=== PATIENT | female | born 2005 | race Caucasian/White ===

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

== ENCOUNTER 2023-01-12 15:08 | Emergency (ER) | payer OTHER, SELFPAY ==
[2023-01-12 15:16] VITALS: BP 115/80; PULSE 63; RESP 18; TEMP 36.8; O2SAT 98
--- NOTE | 2023-01-12 15:24 | ED.DIZZY ---
HPI - Dizziness General Chief Complaint: Syncope Stated Complaint: Syncope Time Seen by Provider: 01/12/23 15:09 Source: patient Mode of arrival: ambulatory Limitations: no limitations History of Present Illness HPI Narrative: 17-year-old female with a history of asthma, IgA deficiency, Ehler Danlos, mitral valve prolapse, POTS, migraine presents to the ER with acute onset -- lightheadedness and dizziness while she was taking her groceries from the car. The patient felt everything in front of her go dark. No chest pain or shortness of breath. The patient had an episode of migraine yesterday for which she took a cocktail containing Zofran, Benadryl and ketorolac. Her symptoms to have come on after she took this cocktail last night. She had a previous episode of migraine following which she took this cocktail which caused her to have similar symptoms. MD elicited complaint: dizziness and lightheadedness Pertinent past history: other ( pots) Onset (ago): hour(s) ( 1 hour ago) Timing: sudden onset Severity: moderate Description: lightheadedness Context: change in body position History of similar symptoms: Yes Exacerbating factors: nothing Relieving factors: nothing Associated symptoms: denies other symptoms Related Data Home Medications Medication Instructions Recorded Confirmed cefdinir 300 mg capsule 300 mg PO DAILY 05/15/19 08/06/21 gabapentin 300 mg capsule 300 mg PO TID PRN Pain 05/15/19 08/06/21 methocarbamol 500 mg tablet 500 mg PO DAILY 05/15/19 08/06/21 montelukast 10 mg tablet 5 mg PO DAILY 05/15/19 08/06/21 pantoprazole 20 mg tablet,delayed 20 mg PO DAILY 05/15/19 08/06/21 release rizatriptan 10 mg tablet 10 mg PO DIRECTED PRN Migraine 05/15/19 08/06/21 Headache topiramate 25 mg tablet 50 mg PO BID 05/15/19 08/06/21 acetaminophen 500 mg tablet 1,000 mg PO TID PRN Pain 12/12/19 08/06/21 (Tylenol Extra Strength) albuterol sulfate 90 mcg/actuation 1 - 2 puff inhalation Q4-5H PRN 12/12/19 08/06/21 aerosol inhaler (ProAir HFA) Wheezing cholecalciferol (vitamin D3) 25 25 mcg PO DAILY 12/12/19 08/06/21 mcg (1,000 unit) capsule (Vitamin D3) doxycycline hyclate 100 mg capsule 100 mg PO BID 04/21/21 08/06/21 hydrocodone 5 mg-acetaminophen 325 1 tablet PO Q4H PRN Pain 04/21/21 08/06/21 mg tablet Allergies Allergy/AdvReac Type Severity Reaction Status Date / Time codeine AdvReac Mild Insomnia Verified 04/17/22 15:18 prochlorperazine AdvReac Mild dystonic Verified 04/17/22 15:18 reaction Review of Systems Review of Systems: All systems reviewed & are unremarkable except as noted in HPI and below Constitutional: Constitutional: Reports as per HPI and Reports no additional constitutional complaints Eyes: Eyes: Reports as per HPI and Reports no additional eye complaints ENT: Reports system reviewed and no additional complaints, except as documented and Reports as per HPI Cardiovascular: Cardiovascular: Reports as per HPI and Reports no additional cardiovascular complaints Respiratory: Respiratory: Reports as per HPI and Reports no additional respiratory complaints Gastrointestinal: Gastrointestinal: Reports as per HPI and Reports no additional gastrointestinal complaints Genitourinary: Genitourinary: Reports no additional female genitourinary complaints and Reports as per HPI Musculoskeletal: Musculoskeletal: Reports no additional musculoskeletal complaints and Reports as per HPI Integumentary/Breasts: Skin/Breast: Reports system reviewed and no additional complaints, except as docu and Reports as per HPI Neurologic: Reports system reviewed and no additional complaints, except as documented, Reports as per HPI and Reports dizziness Psychiatric: Psychiatric: Reports no additional psychiatric complaints and Reports as per HPI Endocrine: Endocrine: Reports no additional endocrine complaints and Reports as per HPI Hematologic/Lymphatic: Hematologic/Lymphatic: Reports no additional hemato
--- NOTE | 2023-01-12 15:40 | ECG_ITS ---
Measurements Intervals [place] Rate: 59 P: 11 NC: 135 QRS: 63 QRSD: 86 T: 11 QT: 400 QTc: 398 Interpretive Statements SINUS BRADYCARDIA COMPARED TO ECG 10/31/2019 11:45:09 SINUS BRADYCARDIA NOW PRESENT Electronically Signed On 01-12-2023 19:31:35 CDT by Tracy Wright M.D.
[2023-01-12 15:46] VITALS: PULSE 63
[2023-01-12 15:57] LABS: Basophils Absolute Auto 0.09 K/mm3 (0.00-0.10); Basophils Percent Auto 1.3 % (0.0-1.0); Eosinophils Percent Auto 4.2 % (1.0-6.0); Hematocrit 40.2 % (35.0-49.0); Hemoglobin 13.6 g/dL (12.0-15.0); Immature Granulocyte Absolute 0.02 K/mm3 (0.00-0.00); Immature Granulocyte Percent A 0.3 % (0.0-0.0); Lymphocytes Absolute Auto 1.65 K/mm3 (1.10-4.50); Lymphocytes Percent Auto 23.3 % (18.0-42.0); Mean Corpuscular HGB Conc 33.8 g/dL (32.0-36.0); Mean Corpuscular Hemoglobin 29.4 pg (27.0-31.0); Mean Corpuscular Volume 86.8 fL (78.0-102.0); Mean Platelet Volume 9.1 fl (9.2-11.8); Monocytes Absolute Auto 0.64 K/mm3 (0.10-0.90); Neutrophils Absolute Auto 4.4 K/mm3 (1.7-7.2); Neutrophils Percent Auto 61.9 % (50.0-70.0); Platelet Count Result 366 K/mm3 (150-420); Red Blood Count 4.63 M/mm3 (4.20-5.40); Red Cell Distribution Width 11.9 % (11.6-14.4); White Blood Count 7.1 K/mm3 (4.8-10.8)
[2023-01-12 16:00] LABS: Appearance Urine Clear (Clear); Bilirubin Urine Negative (Negative); Blood Urine Negative (Negative); Color Urine Light Yellow (Yellow); Glucose Urine UA Negative (Negative); Ketones Urine Negative (Negative); Leukocyte Esterase Ur Negative LEU/UL (Negative); Nitrate Urine Negative (Negative); Protein Urine Negative (Negative); Specific Grav Ur <= 1.005 (1.010-1.020); Urobilinogen Urine 0.2 mg/dL (0.2-1.0); pH Urine 7.5 (5.0-8.0)
[2023-01-12 16:01] VITALS: BP 116/71
[2023-01-12 16:02] VITALS: BP 106/78; BP 114/74; PULSE 71; PULSE 73
[2023-01-12 16:03] LABS: Add Urine Microscopic? NO
[2023-01-12 16:04] LABS: Pregnancy On Board Control Positive; Urine Pregnancy Test Negative
[2023-01-12 16:19] LABS: Lactic Acid Reflex 0.9 mmol/L (0.4-2.0)
[2023-01-12 16:22] LABS: Alanine Aminotransferase 17 U/L (14-59); Albumin Level 4.4 g/dL (3.4-5.0); Alkaline Phosphatase 102 U/L (50-130); Anion Gap 12 mmol/L (8-16); Aspartate Amino Transferase 12 U/L (15-37); Bilirubin,Total 0.6 mg/dL (0.00-1.00); Blood Urea Nitrogen 13 mg/dL (7-18); Calcium 9.9 mg/dL (8.5-10.1); Carbon Dioxide 25 mmol/L (21-32); Chloride 104 mmol/L (98-108); Estimated CRCL calculation 80 ml/min; Estimated Glomerular Filt Rate > 60; Glucose 87 mg/dL (70-99); Osmolality Calculated 291 mOsm/kg (285-295); Potassium 3.7 mmol/L (3.5-5.1); Sodium 141 mmol/L (136-145); Total Protein 8.4 g/dL (6.4-8.2)
[2023-01-12 16:23] LABS: Troponin I < 4.0 ng/L (0.00-60.4)
--- NOTE | 2023-01-12 16:59 | PC.NURSE ---
pt resting per cot. noted arms /fingers spasming. head twitching slightly. dr craft in room with pt.
[2023-01-12 17:00] VITALS: BP 117/81; PULSE 61; RESP 20; O2SAT 99
[2023-01-12 17:26] VITALS: BP 102/72; PULSE 99; RESP 20; TEMP 37.2; O2SAT 98
== END 2023-01-12 17:30 | disposition home or self-care (01) ==
PROVIDERS: Emergency Provider Internal Medicine Critical Care Medicine; PCP Pediatrics
DX: R42 Dizziness and giddiness (principal); F41.9 Anxiety disorder, unspecified; G90.A Postural orthostatic tachycardia syndrome [POTS]; J45.909 Unspecified asthma, uncomplicated; Q79.60 Ehlers-Danlos syndrome, unspecified; D80.2 Selective deficiency of immunoglobulin A [IgA]; I34.1 Nonrheumatic mitral (valve) prolapse; K21.9 Gastro-esophageal reflux disease without esophagitis; Z79.51 Long term (current) use of inhaled steroids; Z79.891 Long term (current) use of opiate analgesic
CPT/HCPCS: 36415; 80053; 81003; 81025; 83605; 84484; 85025; 93005; 99284

== ENCOUNTER 2023-07-26 16:22 | Outpatient (CLI) | payer OTHER, SELFPAY ==
--- NOTE | ~2023-07-26 | XR_ITS ---
XR abdomen/kub 1V 07/26/2023 16:52 INDICATION: Constipation TECHNIQUE: KUB COMPARISON: None FINDINGS: Bowel gas pattern is normal. There is no evidence of free air, mass, organomegaly, ascites or obstruction. No abnormal calculi are seen. The bones appear intact. IMPRESSION: 1: No acute abdominal abnormality identified. Reviewed, dictated and finalized at location B.
== END 2023-07-26 16:23 | disposition home or self-care (01) ==
PROVIDERS: PCP Pediatrics; Visit Provider Nurse Practitioner Family
DX: K58.2 Mixed irritable bowel syndrome (principal)
CPT/HCPCS: 74018

== ENCOUNTER 2023-11-09 05:32 | Emergency (ER) | payer OTHER, SELFPAY ==
--- NOTE | ~2023-11-09 | CT_ITS ---
Noncontrast CT scan of the cervical spine Technique: Multiple contiguous axial [address] images of the cervical spine were obtained and rec onstructed in 2D sagittal and coronal planes on the acquisition scanner. Dose reduction technique was used on this scan by utilizing automated exposure control, adjustment of the mA and/or kV according to patient size. The dose-length product (DLP) was 312.50 mGy-cm. Clinical History: Pain Findings: No fractures or dislocations. There is reversal of the normal cervical lordosis. Otherwise unremarkable visualized bony structures. The intervertebral disc spaces are preserved. No preverteb ral soft tissue swelling. Impression: Reversal normal cervical lordosis, otherwise unremarkable exam. Reviewed, dictated and finalized at location M. Impression: Reversal normal cervical lordosis, otherwise unremarkable exam.
--- NOTE | 2023-11-09 05:38 | PC.NURSE ---
ER provider notified that patient is in room 1
[2023-11-09 05:45] VITALS: BP 137/104; PULSE 97; RESP 18; TEMP 36; O2SAT 98
--- NOTE | 2023-11-09 05:45 | ED.NECK ---
HPI - Neck Pain/Injury General Chief Complaint: Neck Pain/Injury Stated Complaint: neck discomfort Source: patient Mode of arrival: ambulatory Limitations: no limitations History of Present Illness HPI Narrative: Patient is a 18-year-old female with the cervical neck pain this morning. Patient was moving in the bed and heard 3 loud pop sounds while she was moving and sustained some residual pain in her cervical spine. No head injury. No forceful cervical neck injury. No other injuries. She is also having some other anxiety related symptoms after concerns for her cervical spine. MD complaint: neck pain Onset (ago): hour(s) (1) Place: home Radiation: occiput Severity: moderate Severity scale (1-10): 4 Quality: sharp Duration: constant Relieving factors: none Exacerbating factors: none Context: turning/bending Associated symptoms: none Treatments prior to arrival: none Related Data Home Medications Medication Instructions Recorded Confirmed cefdinir 300 mg capsule 300 mg PO DAILY 05/15/19 08/06/21 gabapentin 300 mg capsule 300 mg PO TID PRN Pain 05/15/19 08/06/21 methocarbamol 500 mg tablet 500 mg PO DAILY 05/15/19 08/06/21 montelukast 10 mg tablet 5 mg PO DAILY 05/15/19 08/06/21 pantoprazole 20 mg tablet,delayed 20 mg PO DAILY 05/15/19 08/06/21 release rizatriptan 10 mg tablet 10 mg PO DIRECTED PRN Migraine 05/15/19 08/06/21 Headache topiramate 25 mg tablet 50 mg PO BID 05/15/19 08/06/21 acetaminophen 500 mg tablet 1,000 mg PO TID PRN Pain 12/12/19 08/06/21 (Tylenol Extra Strength) albuterol sulfate 90 mcg/actuation 1 - 2 puff inhalation Q4-5H PRN 12/12/19 08/06/21 aerosol inhaler (ProAir HFA) Wheezing cholecalciferol (vitamin D3) 25 25 mcg PO DAILY 12/12/19 08/06/21 mcg (1,000 unit) capsule (Vitamin D3) doxycycline hyclate 100 mg capsule 100 mg PO BID 04/21/21 08/06/21 hydrocodone 5 mg-acetaminophen 325 1 tablet PO Q4H PRN Pain 04/21/21 08/06/21 mg tablet Allergies Allergy/AdvReac Type Severity Reaction Status Date / Time codeine AdvReac Mild Insomnia Verified 04/17/22 15:18 prochlorperazine AdvReac Mild dystonic Verified 04/17/22 15:18 reaction Review of Systems Review of Systems: All systems reviewed & are unremarkable except as noted in HPI and below Constitutional: Constitutional: Reports no additional constitutional complaints Eyes: Eyes: Reports no additional eye complaints ENT: Reports system reviewed and no additional complaints, except as documented Cardiovascular: Cardiovascular: Reports no additional cardiovascular complaints Respiratory: Respiratory: Reports no additional respiratory complaints Gastrointestinal: Gastrointestinal: Reports no additional gastrointestinal complaints Genitourinary: Genitourinary: Reports no additional female genitourinary complaints Musculoskeletal: Musculoskeletal: Reports no additional musculoskeletal complaints Integumentary/Breasts: Skin/Breast: Reports system reviewed and no additional complaints, except as docu Neurologic: Reports system reviewed and no additional complaints, except as documented Psychiatric: Psychiatric: Reports no additional psychiatric complaints Endocrine: Endocrine: Reports no additional endocrine complaints Hematologic/Lymphatic: Hematologic/Lymphatic: Reports no additional hematologic/lymphatic complaints Allergic/Immunologic: Allergic/Immunologic: Reports no additional allergic/immunologic complaints PMFSH Past Medical History Medical History Asthma Connective 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 GERD (gastroesophageal reflux disease) Ovarian cyst PONV (postoperative nausea and vomiting) POTS (postural orthostatic tachycardia syndrome) Surgical History Surgical History No pertinent past surgical history Social History Social History Smoking status:
--- NOTE | 2023-11-09 05:53 | PC.NURSE ---
patient ambulated to the bathroom without difficulty to give urine sample. patient was moving head and neck without difficulty while ambulating
--- NOTE | 2023-11-09 05:58 | PC.NURSE ---
urine sample was walked down to the lab
[2023-11-09 06:03] LABS: Pregnancy On Board Control Positive; Urine Pregnancy Test Negative
--- NOTE | 2023-11-09 06:15 | PC.NURSE ---
patient was transported to ct via wheel chair. moved without difficulty
--- NOTE | 2023-11-09 06:21 | PC.NURSE ---
patient has returned from ct. patient moved self without difficulty.
[2023-11-09 06:58] VITALS: BP 119/77; PULSE 85; RESP 18; O2SAT 96
== END 2023-11-09 06:58 | disposition home or self-care (01) ==
PROVIDERS: Emergency Provider Emergency Medicine; PCP Pediatrics
DX: S16.1XXA Strain of muscle, fascia and tendon at neck level, initial encounter (principal); X58.XXXA Exposure to other specified factors, initial encounter
CPT/HCPCS: 72125; 81025; 99284

== ENCOUNTER 2024-01-18 16:19 | Emergency (ER) | payer OTHER, SELFPAY ==
[2024-01-18 16:20] VITALS: BP 117/74; PULSE 80; RESP 18; TEMP 36.2; O2SAT 98
--- NOTE | 2024-01-18 16:28 | ED.GENADULT ---
HPI - General Adult General Chief complaint: Unspecified Stated complaint: DIZZINESS Time Seen by Provider: 01/18/24 16:27 Source: patient Mode of arrival: ambulatory Limitations: no limitations History of Present Illness HPI narrative: 18-year-old female with history of anxiety, pots, MVP, migraine, ovarian cyst, endometriosis with pelvic pain status post hysteroscopy /D&C/ destruction of endometriosis, , asthma, G deficiency [place] loss presents to the ED presents to the ED with a 3 day history of -- nausea/vomiting/ diarrhea. She has had 1-2 episodes of vomiting in 1-2 episodes of diarrhea. Blood and mucus noted. No abdominal pain noted. -- Patient has a brain fog feels drowsy lethargic. She has dizziness when she stands up. She has had the symptoms in the past. -- Cough productive of mucoid sputum. No chest pain. No shortness of breath. -- Frontal headache. The patient has a history of migraine. The current headache is noted on both sides. No photophobia. -- Bilateral leg pains. Onset (ago): day(s) ( Three days) Radiation: non-radiation Severity: moderate Pain Consistency: constant Relieving factors: none Exacerbating factors: none Associated symptoms: cough, headaches, loss of appetite, nausea/vomiting and weakness Treatments prior to arrival: none Related Data Home Medications Medication Instructions Recorded Confirmed cefdinir 300 mg capsule 300 mg PO DAILY 05/15/19 08/06/21 gabapentin 300 mg capsule 300 mg PO TID PRN Pain 05/15/19 08/06/21 methocarbamol 500 mg tablet 500 mg PO DAILY 05/15/19 08/06/21 montelukast 10 mg tablet 5 mg PO DAILY 05/15/19 08/06/21 pantoprazole 20 mg tablet,delayed 20 mg PO DAILY 05/15/19 08/06/21 release rizatriptan 10 mg tablet 10 mg PO DIRECTED PRN Migraine 05/15/19 08/06/21 Headache topiramate 25 mg tablet 50 mg PO BID 05/15/19 08/06/21 acetaminophen 500 mg tablet 1,000 mg PO TID PRN Pain 12/12/19 08/06/21 (Tylenol Extra Strength) albuterol sulfate 90 mcg/actuation 1 - 2 puff inhalation Q4-5H PRN 12/12/19 08/06/21 aerosol inhaler (ProAir HFA) Wheezing cholecalciferol (vitamin D3) 25 25 mcg PO DAILY 12/12/19 08/06/21 mcg (1,000 unit) capsule (Vitamin D3) doxycycline hyclate 100 mg capsule 100 mg PO BID 04/21/21 08/06/21 hydrocodone 5 mg-acetaminophen 325 1 tablet PO Q4H PRN Pain 04/21/21 08/06/21 mg tablet Allergies Allergy/AdvReac Type Severity Reaction Status Date / Time codeine AdvReac Mild Insomnia Unverified 01/18/24 16:29 prochlorperazine AdvReac Mild dystonic Verified 01/18/24 16:29 reaction Review of Systems Review of Systems: All systems reviewed & are unremarkable except as noted in HPI and below Constitutional: Constitutional: Reports as per HPI and Reports no additional constitutional complaints Eyes: Eyes: Reports as per HPI and Reports no additional eye complaints ENT: Reports system reviewed and no additional complaints, except as documented, Reports as per HPI and Reports dizziness Cardiovascular: Cardiovascular: Reports as per HPI and Reports no additional cardiovascular complaints Respiratory: Respiratory: Reports as per HPI, Reports no additional respiratory complaints and Reports cough Gastrointestinal: Gastrointestinal: Reports as per HPI, Reports no additional gastrointestinal complaints, Reports diarrhea, Reports nausea and Reports vomiting Genitourinary: Genitourinary: Reports no additional female genitourinary complaints Musculoskeletal: Musculoskeletal: Reports no additional musculoskeletal complaints Integumentary/Breasts: Skin/Breast: Reports system reviewed and no additional complaints, except as docu Neurologic: Reports system reviewed and no additional complaints, except as documented and Reports as per HPI Psychiatric: Psychiatric: Reports no additional psychiatric complaints and Reports as per HPI Endocrine: Endocrine: Reports no additional endocrine complaints and Reports as per HPI Hematologic/Lymp
[2024-01-18 16:35] VITALS: RESP 16; O2SAT 100
[2024-01-18 16:54] LABS: Add Urine Microscopic? NO; Appearance Urine Clear (Clear); Bilirubin Urine Negative (Negative); Blood Urine Negative (Negative); Color Urine Light Yellow (Yellow); Glucose Urine UA Negative (Negative); Ketones Urine Negative (Negative); Leukocyte Esterase Ur Negative LEU/UL (Negative); Nitrate Urine Negative (Negative); Protein Urine Negative (Negative); Specific Grav Ur >= 1.030 (1.010-1.020); Urobilinogen Urine 0.2 mg/dL (0.2-1.0); pH Urine 5.5 (5.0-8.0)
[2024-01-18 16:57] LABS: Pregnancy On Board Control Positive; Urine Pregnancy Test Negative
[2024-01-18 17:11] LABS: Basophils Absolute Auto 0.05 K/mm3 (0.00-0.10); Basophils Percent Auto 0.8 % (0.0-1.0); Eosinophils Absolute Auto 0.22 K/mm3 (0.02-0.50); Eosinophils Percent Auto 3.4 % (1.0-6.0); Hematocrit 40.8 % (35.0-49.0); Hemoglobin 14.1 g/dL (12.0-15.0); Immature Granulocyte Absolute 0.01 K/mm3 (0.00-0.00); Immature Granulocyte Percent A 0.2 % (0.0-0.0); Lymphocytes Absolute Auto 1.42 K/mm3 (1.10-4.50); Lymphocytes Percent Auto 21.7 % (18.0-42.0); Mean Corpuscular HGB Conc 34.6 g/dL (32-36); Mean Corpuscular Hemoglobin 29.3 pg (27.0-31.0); Mean Corpuscular Volume 84.8 fL (78.0-102.0); Mean Platelet Volume 9.2 fl (9.2-11.8); Monocytes Absolute Auto 0.41 K/mm3 (0.10-0.90); Monocytes Percent Auto 6.3 % (2.0-11.0); Neutrophils Absolute Auto 4.42 K/mm3 (1.70-7.20); Neutrophils Percent Auto 67.6 % (50.0-70.0); Platelet Count Result 328 K/mm3 (150-420); Red Blood Count 4.81 M/mm3 (4.20-5.40); Red Cell Distribution Width 12.4 % (11.6-14.4); White Blood Count 6.5 K/mm3 (4.8-10.8)
[2024-01-18 17:26] LABS: Alanine Aminotransferase 20 U/L (14-59); Alkaline Phosphatase 79 U/L (46-116); Anion Gap 11 mmol/L (4-12); Aspartate Amino Transferase 18 U/L (15-37); Bilirubin,Total 0.4 mg/dL (0.00-1.00); Blood Urea Nitrogen 17 mg/dL (7-18); Calcium 8.7 mg/dL (8.5-10.1); Carbon Dioxide 24 mmol/L (21-32); Chloride 103 mmol/L (98-108); Estimated CRCL calculation 68 ml/min; Estimated Glomerular Filt Rate > 60; Glucose 112 mg/dL (70-99); Osmolality Calculated 288 mOsm/kg (285-295); Potassium 3.1 mmol/L (3.5-5.1); Sodium 138 mmol/L (136-145); Total Protein 7.9 g/dL (6.4-8.2)
[2024-01-18 17:27] LABS: SARS-CoV-2 RNA PCR Negative (Negative)
[2024-01-18 17:29] LABS: Influenza A QL RT-PCR Negative (Negative); Influenza B QL RT-PCR Negative (Negative); RSV RNA, RT-PCR Negative (Negative)
[2024-01-18 17:39] LABS: Lactic Acid Reflex 0.9 mmol/L (0.4-2.0)
[2024-01-18] MEDS: POTASSIUM CHLORIDE 20 MEQ ER TABLET PO (17:49)
[2024-01-18 17:51] VITALS: BP 110/82; PULSE 80; RESP 14; TEMP 36.1; O2SAT 99
== END 2024-01-18 17:55 | disposition home or self-care (01) ==
PROVIDERS: Emergency Provider Internal Medicine Critical Care Medicine; PCP Pediatrics
DX: J06.9 Acute upper respiratory infection, unspecified (principal); R42 Dizziness and giddiness; E87.6 Hypokalemia; Z20.822 Contact with and (suspected) exposure to COVID-19
CPT/HCPCS: 36415; 80053; 81003; 81025; 83605; 85025; 87637; 99283; A9270

== ENCOUNTER 2024-01-20 16:23 | Emergency (ER) | payer OTHER, SELFPAY ==
[2024-01-20 17:03] VITALS: BP 125/88; PULSE 61; RESP 16; TEMP 36.3; O2SAT 100
--- NOTE | 2024-01-20 18:54 | ED.GENADULT ---
HPI - General Adult General Chief complaint: Nausea/Vomiting/Diarrhea Stated complaint: Vomiting/Migraine Source: patient Mode of arrival: ambulatory Limitations: no limitations History of Present Illness HPI narrative: 18-year-old white female history of anxiety pots mitral valve prolapse migraine endometriosis see emergency room 2 days ago with nausea vomiting had a potassium at 3.1 she has been taking Zofran at home complains of persistent vomiting unable to keep fluids down she thinks she needs an IV fluid bag so she can catch up from her dehydration. Vomited 5 times before coming to emergency department today. Last bowel movement was 2 days ago was normal denies any problems voiding. Denies any rash or itching swelling lumps or bumps dizziness or lightheadedness chest pain. She has a mild headache frontal over the eyes and forehead. She has not taken anything for the headache today. Denies any other pain. Rash or itching problems walking talking seeing or hearing or any other complaints. She comes in with her mother. Related Data Home Medications Medication Instructions Recorded Confirmed gabapentin 300 mg capsule 300 mg PO TID PRN Pain 05/15/19 01/20/24 methocarbamol 500 mg tablet 500 mg PO DAILY 05/15/19 01/20/24 montelukast 10 mg tablet 5 mg PO DAILY 05/15/19 01/20/24 pantoprazole 20 mg tablet,delayed 20 mg PO DAILY 05/15/19 01/20/24 release rizatriptan 10 mg tablet 10 mg PO DIRECTED PRN Migraine 05/15/19 01/20/24 Headache topiramate 25 mg tablet 50 mg PO BID 05/15/19 01/20/24 acetaminophen 500 mg tablet 1,000 mg PO TID PRN Pain 12/12/19 01/20/24 (Tylenol Extra Strength) albuterol sulfate 90 mcg/actuation 1 - 2 puff inhalation Q4-5H PRN 12/12/19 01/20/24 aerosol inhaler (ProAir HFA) Wheezing cholecalciferol (vitamin D3) 25 25 mcg PO DAILY 12/12/19 01/20/24 mcg (1,000 unit) capsule (Vitamin D3) hydrocodone 5 mg-acetaminophen 325 1 tablet PO Q4H PRN Pain 04/21/21 01/20/24 mg tablet midodrine 5 mg tablet 5 mg TID 01/20/24 01/20/24 propranolol 10 mg tablet 5 mg BID 01/20/24 01/20/24 Allergies Allergy/AdvReac Type Severity Reaction Status Date / Time codeine AdvReac Mild Insomnia Verified 01/18/24 17:46 prochlorperazine AdvReac Mild dystonic Verified 01/18/24 16:29 reaction Review of Systems Review of Systems: All systems reviewed & are unremarkable except as noted in HPI and below PMFSH Past Medical History Medical History Asthma Connective 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 GERD (gastroesophageal reflux disease) Ovarian cyst PONV (postoperative nausea and vomiting) POTS (postural orthostatic tachycardia syndrome) Surgical History Surgical History No pertinent past surgical history Social History Social History Smoking status: Never smoker Alcohol intake: never Substance use: never Substance use type: does not use Living arrangements: with family Spiritual care concerns: No Exam Narrative: White female patient with no apparent distress.? Head normocephalic, atraumatic.? Eyes conjunctiva pink sclera nonicteric.? Extraocular movements are intact.? Ears externally normal.? Oropharynx is clear with moist mucous membranes without exudates.? Neck is supple nontender no lymphadenopathy.? Back is nontender.? Lungs are clear.? Heart is regular rate and rhythm without murmurs gallops or rubs.? Chest wall nontender. Abdomen is soft and nontender no hepatosplenomegaly or masses no CVA tenderness no abdominal bruits.? Extremities no cyanosis clubbing or edema.? Skin is warm and dry without rashes or lesions.? Neurological patient is alert and oriented x4.? Motor and sensory grossly intact.? Gait is normal. Course Vital Signs Vital signs: Vital Signs Temperature 36.3 C L 01/20/24 17:03 Pulse Rate 61 01/20/24 17
--- NOTE | 2024-01-20 19:35 | PC.NURSE ---
IV attempted x 2. unable to obtain. labs were drawn and sent to lab.
--- NOTE | 2024-01-20 19:35 | PC.NURSE ---
updated pt and mother on change of shift and plan of care. voiced understanding
[2024-01-20 19:41] LABS: Hematocrit 39.5 % (35.0-49.0); Hemoglobin 13.6 g/dL (12.0-15.0); Mean Corpuscular HGB Conc 34.4 g/dL (32-36); Mean Corpuscular Hemoglobin 29.6 pg (27.0-31.0); Mean Corpuscular Volume 86.1 fL (78.0-102.0); Mean Platelet Volume 9.7 fl (9.2-11.8); Platelet Count Result 339 K/mm3 (150-420); Red Blood Count 4.59 M/mm3 (4.20-5.40); Red Cell Distribution Width 12.8 % (11.6-14.4); White Blood Count 9.2 K/mm3 (4.8-10.8)
[2024-01-20 19:54] LABS: Alanine Aminotransferase 21 U/L (14-59); Albumin Level 4.5 g/dL (3.4-5.0); Alkaline Phosphatase 91 U/L (46-116); Anion Gap 13 mmol/L (4-12); Aspartate Amino Transferase 26 U/L (15-37); Bilirubin,Total 0.7 mg/dL (0.00-1.00); Blood Urea Nitrogen 19 mg/dL (7-18); Calcium 9.5 mg/dL (8.5-10.1); Carbon Dioxide 21 mmol/L (21-32); Chloride 103 mmol/L (98-108); Estimated CRCL calculation 88 ml/min; Estimated Glomerular Filt Rate > 60; Glucose 76 mg/dL (70-99); Magnesium 2.5 mg/dL (1.8-2.4); Osmolality Calculated 285 mOsm/kg (285-295); Potassium 3.7 mmol/L (3.5-5.1); Sodium 137 mmol/L (136-145); Total Protein 8.7 g/dL (6.4-8.2)
[2024-01-20 20:04] VITALS: BP 105/72; PULSE 75; RESP 18; TEMP 36.2; O2SAT 100
[2024-01-20] MEDS: ONDANSETRON HCL ODT 4 MG TABLET PO (20:08)
[2024-01-20] MEDS: ACETAMINOPHEN 325 MG TABLET 650 MG PO (20:09)
--- NOTE | 2024-01-20 20:17 | PC.NURSE ---
lab at bedside drawing lactic
--- NOTE | 2024-01-20 20:29 | PC.NURSE ---
pt given water to sip after zofran. would like to try that before being stuck again. mother at bedside
[2024-01-20 20:44] LABS: Lactic Acid Reflex 0.7 mmol/L (0.4-2.0)
--- NOTE | 2024-01-20 21:05 | PC.NURSE ---
pt sipping at water. no vomiting noted.
[2024-01-20 21:56] VITALS: BP 102/66; PULSE 96; RESP 18; O2SAT 100
== END 2024-01-20 21:56 | disposition home or self-care (01) ==
PROVIDERS: Emergency Provider Emergency Medicine; PCP Pediatrics
DX: R11.2 Nausea with vomiting, unspecified (principal); Z79.899 Other long term (current) drug therapy; Z79.891 Long term (current) use of opiate analgesic
CPT/HCPCS: 36415; 80053; 83605; 83735; 85027; 99283; A9270

== ENCOUNTER 2024-05-11 15:22 | Emergency (ER) | payer OTHER, SELFPAY ==
[2024-05-11 15:24] VITALS: BP 122/68; PULSE 69; RESP 20; TEMP 36.9; O2SAT 96
--- NOTE | 2024-05-11 15:25 | ED_ITS ---
HPI - URI/Sore Throat General Chief Complaint: Upper Respiratory Infection Stated Complaint: headache Time Seen by Provider: 05/11/24 15:23 Source: patient and family Mode of arrival: ambulatory Limitations: no limitations History of Present Illness HPI Narrative: Patient is a 18-year-old female with cough and congestion and upper respiratory complaints. She has been sick now since last night. She has exposure to influenza. MD elicited complaint: cough, sore throat, rhinorrhea and nasal congestion Pertinent past history: other (AMES Syndrome) Onset (ago): day(s) (1) Consistency: constant Severity: moderate Pain scale (0-10): 1 Description of mucous: clear Able to tolerate fluids by mouth: Yes Exacerbating factors: nothing Relieving factors: nothing Context: sick contacts Associated symptoms: fever, chills, myalgias, headache, nasal congestion, sore throat, cough, chest pain, nausea and vomiting Treatments prior to arrival: acetaminophen and ibuprofen Related Data Home Medications ?Medication ?Instructions ?Recorded ?Confirmed ?Last Taken ?Type gabapentin 300 mg capsule 300 mg PO TID PRN Pain 05/15/19 01/20/24 04/24/21 History methocarbamol 500 mg tablet 500 mg PO DAILY 05/15/19 01/20/24 04/24/21 History montelukast 10 mg tablet 5 mg PO DAILY 05/15/19 01/20/24 04/23/21 History pantoprazole 20 mg tablet,delayed 20 mg PO DAILY 05/15/19 01/20/24 04/23/21 History release rizatriptan 10 mg tablet 10 mg PO DIRECTED PRN Migraine 05/15/19 01/20/24 1 Day Ago History Headache ~10/30/19 topiramate 25 mg tablet 50 mg PO BID 05/15/19 01/20/24 04/24/21 History acetaminophen 500 mg tablet 1,000 mg PO TID PRN Pain 12/12/19 01/20/24 Unknown History (Tylenol Extra Strength) albuterol sulfate 90 mcg/actuation 1 - 2 puff inhalation Q4-5H PRN 12/12/19 01/20/24 Unknown History aerosol inhaler (ProAir HFA) Wheezing cholecalciferol (vitamin D3) 25 25 mcg PO DAILY 12/12/19 01/20/24 04/20/21 History mcg (1,000 unit) capsule (Vitamin D3) hydrocodone 5 mg-acetaminophen 325 1 tablet PO Q4H PRN Pain 04/21/21 01/20/24 Unknown History mg tablet midodrine 5 mg tablet 5 mg TID 01/20/24 01/20/24 Unknown History propranolol 10 mg tablet 5 mg BID 01/20/24 01/20/24 Unknown History Allergies Allergy/AdvReac Type Severity Reaction Status Date / Time codeine AdvReac Mild Insomnia Verified 05/11/24 16:37 prochlorperazine AdvReac Mild dystonic Verified 05/11/24 16:37 reaction Review of Systems Review of Systems: All systems reviewed & are unremarkable except as noted in HPI and below Constitutional: Constitutional: Reports no additional constitutional complaints Eyes: Eyes: Reports no additional eye complaints ENT: Reports system reviewed and no additional complaints, except as documented Cardiovascular: Cardiovascular: Reports no additional cardiovascular complaints Respiratory: Respiratory: Reports no additional respiratory complaints Gastrointestinal: Gastrointestinal: Reports no additional gastrointestinal complaints Genitourinary: Genitourinary: Reports no additional female genitourinary complaints Musculoskeletal: Musculoskeletal: Reports no additional musculoskeletal complaints Integumentary/Breasts: Skin/Breast: Reports system reviewed and no additional complaints, except as docu Neurologic: Reports system reviewed and no additional complaints, except as documented Psychiatric: Psychiatric: Reports no additional psychiatric complaints Endocrine: Endocrine: Reports no additional endocrine complaints Hematologic/Lymphatic: Hematologic/Lymphatic: Reports no additional hematologic/lymphatic complaints Allergic/Immunologic: Allergic/Immunologic: Reports no additional allergic/immunologic complaints PMFSH Past Medical History Medical History PONV (postoperative nausea and vomiting) Ovarian cyst GERD (gastroesophageal reflux disease) Asthma Connective 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 POTS (postural orthostatic tachycardia syndrome) Surgical History Surgical History No pertinent past surgical history Social History Social History Smoking status: Never smoker Alcohol intake: never Substance use: never Substance use type: does not use Living arrangements: with family Spiritual care concerns: No Exam Const: General: healthy appearing Nutritional Appearance: well nourished Orientation/consciousness: patient oriented x3 HENMT: Head: normal to inspection Ears: external ears normal Face/Nose/S inus: Normal external nose present Eyes: Conjunctivae: conjunctivae normal Pupils: Equal, round and reactive pupils present EOM: EOMs intact bilaterally Neck: Neck: normal visual inspection Chest: Chest palpation & inspection: normal inspection of the chest Resp: Effort & Inspection: normal respiratory effort and not labored Auscultation: clear to auscultation bilaterally and no crackles Cardio: Rate: regular rate Rhythm: regular rhythm Heart sounds: no murmurs GI: Inspection: non-distended GI Palp: Yes Soft to palpation and No Tenderness to palpation present (GI) Auscultation: normal bowel sounds : General: Yes bladder normal to palpation Back/Spine/Pelvis: Back: no CVA tenderness Skin: General skin exam: normal color Rashes: no rashes Wounds: no wounds Neuro: General: patient oriented x3 Cranial nerves: Yes Nystagmus not present Speech: normal speech Extrem: General: normal to inspection Psych: Mental Status: mental status grossly normal Affect: normal affect Attitude: cooperative Course Vital Signs Vital signs: Vital Signs Temperature 36.9 C 05/11/24 15:24 Pulse Rate 69 05/11/24 15:24 Respiratory Rate 20 05/11/24 15:24 Blood Pressure 122/68 05/11/24 15:24 Pulse Oximetry 96 05/11/24 15:24 Oxygen Delivery Room Air 05/11/24 15:24 Temperature 37.2 C 05/11/24 16:34 Pulse Rate 101 H 05/11/24 16:34 Respiratory Rate 20 05/11/24 16:34 Blood Pressure 112/74 05/11/24 16:34 Pulse Oximetry 98 05/11/24 16:34 Oxygen Delivery Room Air 05/11/24 16:34 MDM - URI/Sore Throat MDM Narrative Medical decision making narrative: patient is a 18-year-old female with upper respiratory complaints. We will do a COVID panel test. She just finished antibiotics for strep. EKG for chest pain. Lab Data Attestation: I reviewed the patient's lab results. Labs: Lab Results 05/11/24 Range/Units 15:24 Influenza A (RT-PCR) Positive A (Negative) Influenza B (RT-PCR) Negative (Negative) RSV (RT-PCR) Negative (Negative) SARS-CoV-2 RNA (RT-PCR) Negative (Negative) ECG Data EKG #1: EKG Interpretation: tachycardia, sinus rhythm, no ectopy, no ST changes, normal QRS, normal QT and right axis Discharge Plan Discharge Clinical Impression: Influenza A Patient Disposition: Home, Self-Care Condition: Stable Instructions: Influenza (ED) Patient Language: Anguill[place] Prescriptions: New oseltamivir [Tamiflu] 75 mg capsule 75 mg PO BID 5 Days Qty: 10 0RF ondansetron 4 mg tablet,disintegrating 4 mg PO Q8H PRN (Reason: nausea and vomiting) Qty: 20 0RF No Action acetaminophen [Tylenol Extra Strength] 500 mg Tablet 1,000 mg PO TID PRN (Reason: Pain) albuterol sulfate [ProAir HFA] 90 mcg/actuation HFA aerosol inhaler 1 - 2 puff INHALATION Q4-5H PRN (Reason: Wheezing) cholecalciferol (vitamin D3) [Vitamin D3] 25 mcg (1,000 unit) Capsule 25 mcg PO DAILY prednisone 20 mg tablet 20 mg PO DAILY 5 Days Qty: 5 0RF midodrine 5 mg tablet 5 mg TID propranolol 10 mg tablet 5 mg BID methocarbamol 500 mg tablet 500 mg PO DAILY topiramate 25 mg tablet 50 mg PO BID pantoprazole 20 mg tablet,delayed release (DR/EC) 20 mg PO DAILY gabapentin 300 mg capsule 300 mg PO TID PRN (Reason: Pain) montelukast 10 mg tablet 5 mg PO DAILY rizatriptan 10 mg tablet 10 mg PO DIRECTED PRN (Reason: Migraine Headache) hydrocodone-acetaminophen 5-325 mg tablet 1 tablet PO Q4H PRN (Reason: Pain) hydrocodone-acetaminophen 5-325 mg tablet 1 tablet PO Q4H PRN (Reason: pain) Qty: 30 0RF Follow-up/Referrals: Cuate Ramon MD [Primary Care Provider] - Time of Disposition: 16:30
--- OUTSIDE RECORDS SUMMARY | 2024-05-11 15:27 | XMS_ITS | CONTINUITY OF CARE DOCUMENT ---
Author Name stella douglas Address Unknown Organization [facility] Address [address] [place] [address] [address] [place] [address] Phone [phone] Care Team Providers Care Yarder Engineer Name Role Phone Romulo HARO, Freida Unavailable BOOM NELSON MD Unavailable BOOM NELSON MD Unavailable PROBLEMS Condition Status Date Provider Notes Syncope active Freida Sebastian MD Cardiology examination active Freida saab MD ENCOUNTERS Date Type Provider Location Encounter Diag nosis - In-person encounter Office Visit Freida Sebastian MD [facility] Office Cardiology examinationSyncope VITAL SIGNS Date Observation Value Provider Body Mass Index (Ratio) 25.68 kg/m2 Emily Sebastian MD blood pressure, diastolic 79 mm[Hg] Ludy nkLogsherman blood pressure, systolic 107 mm[Hg] Shireen kLogsherman blood pressure, diastolic 79 mm[Hg] Deja Rdz blood pressure, systolic 107 mm[Hg] Andrei zander Rdz pulse rate 72 /min Azalea marie oxygen saturation, oximetry 99 % Azalea Rdz height E&M 63 [in_i] Azalea marie weight E&M 145 [lb_av] Azalea marie respiratory rate E&M 14 /min Mel Rdz blood pressure, cuff size large Deja Rdz HISTORY OF MEDICATION USE Medication Status Instructions Dates Provider Indications Com ments Qvar RediHaler 80 mcg/actuation HFA aerosol breath activated active Azalea Rdz pantoprazole 20 mg tablet,delayed release (DR/EC) active Azalea Rdz albuterol sulfate 90 mcg/actuation HFA aerosol inhaler active Azalea Rdz topiramate 50 mg tablet active Azalea DeL eonand ondansetron 4 mg tablet,disintegrating active Azalea Rdz montelukast 10 mg tablet active Azalea Rdz ketorolac 10 mg tablet active Azalea Rdz sertraline 100 mg tablet active Azalea Rdz rizatriptan 10 mg tablet active Azalea Rdz methocarbamol 500 mg tablet active Azalea Rdz SOCIAL HISTORY Date Observation Value Provider social history reviewed E&M revi ewed - no changes required Freida Sebastian MD INSURANCE PROVIDERS Payer name Policy type / Coverage type [place] red republican ID [facility] Other [id number] ADVANCE DIRECTIVES Name Date DISCUSSED - NO DECISION MADE TREATMENT PLAN Date Name Performer [id number],C,P t has been having random syncopal episodes between 5-15 times a day for the last two weeks. She is in a wheelchair today due to concern of passing out. The syncopal episodes occur most often when she is sitting down. Prior to episodes she becomes dizzy and losses her vision, she describes the dizziness as shaky vision and inability to keep head up. There is sometimes a LOC and sometimes not. She regains conciousness when parents flip her over and elevate her legs. During one of the episodes she was having convulsions. Her pulse has been dropping low during episodes per parents. She has minimal appetite and is only eating Cheerios due to nausea. EKG in sinus rhythm. P arents tried to find POTS specialist but earliest appt they could get is 12/2023. Continued hydration reccommended. S he is currently on a 30 day telemonitor from [facility] and we will obtain results. W e will arrange for a head tilt test and see whether we can get appt with EP at [facility] Freida Sebastian MD Cardiology:Pt has be en having random syncopal episodes between 5-15 times a day for the last two weeks. She is in a wheelchair today due to concern of passing out. The syncopal episodes occur most often when she is sitting down. Prior to episodes she becomes dizzy and losses her vision, she describes the dizziness as shaky vision and inability to keep head up. There is sometimes a LOC and sometimes not. She regains conciousness when parents flip her over and elevate her legs. During one of the episodes she was having convulsions. Her pulse has been dropping low during episodes per parents. She has minimal appetite and is only eating Cheerios due to nausea. EKG in sinus rhythm. P odilia tried to find POTS specialist but earliest appt they could get is 12/2023. Continued hydration reccommended. S he is currently on a 30 day telemonitor from [facility] and we will obtain results. W e will arrange for a head tilt test and see whether we can get appt with EP at [facility] Freida Sebastian MD HISTORY OF PROCEDURES Procedure Date Procedure Name Provider Procedure Notes S carmenus EKG Freida Sebastian MD complet ed
--- OUTSIDE RECORDS SUMMARY | 2024-05-11 15:27 | XMS_ITS | Encounter Summary ---
Author Organization [facility] Address [address] [place] [address] Care Team Providers Care Car Repair Supervisor Name Role Phone Cuate Ramon MD Primary Care Provider [phone] Ion De DO Unavailable [phone] Radha Zavala MD Unavailable [phone] Encounter Details Date Type Department Care Team (Late Contact Info) Description 05/28/2023 Telephone [facility] - Allergy [address] [place] [address] Karol Álvarez MD [address] [place] [address] Social History Tobacco Use Types Packs/Day Years Used Date Smoking Tobacco: Never Passive Smoke Exposure: Current Smokeless Tobacco: Never Alcohol Use Standard Drinks/Week Comments No 0 (1 standard drink = 0.6 oz pur e alcohol) Sex and Gender Information Value Date Recorded Sex Assigned at Not on file Gender Identity Not on file Sexual Orientation Not on file documented as of this encounter Plan of Treatment Upcoming Encounters Date Type Department Care Team (Late Contact Info) Description 06/13/2024 3:00 PM DEPUTY PROBATION OFFICER Office Visit [facility] [address] [place] [address] Danya Marks, CENTRAL SCHEDULER-SEO INTERN [address] [place] [address] 09/04/2024 1:00 PM CDT Office Visit [facility] - Rheumatology [address] [facility] [place] [id number] Micheal Biggs MD [address] [facility] [address] [place] [id number] documented as of this encounter Visit Diagnoses Not on filedocumented in this encounter Care Teams Car Repair Supervisor Relationship Specialty Start Date End Date Cuate Ramon MD [address] [place] [address] PCP - General 08/09/17 Ion De DO [facility] [place] [address] Rheumatology 08/05/20 Radha Zavala MD [address] [place] [id number] Neurology 12/07/23 documented as of this encounter
--- OUTSIDE RECORDS SUMMARY | 2024-05-11 15:27 | XMS_ITS | Clinical Summary ---
Author Organization [facility] Address [address] [place] [address] Phone Care Team Providers Care Meat Boner And Slicer Name Role Phone Cuate Ramon MD Primary Care Provider [phone] Allergies Active Allergy Reactions Criticality Noted Date Comments Codeine Other (See Comments) Medium 05/05/2013 Stayed awake for 27 hours. Prochlorperazine Other (See Comments) High 9 Medications meloxicam (MOBIC) 15 mg tablet Take 15 mg by mouth. 04/21/2018 Active FLUoxetine (PROzac) 10 mg capsule Take 30 mg by mouth. 08/20/2017 Active pantoprazole (PROTONIX) 20 mg Tablet, Delayed Release (E.C.) Take 1 Tablet by mouth. 04/01/2017 Active magnesium oxide 500 mg Capsule Take 500 mg by mouth. Active magnesium gluconate (MAGONATE) 27 mg (500 mg) Tablet Take 500 mg by mouth. Active montelukast (SINGULAIR) 5 mg Tablet, Chewable Take 5 mg by mouth. Active topiramate (TOPAMAX) 25 mg tablet Take 50 mg by mouth. 05/24/2018 Active methocarbamol (ROBAXIN) 500 mg tablet Take 500 mg by mouth. 10/20/2017 Active cefdinir (OMNICEF) 300 mg capsule Take 300 mg by mouth. 02/26/2017 Active ondansetron (ZOFRAN ODT) 4 mg Tablet, Rapid Dissolve Take 4 mg by mouth. 04/08/2017 Active ketorolac tromethamine (TORADOL) 10 mg tablet Take 1 Tablet by mouth. 06/15/2017 Active hydroxychloroquin e (PLAQUENIL) 200 mg tablet 200 mg in the AM & 100 mg in the PM 06/06/2018 Active Active Problems Problem Noted Date Diagnosed Date Anxiety disorder 05/24/2018 Overview (08/03/2018): Last Assessment & Plan: Stable. Resumed home fluoxetine. She was seen by her psychologist, Margoth Porras, who offered psychoeducation to Christen and mom in regards to anxiety and coping. As falling behind is a stressor for her, Margoth offered some options for communication and strategies for interacting with the school staff. -Fluoxetine 40mg qday Dystonic drug reaction 05/05/2018 Overview (08/03/2018): Last Assessment & Plan: Benztropine was given. Dilated pupils which do not accommodate and minimal reaction to light. Anticipate that this will resolve without consequence. 20/20 in the distance w/ rx and 20/20 at near without rx. Doing well. 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 Family History Medical History Relation Name Comments ADHD Brother Asthma Brother Diabetes Father Other Mother fibromyalgia Relation Name Status Comments Brother Father Mother Social History Tobacco Use Types Packs/Day Years Used Date Smoking Tobacco: Never Assessed Comments Unknown Sex and Gender Information Value Date Recorded Sex Assigned at Not on file Legal Sex Female 3:44 PM CDT Gender Identity Not on file Sexual Orientation Not on file Last Filed Vital Signs Vital Sign Reading Time Taken Comments Blood Pressure 109/64 08/03/2018 10:38 AM CDT Pulse - - Temperature - - Respiratory Rate - - Oxygen Saturation - - Inhaled Oxygen Concentration - - Weight 55.8 kg (123 lb) 08/03/2018 10:38 AM CDT Height 157.5 cm (5' 2 ) 08/03/2018 10:38 AM CDT Body Mass Index 22.5 08/03/2018 10:38 AM CDT Plan of Treatment Health Maintenance Due Date Last Done Comments CHLAMYDIA SCREENING (ANNUAL) 11-24 YEARS 09/05/2014 HPV VACCINES (1 - 3-dose series) 09/05/2018 DTAP/TDAP/TD VACCINES (1 - Tdap) 09/05/2022 HEPATITIS B VACCINES (1 of 3 - 19+ 3-dose series) 08/10 INFLUENZA VACCINE (#1) 2023 04/12/2018 Insurance Care Teams Meat Boner And Slicer Relationship Specialty Start Date End Date Cuate Ramon MD [address] [place] [address] PCP - General Pediatrics 08/03/18
--- OUTSIDE RECORDS SUMMARY | 2024-05-11 15:27 | XMS_ITS | Clinical Summary ---
Author Organization [facility] Address [address] [facility] [place] [address] Care Team Providers Care Package Sealer Machine Name Role Phone Cuate Ramon MD Primary Care Provider [phone] Ion De DO Unavailable [phone] Radha Zavala MD Unavailable Source Comments [facility],non-owned Affiliates and Associated Physician Practices is amultiple site organization consisting of ambulatory clinics and hospital sitesin [place], [place], [place] and [place]. This disclosure is being madepursuant to the Care Everywhere program and may not contain all information available regarding this patient. Last updated 17.[facility] Allergies Active Allergy Reactions Criticality Noted Date Comments Codeine Psychiatric Medium 05/05/2013 Stayed awake for 27 hours. Prochlorperazine Other High 05/16/2018 Medications * Be aware that medications may not be up to date on this document. Alwaysverify current medications with the patient. Medication Sig Dispensed Refills Start Date End Date Status cefdinir (OMNICEF) 300 MG capsule Take 1 (one) capsule by mouth once daily 02/26/2017 Active ondansetron, disintegrating, (ZOFRAN ODT) 4 MG tablet Take 1 (one) tablet by mouth 04/08/2017 Active pantoprazole EC (PROTONIX) 20 MG tablet Take 1 (one) tablet by mouth once daily 04/01/2017 Active rizatriptan (MAXALT) 10 MG tablet Take 1 (one) tablet by mouth once as needed 04/07/2017 Active ketorolac (TORADOL) 10 MG tablet Take 1 (one) tablet by mouth 06/15/2017 Active acetaminophen (TYLENOL) 500 MG tablet Take 2 (two) tablets by mouth every 6 hours as needed Pt does not take it regularly Active diphenhydrAMINE (BENADRYL) 25 MG capsule Take 1 (one) capsule by mouth as needed Active montelukast (SINGULAIR) 5 MG chew tablet Take 1 (one) tablet by mouth once daily as needed Active topiramate (TOPAMAX) 25 MG tablet Take 1 (one) tablet by mouth 4 times daily 05/24/2018 Active fluticasone-salmeter ol hfa (ADVAIR HFA) 230-21 MCG/ACT Inhale 2 (two) puffs by mouth 2 times daily as needed 05/16/2018 Active meclizine (ANTIVERT) 12.5 MG tablet Take 1 (one) tablet to 2 (two) tablets by mouth 2 times daily as needed 02/02/2017 Active Magnesium 500 MG Take 500 mg by mouth at bedtime Active beclomethasone HFA (QVAR REDIHALER HFA) 80 MCG/ACT inhaler Inhale 2 (two) puffs by mouth as needed 05/22/2019 Active Cholecalciferol (VITAMIN D3) 75 MCG (3000 UT) Take 3,000 Units by mouth once daily 06/25/2018 Active sertraline (ZOLOFT) 25 MG tablet Take 4 (four) tablets by mouth once daily 12/02/2020 Active albuterol HFA (Proventil; Ventolin; Proair) 108 (90 Base) MCG/ACT inhaler Inhale 1 (one) puff by mouth every 6 hours as needed Active azelastine (Astelin) 0.1 % nasal spray Liberal 1 (one) spray into the nose as needed 07/12/2023 Active budesonide-formotero l (Symbicort) 80-4.5 MCG/ACT inhaler Inhale 2 (two) puffs by mouth 2 times daily as needed Active fluticasone propionate (Flonase) 50 MCG/ACT nasal spray Liberal 1 (one) spray into the nose 2 times daily as needed 08/12/2023 Active midodrine (Proamatine) 5 MG tablet Take 1 (one) tablet by mouth 3 times daily before meals 90 tablet 5 12/13/2023 Active propranolol (Inderal) 10 MG tablet Take 1 (one) tablet by mouth 2 times daily 120 tablet 5 12/13/2023 Active Other Low dose naltrexone 1mg tablet twice daily, may titrate to max of 2mg twice daily 90 tablet 5 12/13/2023 Active hydroxychloroquine (Plaquenil) 200 MG tabletIndications:Ar thralgia, unspecified joint,Patellar tracking disorder, unspecified laterality,Connectiv e 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 (HCC),Amplified musculoskeletal pain,Other fatigue,Hypermobile joints,Myalgia,Fever , unspecified fever cause,EBV infection Take 1.5 (one and one-half) tablets by mouth once daily 135 tablet 1 12/26/2023 Active diclofenac sodium EC (Voltaren) 75 MG tabletIndications:Ar thralgia, unspecified joint Take 1 (one) tablet by mouth 2 times daily 180 tablet 1 12/26/2023 Active promethazine (Phenergan) 25 MG tablet Take 1 (one) tablet by mouth every 6 hours as needed 04/24/2024 5 Discontinu ed(List Clean-Up) Active Problems Problem Noted Date Diagnosed Date Seasonal allergies 12/13/2023 POTS (postural orthostatic tachycardia syndrome) 12/13/2023 Anxiety disorder 12/13/2023 Vocal cord dysfunction 12/13/2023 MVP (mitral valve prolapse) 12/13/2023 Endometriosis 12/13/2023 COVID-19 08/09/2021 Overview (12/13/2023): x2 Right hip pain 07/08/2021 Femoroacetabular impingement of right hip 2021 Ligament laxity 07/08/2021 Chronic TMJ pain 08/05/2020 Toe pain, right 08/05/2020 Chronic nausea 01/18/2020 High risk medications (not anticoagulants) long- term use 01/18/2020 Chronic fatigue 01/18/2020 High risk medication use 10/18/2018 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 Abnormal PFT 10/18/2018 superintendent terminal current use of non -steroidal anti-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 (NSAID) 10/17/2018 Amplified musculoskeletal pain 08/11/2017 Connective 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 08/11/2017 EBV infection 08/11/2017 Other fatigue 08/11/2017 Arthralgia 08/11/2017 Myalgia 08/11/2017 Chronic migraine without aur a with status migrainosus, not intractable 08/11/2017 Hypermobile joints 08/11/2017 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 Obtain serum thyroid hormone levels with next blood specimen collection Orders Placed This Encounter ? ? TSH ? ? T4 TOTAL 2. Expectant observation 3. Return visit in 9-12 months Assessment & Plan (08/29/2017 1:41 PM CDT): Autoimmune thyroid disease; at risk of developing hypothyroidism 1. Orders Placed This Encounter ? ? TSH 2. See website: [email or web address].org for patient information handouts - Nabor's disease 3. Return appointment in four months. Resolved Problems Problem Noted Date Diagnosed Date Resolved Date Fever 08/05/2020 08/19/2020 Fever 03/06/2019 03/20/2019 Rash 10/18/2018 11/15/2018 Fever 08/11/2017 08/25/2017 Encounters Date Type Department Care Team Description 05/03/2024 10:00 AM FRAMING INSPECTOR Office Visit [facility] - Rheumatology [address] [place] [address] [place] [address] Micheal Biggs MD Connective 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 (HCC) (Primary Dx); EBV infection 05/03/2024 Travel from Last 3 Months Immunizations Name Administration Dates Next Due DTAP, HISTORIC VACCINE 11/11/2008,2004,03/09/2004,01/05,2003 DTaP VACCINE IM (6wk-6yrs) 11/11/2008,,03/09/2004,01/05,2003 FLU VACCINE TRI IIV3 SPLIT P F IM (FLUVIRIN) 03/15/2017 HEP A PED/ADULT VACCINE 01/23/2008,01/31/2007 HEP A PEDS 2 DOSE 01/23/2008,01/31/2007 HEP B VACCINE 09/10/2004, 5,01/06/2004,01/05,2003,2003 HIB VACCINE 09/10/2004, 5,01/06/2004,01/05,2003,2003 Human Papilloma Virus Nineva lent Vaccine 07/26/2016,01/09/2016 INFLUENZA VACCINE 01/22/2021,01/09/2016,01/09/20 16 INFLUENZA VACCINE, QUADR. (F LUZONE; FLULAVAL; FLUARIX; AFLURIA QUADRIVALENT; 6MO+), 0.5 ML (IIV4) 04/12/2018 MENINGOCOCCAL CONJUGATE (MCV4P) 01/22/2021,01/06 MMR 11/11/2008,09/10/2004 Meningococcal B Recombinant 2 Dose, IM 1 PNEUMOCOCCAL PPSV23 01/06/2015,01/06/2015 PNEUMOCOCCAL PPV VACCINE 09/10/2004,05/2004,03/09/2004,03/09,01/06/2004,01/06/2004,2003 ,2003 POLIO,HISTORIC VACCINE 11/11/2008,2003,01/06/2004,11/10 TDAP (7yrs+) 01/06/2015 VARICELLA 01/23/2008,09/10/2004 Family History Medical History Relation Name Comments Diabetes - Type 2 Father Open heart surgery, Other Mother Open heart surg issa,Heart failure, Other Other Mother's patern al cousin's with Graves and autoimmune thyorid disease Relation Name Status Comments Brother Alive Father Alive Mother Alive Other Social History Tobacco Use Types Packs/Day Years [...] Sign Reading Time Taken Comments Blood Pressure 121/84 05/03/2024 9:53 AM FRAMING INSPECTOR Pulse 77 05/03/2024 9:53 AM FRAMING INSPECTOR Temperature 36.3 ??C (97.3 ??F) 05/03/2024 9:53 AM CS T Respiratory Rate 16 04/02/2023 1:59 AM FRAMING INSPECTOR Oxygen Saturation 100% 04/02/2023 1:59 AM FRAMING INSPECTOR Inhaled Oxygen Concentration - - Weight 67.2 kg (148 lb 3.2 oz) 05/03/2024 9:53 A M FRAMING INSPECTOR Height 160 cm (5' 2.99 ) 05/03/2024 9:53 AM FRAMING INSPECTOR Body Mass Index 26.26 05/03/2024 9:53 AM FRAMING INSPECTOR Plan of Treatment Upcoming Encounters Date Type Department Care Team (Late st Contact Info) Description 06/13/2024 3:00 PM FRAMING INSPECTOR Office Visit [facility] Neurosciences [address] [facility] [address] [place] [address] Danya Marks, NURSE [facility] [address] [facility] [address] [place] [address] 09/04/2024 1:00 PM CDT Office Visit [facility] - Rheumatology [address] [place] [address], [place] [address] Micheal Biggs MD [address] [place] [address] [place] [address] Health Maintenance Due Date Last Done Comments PNEUMOCOCCAL VACCINE (3 of 3 - PCV) 01/07/2016 01/06/2015, 01/06/2015, 09/10/2004, Additional history exists HPV VACCINE (3 - Risk 3-dose series) 11/25/2016 07/26/2016, 01/09/2016 HIV SCREENING 09/05/2018 CHLAMYDIA/GONORRHEA SCREENING 2019 MENINGOCOCCAL (Group B) VACC INE (2 of 2 - Bexsero SCDM 2-dose series) 07/23/2021 01/22/2021 HEPATITIS C SCREENING 09/01/2021 ZOSTER VACCINE (1 of 2) 09/05/2022 COVID-19 VACCINE (5 - 2023-2 5 season) 2023 02/18/2022, 01/22/2021, 07/02/2020, Additional history exists DEPRESSION SCREENING 04/11/2024 DTAP/TDAP/TD VACCINES (7 - T d or Tdap) 01/06/2025 01/06/2015, 11/11/2008, 11/11/2008, Additional history exists HEPATITIS B VACCINE Completed 09/10/2004, 09/10/2004, 01/06/2004, Additional history exists HIB VACCINE Completed 09/10/2004, 05/2004, 01/06/2004, Additional history exists MENINGOCOCCAL VACCINE Completed 01/22/2021, 015 INFLUENZA VACCINE Completed 02/15/2024, , 01/22/2021, Additional history exists Care Teams Package Sealer Machine Relationship Specialty Start Date End Date Cuate Ramon MD [address] [place] [address] PCP - General 08/09/17 Ion De DO [address] [place] [id number] Rheumatology 08/05/20 Radha Zavala MD [address] [facility] [address] [place] [address] Neurology 12/07/23
--- OUTSIDE RECORDS SUMMARY | 2024-05-11 15:27 | XMS_ITS | Referral Summary ---
Author Organization [facility] Address [address] [facility] [place] [address] Care Team Providers Care Dog Handler Or Trainer Name Role Phone Cuate Ramon MD Primary Care Provider [phone] Ion eD DO Unavailable [phone] Radha Zavala MD Unavailable [phone] Source Comments [facility],non-owned Affiliates and Associated Physician Practices is amultiple site organization consisting of ambulatory clinics and hospital sitesin [place], [place], [place] and [place]. This disclosure is being madepursuant to the Care Everywhere program and may not contain all information available regarding this patient. Last updated 17.[facility] Encounters Date Type Department Care Team Description 05/03/2024 Travel 05/03/2024 10:00 AM PLATE ROLLER Office Visit [facility] - Rheumatology [facility] [facility], [place] [phone] Micheal Biggs MD Connective 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 (HCC) (Primary Dx); EBV infection from Last 3 Months Allergies Active Allergy Reactions Criticality Noted Date [...] Active azelastine (Astelin) 0.1 % nasal spray Gilbert 1 (one) spray into the nose as needed 07/12/2023 Active budesonide-formotero l (Symbicort) 80-4.5 MCG/ACT inhaler Inhale 2 (two) puffs by mouth 2 times daily as needed Active fluticasone propionate (Flonase) 50 MCG/ACT nasal spray Gilbert 1 (one) spray into the nose 2 times daily as needed 08/12/2023 Active midodrine (Proamatine) 5 MG tablet Take 1 (one) tablet by mouth 3 times daily before meals 90 tablet 5 12/13/2023 Active propranolol (Inderal) 10 MG tablet Take 1 (one) tablet by mouth 2 times daily 120 tablet 12/13/2023 Active Other Low dose naltrexone 1mg tablet twice daily, may titrate to max of 2mg twice daily 90 tablet 12/13/2023 Active hydroxychloroquine (Plaquenil) 200 MG tabletIndications:Ar [...] 10/18/2018 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 Abnormal PFT 10/18/2018 penitentiary current use of non -steroidal anti-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 (NSAID) [...] 03/20/2019 Rash 10/18/2018 11/15/2018 Fever 08/11/2017 08/25/2017 Immunizations Name Administration Dates Next Due DTAP, [...] VACCINE 11/11/2008,2003,01/06/2004,11/10 TDAP (7yrs+) 01/06/2015 VARICELLA 01/23/2008,09/10/2004 Social History Tobacco Use Types Packs/Day Years [...] Comments Blood Pressure 121/84 05/03/2024 9:53 AM PLATE ROLLER Pulse 77 05/03/2024 9:53 AM PLATE ROLLER Temperature 36.3 ??C (97.3 ??F) 05/03/2024 9:53 AM CS T Respiratory Rate 16 04/02/2023 1:59 AM PLATE ROLLER Oxygen Saturation 100% 04/02/2023 1:59 AM PLATE ROLLER Inhaled Oxygen Concentration - - Weight 67.2 kg (148 lb 3.2 oz) 05/03/2024 9:53 A M PLATE ROLLER Height 160 cm (5' 2.99 ) 05/03/2024 9:53 AM PLATE ROLLER Body Mass Index 26.26 05/03/2024 9:53 AM PLATE ROLLER Plan of Treatment Upcoming Encounters Date Type Department Care Team (Late st Contact Info) Description 06/13/2024 3:00 PM PLATE ROLLER Office Visit [facility] Neurosciences [address] [facility] [address] [place] [address] Danya Marks, RETAIL PHARMACIST-OUTSIDE SALES ASSOCIATE [address] [facility] [address] [place] [address] 09/04/2024 1:00 PM CDT Office Visit [facility] - Rheumatology [address] [place] [address], [place] [phone] Micheal Bigsg MD [address] [place] [address] [place] [address] Care Teams Dog Handler Or Trainer Relationship Specialty Start Date End Date Cuate Ramon MD [address] [place] [address] PCP - General 08/09/17 Ion De DO [address] [place] [address] Rheumatology 08/05/20 Radha Zavala MD [facility] [address] [place] [address] Neurology 12/07/23
--- OUTSIDE RECORDS SUMMARY | 2024-05-11 15:28 | XMS_ITS | Encounter Summary ---
Author Organization [facility] Healthcare Address [address] [place] [address] Care Team Providers Care Candy Maker Helper Name Role Phone Cuate Ramon MD Primary Care Provider [phone] Twan Lopez MD Unavailable [phone] Alisa Lai PT Unavailable Unavailable Maria Teresa Padron Unavailable Unavailable Encounter Details Date Type Department Care Team (Late st Contact Info) Description 01/27/2021 Telephone [facility] Transplant Heart [address] [facility] [address] [phone] [place] [address] Michaela Haas Social History Tobacco Use Types Packs/Day Years Used Date Smoking Tobacco: Passive Smo ke Exposure - Never Smoker Smokeless Tobacco: Never Alcohol Use Standard Drinks/Week Comments Not Currently 0 (1 standard drink = 0.6 oz pur e alcohol) Comments No Sex and Gender Information Value Date Recorded Sex Assigned at Not on file Legal Sex Female 6:05 AM RADIO ARTIST Gender Identity Female 04/05/2023 1:07 AM RADIO ARTIST Sexual Orientation Straight 04/05/2023 1: 07 AM RADIO ARTIST documented as of this encounter Plan of Treatment Not on file documented as of this encounter Goals Goal Patient Goal Type Associated Problems Recent Progress Patient-Stated? Author -Pain Behavioral Health Improving( 5:42 PM RADIO ARTIST) No Margoth Porras, PhD Note: Increase functioning in daily activities BH-Pain Behavioral Health No change(06/18 5:42 PM RADIO ARTIST) No Margoth Porras, PhD Note: Increase non-pharmacological strategies for coping with pain documented as of this encounter Visit Diagnoses Not on filedocumented in this encounter Care Teams Candy Maker Helper Relationship Specialty Start Date End Date Cuate Ramon MD [address] [facility] [place] [employer] [address] PCP - General 10/22/16 Twan Lopez MD [address] [facility] [place] [employer] [address] Anesthesiologist Pediatric Anesthesia 10/20/17 Alisa Lai, PT Physical Therapist Physical Therapy 10/20/17 Maria Teresa Padron Physical Therapist Physical Therapy 11/24/17 documented as of this encounter
--- OUTSIDE RECORDS SUMMARY | 2024-05-11 15:28 | XMS_ITS | Clinical Summary ---
Author Organization [facility] ospital Address [address] [place] [address] Care Team Providers Care Thermoscrew Operator Name Role Phone Cuate Ramon MD Primary Care Provider [phone] Twan Lopez MD Unavailable [phone] Alisa Lai PT Unavailable Unavailable Maria Teresa Padron Unavailable Unavailable Allergies Active Allergy Reactions Criticality Noted Date Comments Codeine Dystonia High 05/05/2013 Prochlorperazine Dystonia High 05/16/2018 Medications hydroxychloroquin e (PLAQUENIL) 200 mg tablet Take 1.5 tablets (300 mg total) by mouth daily 023 Active montelukast (SINGULAIR) 10 mg tablet Take 1 tablet (10 mg total) by mouth nightly Active famotidine (PEPCID) 20 mg tablet Take 1 tablet (20 mg total) by mouth 2 (two) times a day as needed for indigestion or heartburn 60 tablet 1 024 Active senna-docusate (PERICOLACE) 8.6-50 mg Take two tabs 2-3 nights weekly to help with larger and more complete morning bowel movements. 60 tablet 2 024 Active albuterol 2.5 mg /3 mL (0.083 %) nebulizer solution Take 3 mL (2.5 mg total) by nebulization every 4 (four) hours as needed for wheezing (or as directed.) 180 mL 024 2024 Active nebulizer accessories kit Replacement nebulizer tube and mask 1 kit Active azelastine (ASTELIN) 137 mcg (0.1 %) nasal sprayIndications: Perennial Allergic Rhinitis Administer 1 spray into each nostril 2 (two) times a day Use in each nostril as directed 30 mL 11 Active fluticasone propionate (FLONASE) 50 mcg/actuation nasal spray Administer 1 spray into each nostril 2 (two) times a day as needed for rhinitis (nasal congestion) [address] (PROTONIX) 40 mg EC tablet TAKE 1 TABLET DAILY 90 tablet 3 Active propranoloL (INDERAL) 10 mg tablet 0.5 tablets (5 mg total) Active midodrine (PROAMATINE) 5 mg tablet Take 1 tablet (5 mg total) by mouth Active [place] Saline gel Active topiramate (TOPAMAX) 50 mg tablet Take 1 tablet (50 mg total) by mouth 2 (two) times a day 60 tablet 1 Active ketorolac (TORADOL) 10 mg tablet Take 1 tablet (10 mg total) by mouth every 6 (six) hours as needed for pain (Take 10 mg with Zofran for headache relief. Do not take more than 3 times a week.) 10 tablet Active rimegepant (Nurtec ODT) tablet,disintegra ting Take 1 tablet (75 mg total) by mouth daily as needed (migraine) 36 tablet 6 Active magnesium gluconate (MAGONATE) 500 mg (27 mg elemental) tablet Take 1 tablet (500 mg total) by mouth daily 30 tablet 11 Active cefdinir (OMNICEF) 300 mg capsule Take 1 capsule (300 mg total) by mouth daily 90 capsule 3 Active albuterol HFA (PROVENTIL HFA,VENTOLIN HFA,PROAIR HFA) 90 mcg/actuation inhaler Inhale 2-4 puffs every 4 (four) hours as needed for wheezing 3 each 1 Active budesonide-formot Donya (SYMBICORT) 80-4.5 mcg/actuation inhaler Use 2 puffs once daily and 1-2 puffs every 4 hours as needed, max 12 puffs per day. Rinse mouth with water after use. Do not swallow. 30.6 g 2 Active rizatriptan (MAXALT) 10 mg tablet Take 1 tablet (10 mg total) by mouth once as needed for migraine for up to 9 doses 9 tablet Active sertraline (ZOLOFT) 100 mg tablet Take 1 tablet (100 mg total) by mouth daily 90 tablet 1 Active promethazine (PHENERGAN) 25 mg tablet Take 1 tablet (25 mg total) by mouth every 6 (six) hours as needed for nausea or vomiting 30 tablet 1 Active ondansetron (ZOFRAN) 8 mg tablet Take 1 tablet (8 mg total) by mouth 4 (four) times a day as needed for nausea or vomiting 30 tablet 2 Active linaCLOtide (LINZESS) 145 mcg capsule Take 1 capsule (145 mcg total) by mouth daily 90 capsule 3 Active sertraline (ZOLOFT) 100 mg tablet Take 1 tablet (100 mg total) by mouth daily 2024 Discontinued(R eorder) hyoscyamine (LEVSIN) 0.125 mg tabletIndications :Urinary Incontinence Take 1 tablet (0.125 mg total) by mouth every 4 (four) hours as needed 2024 Discontinued sertraline (ZOLOFT) 25 mg tablet Take 1 tablet (25 mg total) by mouth daily 90 tablet 1 024 2024 Discontinued ondansetron ODT (ZOFRAN-ODT) [address] 1 TABLET ON THE TONGUE EVERY 6 HOURS NEEDED FOR NAUSEA OR VOMITING 60 tablet 3 024 2024 Discontinued predniSONE (DELTASONE) 20 mg tablet Take 3 tablets (60 mg) by mouth daily for 5 days 15 tablet 2024 Active Problems Problem Noted Date Diagnosed Date Nausea and vomiting 05/09/2024 Gastroesophageal reflux disease without esophagi tis 05/09/2024 Mild persistent asthma without complication 11/0 09/2023 Change in bowel habits 07/29/2023 Acute anterior epistaxis 07/12/2023 Irritable bowel syndrome wit h both constipation and diarrhea 05/27/2023 Myopic astigmatism of both eyes 05/09/2023 Episode of abnormal behavior 02/03/2023 Assessment & Plan (02/04/2023 12:15 AM CDT): 17 yo female with FND/PNES, migraines, chronic pain, POTS, MVP, hypermobile joints, selective IgA deficiency, who was admitted for new spells of abnormal behavior. Based off her history of presenting symptoms, there is a strong likelihood this is a new presentation of FND. She is without bowel/bladder incontinence, able to maintain consciousness, able to hear/remember these events, and returns to baseline rapidly. No identifiable triggers at this time. Plan at this time as follows: - monitor symptomology overnight - continue home meds - regular diet as tolerated - consider orthostatic vitals, psychiatric assessment, sleep medicine referral in AM when awake Mild intermittent asthma, uncomplicated 12/23/19 21 Assessment & Plan (05/08/2021 2:38 PM PUBLIC ADMINISTRATION TEACHER): - Continue home Montelukast 10mg QHS albuterol 4 puff q4h PRN Assessment & Plan (05/07/2021 4:58 PM PUBLIC ADMINISTRATION TEACHER): - Continue home Montelukast 10mg QHS albuterol 4 puff q4h PRN Concussion without loss of consciousness 020 Vocal cord dysfunction 01/22/2019 Non-allergic rhinitis 01/15/2019 Tremor 12/28/2018 High risk medication use 10/18/2018 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 She was started on a scheduled migraine cocktail which did not provide much relief. However, after a couple doses of depakote, she had significant improvement in her headache and was able to ambulate. Given the shortage of depakote, she will receive one additional dose of depakote prior to it being discharged. Although her headache has improved, Christen did not feel comfortable with the currently intensity of her headache, rated 2/10. S/p 4 doses of depakote. After discussing risks and benefits, the decision was made to proceed with DHE, which will be given per protocol. -Topiramate 50mg BID -DHE per protocol Assessment & Plan (06/22/2018 1:29 AM CDT): 12 y/o female presents with status migrainosus since last . Pt seen at [facility] ED on Tuesday and was discharged home after her headache improved with zofran, IVF, benadryl, toradol. Headache worsened 12 hours later, not helped with triptan, toradol, benadryl, and zofran at home. In the ED, pain initially 8/10 with photophobia and phonophobia and nausea, pain improved to 5/10 with IVF, zofran, benadryl, toradol and magnesium. - Patient does take daily OCP, however, states this feels like her usual migraine, denies confusion, numbness/weakness/tingling - over the last month, increased frequency, intensity of headaches - current meds: daily fluoxitine, tomopax, PRN migraine cocktail/triptan/ibuprofen/tylenol - neuro exam non-focal, well appearing - Headaches are currently improving with the migraine cocktail and magnesium given in the ED Plan: Continue current treatment regimen. - IVF, zofran, toradol, benadryl Q6hr - possible DHE in AM if symptoms not relieved - will obtain ECG, Upreg, and CMP in preparation for DHE - continue home meds: fluoxetine and topomax Anxiety disorder 05/24/2018 Assessment & Plan (05/08/2021 2:38 PM PUBLIC ADMINISTRATION TEACHER): - Continue home sertaline 75 mg Assessment & Plan (05/07/2021 4:56 PM PUBLIC ADMINISTRATION TEACHER): - Continue home sertaline 75 mg Assessment & Plan (06/23/2018 3:16 PM CDT): Stable. Resumed home fluoxetine. She was seen by her psychologist, Margoth Porras, who offered psychoeducation to Christen and mom in regards to anxiety and coping. As falling behind is a stressor for her, Margoth offered some options for communication and strategies for interacting with the school staff. -Fluoxetine 40mg qday Assessment & Plan (06/22/2018 1:32 AM CDT): - continue daily fluoxetine - psychology consult due to failing 9th grade and multiple stressors Dystonic drug reaction 05/05/2018 Assessment & Plan (05/05/2018 5:09 PM PUBLIC ADMINISTRATION TEACHER): Benztropine was given. Dilated pupils which do not accommodate and minimal reaction to light. Anticipate that this will resolve without consequence. 20/20 in the distance w/ rx and 20/20 at near without rx. Doing well. Call in 1 week if sx have not resolve.d Error, refractive, myopia, bilateral 05/05/2018 Assessment & Plan (01/02/2019 2:53 PM CDT): Myopic astigmatism both eyes (OU); very little change in Rx on dilated exam today. Patient may continue with current glasses. Return in 4-6 months for repeat OCT and retinal/ocular check due to elevated copper findings. Monitor for changes, and return sooner if any problems or concerns. Accommodation paralysis, bilateral 05/05/2018 Other chronic pain 12/29/2017 Overview (06/13/2020): Medications Christen has tried includeGabapentin 300 mg at night- pain- Duloxetine 30 mg- headache anxiety, Plaquenil- joint pain ,Sertraline headache- anxiety.Topamax - headache Robaxin- Toradol- headaches- Hyoscyamine IBS, paroxetine, fluoxetine Physical functioning includes limited for her currently due to concern for COVID exposure, she attends PE virtually, attended PT in the past. Mental Health resources no current counselor on cymbalta and sertraline per neurology Hypermobility arthralgia 12/29/2017 Arthralgia 08/11/2017 Hypermobile joints 08/11/2017 Chronic migraine without aur a with status migrainosus, not intractable 08/11/2017 Assessment & Plan (05/08/2021 2:39 PM PUBLIC ADMINISTRATION TEACHER): Christen Encinas is a 15 y.o. female female with past medical history of hypermobile ED, amplified pain syndrome, IgA deficiency, mitral valve prolapse, anxiety, depression and migraines headaches presenting with status migrainous for 5 days with photophobia, dizziness, nausea and 2 episodes of emesis. On exam patient alert and well-appearing with no focal deficits. Received PO migraine cocktail and Rizatriptan at home with mild improvement of symptoms. Patient had a surgery last week that could explain her current migraine exacerbation. Patient showed some improvement after IV cocktail, rating her pain 2/10. Patient was seen by psychology today, they reccomended continue follow up as outpatient. Plan: - Pediatric regular diet - IV migraine cocktail q6h - IV D5NS - Migraine precautions Assessment & Plan (05/07/2021 4:59 PM PUBLIC ADMINISTRATION TEACHER): Christen Encinas is a 15 y.o. female female with past medical history of hypermobile ED, amplified pain syndrome, IgA deficiency, mitral valve prolapse, anxiety, depression and migraines headaches presenting with status migrainous for 5 days with photophobia, dizziness, nausea and 2 episodes of emesis. On exam patient alert and well-appearing with no focal deficits. Received PO migraine cocktail and Rizatriptan at home with mild improvement of symptoms. Patient had a surgery last week that could explain her current migraine exacerbation.Will plan IV cocktail migraine schedule every 6 hours. Plan: - Pediatric regular diet - IV migraine cocktail q6h - IV D5NS - Migraine precautions - Follow up bHCG (must result before starting cocktail), CBC, CMP, UA, HCG Assessment & Plan (01/02/2019 2:52 PM CDT): Stable vision; updated Rx for manufacturers agent wear. Patient may continue with current Rx. 20/20 vision right eye (OD), left eye (OS). Normal intraocular pressure (IOP) and color vision testing. No signs of copper elevation on ocular assessment. No cataract formation or iron ring. Performed baseline OCT with some thinning noted in both eyes. Small nerves with pseudopapilledema appearance on retinal exam - no edema on OCT. Continue to monitor closely for changes. Patient will have repeat MRI 01/2019. No changes at this time. Return for repeat OCT and fundus check in 4-6 months, or sooner if any problems or concerns. Connective 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 08/11/2017 Autoimmune thyroiditis 08/11/2017 Overview (05/07/2019): date age TSH (uIU/mL) T4 (ug/dL) Free T4 (ng/dL) T3 (ng/dL) LT4 (mg) 06/24/17 4.57 (0.5-4.5) - 08/29/17 1.64 - 06/24/17 - [facility]: thyroid peroxidase antibody 72 IU/mL (< 26), thyroglobulin antibody 1.2 IU/ml (< 0.9) Last Assessment & Plan: Autoimmune thyroiditis; a risk of developing thyroid disease; asymptomatic 1. Obtain serum thyroid hormone levels with next blood specimen collection Orders Placed This Encounter ? ? TSH ? ? T4 TOTAL 2. Expectant observation 3. 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 Amplified musculoskeletal pain 08/11/2017 Myalgia 08/11/2017 Other fatigue 08/11/2017 Amplified musculoskeletal pain syndrome 05/06/19 18 Assessment & Plan (05/08/2021 2:38 PM PUBLIC ADMINISTRATION TEACHER): - Continue home uloxetine 30mg every day Methocarbamol 500mg q8h PRN Assessment & Plan (05/07/2021 4:57 PM PUBLIC ADMINISTRATION TEACHER): - Continue home uloxetine 30mg every day Methocarbamol 500mg q8h PRN Assessment & Plan (06/22/2018 1:34 AM CDT): - continue home meds/supplements -gabapentin, plaquenil, vitamin D Viral infection 03/15/2017 Dizziness 02/15/2017 Vertigo 02/15/2017 Mononucleosis syndrome 02/15/2017 Fatigue 10/18/2016 Otitis externa 09/30/2016 Migraine headache 06/18/2015 Otitis media 01/01/2015 Constipation 11/28/2014 IgA deficiency, 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 Assessment & Plan (05/08/2021 2:38 PM PUBLIC ADMINISTRATION TEACHER): Continue home Cefdinir 300mg every day Assessment & Plan (05/07/2021 4:56 PM PUBLIC ADMINISTRATION TEACHER): Continue home Cefdinir 300mg every day Assessment & Plan (01/02/2019 2:50 PM CDT): 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 No Breezy-Teresa Ring or sunflower cataract on ocular examination today. Vision is stable, 20/20 right eye (OD), left eye (OS). No change in prescription on dilated exam - continue with current glasses manufacturers agent. OCT revealed some thinning of inferior (right eye) and nasal (left eye) quadrants; small nerves on retinal assessment. Optic nerves are small with a pseudopapilledema appearance - no edema on OCT. Continue to monitor for changes. Baseline testing today. History of migraines, MRI stable in 2016. Will have MRI testing again in January 2019. Normal color vision and pressures today. Continue to monitor. Repeat OCT in 4-6 months and recheck nerves. Return sooner if any changes or concerns. Mom and patient expressed a verbal understanding. Abdominal pain 05/05/2013 Moderate persistent asthma Assessment & Plan (06/22/2018 1:31 AM CDT): Asthma is unchanged. The patient is experiencing no daytime asthma symptoms. She is experiencing no nighttime asthma symptoms. Lung clear bilaterally, no wheezing Plan: - continue home Advair, singulair, and cefdnir Resolved Problems Problem Noted Date Diagnosed Date Resolved Date Abnormal PFT 10/18/2018 05/22/2019 IgA deficiency ([facility]) 10/18/2018 Disorder of connective tissue ([facility]) 08/11/2017 12/22/2020 Moderate persistent asthma w ithout complication 01/01/2015 05/22/2019 Chronic rhinitis 01/01/2015 05/22/2019 Encounters Date Type Department Care Team Description 05/09/2024 9:30 AM PUBLIC ADMINISTRATION TEACHER Office Visit [facility] G[facility]ology at [address] [place] [address] Mihai Miller NP Irritable bowel syndrome with both constipation and diarrhea (Primary Dx); Nausea and vomiting, unspecified vomiting type; Gastroesophageal reflux disease without esophagitis 05/09/2024 Telephone [facility] Gastroenter[facility] at [address] [place] [address] Mihai Miller NP 03/07/2024 1:05 PM PUBLIC ADMINISTRATION TEACHER - 03/07/2024 11:59 PM PUBLIC ADMINISTRATION TEACHER Hospital Encounter [address] [address] Nausea and vomiting, unspecified vomiting type Discharge Disposition: Discharge to home or self care 02/23/2024 Telephone [facility] Pediatric Neurology [address] [facility] [address] [place] [address] Shani Michelle NP 02/16/2024 Telephone [facility] Pediatric Allergy and Pulmonology [address] [place] [address] [place] [address] Gege Minaya RN 02/15/2024 8:30 AM PUBLIC ADMINISTRATION TEACHER Office Visit [facility] Allergy and Pulmonology [address] [place] [address] [place] [address] Tracie Seay MD Mild persistent asthma with acute exacerbation (Primary Dx); Need for vaccination; Non-allergic rhinitis; IgA deficiency, selective (HCC) 02/15/2024 7:58 AM PUBLIC ADMINISTRATION TEACHER - 02/15/2024 11:59 PM PUBLIC ADMINISTRATION TEACHER Hospital Encounter [facility] Pediatric Pulmonology [address] [address] Mild persistent asthma without complication Discharge Disposition: Discharge to home or self care from Last 3 Months Immunizations Name Administration Dates Next Due DTaP, Unspecified 11/11/2008, 5,03/09/2004,01/05,2003 HPV9 07/26/2016,01/09/2016 Hep A, Unspecified 01/23/2008,01/31/2007 Hep B, Unspecified 09/10/2004,01/06/2004, 004 HiB 09/10/2004,01/06/2004,2003 Influenza, Quadrivalent, Spl it, Preservative Free, Intramuscular 04/12/2018 Influenza, Trivalent, Preser vative Free, Intramuscular 02/15/2024,03/15/2017 Influenza, Unspecified 01/09/2016 MMR 11/11/2008,09/10/2004 Meningococcal MCV4P (Menactra) 01/06/2015 Pneumococcal Polysaccharide PPV23 01/06/2015 Pneumococcal, Unspecified 09/10/2004,,01/06/2004,11/10 Polio, Unspecified 11/11/2008, 4,01/06/2004,11/10 Tdap 01/06/2015 Varicella 01/23/2008,09/10/2004 Surgical History Surgery Date Site/Laterality Comments TYMPANOSTOMY TUBE PLACEMENT Bilateral OVARIAN CYST REMOVAL Medical History Medical History Date Comments Hypermobile joints Migraine Joint pain Chronic pain disorder Asthma History of being hospitalized ho sp a few times for migraines,dehydration Mast cell activation syndrome (HCC) Family History Medical History Relation Name Comments ADD / ADHD Brother Asthma Brother Coronary artery disease Father Depression Father Diabetes type I Father Cholelithiasis Mother Colon polyps Mother Depression Mother Irritable bowel syndrome Mother Migraines Mother Family history of migraine headaches - (Added by TW Conv) Ulcerative colitis Mother Migraines Mother's Sister Family histo ry of migraine headaches - (Added by TW Conv) Relation Name Status Comments Brother Father Mother Mother's Sister Social History Tobacco Use Types Packs/Day Years Used Date Smoking Tobacco: Never Passive Smoke Exposure: Yes Smokeless Tobacco: Never Alcohol Use Standard Drinks/Week Comments Not Currently 0 (1 standard drink = 0.6 oz pur e alcohol) AUDIT-C Answer Date Recorded Q1: How often do you have a drink containing alcohol? Never 05/09/2024 Q2: How many drinks containi ng alcohol do you have on a typical day when you are drinking? Patient does not drink Q3: How often do you have si x or more drinks on one occasion? Never 05/09/2024 Personal Safety Answer Date Recorded Have you ever been in or are you currently in a harmful physical or emotional relationship or is someone making you feel afraid or unsafe? Denies 08/26/2023 Comments No Sex and Gender Information Value Date Recorded Sex Assigned at Not on file Legal Sex Female 6:05 AM PUBLIC ADMINISTRATION TEACHER Gender Identity Female 04/05/2023 1:07 AM PUBLIC ADMINISTRATION TEACHER Sexual Orientation Straight 04/05/2023 1: 07 AM PUBLIC ADMINISTRATION TEACHER Obstetrics History Last Filed Vital Signs Vital Sign Reading Time Taken Comments Blood Pressure 108/78 05/09/2024 10:40 AM PUBLIC ADMINISTRATION TEACHER Pulse 92 05/09/2024 10:40 AM PUBLIC ADMINISTRATION TEACHER Temperature 36.8 ??C (98.2 ??F) 02/15/2024 8:31 AM CS T Respiratory Rate 18 02/15/2024 8:31 AM PUBLIC ADMINISTRATION TEACHER Oxygen Saturation 99% 05/09/2024 10:40 AM PUBLIC ADMINISTRATION TEACHER Inhaled Oxygen Concentration - - Weight 68 kg (149 lb 14.4 oz) 05/09/2024 10:40 A M PUBLIC ADMINISTRATION TEACHER Height 160 cm (5' 3 ) 05/09/2024 10:40 AM PUBLIC ADMINISTRATION TEACHER Body Mass Index 26.55 05/09/2024 10:40 AM PUBLIC ADMINISTRATION TEACHER Plan of Treatment Health Maintenance Due Date Last Done Comments Chlamydia and Gonorrhea (GC/ CT) Screening 2003 Depression Screening 2003 Hepatitis C Screening 2003 Pneumococcal vaccine <65 (2 of 2 - PCV) 01/07/2016 01/06/2015, 09/10/2004, 03/09/2004, Additional history exists Meningococcal B Vaccine (2 o f 2 - Risk Bexsero 2-dose series) 02/19/2021 01/22/2021 Regular Well Visit/Exam 18-64 09/05/2021 Zoster Vaccine (1 of 2) 09/05/2022 Covid-19 Vaccine (5 - 2023-2 5 season) 2023 02/18/2022, 01/22/2021, 07/02/2020, Additional history exists DTaP/Tdap/Td Vaccine (7 - Td or Tdap) 01/06/2025 01/06/2015, 11/11/2008, 12/22/2004, Additional history exists Varicella Vaccines Completed 01/23/2008, 09/10/2004 HPV Vaccines Completed 07/26/2016, 01/09/2016 Meningococcal Vaccine Completed 01/22/2021, 015 Influenza Vaccine Completed 02/15/2024, , 01/22/2021, Additional history exists Goals Goal Patient Goal Type Associated Problems Recent Progress Patient-Stated? Author -Pain Behavioral Health Improving( 5:42 PM PUBLIC ADMINISTRATION TEACHER) No Margoth Porras, PhD Note: Increase functioning in daily activities -Pain Behavioral Health No change(06/18 5:42 PM PUBLIC ADMINISTRATION TEACHER) No Margoth Porras, PhD Note: Increase non-pharmacological strategies for coping with pain Procedures Procedure Name Priority Date/Time Associated Diagnosis Comments NM HEPATOBILIARY IMAGING W PHARMACEUTICAL INTERVENTION Schedule Routine, Read Routine (OP Routine) 03/07/2024 3:33 PM PUBLIC ADMINISTRATION TEACHER Nausea and vomiting, unspecified vomiting type PULMONARY FUNCTION TEST (PFT) Routine 02/15/2024 8:12 AM PUBLIC ADMINISTRATION TEACHER Mild persistent asthma without complication from Last 3 Months Results * NM Hepatobiliary Imaging W GBEF (03/07/2024 3:33 PM PUBLIC ADMINISTRATION TEACHER) Anatomical Region Laterality Modality Body N/A Nuclear Medicine 03/07/2024 4:45 PM PUBLIC ADMINISTRATION TEACHER Narrative 03/07/2024 4:46 PM PUBLIC ADMINISTRATION TEACHER EXAM DESCRIPTION: ?? NM HEPATOBILIARY IMAGING W PHARMACEUTICAL INTERVENTION RADIOPHARMACEUTICAL: Dose ??mCi Tc-99m mebrofenin via a ??5.0 ??IV site and 8 oz Ensure Plus or equivalent P.O. REASON FOR STUDY: ?? Nausea/vomiting, Chronic nausea. Some vomiting. Rule out gallbladder dysfunction. ?? TECHNIQUE: Following the intravenous administration of the radiopharmaceutical, sequential abdominal images were obtained. COMPARISON: None available. FINDINGS: ??There is prompt, homogenous tracer localization throughout the liver. There is normal visualization of the intrahepatic ducts, common bile duct, and gallbladder. There is normal biliary to bowel transit. Following the oral administration of Ensure Plus or equivalent, the gallbladder ejection fraction was calculated and was ??56 % ??(normal: greater than 40%, equivocal: 30-40%, and abnormal: less than 30%). IMPRESSION: ??No scintigraphic evidence of cystic duct obstruction. ??Normal contractile response of the gallbladder to fatty meal stimulation. THIS IS AN ELECTRONICALLY VERIFIED FINAL REPORT 03/07/2024 4:46 PM - Electronically signed by ??Krystal Causey M.D. FT: FT D: ??03/07/2024 4:46 PM T: ??03/07/2024 4:46 PM Report ID: [id number] Reading Location: ??[id number] Procedure Note Krystal Mario MD - 03/07/2024 EXAM DESCRIPTION: NM HEPATOBILIARY IMAGING W PHARMACEUTICAL INTERVENTION RADIOPHARMACEUTICAL: Dose mCi Tc-99m mebrofenin via a 5.0 IV site and 8oz Ensure Plus or equivalent P.O. REASON FOR STUDY: Nausea/vomiting, Chronic nausea. Some vomiting. Ruleout gallbladder dysfunction. TECHNIQUE: Following the intravenous administration of the radiopharmaceutical, sequential abdominal images were obtained. COMPARISON: None available. FINDINGS: There is prompt, homogenous tracer localization throughout the liver.There is normal visualization of the intrahepatic ducts, common bile duct, and gallbladder. There is normal biliary to bowel transit. Following the oral administration of Ensure Plus or equivalent, the gallbladder ejection fraction was calculated and was 56 % (normal:greater than 40%, equivocal: 30-40%, and abnormal: less than 30%). IMPRESSION: No scintigraphic evidence of cystic duct obstruction. Normal contractile response of the gallbladder to fatty mealstimulation. THIS IS AN ELECTRONICALLY VERIFIED FINAL REPORT 03/07/2024 4:46 PM - Electronically signed by Krystal Causey M.D. FT: FT Report ID: [id number] Reading Location: [id number] us [facility] TECH IMG NM PROCEDURES F inal Result * Pulmonary Function Test - (02/15/2024 8:12 AM PUBLIC ADMINISTRATION TEACHER) FVC %PRE PRED 108 % [facility] FEV1 %PRE PRED 97 % [facility] GTY00-72% %PRE PRED 72 % [facility] Anatomical Region Laterality Modality PFT 02/15/2024 8:06 AM PUBLIC ADMINISTRATION TEACHER Narrative 02/17/2024 2:14 PM PUBLIC ADMINISTRATION TEACHER PFT performed at:->[facility] us Tracie Seay MD PFT ORDERABLES Final R esult from Last 3 Months Insurance [facility] CHOICE PLUS [facility] HMO/PPO Address: [address] [address] [place] [address] [facility] [place] [address] [facility] CHOICE PLUS [facility] HMO/PPO Address: [address] [address] [place] [address] [facility] [place] [address] [facility] CHOICE [facility] HMO/PPO Address: [address] [address] [place] [address] [facility] CHO[facility] H[facility]/PPO Address: [address] [place] [address] [facility] CHOICE PLUS [facility] H[facility]/PPO Address: [address] [place], [place] [address] [address] Advance Directives For more information, please contact: [phone] * Full Code (Latest Code Status on File) Date Activated Date Inactivated Comments 08/26/2023 10:29 AM 08/26/2023 4:37 PM * Full Code Date Activated Date Inactivated Comments 08/26/2023 10:29 AM 08/26/2023 10:29 AM * Full Code Date Activated Date Inactivated Comments 02/03/2023 8:22 PM 02/04/2023 7:39 PM * Full Code Date Activated Date Inactivated Comments 05/07/2021 2:39 PM 05/08/2021 11:57 PM * Full Code Date Activated Date Inactivated Comments 06/21/2018 8:12 PM 06/24/2018 2:52 PM Care Teams Thermoscrew Operator Relationship Specialty Start Date End Date Cuate Ramon MD [address] [facility] [address] PCP - General 10/22/16 Twan Lopez MD [address] [facility] [address] Anesthesiologist Pediatric Anesthesia 10/20/17 Alisa Lai, PT Physical Therapist Physical Therapy 10/20/17 Maria Teresa Padron Physical Therapist Physical Therapy 11/24/17
--- OUTSIDE RECORDS SUMMARY | 2024-05-11 15:28 | XMS_ITS | Encounter Summary ---
Author Organization [facility] Healthcare Address [address] [place] [address] Care Team Providers Care Yarn Sizer Name Role Phone Cuate Ramon MD Primary Care Provider Twan Lopez MD Unavailable [phone] Alisa Lai PT Unavailable Unavailable Maria Teresa Padron Unavailable Unavailable Encounter Details Date Type Department Care Team (Late st Contact Info) Description 05/09/2024 Telephone [facility] Gastroenterology at [address] [place] [address] Mihai Miller NP [address] [place] [address] [address] [place] [address] Social History Tobacco Use Types Packs/Day Years [...] on file Legal Sex Female 6:05 AM FIRE WATCHER Gender Identity Female 04/05/2023 1:07 AM FIRE WATCHER Sexual Orientation Straight 04/05/2023 1: 07 AM FIRE WATCHER documented as of this encounter Miscellaneous Notes * Telephone Encounter - Treva Kim LPN - 05/10/2024 10:08 AM CST Prior auth not needed pt may sisal picker prescription , letter scanned into chart WATCHER * Telephone Encounter - Treva Kim LPN - 05/09/2024 3:26 PM CST Prior auth sent waiting for response WATCHER * Telephone Encounter - Mihai Miller NP - 05/09/2024 11:13 AM FIRE WATCHER Please see if prior authorization is needed for [employer]. WATCHER documented in this encounter Plan of Treatment Not on file documented as of this encounter Goals Goal Patient Goal Type Associated Problems Recent Progress Patient-Stated? Author -Pain Behavioral Health Improving( 5:42 PM FIRE WATCHER) No Margoth Porras, PhD Note: Increase functioning in daily activities -Pain Behavioral Health No change(06/18 5:42 PM FIRE WATCHER) No Margoth Porras, PhD Note: Increase non-pharmacological strategies for coping with pain documented as of this encounter Visit Diagnoses Not on filedocumented in this encounter Care Teams Yarn Sizer Relationship Specialty Start Date End Date Cuate Ramon MD [address] [place] [address] PCP - General 10/22/16 Twan Lopez MD [address] [facility] [place] [address] Anesthesiologist Pediatric Anesthesia 10/20/17 Alisa Lai, PT Physical Therapist Physical Therapy 10/20/17 Maria eTresa Padron Physical Therapist Physical Therapy 11/24/17 documented as of this encounter
--- OUTSIDE RECORDS SUMMARY | 2024-05-11 15:28 | XMS_ITS | Patient Health Summary ---
Author Organization [facility] Address [address] [place] [address] Care Team Providers Care Brusher Hand Name Role Phone Cuate Ramon MD Primary Care Provider [phone] Ion De DO Unavailable [phone] Radha Zavala MD Unavailable [phone] Note from [facility],non-owned Affiliates and Associated Physician Practices is amultiple site organization consisting of ambulatory clinics and hospital sitesin [place], [place], [place] and [place]. This disclosure is being madepursuant to the Care Everywhere program and may not contain all information available regarding this patient. Last updated 17.[facility] Allergies * Codeine(Psychiatric) -Medium Criticality * Prochlorperazine(Other) -High Criticality * Codeine,Inactive Medications * Be aware that medications may not be up to date on this document. Alwaysverify current medications with the patient. * cefdinir (OMNICEF) 300 MG capsule(Started 02/26/2017) Take 1 (one) capsule by mouth once daily * ondansetron, disintegrating, (ZOFRAN ODT) 4 MG tablet(Started 04/08/2017) Take 1 (one) tablet by mouth * pantoprazole EC (PROTONIX) 20 MG tablet(Started 04/01/2017) Take 1 (one) tablet by mouth once daily * rizatriptan (MAXALT) 10 MG tablet(Started 04/07/2017) Take 1 (one) tablet by mouth once as needed * ketorolac (TORADOL) 10 MG tablet(Started 06/15/2017) Take 1 (one) tablet by mouth * acetaminophen (TYLENOL) 500 MG tablet Take 2 (two) tablets by mouth every 6 hours as needed Pt does not take it regularly * diphenhydrAMINE (BENADRYL) 25 MG capsule Take 1 (one) capsule by mouth as needed * montelukast (SINGULAIR) 5 MG chew tablet Take 1 (one) tablet by mouth once daily as needed * topiramate (TOPAMAX) 25 MG tablet(Started 05/24/2018) Take 1 (one) tablet by mouth 4 times daily * fluticasone-salmeterol hfa (ADVAIR HFA) 230-21 MCG/ACT(Started 05/16/2018) Inhale 2 (two) puffs by mouth 2 times daily as needed * meclizine (ANTIVERT) 12.5 MG tablet(Started 02/02/2017) Take 1 (one) tablet to 2 (two) tablets by mouth 2 times daily as needed * Magnesium 500 MG Take 500 mg by mouth at bedtime * beclomethasone HFA (QVAR REDIHALER HFA) 80 MCG/ACT inhaler(Started 05/22/2019) Inhale 2 (two) puffs by mouth as needed * Cholecalciferol (VITAMIN D3) 75 MCG (3000 UT)(Started 06/25/2018) Take 3,000 Units by mouth once daily * sertraline (ZOLOFT) 25 MG tablet(Started 12/02/2020) Take 4 (four) tablets by mouth once daily * albuterol HFA (Proventil; Ventolin; Proair) 108 (90 Base) MCG/ACT inhaler Inhale 1 (one) puff by mouth every 6 hours as needed * azelastine (Astelin) 0.1 % nasal spray(Started 07/12/2023) [place] 1 (one) spray into the nose as needed * budesonide-formoterol (Symbicort) 80-4.5 MCG/ACT inhaler Inhale 2 (two) puffs by mouth 2 times daily as needed * fluticasone propionate (Flonase) 50 MCG/ACT nasal spray(Started 08/12/2023) [place] 1 (one) spray into the nose 2 times daily as needed * midodrine (Proamatine) 5 MG tablet(Started 12/13/2023) Take 1 (one) tablet by mouth 3 times daily before meals 5 refills by 12/12/2024 * propranolol (Inderal) 10 MG tablet(Started 12/13/2023) Take 1 (one) tablet by mouth 2 times daily 5 refills by 12/12/2024 * Other(Started 12/13/2023) Low dose naltrexone 1mg tablet twice daily, may titrate to max of 2mg twice daily 5 refills by 12/12/2024 * hydroxychloroquine (Plaquenil) 200 MG tablet(Started 12/26/2023) Take 1.5 (one and one-half) tablets by mouth once daily 1 refill by 12/25/2024 * diclofenac sodium EC (Voltaren) 75 MG tablet(Started 12/26/2023) Take 1 (one) tablet by mouth 2 times daily 1 refill by 12/25/2024 Ended Medications* promethazine (Phenergan) 25 MG tablet(Started 04/24/2024) (Discontinued) Take 1 (one) tablet by mouth every 6 hours as needed Active Problems Problem Noted Date Diagnosed Date Seasonal allergies 12/13/2023 POTS (postural orthostatic tachycardia syndrome) 12/13/2023 Anxiety disorder 12/13/2023 Vocal cord dysfunction 12/13/2023 MVP (mitral valve prolapse) 12/13/2023 Endometriosis 12/13/2023 COVID-19 08/09/2021 Right hip pain 07/08/2021 Femoroacetabular impingement of right hip 2021 Ligament laxity 07/08/2021 Chronic TMJ pain 08/05/2020 Toe pain, right 08/05/2020 Chronic nausea 01/18/2020 High risk medications (not anticoagulants) long- term use 01/18/2020 Chronic fatigue 01/18/2020 High risk medication use 10/18/2018 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 Abnormal PFT 10/18/2018 senior living current use of non -steroidal anti-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 (NSAID) 10/17/2018 Amplified musculoskeletal pain 08/11/2017 Connective 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 08/11/2017 EBV infection 08/11/2017 Other fatigue 08/11/2017 Arthralgia 08/11/2017 Myalgia 08/11/2017 Chronic migraine without aur a with status migrainosus, not intractable 08/11/2017 Hypermobile joints 08/11/2017 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 Autoimmune thyroiditis 08/11/2017 Resolved Problems Problem Noted Date Diagnosed Date Resolved Date Fever 08/05/2020 08/19/2020 Fever 03/06/2019 03/20/2019 Rash 10/18/2018 11/15/2018 Fever 08/11/2017 08/25/2017 Immunizations * DTAP, HISTORIC VACCINE(Given 11/11/2008, 12/22/2004, 03/09/2004, 01/06/2004, 2003) * DTaP VACCINE IM (6wk-6yrs)(Given 11/11/2008, 12/22/2004, 03/09/2004, 01/06/2004, 2003) * FLU VACCINE TRI IIV3 SPLIT PF IM (FLUVIRIN)(Given 03/15/2017) * HEP A PED/ADULT VACCINE(Given 01/23/2008, 01/31/2007) * HEP A PEDS 2 DOSE(Given 01/23/2008, 01/31/2007) * HEP B VACCINE(Given 09/10/2004, 09/10/2004, 01/06/2004, 01/06/2004, 2003, 2003) * HIB VACCINE(Given 09/10/2004, 09/10/2004, 01/06/2004, 01/06/2004, 2003, 2003) * Human Papilloma Virus Ninevalent Vaccine(Given 07/26/2016, 01/09/2016) * INFLUENZA VACCINE(Given 01/22/2021, 01/09/2016, 01/09/2016) * INFLUENZA VACCINE, QUADR. (FLUZONE; FLULAVAL; FLUARIX; AFLURIA QUADRIVALENT; 6MO+), 0.5 ML (IIV4)(Given 04/12/2018) * MENINGOCOCCAL CONJUGATE (MCV4P)(Given 01/22/2021, 01/06/2015) * MMR(Given 11/11/2008, 09/10/2004) * Meningococcal B Recombinant 2 Dose, IM(Given 01/22/2021) * PNEUMOCOCCAL PPSV23(Given 01/06/2015, 01/06/2015) * PNEUMOCOCCAL PPV VACCINE(Given 09/10/2004, 09/10/2004, 03/09/2004, 03/09/2004, 01/06/2004, 01/06/2004, 2003, 2003) * POLIO,HISTORIC VACCINE(Given 11/11/2008, 03/09/2004, 01/06/2004, 2003) * TDAP (7yrs+)(Given 01/06/2015) * VARICELLA(Given 01/23/2008, 09/10/2004) Social History Tobacco Use Types Packs/Day Years [...] Comments Blood Pressure 121/84 05/03/2024 9:53 AM [employer] SUPPORT WORKER Pulse 77 05/03/2024 9:53 AM YOU[employer] SUPPORT WORKER Temperature 36.3 ??C (97.3 ??F) 05/03/2024 9:53 AM CS T Respiratory Rate 16 04/02/2023 1:59 AM YOU[employer] SUPPORT WORKER Oxygen Saturation 100% 04/02/2023 1:59 AM YOUTH SUPPORT WORKER Inhaled Oxygen Concentration - - Weight 67.2 kg (148 lb 3.2 oz) 05/03/2024 9:53 A M [employer] WORK[employer] Height 160 cm (5' 2.99 ) 05/03/2024 9:53 AM YOUTH SUPPORT WORKER Body Mass Index 26.26 05/03/2024 9:53 AM YOUTH SUPPORT WORKER Procedures * ERIKA HEP-2 IGG BY IFA(Performed 12/26/2023) Performed for Autoimmune thyroiditis, Arthralgia, unspecified joint * TSH REFLEX FREE T4(Performed 12/26/2023) Performed for Autoimmune thyroiditis, Arthralgia, unspecified joint * COMPREHENSIVE METABOLIC PANEL(Performed 12/26/2023) Performed for Autoimmune thyroiditis, Arthralgia, unspecified joint * CBC W AUTO DIFFERENTIAL(Performed 12/26/2023) Performed for Autoimmune thyroiditis, Arthralgia, unspecified joint * CHROMATIN ANTIBODY(Performed 12/26/2023) Performed for Autoimmune thyroiditis, Arthralgia, unspecified joint * GOLD LEAF PRINTER ANTIBODY(Performed 12/26/2023) Performed for Autoimmune thyroiditis, Arthralgia, unspecified joint * SCLERODERMA 70 (SCL) ANTIBODY(Performed 12/26/2023) Performed for Autoimmune thyroiditis, Arthralgia, unspecified joint * SS-B (SJOGREN'S) ANTIBODY(Performed 12/26/2023) Performed for Autoimmune thyroiditis, Arthralgia, unspecified joint * SS-A (SJOGREN'S) ANTIBODY(Performed 12/26/2023) Performed for Autoimmune thyroiditis, Arthralgia, unspecified joint * WORLEY (SM) ANTIBODY LIAM(Performed 12/26/2023) Performed for Autoimmune thyroiditis, Arthralgia, unspecified joint * DNA ANTIBODY DOUBLE STRANDED(Performed 12/26/2023) Performed for Autoimmune thyroiditis, Arthralgia, unspecified joint * ERIKA BLOOD SCREEN W/REFLEX TITER(Performed 12/26/2023) Performed for Autoimmune thyroiditis, Arthralgia, unspecified joint * CT ABDOMEN PELVIS W CONTRAST(Performed 04/02/2023) Performed for Abdominal pain, generalized * HCG URINE QUALITATIVE - POCT (IP) INTERFACED(Performed 04/02/2023) * URINALYSIS W/MICROSCOPIC REFLEX TO CULTURE(Performed 04/02/2023) * SARS-COV-2 (COVID-19) FLU A/B RSV PCR RAPID(Performed 04/02/2023) * LIPASE BLOOD(Performed 04/02/2023) * CBC W AUTO DIFFERENTIAL(Performed 04/02/2023) * BASIC METABOLIC PANEL (CALCIUM TOTAL)(Performed 04/02/2023) * HCG URINE QUAL POCT NOTIFICATION(Performed 04/02/2023) * URINALYSIS MICROSCOPIC ONLY REFLEXED(Performed 02/02/2023) 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), Amplified musculoskeletal pain, Other fatigue, Hypermobile joints, Myalgia * URINALYSIS W/MICROSCOPIC REFLEX TO CULTURE(Performed 02/02/2023) 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), Amplified musculoskeletal pain, Other fatigue, Hypermobile joints, Myalgia * SCLERODERMA 70 (SCL) ANTIBODY(Performed 02/02/2023) Performed for Arthralgia, unspecified joint, Patellar tracking disorder, unspecified laterality, Connective 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 (HCC), Amplified musculoskeletal pain, Other fatigue, Hypermobile joints, Myalgia, High risk medication use * PM/SCL-100 ANTIBODY IGG(Performed 02/02/2023) Performed for Arthralgia, unspecified joint, Patellar tracking disorder, unspecified laterality, Connective 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 (HCC), Amplified musculoskeletal pain, Other fatigue, Hypermobile joints, Myalgia, High risk medication use * CENTROMERE B ANTIBODIES(Performed 02/02/2023) Performed for Arthralgia, unspecified joint, Patellar tracking disorder, unspecified laterality, Connective 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 (HCC), Amplified musculoskeletal pain, Other fatigue, Hypermobile joints, Myalgia, High risk medication use * RNA POLYMERASE III ANTIBODY IGG(Performed 02/02/2023) Performed for Arthralgia, unspecified joint, Patellar tracking disorder, unspecified laterality, Connective 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 (HCC), Amplified musculoskeletal pain, Other fatigue, Hypermobile joints, Myalgia, High risk medication use * FIBRILLARIN (U3 GOLD LEAF PRINTER)(Performed 02/02/2023) Performed for Arthralgia, unspecified joint, Patellar tracking disorder, unspecified laterality, Connective 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 (HCC), Amplified musculoskeletal pain, Other fatigue, Hypermobile joints, Myalgia, High risk medication use * ERYTHROCYTE SEDIMENTATION RATE(Performed 02/02/2023) Performed for Arthralgia, unspecified joint, Patellar tracking disorder, unspecified laterality, Connective 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 (HCC), Amplified musculoskeletal pain, Other fatigue, Hypermobile joints, Myalgia, High risk medication use * C-REACTIVE PROTEIN(Performed 02/02/2023) Performed for Arthralgia, unspecified joint, Patellar tracking disorder, unspecified laterality, Connective 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 (HCC), Amplified musculoskeletal pain, Other fatigue, Hypermobile joints, Myalgia, High risk medication use * COMPLEMENT C4(Performed 02/02/2023) Performed for Arthralgia, unspecified joint, Patellar tracking disorder, unspecified laterality, Connective 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 (HCC), Amplified musculoskeletal pain, Other fatigue, Hypermobile joints, Myalgia, High risk medication use * COMPLEMENT C3(Performed 02/02/2023) Performed for Arthralgia, unspecified joint, Patellar tracking disorder, unspecified laterality, Connective 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 (HCC), Amplified musculoskeletal pain, Other fatigue, Hypermobile joints, Myalgia, High risk medication use * COMPREHENSIVE METABOLIC PANEL(Performed 02/02/2023) Performed for Arthralgia, unspecified joint, Patellar tracking disorder, unspecified laterality, Connective 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 (HCC), Amplified musculoskeletal pain, Other fatigue, Hypermobile joints, Myalgia, High risk medication use * CBC W AUTO DIFFERENTIAL(Performed 02/02/2023) Performed for Arthralgia, unspecified joint, Patellar tracking disorder, unspecified laterality, Connective 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 (HCC), Amplified musculoskeletal pain, Other fatigue, Hypermobile joints, Myalgia, High risk medication use * EKG 15-LEAD(Performed 01/21/2023) Performed for Dizziness * EVENT MONITOR(Performed 01/21/2023) Performed for Palpitations, Syncope, unspecified syncope type * URINALYSIS MICROSCOPIC ONLY REFLEXED(Performed 09/03/2022) 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), High risk medication use * TSH REFLEX FREE T4(Performed 09/03/2022) 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), High risk medication use * VITAMIN D 25-HYDROXY(Performed 09/03/2022) 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), High risk medication use * URINALYSIS W/MICROSCOPIC REFLEX TO CULTURE(Performed 09/03/2022) 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), High risk medication use * COMPLEMENT C4(Performed 09/03/2022) 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), High risk medication use * COMPLEMENT C3(Performed 09/03/2022) 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), High risk medication use * COMPREHENSIVE METABOLIC PANEL(Performed 09/03/2022) 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), High risk medication use * CBC W AUTO DIFFERENTIAL(Performed 09/03/2022) 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), High risk medication use * CHROMATIN ANTIBODY(Performed 09/03/2022) 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), High risk medication use * GOLD LEAF PRINTER ANTIBODY(Performed 09/03/2022) 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), High risk medication use * ARIANE STAINING PATTERNS REFLEXED(Performed 09/03/2022) 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), High risk medication use * SCLERODERMA 70 (SCL) ANTIBODY(Performed 09/03/2022) 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), High risk medication use * SS-B (SJOGREN'S) ANTIBODY(Performed 09/03/2022) 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), High risk medication use * SS-A (SJOGREN'S) ANTIBODY(Performed 09/03/2022) 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), High risk medication use * WORLEY (SM) ANTIBODY LIAM(Performed 09/03/2022) 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), High risk medication use * DNA ANTIBODY DOUBLE STRANDED(Performed 09/03/2022) 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), High risk medication use * ERIKA BLOOD SCREEN W/REFLEX TITER(Performed 09/03/2022) 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), High risk medication use * XR PELVIS W RIGHT HIP 2VW(Performed 06/26/2021) Performed for Right hip pain * MRI PELVIS WO CONTRAST(Performed 06/26/2021) Performed for Acute right hip pain * ERYTHROCYTE SEDIMENTATION RATE(Performed 06/12/2021) Performed for Arthralgia, unspecified joint * C-REACTIVE PROTEIN(Performed 06/12/2021) Performed for Arthralgia, unspecified joint * CBC W AUTO DIFFERENTIAL(Performed 06/12/2021) Performed for Arthralgia, unspecified joint * ECHO CONSULT - PEDIATRIC(Performed 09/03/2020) Performed for Nonrheumatic mitral valve regurgitation * EKG 15-LEAD(Performed 09/03/2020) Performed for Nonrheumatic mitral valve regurgitation * URINALYSIS MICROSCOPIC ONLY REFLEXED(Performed 08/12/2020) 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), senior living current use of non- steroidal anti-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 (NSAID) * URINALYSIS W/MICROSCOPIC REFLEX TO CULTURE(Performed 08/12/2020) 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), senior living current use of non- steroidal anti-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 (NSAID) * C-REACTIVE PROTEIN(Performed 08/12/2020) 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), terminal superintendent current use of non- steroidal anti-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 (NSAID) * ERYTHROCYTE SEDIMENTATION RATE(Performed 08/12/2020) 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), senior living current use of non- steroidal anti-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 (NSAID) * COMPREHENSIVE METABOLIC PANEL(Performed 08/12/2020) 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), terminal superintendent current use of non- steroidal anti-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 (NSAID) * CBC W AUTO DIFFERENTIAL(Performed 08/12/2020) 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), terminal superintendent current use of non- steroidal anti-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 (NSAID) * ARIANE STAINING PATTERNS REFLEXED(Performed 02/23/2020) Performed for Amplified musculoskeletal pain, Connective 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 (HCC), Other fatigue, Arthralgia, unspecified joint, Myalgia, Autoimmune thyroiditis, High risk medication use * URINALYSIS MICROSCOPIC ONLY REFLEXED(Performed 02/23/2020) Performed for Amplified musculoskeletal pain, Connective 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 (HCC), Other fatigue, Arthralgia, unspecified joint, Myalgia, Autoimmune thyroiditis, High risk medication use * URINALYSIS MICROSCOPIC ONLY REFLEXED(Performed 02/23/2020) Performed for Amplified musculoskeletal pain, Connective 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 (HCC), Other fatigue, Arthralgia, unspecified joint, Myalgia, Autoimmune thyroiditis, High risk medication use * TSH(Performed 02/23/2020) Performed for Amplified musculoskeletal pain, Connective 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 (HCC), Other fatigue, Arthralgia, unspecified joint, Myalgia, Autoimmune thyroiditis, High risk medication use * URINALYSIS W/MICROSCOPIC REFLEX TO CULTURE(Performed 02/23/2020) Performed for Amplified musculoskeletal pain, Connective 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 (HCC), Other fatigue, Arthralgia, unspecified joint, Myalgia, Autoimmune thyroiditis, High risk medication use * ERYTHROCYTE SEDIMENTATION RATE(Performed 02/23/2020) Performed for Amplified musculoskeletal pain, Connective 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 (HCC), Other fatigue, Arthralgia, unspecified joint, Myalgia, Autoimmune thyroiditis, High risk medication use * C-REACTIVE PROTEIN(Performed 02/23/2020) Performed for Amplified musculoskeletal pain, Connective 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 (HCC), Other fatigue, Arthralgia, unspecified joint, Myalgia, Autoimmune thyroiditis, High risk medication use * COMPREHENSIVE METABOLIC PANEL(Performed 02/23/2020) Performed for Amplified musculoskeletal pain, Connective 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 (HCC), Other fatigue, Arthralgia, unspecified joint, Myalgia, Autoimmune thyroiditis, High risk medication use * CBC W AUTO DIFFERENTIAL(Performed 02/23/2020) Performed for Amplified musculoskeletal pain, Connective 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 (HCC), Other fatigue, Arthralgia, unspecified joint, Myalgia, Autoimmune thyroiditis, High risk medication use * CHROMATIN ANTIBODY(Performed 02/23/2020) Performed for Amplified musculoskeletal pain, Connective 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 (HCC), Other fatigue, Arthralgia, unspecified joint, Myalgia, Autoimmune thyroiditis, High risk medication use * GOLD LEAF PRINTER ANTIBODY(Performed 02/23/2020) Performed for Amplified musculoskeletal pain, Connective 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 (HCC), Other fatigue, Arthralgia, unspecified joint, Myalgia, Autoimmune thyroiditis, High risk medication use * SCLERODERMA 70 (SCL) ANTIBODY(Performed 02/23/2020) Performed for Amplified musculoskeletal pain, Connective 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 (HCC), Other fatigue, Arthralgia, unspecified joint, Myalgia, Autoimmune thyroiditis, High risk medication use * SS-B (SJOGREN'S) ANTIBODY(Performed 02/23/2020) Performed for Amplified musculoskeletal pain, Connective 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 (HCC), Other fatigue, Arthralgia, unspecified joint, Myalgia, Autoimmune thyroiditis, High risk medication use * SS-A (SJOGREN'S) ANTIBODY(Performed 02/23/2020) Performed for Amplified musculoskeletal pain, Connective 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 (HCC), Other fatigue, Arthralgia, unspecified joint, Myalgia, Autoimmune thyroiditis, High risk medication use * WORLEY (SM) ANTIBODY LIAM(Performed 02/23/2020) Performed for Amplified musculoskeletal pain, Connective 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 (HCC), Other fatigue, Arthralgia, unspecified joint, Myalgia, Autoimmune thyroiditis, High risk medication use * DNA ANTIBODY DOUBLE STRANDED(Performed 02/23/2020) Performed for Amplified musculoskeletal pain, Connective 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 (HCC), Other fatigue, Arthralgia, unspecified joint, Myalgia, Autoimmune thyroiditis, High risk medication use * ERIKA BLOOD SCREEN W/REFLEX TITER(Performed 02/23/2020) Performed for Amplified musculoskeletal pain, Connective 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 (HCC), Other fatigue, Arthralgia, unspecified joint, Myalgia, Autoimmune thyroiditis, High risk medication use * CULTURE URINE COMPREHENSIVE(Performed 02/23/2020) Performed for Amplified musculoskeletal pain, Connective 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 (HCC), Other fatigue, Arthralgia, unspecified joint, Myalgia, Autoimmune thyroiditis, High risk medication use * CULTURE URINE COMPREHENSIVE(Performed 02/23/2020) Performed for Amplified musculoskeletal pain, Connective 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 (HCC), Other fatigue, Arthralgia, unspecified joint, Myalgia, Autoimmune thyroiditis, High risk medication use * URINALYSIS MICROSCOPIC ONLY REFLEXED(Performed 12/16/2018) Performed for terminal superintendent current use of non-steroidal anti-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 (NSAID), Connective tissuedisease (HCC) * URINALYSIS W/MICROSCOPIC REFLEX TO CULTURE(Performed 12/16/2018) Performed for terminal superintendent current use of non-steroidal anti-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 (NSAID), Connective tissuedisease (HCC) * COMPREHENSIVE METABOLIC PANEL(Performed 12/16/2018) Performed for terminal superintendent current use of non-steroidal anti-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 (NSAID), Connective tissuedisease (HCC) * CBC W AUTO DIFFERENTIAL(Performed 12/16/2018) Performed for terminal superintendent current use of non-steroidal anti-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 (NSAID), Connective tissuedisease (HCC) * ECHO CONSULT - PEDIATRIC(Performed 09/07/2018) 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) * EKG 15-LEAD(Performed 09/07/2018) 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) * ARIANE STAINING PATTERNS REFLEXED(Performed 07/03/2018) Performed for Amplified musculoskeletal pain, Connective 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 (HCC), Other fatigue, Arthralgia, unspecified joint, Myalgia, Chronic migraine without aura with status migrainosus, not intractable, Hypermobile joints, Patellar tracking disorder, unspecified laterality, Autoimmune thyroiditis * SS-A/SS-B (SJOGREN'S) ANTIBODY PANEL(Performed 07/03/2018) Performed for Amplified musculoskeletal pain, Connective 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 (HCC), Other fatigue, Arthralgia, unspecified joint, Myalgia, Chronic migraine without aura with status migrainosus, not intractable, Hypermobile joints, Patellar tracking disorder, unspecified laterality, Autoimmune thyroiditis * DNA ANTIBODY DOUBLE STRANDED(Performed 07/03/2018) Performed for Amplified musculoskeletal pain, Connective 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 (HCC), Other fatigue, Arthralgia, unspecified joint, Myalgia, Chronic migraine without aura with status migrainosus, not intractable, Hypermobile joints, Patellar tracking disorder, unspecified laterality, Autoimmune thyroiditis * COMPLEMENT C4(Performed 07/03/2018) Performed for Amplified musculoskeletal pain, Connective 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 (HCC), Other fatigue, Arthralgia, unspecified joint, Myalgia, Chronic migraine without aura with status migrainosus, not intractable, Hypermobile joints, Patellar tracking disorder, unspecified laterality, Autoimmune thyroiditis * COMPLEMENT C3(Performed 07/03/2018) Performed for Amplified musculoskeletal pain, Connective 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 (HCC), Other fatigue, Arthralgia, unspecified joint, Myalgia, Chronic migraine without aura with status migrainosus, not intractable, Hypermobile joints, Patellar tracking disorder, unspecified laterality, Autoimmune thyroiditis * ERIKA BLOOD SCREEN W/REFLEX TITER(Performed 07/03/2018) Performed for Amplified musculoskeletal pain, Connective 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 (HCC), Other fatigue, Arthralgia, unspecified joint, Myalgia, Chronic migraine without aura with status migrainosus, not intractable, Hypermobile joints, Patellar tracking disorder, unspecified laterality, Autoimmune thyroiditis * SCLERODERMA 70 (SCL) ANTIBODY(Performed 07/03/2018) Performed for Amplified musculoskeletal pain, Connective 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 (HCC), Other fatigue, Arthralgia, unspecified joint, Myalgia, Chronic migraine without aura with status migrainosus, not intractable, Hypermobile joints, Patellar tracking disorder, unspecified laterality, Autoimmune thyroiditis * CHROMATIN ANTIBODY(Performed 07/03/2018) Performed for Amplified musculoskeletal pain, Connective 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 (HCC), Other fatigue, Arthralgia, unspecified joint, Myalgia, Chronic migraine without aura with status migrainosus, not intractable, Hypermobile joints, Patellar tracking disorder, unspecified laterality, Autoimmune thyroiditis * WORLEY (SM) ANTIBODY LIAM(Performed 07/03/2018) Performed for Amplified musculoskeletal pain, Connective 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 (HCC), Other fatigue, Arthralgia, unspecified joint, Myalgia, Chronic migraine without aura with status migrainosus, not intractable, Hypermobile joints, Patellar tracking disorder, unspecified laterality, Autoimmune thyroiditis * GOLD LEAF PRINTER ANTIBODY(Performed 07/03/2018) Performed for Amplified musculoskeletal pain, Connective 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 (HCC), Other fatigue, Arthralgia, unspecified joint, Myalgia, Chronic migraine without aura with status migrainosus, not intractable, Hypermobile joints, Patellar tracking disorder, unspecified laterality, Autoimmune thyroiditis * URINALYSIS MICROSCOPIC ONLY REFLEXED(Performed 04/01/2018) Performed for Amplified musculoskeletal pain, Connective 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 (HCC), EBV infection, Otherfatigue, Arthralgia, unspecified joint, Myalgia, Chronic migraine without aura with status migrainosus, not intractable, Hypermobile joints, Patellar tracking disorder, unspecified laterality, Autoimmune thyroiditis * URINALYSIS W/MICROSCOPIC REFLEX TO CULTURE(Performed 04/01/2018) Performed for Amplified musculoskeletal pain, Connective 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 (HCC), EBV infection, Otherfatigue, Arthralgia, unspecified joint, Myalgia, Chronic migraine without aura with status migrainosus, not intractable, Hypermobile joints, Patellar tracking disorder, unspecified laterality, Autoimmune thyroiditis * ERYTHROCYTE SEDIMENTATION RATE(Performed 04/01/2018) Performed for Amplified musculoskeletal pain, Connective 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 (HCC), EBV infection, Otherfatigue, Arthralgia, unspecified joint, Myalgia, Chronic migraine without aura with status migrainosus, not intractable, Hypermobile joints, Patellar tracking disorder, unspecified laterality, Autoimmune thyroiditis * C-REACTIVE PROTEIN(Performed 04/01/2018) Performed for Amplified musculoskeletal pain, Connective 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 (HCC), EBV infection, Otherfatigue, Arthralgia, unspecified joint, Myalgia, Chronic migraine without aura with status migrainosus, not intractable, Hypermobile joints, Patellar tracking disorder, unspecified laterality, Autoimmune thyroiditis * COMPREHENSIVE METABOLIC PANEL(Performed 04/01/2018) Performed for Amplified musculoskeletal pain, Connective 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 (HCC), EBV infection, Otherfatigue, Arthralgia, unspecified joint, Myalgia, Chronic migraine without aura with status migrainosus, not intractable, Hypermobile joints, Patellar tracking disorder, unspecified laterality, Autoimmune thyroiditis * CBC W AUTO DIFFERENTIAL(Performed 04/01/2018) Performed for Amplified musculoskeletal pain, Connective 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 (HCC), EBV infection, Otherfatigue, Arthralgia, unspecified joint, Myalgia, Chronic migraine without aura with status migrainosus, not intractable, Hypermobile joints, Patellar tracking disorder, unspecified laterality, Autoimmune thyroiditis * T4 TOTAL(Performed 03/09/2018) Performed for Autoimmune thyroiditis * TSH(Performed 03/09/2018) Performed for Autoimmune thyroiditis * EKG 15-LEAD(Performed 08/30/2017) Performed for MVP (mitral valve prolapse) * TSH(Performed 08/29/2017) Performed for Autoimmune thyroiditis * ECHO CONSULT - PEDIATRIC(Performed 08/16/2017) 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) * HLA TYPING B27(Performed 06/24/2017) * CYCLIC CITRULLINATED PEPTIDE(CCP) AB IGG(Performed 06/24/2017) * ERIKA BLOOD SCREEN W/REFLEX TITER(Performed 06/24/2017) * BETA-2 GLYCOPROTEIN 1 ANTIBODY IGG(Performed 06/24/2017) * BETA-2 GLYCOPROTEIN 1 ANTIBODY IGA(Performed 06/24/2017) * ALDOLASE(Performed 06/24/2017) * THYROGLOBULIN ANTIBODY(Performed 06/24/2017) * COMPLEMENT TOTAL(Performed 06/24/2017) * ERIKA COMPREHENSIVE PLUS PROFILE(Performed 06/24/2017) * LUPUS ANTICOAGULANT PANEL(Performed 06/24/2017) * ESTELA VIPER VENOM DILUTE(Performed 06/24/2017) * CARDIOLIPIN ANTIBODY IGG(Performed 06/24/2017) * CARDIOLIPIN ANTIBODY IGA(Performed 06/24/2017) * KATHY-PENG VIRUS ANTIBODY PANEL(Performed 06/24/2017) * LDH BLOOD(Performed 06/24/2017) * CK BLOOD(Performed 06/24/2017) * THYROID PEROXIDASE ANTIBODY(Performed 06/24/2017) * TSH(Performed 06/24/2017) * IMMUNOGLOBULINS IGG/IGM/IGA PANEL(Performed 06/24/2017) * COMPLEMENT C4(Performed 06/24/2017) * COMPLEMENT C3(Performed 06/24/2017) * URINALYSIS W/MICROSCOPIC REFLEX TO CULTURE(Performed 06/24/2017) * ERYTHROCYTE SEDIMENTATION RATE(Performed 06/24/2017) * C-REACTIVE PROTEIN(Performed 06/24/2017) * COMPREHENSIVE METABOLIC PANEL(Performed 06/24/2017) * CBC W AUTO DIFFERENTIAL(Performed 06/24/2017) * RHEUMATOID FACTOR BLOOD QUANTITATIVE(Performed 06/24/2017) * VITAMIN D 25-HYDROXY(Performed 06/24/2017) * URINALYSIS MICROSCOPIC ONLY REFLEXED(Performed 06/24/2017) * MRI BRAIN WO CONTRAST(Performed 12/12/2009) Performed for Migraine NOS/not Intrcbl Results * ERIKA HEP-2 IGG BY IFA (12/26/2023 4:41 PM CDT) ERIKA HEp-2 IgG <1:80 <1:80 12/29/2023 9:37 AM CDT [facility] ([facility]) ERIKA Interpretive Comment See Note 12/29/2023 9:37 AM CDT [facility] ([facility]) Comment: Antinuclear antibodies by IFA negative for homogeneous, speckled, nucleolar, centromere, and nuclear dots patterns. Cytoplasmic antibodies by IFA negative for reticular/AMA, discrete/GW body-like, polar/golgi-like, rods and rings, and cytoplasmic speckled patterns. INTERPRETIVE INFORMATION: ERIKA Interpretive Comment Presence of antinuclear antibodies (ERIKA) is a hallmark feature of systemic autoimmune rheumatic diseases (SARD). However, ERIKA lacks diagnostic specificity and is associated with a variety of diseases (cancers, autoimmune, infectious, and inflammatory conditions) ??and may also occur in healthy individuals in varying prevalence. The lack of diagnostic specificity requires confirmation of positive ERIKA by more specific serologic tests. ERIKA (nuclear reactivity) positive patterns reported include centromere, homogeneous, nuclear dots, nucleolar, or speckled. ERIKA (cytoplasmic reactivity) positive patterns reported include reticular/AMA, discrete/GW body-like, polar/golgi-like, cytoplasmic speckled or rods and rings. All positive patterns are reported to endpoint titers (1:2560). Reported patterns may help guide differential diagnosis, although they may not be specific for individual antibodies or diseases. Mitotic staining patterns not reported. ??Negative results do not necessarily rule out SARD. Performed By: [facility] [address] [place] [address] Sewing Machine Maintenance Mechanic: Luisito Feliciano MD, PhD CLIA Number: [id number] Blood BLOOD SPECIMEN / Unknown Lab Venipuncture / Unknown 12/26/2023 4:41 PM CDT 12/26/2023 5:45 PM CDT Ion Mahoney Kenisha DO LAB - SEROLO GY ORDERABLES [facility] [email or web address]] [employer] ([facility]) [address] [place] [address], [facility] * CHROMATIN ANTIBODY (12/26/2023 4:41 PM CDT) Only the most recent of4 resultswithin the time period is included. Antichromatin Antibodies <0.2 0.0 - 0.9 AI 12/28/2023 5:09 PM CDT [facility] ([facility]) Blood BLOOD SPECIMEN / Unknown Lab Venipuncture / Unknown 12/26/2023 4:41 PM CDT 12/26/2023 5:45 PM CDT Narrative [facility] ([facility]) - 12/28/2023 5:09 PM CDT Performed at: ??01 - [facility] [place] [address] [place], [place] ??[id number] Music Composition Teacher: Gus Elliott PhD, Phone: ??[phone] Ion De DO LAB - SEROLO GY ORDERABLES Performing Organization Address City/[facility]/ZIP Co de Phone Number [facility] ([facility]) [address] [place] [address] * TSH REFLEX FREE T4 (12/26/2023 4:41 PM CDT) Only the most recent of2 resultswithin the time period is included. TSH 4.585 0.350 - 4.940 uIU/mL 12/26/2023 6:51 PM CDT [facility] Blood BLOOD SPECIMEN / Unknown Lab Venipuncture / Unknown 12/26/2023 4:41 PM CDT 12/26/2023 5:45 PM CDT Ion De DO LAB - CHEMIS TRY ORDERABLES Performing Organization Address City/[facility]/ZIP Co de Phone Number [address] [address], [facility] [phone] * SM ANTIBODY LIAM (12/26/2023 4:41 PM CDT) Only the most recent of4 resultswithin the time period is included. Worley (LIAM) Antibody 0.9 0.0 - 0.9 AI 12/28/2023 5:09 PM CDT [facility] ([facility]) Blood BLOOD SPECIMEN / Unknown Lab Venipuncture / Unknown 12/26/2023 4:41 PM CDT 12/26/2023 5:45 PM CDT Narrative [facility] ([facility]) - 12/28/2023 5:09 PM CDT Performed at: ??01 - [facility] [address] ??[id number] Music Composition Teacher: Gus Elliott PhD, Phone: ??[phone] Ion De [employer] LAB - CHEMIS TRY ORDERABLES [facility] [facility]) [address] [place] [address] * GOLD LEAF PRINTER ANTIBODY (12/26/2023 4:41 PM CDT) Only the most recent of4 resultswithin the time period is included. Pathologist [facility] GOLD LEAF PRINTER Antibody <0.2 0.0 - 0.9 AI 12/28/2023 5:09 PM CDT [facility] ([facility]) Blood BLOOD SPECIMEN / Unknown Lab Venipuncture / Unknown 12/26/2023 4:41 PM CDT 12/26/2023 5:45 PM CDT Narrative [facility] ([facility]) - 12/28/2023 5:09 PM CDT Performed at: ??01 - [address] ??[id number] Music Composition Teacher: Gus Elliott PhD, Phone: ??[phone] Ion De DO [employer] - CHEMIS TRY ORDERABLES Performing Organization Address City/[facility]/ZIP Co de Phone Number [employer] ([facility]) [address] [place] [address] * (ABNORMAL) ERIKA BLOOD SCREEN W/REFLEX TITER (12/26/2023 4:41 PM CDT) Only the most recent of5 resultswithin the time period is included. Pathologist [facility] ERIKA IgG Detected (A) None Detected 12/28/2023 11:44 PM CDT [facility] [[email or web address]] [facility] ([facility]) Comment: Antibodies to Anti-Nuclear Antibodies (ERIKA) detected. Additional testing to follow. INTERPRETIVE INFORMATION: Anti-Nuclear Antibodies (ERIKA), IgG by PIPER Antinuclear Antibodies (ERIKA), IgG by PIPER: ERIKA specimens are screened using enzyme-linked immunosorbent assay (PIPER) methodology. All PIPER results reported as Detected are further tested by indirect fluorescent assay (IFA) using HEp-2 substrate with an IgG-specific conjugate. The ERIKA PIPER screen is designed to detect antibodies against dsDNA, histones, SS-A (Ro), SS-B (La), Worley, Worley/GOLD LEAF PRINTER, Scl-70, Luna-1, centromeric proteins, other antigens extracted from the HEp-2 cell nucleus. ERIKA PIPER assays have been reported to have lower sensitivities than ERIKA IFA for systemic autoimmune rheumatic diseases (SARD). Negative results do not necessarily rule out SARD. Performed By: [facility] [address] [place] [address] Sewing Machine Maintenance Mechanic: Luisito Feliciano MD, PhD CLIA Number: [id number] Blood BLOOD SPECIMEN / Unknown Lab Venipuncture / Unknown 12/26/2023 4:41 PM CDT 12/26/2023 5:45 PM CDT Ion Mancillarymple DO LAB - CHEMIS TRY ORDERABLES Performing Organization Address City/[facility]/ZIP Co de Phone Number [facility] ([facility]) [address] [place] [address], [facility] * (ABNORMAL) SS-B ANTIBODY (12/26/2023 4:41 PM CDT) Only the most recent of3 resultswithin the time period is included. Sjogren's Antibodies (SSB) 3.2(H) 0.0 - 0.9 AI 12/28/2023 5:09 PM CDT [facility] ([facility]) Blood BLOOD SPECIMEN / Unknown Lab Venipuncture / Unknown 12/26/2023 4:41 PM CDT 12/26/2023 5:45 PM CDT Narrative [facility] ([facility]) - 12/28/2023 5:09 PM CDT Performed at: ??01 - [facility] [place] [id number] [place], [place] ??[id number] Music Composition Teacher: Gus Elliott PhD, Phone: ??[phone] Ion Mahoney Kenisha MONTES LAB - CHEMIS TRY [facility]ABLES [facility]) [address] [place] [address] * SS-A ANTIBODY (12/26/2023 4:41 PM CDT) Only the most recent of3 resultswithin the time period is included. Sjogren's Antibodies (SSA) <0.2 0.0 - 0.9 AI 12/28/2023 5:09 PM CDT [facility] ([facility]) Blood BLOOD SPECIMEN / Unknown Lab Venipuncture / Unknown 12/26/2023 4:41 PM CDT 12/26/2023 5:45 PM CDT Narrative [facility] ([facility]) - 12/28/2023 5:09 PM CDT Performed at: ??01 - [address] ??[id number] Music Composition Teacher: Gus Elliott PhD, Phone: ??[phone] Ion De DO LAB - CHEMIS TRY ORDERABLES Performing Organization Address [facility] de Phone Number [facility] ([facility]) [address] [place] [address] * SCL70 ANTIBODY (12/26/2023 4:41 PM CDT) Only the most recent of5 resultswithin the time period is included. Pathologist [facility] Antiscleroderma -70 Antibody <0.2 0.0 - 0.9 AI 12/28/2023 5:09 PM CDT [facility] ([facility]) Blood BLOOD SPECIMEN / Unknown Lab Venipuncture / Unknown 12/26/2023 4:41 PM CDT 12/26/2023 5:45 PM CDT [facility]) - 12/28/2023 5:09 PM CDT Performed at: ??01 - [address] ??[id number] Music Composition Teacher: Gus Elliott PhD, Phone: ??[phone] Ion De DO LAB - CHEMIS TRY ORDERABLES Performing Organization Address [facility] de Phone Number [facility] ([facility]) [address] [place] [address] * DNA ANTIBODY DOUBLE STRAND (12/26/2023 4:41 PM CDT) Only the most recent of4 resultswithin the time period is included. Pathologist [facility] Anti-dsDNA Quantitative 1 0 - 9 IU/mL 12/28/2023 5:09 PM CDT [facility] ([facility]) Comment: ? Negative ?<5 ? Equivocal ??5 - 9 ? Positive ?>9 Blood BLOOD SPECIMEN / Unknown Lab Venipuncture / Unknown 12/26/2023 4:41 PM CDT 12/26/2023 5:45 PM CDT Narrative [facility] ([facility]) - 12/28/2023 5:09 PM CDT Performed at: ??01 - [facility] [address] [place], [place] ??[id number] Music Composition Teacher: Gus Elliott PhD, Phone: ??[phone] Ion De DO LAB - HEMATO LOGY ORDERABLES Performing Organization Address City/State/[facility] Co de Phone Number [facility] ([facility]) [address] [place] [address] * CBC W AUTO DIFFERENTIAL (12/26/2023 4:41 PM CDT) Only the most recent of10 resultswithin the time period is included. [facility] WBC 8.2 4.0 - 10.7 x10E9/L 12/26/2023 5:58 PM CDT [facility] RBC Count 4.68 3.90 - 5.20 x10E12/L 12/26/2023 5:58 PM CDT [facility] Hemoglobin 13.7 11.9 - 15.8 g/dL 12/26/2023 5:58 PM CDT [facility] Hematocrit 41.1 34.8 - 46.1 % 12/26/2023 5:58 PM CDT [facility] MCV 87.8 80.0 - 98.0 fL 12/26/2023 5:58 PM [facility] MCH 29.3 26.7 - 33.6 pg 12/26/2023 5:58 PM [facility] MCHC 33.3 31.7 - 36.3 g/dL 12/26/2023 5:58 PM [facility] RDW-CV 12.7 11.3 - 14.8 % 12/26/2023 5:58 PM [facility] Platelet Count 413 150 - 420 x10E9/L 12/26/2023 5:58 PM [facility] MPV 10.0 7.8 - 11.4 fL 12/26/2023 5:58 PM [facility] Neutrophil % 58.1 41.0 - 74.0 % 12/26/2023 5:58 PM [facility] Lymphocyte % 28.9 17.0 - 47.0 % 12/26/2023 5:58 PM [facility] Monocyte % 8.0 3.0 - 11.0 % 12/26/2023 5:58 PM [facility] Eosinophil % 3.8 0.0 - 7.0 % 12/26/2023 5:58 PM [facility] Basophil % 1.0 0.0 - 1.6 % 12/26/2023 5:58 PM [facility] Immature Granulocytes % 0.2 0.0 - 1.0 % 12/26/2023 5:58 PM [facility] Neutrophil Absolute 4.74 1.60 - 7.50 x10E9/L 12/26/2023 5:58 PM [facility] Lymphocyte Absolute 2.36 1.00 - 4.40 x10E9/L 12/26/2023 5:58 PM [facility] Monocyte Absolute 0.65 0.15 - 1.00 x10E9/L 12/26/2023 5:58 PM [facility] Eosinophil Absolute 0.31 0.00 - 0.60 x10E9/L 12/26/2023 5:58 PM [facility] Basophil Absolute 0.08 0.00 - 0.13 x10E9/L 12/26/2023 5:58 PM [facility] Blood BLOOD SPECIMEN / Unknown Lab Venipuncture / Unknown 12/26/2023 4:41 PM CDT 12/26/2023 5:45 PM CDT Ion Bakermple DO LAB - HEMATO LOGY ORDERABLES [facility] [address] [place] [address], [facility] [phone] * (ABNORMAL) COMPREHENSIVE METABOLIC PANEL (12/26/2023 4:41 PM CDT) Only the most recent of8 resultswithin the time period is included. BUN 15 7 - 26 mg/dL 12/26/2023 10:54 PM [facility] Creatinine 0.67 0.56 - 0.96 mg/dL 12/26/2023 10:54 PM [facility] Sodium 143 136 - 145 mmol/L 12/26/2023 10:54 PM [facility] Potassium 3.8 3.5 - 4.5 mmol/L 12/26/2023 10:54 PM [facility] Chloride 111(H) 98 - 107 mmol/L 12/26/2023 10:54 PM [facility] CO2 20(L) 22 - 29 mmol/L 12/26/2023 10:54 PM [facility] Glucose 73 70 - 115 mg/dL 12/26/2023 10:54 PM [facility] Calcium 9.9 8.4 - 10.2 mg/dL 12/26/2023 10:54 PM [facility] Protein Total 8.2 6.0 - 8.3 g/dL 12/26/2023 10:54 PM [facility] Albumin 4.5 3.4 - 5.0 g/dL 12/26/2023 10:54 PM [facility] Bilirubin Total 0.4 0.2 - 1.2 mg/dL 12/26/2023 10:54 PM [facility] Alkaline Phosphatase 72 40 - 150 U/L 12/26/2023 10:54 PM [facility] ALT 10 5 - 55 U/L 12/26/2023 10:54 PM [facility] AST 21 5 - 34 U/L 12/26/2023 10:54 PM [facility] Anion Gap 12 6 - 16 12/26/2023 10:54 PM [facility] BUN/Creatinine Ratio 22 7 - 23 12/26/2023 10:54 PM [facility] Osmolality Calculated 295 275 - 295 mOsm/kg 12/26/2023 10:54 PM [facility] Albumin/Globulin Ratio 1.2 1.1 - 2.3 12/26/2023 10:54 PM [facility] eGFR by CKD-EPI >90 >=90 mL/min/1.7 3 m2 12/26/2023 10:54 PM [facility] Blood BLOOD SPECIMEN / Unknown Lab Venipuncture / Unknown 12/26/2023 4:41 PM CDT 12/26/2023 5:45 PM [facility] Ion Mancillarymple DO LAB - CHEMIS TRY ORDERABLES [facility] [address] [place] [address], [facility] [phone] * CT ABDOMEN PELVIS W CONTRAST (04/02/2023 4:23 AM YOUTH SUPPORT WORKER) Anatomical Region Laterality Modality Abdomen, Pelvis Computed Tomogra phy 04/02/2023 8:02 AM YOUTH SUPPORT WORKER Impressions 04/02/2023 8:04 AM YOUTH SUPPORT WORKER IMPRESSION: Normal study. > Interpreting Provider: Keturah Zelaya MD on 04/02/2023 8:04 AM Narrative 04/02/2023 8:04 AM YOUTH SUPPORT WORKER PROCEDURE: ??CT ABDOMEN PELVIS W CONTRAST, DATE/TIME OF EXAM: ??04/02/2023 4:24 AM, LOCATION ??[facility] INDICATION: R10.84: Generalized abdominal pain ADDITIONAL CLINICAL INFORMATION: Ordering Provider Reason For Exam: Technologist Note: Additional: None. COMPARISON: None. TECHNIQUE: CT of the abdomen and pelvis was performed following uneventful administration of intravenous contrast. Coronal and sagittal reformatted images were submitted. CONTRAST: IOPAMIDOL 61 % IV SOLN:93 mL DOSE: CTDI: 11.25 mGy, DLP: 661.16 mGy-cm The reported CTDIvol (mGy) and DLP (mGy-cm) values are generated from scan acquisition factors extrapolated from 32 cm (body) or 16 cm (head) phantoms. ??Dose reduction techniques were employed. FINDINGS: Lower Chest: Clear. Liver: Normal size and enhancement. No differentially enhancing lesion. Gallbladder/Biliary: No cholelithiasis. ??No gallbladder wall thickening. No intrahepatic or extrabiliary biliary dilation. Pancreas: Normal enhancement. No main pancreatic duct dilatation. Spleen: Normal size. Adrenal glands: Normal. : Normal size and symmetric enhancement. No hydronephrosis or hydroureter. ??The ureters are normal in course and caliber. ??Grossly normal urinary bladder. Reproductive: No pelvic mass. GI: Normal caliber, no wall thickening. No obstruction.Moderate stool burden. Normal appendix. Peritoneum/Retroperitoneum: No pneumoperitoneum, ascites or organized collection. Lymph Nodes: No adenopathy. Vascular: Standard three-vessel aortic arch. ??Normal course, caliber and enhancement of the great vessels in the chest and abdomen. Normal caliber and enhancement. Bones: Normal mineralization. ??No lytic or blastic lesion. ??No fracture. Soft Tissues: Normal. Procedure Note Keturah Zelaya MD - 04/02/2023 PROCEDURE: CT ABDOMEN PELVIS W CONTRAST, DATE/TIME OF EXAM: 04/02/2023 4:24 AM, LOCATION [facility] INDICATION: R10.84: Generalized abdominal pain ADDITIONAL CLINICAL INFORMATION: Ordering Provider Reason For Exam: Technologist Note: Additional: None. COMPARISON: None. TECHNIQUE: CT of the abdomen and pelvis was performed followinguneventful administration of intravenous contrast. Coronal and sagittal reformatted images were submitted. CONTRAST: IOPAMIDOL 61 % IV SOLN:93 mL DOSE: CTDI: 11.25 mGy, DLP: 661.16 mGy-cm The reported CTDIvol (mGy) and DLP (mGy-cm) values are generated fromscan acquisition factors extrapolated from 32 cm (body) or 16 cm (head) phantoms. Dose reduction techniques were employed. FINDINGS: Lower Chest: Clear. Liver: Normal size and enhancement. No differentially enhancing lesion. Gallbladder/Biliary: No cholelithiasis. No gallbladder wall thickening. No intrahepatic or extrabiliary biliary dilation. Pancreas: Normal enhancement. No main pancreatic duct dilatation. Spleen: Normal size. Adrenal glands: Normal. : Normal size and symmetric enhancement. No hydronephrosis or hydroureter. The ureters are normal in course and caliber. Grosslynormal urinary bladder. Reproductive: No pelvic mass. GI: Normal caliber, no wall thickening. No obstruction.Moderate stool burden. Normal appendix. Peritoneum/Retroperitoneum: No pneumoperitoneum, ascites or organized collection. Lymph Nodes: No adenopathy. Vascular: Standard three-vessel aortic arch. Normal course, caliber and enhancement of the great vessels in the chest and abdomen. Normalcaliber and enhancement. Bones: Normal mineralization. No lytic or blastic lesion. No fracture. Soft Tissues: Normal. IMPRESSION: Normal study. > Interpreting Provider: Keturah Zelaya MD on 04/02/2023 8:[address] AM [address]om DO CT ORDERABLES * HCG URINE QUALITATIVE - POCT (IP) INTERFACED (04/02/2023 3:52 AM YOUTH SUPPORT WORKER) Pathologist [facility] HCG Qual Urine Negative Negative 04/02/2023 4:03 AM YOUTH SUPPORT WORKER [facility] Urine URINE / Unknown 04/02/2023 3 :52 AM YOUTH SUPPORT WORKER 04/02/2023 4:03 AM YOUTH SUPPORT WORKER Danya Grissom DO LAB - POINT OF CAR E ORDERABLES [facility] [address] [place] [id number] * SARS-COV-2 (COVID-19) FLU A/B RSV PCR RAPID (04/02/2023 3:42 AM YOUTH SUPPORT WORKER) Pathologist [facility] COVID-19 PCR Not detected Not detected 04/02/20 4:32 AM [facility] Influenza A PCR Not detected Not detected 04/02/2023 4:32 AM [facility] Influenza B PCR Not detected Not detected 04/02/2023 4:32 AM [facility] RSV PCR Not detected Not detected 04/02/2023 4:32 AM [facility] Microbiology SPECIMEN FROM NASOPHARYNGEAL STRUCTURE / Unknown Collection / Unknown 04/02/2023 3:42 AM YOUTH SUPPORT WORKER 04/02/2023 3:53 AM [facility] - 04/02/2023 4:32 AM YOUTH SUPPORT WORKER This nucleic acid amplification assay has been authorized by the Food and Drug administration (FDA) under an Emergency??Use Authorization (EUA).?? This test is only authorized for the duration of time the declaration that circumstances exist justifying the authorization of emergency use of in vitro diagnostic tests for detection of SARS-CoV-2 virus and/or diagnosis of COVID-19 infection under section 564(b)(1) of the Act, 21 U.S.C 360bbb-3 (b)(1), unless the authorization is terminated or revoked sooner. Fact Sheets for this EUA assay are available upon request. Danya Grissom DO LAB - MICROBIOLOGY ORDERABLES [facility] [address] [place] [address], [facility] [phone] * URINALYSIS W/MICROSCOPIC REFLEX TO CULTURE (04/02/2023 3:42 AM [employer]) Only the most recent of8 resultswithin the time period is included. Color UA Yellow Straw, Yellow 04/02/2023 4:05 AM [facility] Clarity UA Clear Clear 04/02/2023 4:05 AM [facility] Specific [place] UA 1.021 1.005 - 1.030 04/02/2023 4:05 AM [facility] pH UA 5.0 5.0 - 8.0 pH 04/02/2023 4:05 AM [facility] Protein UA Negative Negative 04/02/2023 4:05 AM [facility] Glucose UA Negative Negative 04/02/2023 4:05 AM [facility] Ketone UA Negative Negative 04/02/2023 4:05 AM [facility] Bilirubin UA Negative Negative 04/02/2023 4:05 AM [facility] Blood UA Negative Negative 04/02/2023 4:05 AM [facility] Nitrite UA Negative Negative 04/02/2023 4:05 AM [facility] Leukocyte Esterase Negative Negative 04/02/2023 4:05 AM [facility] Urobilinogen UA Negative Negative mg/dL 04/02/2023 4:05 AM [facility] RBC UA 0-2 None Seen, 0-2, 3-5 /HPF 04/02/2023 4:05 AM [facility] WBC UA 0-5 None Seen, 0-5 /HPF 04/02/2023 4:05 AM [facility] Squamous Epithelial Cells UA 0-2 None Seen, 0-2, 3-5 /HPF 04/02/2023 4:05 AM [facility] Mucus UA 2+ /LPF 04/02/2023 4:05 AM [facility] Urine URINE SPECIMEN OBTAINED BY CLEAN CATCH PROCEDURE / Unknown Collection / Unknown 04/02/2023 3:42 AM [employer] 04/02/2023 3:53 AM [facility] - 04/02/2023 4:05 AM [facility] Culture Not Indicated Danya Grissom DO LAB - URINALYSIS O RDERABLES Performing Organization Address City/State/[facility] Co de Phone Number [facility] [address] [place] [address], [facility] [phone] * (ABNORMAL) BASIC METABOLIC PANEL (CALCIUM TOTAL) (04/02/2023 3:04 AM [facility]) BUN 12 7 - 26 mg/dL 04/02/2023 3:35 AM [facility] Creatinine 0.69 0.56 - 0.96 mg/dL 04/02/2023 3:35 AM [facility] Sodium 141 136 - 145 mmol/L 04/02/2023 3:35 AM [facility] Potassium 3.8 3.5 - 4.5 mmol/L 04/02/2023 3:35 AM [facility] Chloride 110(H) 98 - 107 mmol/L 04/02/2023 3:35 AM [facility] CO2 20(L) 22 - 29 mmol/L 04/02/2023 3:35 AM [facility] Glucose 89 70 - 115 mg/dL 04/02/2023 3:35 AM [facility] Calcium 9.9 8.4 - 10.2 mg/dL 04/02/2023 3:35 AM [facility] Anion Gap 11 6 - 16 04/02/2023 3:35 AM [facility] BUN/Creatinine Ratio 17 7 - 23 04/02/2023 3:35 AM [facility] Osmolality Calculated 291 275 - 295 mOsm/kg 04/02/2023 3:35 AM [facility] eGFR by CKD-EPI >90 >=90 mL/min/1.7 3 m2 04/02/2023 3:35 AM [facility] Blood BLOOD SPECIMEN / Unknown Venipuncture / Unknown 04/02/2023 3:04 AM [employer] 04/02/2023 3:12 AM [employer] WORK[employer] Danya Grissom DO LAB - CHEMISTRY OR DERABLES [address] [address], [place] [phone] * LIPASE BLOOD (04/02/2023 3:04 AM [employer] SUPPORT WORKER) Lipase 16 8 - 78 U/L 04/02/2023 3:35 AM [facility] Blood BLOOD SPECIMEN / Unknown Venipuncture / Unknown 04/02/2023 3:04 AM [employer] 04/02/2023 3:12 AM [employer] SUPPORT WORKER Narrative [facility] - 04/02/2023 3:35 AM YOU[employer] SUPPORT WORKER Lipase results from the [employer] Alinity analyzer may not be comparable with other methodologies. Danya Grissom DO LAB - CHEMISTRY OR DERABLES [address] [address], [place] [phone] * HCG URINE QUAL POCT NOTIFICATION (04/02/2023 2:33 AM YOU[employer] SUPPORT WORKER) Comment Notification Label Only - See Separate Report 04/02/2023 5:01 AM YOU[employer] SUPPORT WORKER [facility] Urine URINE / Unknown 04/02/2023 2 :33 AM [employer] SUPPORT WORKER 04/02/2023 3:50 AM [employer] SUPPORT WORKER Danya Grissom DO LAB - URINALYSIS O RDERABLES [facility] [address] [place] [address] * URINALYSIS MICROSCOPIC ONLY REFLEXED (02/02/2023 12:57 PM CDT) Only the most recent of7 resultswithin the time period is included. WBC UA None seen 0 - 5 /hpf [facility] INSURANCE BILL RBC UA None seen 0 - 2 /hpf [facility] INSURANCE BILL Epithelial Cells (non renal) None seen 0 - 10 /hpf [facility] INSURANCE BILL Epithelial Cells (renal) NOT AVAILABLE [facility] INSURANCE BILL Comment:Result cannot be obt ained for this observation. Casts ua None seen None seen /lpf [facility] INSURANCE BILL Casts UA NOT AVAILABLE [facility] INSURANCE BILL Comment:Result cannot be obt ained for this observation. Crystals UA NOT AVAILABLE [facility] INSURANCE BILL Comment:Result cannot be obt ained for this observation. Crystals UA NOT AVAILABLE [facility] INS[facility]ANCE B[facility] Comment:Result cannot be obt ained for this observation. Mucus UA NOT AVAILABLE [facility] INSURANCE BILL Comment:Result cannot be obt ained for this observation. Bacteria UA None seen None seen/Few [facility] INSURANCE BILL Yeast UA NOT AVAILABLE [facility] INSURANCE BILL Comment:Result cannot be obt ained for this observation. Trichomonas UA NOT AVAILABLE [facility] BILL Comment:Result cannot be obt ained for this observation. Comment Urine NOT AVAILABLE [facility] INSURANCE BILL Comment: FASTING Result cannot be obtained for this observation. 02/02/2023 12:5 7 PM CDT 02/02/2023 Narrative Resulting Agency Comment Lab Testing performed at: [facility] ??[facility] [phone] Ion De DO LAB - URINAL YSIS ORDERABLES Performing Organization Address City/[facility]/ZIP Co de Phone Number [facility] INSURANCE BILL [address] [place] [address] * CENTROMERE B ANTIBODIES (02/02/2023 12:56 PM CDT) Centromere B Antibody <0.2 0.0 - 0.9 AI [facility] INSURANCE BILL Comment:FASTING Blood BLOOD SPECIMEN / Unknown 02/02/2023 12:56 PM CDT 02/02/2023 Narrative Resulting Agency Comment Lab Testing performed at: [facility] ??[facility] [phone] Ion De DO LAB - SEROLO GY ORDERABLES Performing Organization Address [facility] de Phone Number [facility] INSURANCE BILL [address] [place] [address] * RNA POLYMERASE III ANTIBODY IGG (02/02/2023 12:56 PM CDT) RNA Polymerase 3 Antibody IgG <20 <20 Units [facility] INSURANCE BILL Comment: ?Negative: ? <20 ?Weak Positive: ?20 - 39 ?Moderate Positive: ?40 - 80 ?Strong Positive: ?>80 FASTING Blood BLOOD SPECIMEN / Unknown 02/02/2023 12:56 PM CDT 02/02/2023 Narrative [facility] INSURANCE BILL - 02/08/2023 5:08 PM CDT Test(s) 210182-Hnem-PA/Scl-100 Ab (RDL) was developed and its performance characteristics determined by [facility]. It has not been cleared or approved by the Food and Drug Administration. Resulting Agency Comment Lab Testing performed at: [facility] [address] [place] [address] ??[facility][note 3] [phone] Ion De DO LAB - SEROLO GY ORDERABLES Performing Organization Address [facility] Co de Phone Number [facility] INSURANCE BILL [address] [place] [address] * FIBRILLARIN (U3 GOLD LEAF PRINTER) (02/02/2023 12:56 PM CDT) Fibrillarin (U3 GOLD LEAF PRINTER) Negative Negative [facility] INSURANCE BILL Comment:FASTING Blood BLOOD SPECIMEN / Unknown 02/02/2023 12:56 PM CDT 02/02/2023 Narrative [facility] INSURANCE BILL - 02/15/2023 6:10 AM YOU[employer] SUPPORT WORKER Test(s) 496457-Juir-Q6 GOLD LEAF PRINTER (Fibrillarin)(RDL) was developed and its performance characteristics determined by [facility]. It has not been cleared or approved by the Food and Drug Administration. Resulting Agency Comment Lab Testing performed at: [facility] [address] [place] [address] ??[facility][note 3] [phone] Ion De DO LAB - CHEMIS TRY ORDERABLES Performing Organization Address [facility] Co de Phone Number [facility] INSURANCE BILL [address] [place] [address] * C-REACTIVE PROTEIN (02/02/2023 12:56 PM CDT) Only the most recent of6 resultswithin the time period is included. C-Reactive Protein 2 0 - 10 mg/L [facility] INSURANCE BILL Comment:FASTING Blood BLOOD SPECIMEN / Unknown 02/02/2023 12:56 PM CDT 02/02/2023 Narrative Resulting Agency Comment [facility] [address] ??[place] [phone] Ion De DO LAB - CHEMIS TRY ORDERABLES [facility] [address] [place] [address] * PM/SCL-100 ANTIBODY IGG (02/02/2023 12:56 PM CDT) Anti PM/Scl Antibody EIA <20 <20 Units [facility] Comment: ?Negative: ? <20 ?Weak Positive: ?20 - 39 ?Moderate Positive: ?40 - 80 ?Strong Positive: ?>80 FASTING Blood BLOOD SPECIMEN / Unknown 02/02/2023 12:56 PM CDT 02/02/2023 Narrative [facility] - 02/08/2023 5:08 PM CDT Test(s) 062156-Zmbv-XK/Scl-100 Ab (RDL) was developed and its performance characteristics determined by [employer]. It has not been cleared or approved by the Food and Drug Administration. Resulting Agency Comment Lab Testing performed at: [facility] [address] [place] [address] ??[facility][note 3] [phone] Ion De DO LAB - SEROLO GY ORDERABLES Performing Organization Address City/[facility]/ZIP Co de Phone Number [facility] INSURANCE BILL [address] [place] [address] * ESR - SED RATE WESTERGREN AUTO (02/02/2023 12:56 PM CDT) Only the most recent of6 resultswithin the time period is included. Erythrocyte Sedimentation Rate Westergren 6 0 - 32 mm/hr [facility] INSURANCE BILL Comment:FASTING Blood BLOOD SPECIMEN / Unknown 02/02/2023 12:56 PM CDT 02/02/2023 Narrative Resulting Agency Comment Lab Testing performed at: [employer] [employer] [place] [id number] [facility] ??[facility] [phone] Ino Mancillarymple DO LAB - HEMATO LOGY ORDERABLES Performing Organization Address [facility] Co de Phone Number [facility] INSURANCE BILL [address] [place] [address] * COMPLEMENT C4 (02/02/2023 12:56 PM CDT) Only the most recent of4 resultswithin the time period is included. Complement C4 43 14 - 44 mg/dL [facility] INSURANCE BILL Comment:FASTING Blood BLOOD SPECIMEN / Unknown 02/02/2023 12:56 PM CDT 02/02/2023 Narrative Resulting Agency Comment Lab Testing performed at: [facility] [address] [place] [address] ??[facility][note 3] [id number] Ion Bakermple DO LAB - SEROLO GY ORDERABLES Performing Organization Address City/[facility] Co de Phone Number [facility] INSURANCE BILL [address] [place] [address] * (ABNORMAL) COMPLEMENT C3 (02/02/2023 12:56 PM CDT) Only the most recent of4 resultswithin the time period is included. Complement C3 186(H) 82 - 167 mg/dL [facility] INSURANCE BILL Comment:FASTING Blood BLOOD SPECIMEN / Unknown 02/02/2023 12:56 PM CDT 02/02/2023 Narrative Resulting Agency Comment Lab Testing performed at: [facility] [address] [place] [address] ??[facility][note 3] [id number] Ion De DO LAB - CHEMIS TRY ORDERABLES [facility] INSURANCE BILL [address] [place] [address] * EKG 15-LEAD (01/21/2023 2:33 PM CDT) Only the most recent of4 resultswithin the time period is included. Ventricular Rate 74 BPM CG MUSE Atrial Rate 74 BPM CG MUSE P-R Interval 128 ms CG MUSE QRS Duration ms 84 ms CG MUSE Q-T Interval ms 362 ms CG MUSE QTC Calculation (Bezet) 401 ms CG MUSE Calculated P [place] 22 degrees CG MUSE Calculated R [place] 86 degrees CG MUSE Calculated T [place] -6 degrees CG MUSE Interpretation EKG Normal sinus rhythm Nonspecific T wave abnormality Abnormal ECG When compared with ECG of 03-SEP-2020 12:03, Nonspecific T wave abnormality now evident in Lateral leads Confirmed by Trey Petty ([id number]) on 01/24/2023 2:29:57 PM CG MUSE 01/21/2023 2:33 PM CDT 01/24/2023 2:29 PM CDT Trey Petty MD ECG ORD ERABLES CG MUSE * VITAMIN D 25-HYDROXY (09/03/2022 1:31 PM CDT) Only the most recent of2 resultswithin the time period is included. Vitamin D, 25 Hydroxy 42.1 30.0 - 100.0 ng/mL [facility] INSURANCE BILL Comment: Vitamin D deficiency has been defined by the [place] [employer] and an Endocrine Society practice guideline as a level of serum 25-OH vitamin D less than 20 ng/mL (1,2). The Endocrine Society went on to further define vitamin D insufficiency as a level between 21 and 29 ng/mL (2). 1. IOM ([place] [employer]). 2010. Dietary reference ?? intakes for calcium and D. [place]: The ?? National Academies Press. 2. Han MF, Ofelia ARREAGA, Gigi LYONS, et al. ?? Evaluation, treatment, and prevention of vitamin D ?? deficiency: an Endocrine Society clinical practice ?? guideline. JCEM. 2010; 96(7):1911-30. FASTING Blood BLOOD SPECIMEN / Unknown 09/03/2022 1:31 PM CDT 09/03/2022 Narrative Resulting Agency Comment Lab Testing performed at: [employer] [address] ??[facility] [phone] Ion De DO LAB - CHEMIS TRY ORDERABLES [facility] INSURANCE BILL [address] [place] [address] * (ABNORMAL) ARIANE STAINING PATTERNS REFLEXED (09/03/2022 1:30 PM CDT) Only the most recent of3 resultswithin the time period is included. Homogeneous Pattern 1:160(H) [facility] INSURANCE BILL Comment:ICAP nomenclature: A C-1 Nucleolar Pattern 1:160(H) [facility] INSURANCE BILL Comment:ICAP nomenclature: A C-8,9,10 Speckled Pattern NOT AVAILABLE [facility] INSURANCE BILL Comment:Result cannot be obt ained for this observation. Centromere Pattern NOT AVAILABLE [facility] INSURANCE BILL Comment:Result cannot be obt ained for this observation. Spindle Apparatus Pattern NOT AVAILABLE [facility] INSURANCE BILL Comment:Result cannot be obt ained for this observation. Nuclear Membrane Pattern NOT AVAILABLE [facility] INSURANCE BILL Comment:Result cannot be obt ained for this observation. Midbody Pattern NOT AVAILABLE [facility] INSURANCE BILL Comment:Result cannot be obt ained for this observation. Nuclear Dot Pattern NOT AVAILABLE [facility] INSURANCE BILL Comment:Result cannot be obt ained for this observation. PCNA Pattern NOT AVAILABLE [facility] INSURANCE BILL Comment:Result cannot be obt ained for this observation. Centriole Pattern NOT AVAILABLE [facility] INSURANCE BILL Comment:Result cannot be obt ained for this observation. Note [facility] INSURANCE BILL Comment: For more information about Hep-2 cell patterns use ANApatterns.org, the official website for the International Consensus on Antinuclear Antibody (ERIKA) Patterns (ICAP). A positive ERIKA result may occur in healthy individuals (low titer) or be associated with a variety of diseases. ??See interpretation chart which is not all inclusive: ? . Pattern ?Antigen Detected ??Suggested Disease Association ? Homogeneous ??DNA(ds,ss), ? SLE - High titers ? Nucleosomes, ? Histones ?Drug-induced SLE ? Speckled ? Sm, GOLD LEAF PRINTER, SCL-70, ??SLE,MCTD,PSS (diffuse form), ? SS-A/SS-B ? Sjogrens ? Nucleolar ?SCL-70, PM-1/SCL ??High titers Scleroderma, ? PM/DM ? Centromere ?? Centromere ?PSS (limited form) w/Crest ? syndrome variable ? Nuclear Dot ??Sp100,b33-pqgant ??Primary Biliary Cirrhosis ? Nuclear ?GP210, ?Primary Biliary Cirrhosis Membrane ? kayden A,B,C ? FASTING 09/03/2022 1:30 PM CDT 09/03/2022 Narrative Resulting Agency Comment Lab Testing performed at: [address] ??[facility] [phone] Ion De DO LAB - PATHOL OGY/CYTOLOGY ORDERABLES [facility] INSURANCE BILL [address] [place] [address] * XR PELVIS W RIGHT HIP 2VW (06/26/2021 10:19 AM CDT) Anatomical Region Laterality Modality Pelvis Radiographic Nazia ging 06/26/2021 10:2 2 AM CDT Narrative 06/26/2021 10:27 AM CDT INDICATION: Pain in right hip XR pelvis with Hips- AP- standing- coccyx center and pubo-coccyx distance 1-2 cm ??- Right hip 45 Traylor view COMPARISON: None available. TECHNIQUE: AP view of the pelvis and 45 degree Traylor view of the right hip. FINDINGS/IMPRESSION: There is no fracture. Mild right-sided femoral waist deficiency is noted. No hip subluxation or dislocation is seen. The sacroiliac joints are normal. Intrauterine device is incidentally noted. No soft tissue abnormality is seen. Reading Radiologist: Stevan Londono on 06/26/2021 at 10:27 AM Procedure Note Stevan Londono MD - 06/26/2021 INDICATION: Pain in right hip XR pelvis with Hips- AP- standing- coccyxcenter and pubo-coccyx distance 1-2 cm - Right hip 45 Traylor view COMPARISON: None available. TECHNIQUE: AP view of the pelvis and 45 degree Traylor view of the righthip. FINDINGS/IMPRESSION: There is no fracture. Mild right-sided femoral waist deficiency isnoted. No hip subluxation or dislocation is seen. The sacroiliac joints are normal. Intrauterine device is incidentally noted. No soft tissue abnormality isseen. Reading Radiologist: Stevan Londono on 06/26/2021 at 10:27 AM Deysi Tenorio MD DIAGNOSTIC IMAGING ORDERABLES * MRI PELVIS WO CONTRAST (06/26/2021 9:19 AM CDT) Anatomical Region Laterality Modality Pelvis Magnetic Resonan ce 06/26/2021 10:2 8 AM CDT Impressions 06/26/2021 10:41 AM CDT IMPRESSION: Normal MRI appearance of the right hip. > Interpreting Provider: Lorenza Casanova on 06/26/2021 10:41 AM Narrative 06/26/2021 10:41 AM CDT PROCEDURE: ??MRI PELVIS WO CONTRAST, DATE/TIME OF EXAM: ??06/26/2021 9:19 AM, LOCATION ??[facility] INDICATION: M25.551: Pain in right hip ADDITIONAL CLINICAL INFORMATION: Ordering Provider Reason For Exam: Technologist Note: Additional: COMPARISON: None. TECHNIQUE: Multiplanar multisequence MR imaging of the pelvis was performed without the use of intravenous contrast. FINDINGS: Normal marrow signal intensity is seen throughout. The hips are normally aligned bilaterally. No evidence of hip joint effusion or synovial thickening. SI joints are normal in appearance bilaterally. Visualized portion of the lumbosacral spine is normal without evidence of canal stenosis or neuroforaminal narrowing. No degenerative changes seen at the L4-5 or L5-S1 intervertebral levels. There is artifact related to a menstrual cup. There are 2 small foci of T1/T2 signal hypointensity in the left ovary (series 3 images 10 and 11), which likely reflect blood products in the setting of evolving hemorrhagic cysts. No masslike lesion is seen involving the left ovary. There is trace fluid in the pelvis. Pelvic contents are otherwise normal in appearance. Musculotendinous structures demonstrate normal bulk and signal intensity. No soft tissue mass or fluid collection is evident. Procedure Note Lorenza Casanova MD - 06/26/2021 PROCEDURE: MRI PELVIS WO CONTRAST, DATE/TIME OF EXAM: 06/26/2021 9:19AM, LOCATION [facility] INDICATION: M25.551: Pain in right hip ADDITIONAL CLINICAL INFORMATION: Ordering Provider Reason For Exam: Technologist Note: Additional: COMPARISON: None. TECHNIQUE: Multiplanar multisequence MR imaging of the pelvis was performed without the use of intravenous contrast. FINDINGS: Normal marrow signal intensity is seen throughout. The hips are normally aligned bilaterally. No evidence of hip joint effusion or synovial thickening. SI joints are normal in appearance bilaterally. Visualized portion of the lumbosacral spine is normal without evidence of canal stenosis or neuroforaminal narrowing. No degenerative changes seen atthe L4-5 or L5-S1 intervertebral levels. There is artifact related to a menstrual cup. There are 2 small foci of T1/T2 signal hypointensity in the left ovary (series 3 images 10 and11), which likely reflect blood products in the setting of evolvinghemorrhagic cysts. No masslike lesion is seen involving the left ovary. There istrace fluid in the pelvis. Pelvic contents are otherwise normal in appearance. Musculotendinous structures demonstrate normal bulk and signalintensity. No soft tissue mass or fluid collection is evident. IMPRESSION: Normal MRI appearance of the right hip. > Interpreting Provider: Lorenza Casanova on 06/26/2021 10:41 AM [facility] MR ORDERABLES * ECHO CONSULT - PEDIATRIC (09/03/2020 1:06 PM CDT) Only the most recent of3 resultswithin the time period is included. 09/03/2020 1:06 PM CDT Narrative Procedure Note Melida Hernandez MD - 09/03/2020 [address] [place] [id number] Fax Congenital Transthoracic Report Pat.Name: USAMA ENCINAS Pat.ID: [id number] .Date: 09/03/2020 Refer.MD: SCOOBY HEARD Exam Time: 1:06:00 PM Study Type:Congenital TTE Height: 159cm Weight: 57.7kg BSA: 1.59 m2 Age: 5 2005,14Y Sex: FEMALE Sonogrphr: Geremias Bullock ALY Pat. Stat.:Outpatient CPT - 4: 54720, 31128, [id number] Reason for Study: connective 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. SUMMARY: Impression: Structurally normal heart Mild mitral valve prolapse with trivial mitral regurgitation Normal biventricular systolic function Findings: Anatomic Relationships: Abdominal situs solitus. There is levocardia. Atrial situs solitus. The AV alignment is concordant. The ventricular looping is D-looped. The VA connection is concordant. The arterial relationships are normal. Systemic Veins: Normal right SVC. Normal IVC. Pulmonary Veins: At least two pulmonary veins drain to the left atrium. Right Atrium: The right atrial size is normal. Left Atrium: The left atrial size is normal. Atrial Septum: Intact atrial septum. Left to right atrial shunt, none. Tricuspid Valve: The tricuspid valve is structurally normal. There is no stenosis. There is physiologic regurgitation present. Mitral Valve: The mitral valve is with prolapse. There is no stenosis. There is trivial regurgitation present. Right Ventricle: The cavity size is normal. The wall thickness is normal. The systolic function is normal. RV Outflow Tract: The outflow tract is normal. Left Ventricle: The cavity size is normal. The wall thickness is normal. The systolic function is normal. LV Outflow Tract: The outflow tract is normal. Ventricular Septum: The septal motion is normal. There is no defect with no shunting. Pulmonary Valve: The pulmonic valve is structurally normal. There is no stenosis. There is physiologic regurgitation present. Aortic Valve: The aortic valve is structurally normal. There is no stenosis. There is no regurgitation present. Pulmonary Artery: The MPA is normal. The LPA is normal. The RPA is normal. Aorta: The aortic root is normal. The aortic arch is patent. The arch sidedness is not evaluated. PDA: No PDA with no shunting. Coronary Arteries: Not evaluated. Pericardium: No pericardial effusion. MEASUREMENTS: MMODE Ventricles LVIDd 47.93 mm (zsc 0.1) LVPWs 14.38 mm (zsc 0.2) LVIDs 30.27 mm (zsc -0.2) LV%fs 36.84 % (zsc 0.5) IVSd 5.55 mm (zsc -2.5) LV EF 66.61 % IVSs 10.85 mm (zsc -0.9) LV Mass 93.61 g (zsc -1.9) LVPWd 7.06 mm (zsc -1.2) Signed 09/03/2020 01:38 PM Melida Hernandez MD Melida Hernandez MD ECHO ORDERABLES [facility] [address] [place] [address] * (ABNORMAL) CULTURE URINE COMPREHENSIVE (02/23/2020 11:10 AM YOU[employer] SUPPORT WORKER) Urine Culture Comprehensive Final report(A) [facility] INSURANCE BILL Result 1 Escherichia coli(A) [facility] INSURANCE BILL Comment: 300 Colonies/mL Susceptibility profile is consistent with a probable ESBL. Result 2 Enterococcus faecalis(A) [facility] INSURANCE BILL Comment: 400 Colonies/mL Note: this isolate is vancomycin-susceptible. This information is provided for epidemiologic purposes only: vancomycin is not among the antibiotics recommended for therapy of urinary tract infections caused by Enterococcus. For Enterococcus species, aminoglycosides (except for high-level resistance screening), cephalosporins, clindamycin, and trimethoprim-sulfamethoxazole are not effective clinically. (CLSI, [id number], 2016) Result 3 (A) [facility] INSURANCE BILL Comment: Coagulase negative Staphylococcus species, not Staphylococcus saprophyticus. 800 ??Colonies/mL Based on resistance to oxacillin this isolate would be resistant to all currently available beta-lactam antimicrobial agents, with the exception of the newer cephalosporins with anti-MRSA activity, such as Ceftaroline Antimicrobial Susceptibility [facility] INSURANCE BILL Comment: ? S = Susceptible; I = Intermediate; R = Resistant ? P = Positive; N = Negative ?MICS are expressed in micrograms per mL ?? Antibiotic ? RSLT#1 ?RSLT#2 ?RSLT#3 ?RSLT#4 Amoxicillin/Clavulanic Acid ?S Ampicillin ? R Cefazolin ?R Cefepime ? R Ceftriaxone ?R Cefuroxime ? R Ciprofloxacin ?S ? S ? S Ertapenem ?S Gentamicin ? R ? S Imipenem ? S Levofloxacin ? S ? S ? S Linezolid ?S Meropenem ?S Nitrofurantoin ? S ? S ? S Oxacillin ?R Penicillin ? S ? R Piperacillin/Tazobactam ?S Quinupristin/Dalfopristin ?S Rifampin ? S Tetracycline ? S ? R ? S Tobramycin ? I Trimethoprim/Sulfa ? S ? S Vancomycin ? S ? S FASTING 02/23/2020 11:1 0 AM YOUTH SUPPORT WORKER 02/23/2020 Narrative Resulting Agency Comment Lab Testing performed at: [address] ??[facility] [id number] Ion Mahoney Kenisha DO LAB - MICROB IOLOGY ORDERABLES Performing Organization Address [facility] de Phone Number [facility] INSURANCE BILL [address] [place] [address] * TSH (02/23/2020 11:10 AM YOUTH SUPPORT WORKER) Only the most recent of4 resultswithin the time period is included. TSH 3.030 0.450 - 4.500 uIU/mL [facility] INSURANCE BILL Comment:FASTING Blood BLOOD SPECIMEN / Unknown 02/23/2020 11:10 AM YOUTH SUPPORT WORKER 02/23/2020 Narrative Resulting Agency Comment Lab Testing performed at: [employer] [address] ??[facility] [phone] Ion Mancillarymple DO LAB - CHEMIS TRY ORDERABLES Performing Organization Address [facility]/ZIP Co de Phone Number [employer] INSURANCE BILL [address] [place] [address] * (ABNORMAL) SS-A/SS-B (SJOGRENS) ANTIBODY PANEL (07/03/2018 3:48 PM CDT) Sjogren's Antibodies (SSA) <0.2 0.0 - 0.9 AI [facility] INSURANCE BILL Sjogren's Antibodies (SSB) 3.3(H) 0.0 - 0.9 AI [facility] INSURANCE BILL Blood BLOOD SPECIMEN / Unknown 07/03/2018 3:48 PM CDT 07/03/2018 Narrative Resulting Agency Comment [facility] [address] ??[place] [phone] Ion De DO LAB - CHEMIS TRY ORDERABLES [facility] INSURANCE BILL [address] [place] [address] * T4 TOTAL (03/09/2018 3:16 PM YOUTH SUPPORT WORKER) T4 Total 6.6 4.5 - 12.0 ug/dL [facility] INSURANCE BILL Blood BLOOD SPECIMEN / Unknown 03/09/2018 3:16 PM YOUTH SUPPORT WORKER 03/09/2018 Narrative Resulting Agency Comment [facility] [address] ??[facility] [phone] Roney Delcid MD LAB - CHEMISTRY DINESH BHAKTA [facility] INSURANCE BILL [address] [place] [address] * (ABNORMAL) ERIKA COMPREHENSIVE PLUS PROFILE (06/24/2017 9:16 AM CDT) dsDNA Antibody 5 0 - 9 IU/mL [facility] ([facility]) Comment: ? Negative ?<5 ? Equivocal ??5 - 9 ? Positive ?>9 GOLD LEAF PRINTER Antibody <0.2 0.0 - 0.9 AI [facility] ([facility]) Worley Antibody 0.7 0.0 - 0.9 AI [facility] ([facility]) Worley/GOLD LEAF PRINTER Antibodies 6.2(H) 0.0 - 0.9 AI [facility] ([facility]) Antiscleroderma-70 Antibody <0.2 0.0 - 0.9 AI [facility] ([facility]) Sjogren's Antibodies (SSA) <0.2 0.0 - 0.9 AI [facility] ([facility]) Sjogren's Antibodies (SSB) 4.4(H) 0.0 - 0.9 AI [facility] ([facility]) Antichromatin Antibody IgG 0.2 0.0 - 0.9 AI [facility] ([facility]) Anti-Ribosomal P Antibody 0.2 0.0 - 0.9 AI [facility] ([facility]) Anti-Luna-1 <0.2 0.0 - 0.9 AI [facility] ([facility]) Anti-Centromere B Antibody <0.2 0.0 - 0.9 AI [facility] ([facility]) See below [facility] ([facility]) Comment: Autoantibody ? Disease Association ?Condition ?Frequency ? Antinuclear Antibody, ?SLE, mixed connective Direct (ERIKA-D) ? 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s ? dsDNA ?SLE ?40 - 60% ? Chromatin ?Drug induced SLE ?90% ? SLE ?48 - 97% ? SSA (Ro) ? SLE ?25 - 35% ? Sjogren's Syndrome ? 40 - 70% ? Lupus ? 100% ? SSB (La) ? SLE ? 10% ? Sjogren's Syndrome ?30% ? Sm (anti-Worley) ?SLE ?15 - 30% ? GOLD LEAF PRINTER ?Mixed Connective Tissue ? Disease ? 95% (U1 nRNP, ?SLE ?30 - 50% anti-ribonucleoprotein) ??Polymyositis and/or ? Dermatomyositis ? 20% ? Scl-70 (antiDNA ?Scleroderma (diffuse) ?20 - 35% topoisomerase) ? Crest ? 13% ? Luna-1 ? Polymyositis and/or ? Dermatomyositis ?20 - 40% ? Centromere B ? Scleroderma - Crest ? variant ? 80% ? Ribosomal P ?SLE ?10 - 20% 06/24/2017 9:16 AM CDT 06/24/2017 Narrative [facility] ([facility]) - 06/27/2017 1:09 PM CDT Performed at: ??01 - [facility] [place] [address] [place], [place] ??[id number] Music Composition Teacher: Gus Elilott PhD, Phone: ??[phone] Ion De DO LAB - CHEMIS TRY ORDERABLES Performing Organization Address [facility] Co de Phone Number [facility] ([facility]) [address] [place] [address] * BETA-2 GLYCOPROTEIN 1 ANTIBODY IGG (06/24/2017 9:16 AM CDT) Pathologist [facility] Beta-2 Glycoprotein 1 Antibody 1 IgG <9 0 - 20 GPI IgG units [facility] ([facility]) Comment: The reference interval reflects a 3SD or 99th percentile interval, which is thought to represent a potentially clinically significant result in accordance with the International Consensus Statement on the classification criteria for definitive antiphospholipid syndrome (APS). J Thromb Haem 2006;4:295-306. Blood specimen (specimen) BLOOD SPECIMEN / Unknown 06/24/2017 9:16 AM CDT 06/24/2017 Narrative [facility] ([facility]) - 06/28/2017 7:11 AM CDT Performed at: ??01 - [facility] [address] ??[id number] Music Composition Teacher: Tray Osorio MD, Phone: ??[phone] Ion Denzel De DO LAB - SEROLO GY ORDERABLES Performing Organization Address [facility] Co de Phone Number [facility] ([facility]) [address] [place] [address], [place] * (ABNORMAL) LUPUS ANTICOAGULANT PANEL (06/24/2017 9:16 AM CDT) Pathologist [facility] Dilute Prothrombin Time (DPT) 45.8 0.0 - 55.0 sec [facility] ([facility]) dPT Confirm Ratio 1.03 0.00 - 1.40 Ratio [facility] ([facility]) Thrombin Time 17.8 0.0 - 23.0 sec [facility] ([facility]) PTT Lupus Anticoagulant 44.1 0.0 - 51.9 sec [facility] ([facility]) dRVVT Baseline 59.0(H) 0.0 - 47.0 sec [facility] ([facility]) Interpretation Comment: [facility] ([facility]) Comment: No lupus anticoagulant was detected. An extended dRVVT that corrects on mixing with normal plasma can be caused by a deficiency of one of the common pathway factors (X, V, II or fibrinogen). Blood specimen (specimen) BLOOD SPECIMEN / Unknown 06/24/2017 9:16 AM CDT 06/24/2017 Narrative [facility] ([facility]) - 06/27/2017 11:09 AM CDT Performed at: ??01 - [facility] ??[id number] Music Composition Teacher: Tray Osorio MD, Phone: ??[phone] Ion Mahoney Kenisha DO LAB - HEMATO LOGY ORDERABLES Performing Organization Address City/State/[facility] Co de Phone Number [facility]) [address] [place] [address] * CARDIOLIPIN ANTIBODY IGA (06/24/2017 9:16 AM CDT) Anticardiolipin Antibody IgA Quantitative <9 0 - 11 APL U/mL [facility] ([facility]) Comment: ?Negative: ?<12 ?Indeterminate: ? 12 - 20 ?Low-Med Positive: >20 - 80 ?High Positive: ? >80 Blood specimen (specimen) BLOOD SPECIMEN / Unknown 06/24/2017 9:16 AM CDT 06/24/2017 Narrative [facility] ([facility]) - 06/26/2017 7:07 AM CDT Performed at: ??01 - [facility] [address] [place], [place] ??[id number] Music Composition Teacher: Gus Elliott PhD, Phone: ??[phone] Ion Bakermple DO LAB - SEROLO GY ORDERABLES Performing Organization Address [facility] de Phone Number [facility] ([facility]) [address] [place] [address] * CARDIOLIPIN ANTIBODY IGG (06/24/2017 9:16 AM CDT) [facility] Anticardiolipin Antibody IgG Quantitative <9 0 - 14 GPL U/mL [facility] ([facility]) Comment: ?Negative: ?<15 ?Indeterminate: ? 15 - 20 ?Low-Med Positive: >20 - 80 ?High Positive: ? >80 Blood specimen (specimen) BLOOD SPECIMEN / Unknown 06/24/2017 9:16 AM CDT 06/24/2017 N[facility]ative [facility]) - 06/26/2017 7:07 AM CDT Performed at: ??01 - [facility] [address] [place], [place] ??[id number] Music Composition Teacher: Gus Elliott PhD, Phone: ??[phone] Ion De DO LAB - SEROLO GY ORDERABLES Performing Organization Address [facility] de Phone Number [facility] ([facility]) [address] [place] [address] * RHEUMATOID FACTOR BLOOD QUANTITATIVE (06/24/2017 9:16 AM CDT) Pathologist [facility] RA latex Turbidimetry <10.0 0.0 - 13.9 IU/mL [facility] ([facility]) Blood specimen (specimen) BLOOD SPECIMEN / Unknown 06/24/2017 9:16 AM CDT 06/24/2017 Narrative [facility] ([facility]) - 06/25/2017 7:12 AM CDT Performed at: ??01 - [facility] [address] [place], [place] ??[id number] Music Composition Teacher: Gus Elliott PhD, Phone: ??[phone] Ion Mancillarymple DO LAB - CHEMIS TRY ORDERABLES [facility] ([facility]) [address] [place] [address] * (ABNORMAL) KATHY-PENG VIRUS PANEL (06/24/2017 9:16 AM CDT) [facility] Kathy-Peng Virus Antibody To Viral Capsid Antigen IgM <36.0 0.0 - 35.9 U/mL [facility] ([facility]) Comment: ? Negative ?<36.0 ? Equivocal 36.0 - 43.9 ? Positive ?>43.9 Kathy-Peng Virus Early Antigen Antibody IgG <9.0 0.0 - 8.9 U/mL [facility] ([facility]) Comment: ? Negative ?< 9.0 ? Equivocal ??9.0 - 10.9 ? Positive ?>10.9 Kathy-Peng Virus Antibody To Viral Capsid Antigen IgG 105.0(H) 0.0 - 17.9 U/mL [facility] ([facility]) Comment: ? Negative ?<18.0 ? Equivocal 18.0 - 21.9 ? Positive ?>21.9 Kathy-Peng Virus Nuclear Antigen Antibody IgG >600.0(H) 0.0 - 17.9 U/mL [facility] ([facility]) Comment: ? Negative ?<18.0 ? Equivocal 18.0 - 21.9 ? Positive ?>21.9 Interpretation [facility] ([facility]) Comment: ? EBV Interpretation Chart Interpretation ?? EBV-IgM ??EA(D)-IgG ??VCA-IgG ??EBNA-IgG EBV Seronegative ?- ?- ? - ?- Early Phase ? + ?- ? - ?- Acute Primary ? + ? +or- ? + ?- Infection Convalescence/Past ??- ? +or- ? + ?+ Infection Reactivated ?+or- ?+ ? + ?+ Infection ? + Antibody Present ?- Antibody Absent Serum 06/24/2017 9:16 AM CDT 06/24/2017 Narrative [facility] ([facility]) - 06/26/2017 7:07 AM CDT Performed at: ??01 - [facility] ??[id number] Music Composition Teacher: uGs Elliott PhD, Phone: ??[phone] Ion Mahoney Kenisha DO LAB - CHEMIS TRY ORDERABLES Performing Organization Address [facility] de Phone Number [employer] [facility] Systems[facility]) [address] [place] [address] * (ABNORMAL) THYROID PEROXIDASE ANTIBODY (06/24/2017 9:16 AM CDT) Thyroid Peroxidase TPO Antibody 72(H) 0 - 26 IU/mL [facility] ([facility]) Blood specimen (specimen) BLOOD SPECIMEN / Unknown 06/24/2017 9:16 AM CDT 06/24/2017 Narrative [facility] ([facility]) - 06/25/2017 7:12 AM CDT Performed at: ??01 - [address] ??[id number] Music Composition Teacher: Gus Elliott PhD, Phone: ??[phone] Ion De DO LAB - CHEMIS TRY ORDERABLES Performing Organization Address [facility] de Phone Number [facility]) [address] [place] [address] * (ABNORMAL) THYROGLOBULIN ANTIBODY (06/24/2017 9:16 AM CDT) Thyroglobulin Antibody 1.2(H) 0.0 - 0.9 IU/mL [facility] ([facility]) Comment:Thyroglobulin Antibo dy measured by Kye Raymond Methodology Blood specimen (specimen) BLOOD SPECIMEN / Unknown 06/24/2017 9:16 AM CDT 06/24/2017 Narrative [facility] ([facility]) - 06/27/2017 3:13 PM CDT Performed at: ??01 - [facility] [address] [place], [place] ??[id number] Music Composition Teacher: Gus Elilott PhD, Phone: ??[phone] Ion De DO LAB - CHEMIS TRY ORDERABLES Performing Organization Address [facility] Co de Phone Number [facility] ([facility]) [address] [place] [address] * BETA-2 GLYCOPROTEIN 1 ANTIBODY IGA (06/24/2017 9:16 AM CDT) Beta-2 Glycoprotein 1 Antibody IgA <9 0 - 25 GPI IgA units [facility] ([facility]) Comment: The reference interval reflects a 3SD or 99th percentile interval, which is thought to represent a potentially clinically significant result in accordance with the International Consensus Statement on the classification criteria for definitive antiphospholipid syndrome (APS). J Thromb Haem 2006;4:295-306. Blood specimen (specimen) BLOOD SPECIMEN / Unknown 06/24/2017 9:16 AM CDT 06/24/2017 Narrative [facility] ([facility]) - 06/28/2017 7:11 AM CDT Performed at: ??01 - [address] ??[id number] Music Composition Teacher: Tray Osoiro MD, Phone: ??[phone] Ion De DO LAB - SEROLO GY ORDERABLES Performing Organization Address [facility] Co de Phone Number [facility] ([facility]) [address] [place] [address] * ESTELA VIPER VENOM DILUTE (06/24/2017 9:16 AM CDT) dRVVT 1:1 Mix 42.8 0.0 - 47.0 sec [facility] ([facility]) 06/24/2017 9:16 AM CDT 06/24/2017 Narrative [facility] ([facility]) - 06/27/2017 11:09 AM CDT Performed at: ??01 - [address] ??[id number] Music Composition Teacher: Tray Osorio MD, Phone: ??[phone] Ion De DO LAB - COAGUL ATION ORDERABLES [facility] ([facility]) [address] * HLA TYPING B27 (06/24/2017 9:16 AM CDT) Pathologist [facility] HLA-B27 Negative [facility] ([facility]) Comment: HLA-B*27 Negative B27 allele interpretation for all loci based on IMGT/HLA database version 3.27 This test was developed and its performance characteristics determined by [facility]. ??It has not been cleared or approved by the Food and Drug Administration. [facility] CLIA ID Number [id number] This test was performed using PCR (Polymerase Chain Reaction)/SSOP (Sequence Specific Oligonucleotide Probes) technique. ??SBT (Sequence Based Typing) and/or SSP (Sequence Specific Primers) may be used as supplemental methods when necessary. ??Please contact [facility] Customer Service at if you have any questions. Director of HLA Laboratory Dr Hardik Sheets, PhD Blood specimen (specimen) BLOOD SPECIMEN / Unknown 06/24/2017 9:16 AM CDT 06/24/2017 Narrative [facility] ([facility]) - 06/30/2017 7:12 AM CDT Performed at: ??01 - [address] ??[id number] Music Composition Teacher: Hardik Sheets PhD, Phone: ??[phone] Ion Bakermple DO LAB - CHEMIS TRY ORDERABLES Performing Organization Address City/[facility]/ZIP Co de Phone Number [facility] ([facility]) [address] * (ABNORMAL) COMPLEMENT TOTAL (06/24/2017 9:16 AM CDT) Pathologist [facility] Complement Total CH50 >60(H) 40 - 60 U/mL [facility] ([facility]) Blood specimen (specimen) BLOOD SPECIMEN / Unknown 06/24/2017 9:16 AM CDT 06/24/2017 Narrative [facility] ([facility]) - 06/27/2017 3:13 PM CDT Performed at: ??01 - [address] ??[id number] Music Composition Teacher: Gus Elliott PhD, Phone: ??[phone] Ion Denzel Kenisha DO LAB - CHEMIS TRY ORDERABLES Performing Organization Address [facility] Co de Phone Number [facility]) [address] [place] [address] * ALDOLASE (06/24/2017 9:16 AM CDT) [facility] Aldolase 3.9 3.3 - 10.3 U/L [facility]) Blood specimen (specimen) BLOOD SPECIMEN / Unknown 06/24/2017 9:16 AM CDT 06/24/2017 Narrative [facility] ([facility]) - 06/27/2017 3:13 PM CDT Performed at: ??01 - [address] ??[id number] Music Composition Teacher: Gus Elliott PhD, Phone: ??[phone] Ion Denzel Kenisha DO LAB - CHEMIS TRY ORDERABLES Performing Organization Address City/[facility]/ZIP Co de Phone Number [facility]) [address] [place] [address], [facility] * CYCLIC CITRUL PEPTIDE AB IGG (CCP) (06/24/2017 9:16 AM CDT) Pathologist [facility] Cyclic Citrullinated Peptide Antibody 8 0 - 19 units [facility] ([facility]) Comment: ?Negative ? <20 ?Weak positive ?20 - 39 ?Moderate positive ??40 - 59 ?Strong positive ?>59 Blood specimen (specimen) BLOOD SPECIMEN / Unknown 06/24/2017 9:16 AM CDT 06/24/2017 Narrative [facility] ([facility]) - 06/28/2017 7:11 AM CDT Performed at: ??01 - [address] ??[id number] Music Composition Teacher: Tray Osorio MD, Phone: ??[phone] Ion Mahoney Kenisha DO LAB - CHEMIS TRY ORDERABLES Performing Organization Address City/State/[facility] Co de Phone Number [facility] ([facility]) [address] [place] [address], [facility] * LDH BLOOD (06/24/2017 9:16 AM CDT) Pathologist [facility] LDH Total 187 118 - 215 IU/L [facility] ([facility]) Blood specimen (specimen) BLOOD SPECIMEN / Unknown 06/24/2017 9:16 AM CDT 06/24/2017 Narrative [facility] ([facility]) - 06/25/2017 7:12 AM CDT Performed at: ??01 - [facility] [address] [place], [place] ??[id number] Music Composition Teacher: Gus Elliott PhD, Phone: ??[phone] Ion De DO LAB - CHEMIS TRY ORDERABLES Performing Organization Address City/[facility] de Phone Number [facility]) [address] * CK BLOOD (06/24/2017 9:16 AM CDT) [facility] CK Total 55 24 - 173 U/L [facility] ([facility]) Blood specimen (specimen) BLOOD SPECIMEN / Unknown 06/24/2017 9:16 AM CDT 06/24/2017 Narrative [facility] ([facility]) - 06/25/2017 7:12 AM CDT Performed at: ?? - [facility] ??[id number] Music Composition Teacher: Gus Elliott PhD, Phone: ??[phone] Ion De DO LAB - CHEMIS TRY ORDERABLES Performing Organization Address [facility] de Phone Number [facility] ([facility]) [address] * (ABNORMAL) IMMUNOGLOBULINS IGG/IGM/IGA PANEL (06/24/2017 9:16 AM CDT) [facility] IgG Quantitative 1244 759 - 1549 mg/dL [facility] ([facility]) IgA Quantitative <5(L) 51 - 220 mg/dL [facility] ([facility]) Comment:Result confirmed on concentration. IgM Quantitative 103 57 - 209 mg/dL [facility] ([facility]) Venous blood specimen (specimen) 06/24/2017 9:16 AM CDT 06/24/2017 Narrative [facility] ([facility]) - 06/25/2017 7:12 AM CDT Performed at: ?? - [facility] [address] ??[id number] Music Composition Teacher: Gus Elliott PhD, Phone: ??[phone] Ion De DO LAB - CHEMIS TRY ORDERABLES Performing Organization Address City/[facility] Co de Phone Number [facility]) [address] [place] [address], [facility] * MRI BRAIN NON CONTRAST (12/12/2009 10:09 AM CDT) Anatomical Region Laterality Modality Head Magnetic Resonan ce 12/12/2009 10:3 8 AM CDT Narrative 12/12/2009 11:12 AM CDT Technique: ? T1W: ?? Axial, sagittal. ?T2W: ?? Axial. ?FLAIR: ?? Axial, coronal. ?DWI: ?? Axial. The midline structures are central. The ventricles are neither dilated nor displaced. The brain signal intensity with its felton white matter interface is normal. There is no diffusion restriction. Mild bilateral maxillary sinus and ethmoid air cell mucosal thickening is identified. Diagnosis: Normal brain MRI. D: Edel Estrada M.D. Procedure Note Naz Alvarado MD - 12/12/2009 Technique: T1W: Axial, sagittal. T2W: Axial. FLAIR: Axial, coronal. DWI: Axial. The midline structures are central. The ventricles are neither dilated nor displaced. The brain signal intensity with its felton white matter interface is normal. There is no diffusion restriction. Mild bilateral maxillary sinus and ethmoid air cell mucosal thickening is identified. Diagnosis: Normal brain MRI. D: Edel Estrada M.D. Melecio Nunez MD MR ORDERABLES Care Teams Brusher Hand Relationship Specialty Start Date End Date Cuate Ramon MD [address] [place] [address] PCP - General 08/09/17 Ion De DO [address] [place] [address] Rheumatology 08/05/20 Radha aZvala MD [address] [place] [address] [address] [place] [address] Neurology 12/07/23
--- OUTSIDE RECORDS SUMMARY | 2024-05-11 15:28 | XMS_ITS | Referral Summary ---
Author Organization [facility] Address [address] [place] [address] Care Team Providers Care Bottle Blower Name Role Phone Cuate Ramon MD Primary Care Provider Twan Lopez MD Unavailable [phone] Alisa Lai PT Unavailable Unavailable Maria Teresa Padron Unavailable Unavailable Encounters Date Type Department Care Team Description 05/09/2024 Telephone [facility] Gastroenterology at [address] [place] [phone] Mihai Miller NP 05/09/2024 9:30 AM ENDOSCOPY TECHNICIAN Office Visit [facility] Gastroenterology at [address] [place] [address] Mihai Miller NP Irritable bowel syndrome with both constipation and diarrhea (Primary Dx); Nausea and vomiting, unspecified vomiting type; Gastroesophageal reflux disease without esophagitis 03/07/2024 1:05 PM ENDOSCOPY TECHNICIAN - 03/07/2024 11:59 PM ENDOSCOPY TECHNICIAN Hospital Encounter [facility] [address] [place] [address] Nausea and vomiting, unspecified vomiting type Discharge Disposition: Discharge to home or self care 02/23/2024 Telephone [facility] Pediatric Neurology [id number] [place] [address] [address] [place] [address] Shani Michelle NP 02/16/2024 Telephone [facility] Pediatric Allergy and Pulmonology [facility] 2nd [place] [address] [place] [address] Gege Minaya RN 02/15/2024 7:58 AM ENDOSCOPY TECHNICIAN - 02/15/2024 11:59 PM ENDOSCOPY TECHNICIAN Hospital Encounter [facility] Pediatric Pulmonology [address] [phone] Mild persistent asthma without complication Discharge Disposition: Discharge to home or self care 02/15/2024 8:30 AM ENDOSCOPY TECHNICIAN Office Visit [facility] Pediatric Allergy and Pulmonology [address] [place] [address] [place] [phone] Tracie Seay MD Mild persistent asthma with acute exacerbation (Primary Dx); Need for vaccination; Non-allergic rhinitis; IgA deficiency, selective (HCC) from Last 3 Months Allergies Active Allergy [...] needed for rhinitis (nasal congestion) 1 each [address] (PROTONIX) 40 mg EC tablet TAKE 1 TABLET DAILY 90 tablet 3 Active propranoloL (INDERAL) 10 mg tablet 0.5 tablets (5 mg total) Active midodrine (PROAMATINE) 5 mg tablet Take 1 tablet (5 mg total) by mouth Active [place] Saline gel Active topiramate (TOPAMAX) 50 mg [...] for up to 9 doses 9 tablet 024 Active sertraline (ZOLOFT) 100 mg tablet Take 1 tablet (100 mg total) by mouth daily 90 tablet 1 025 Active promethazine (PHENERGAN) 25 mg tablet Take 1 tablet (25 mg total) by mouth every 6 (six) hours as needed for nausea or vomiting 30 tablet 1 025 Active ondansetron (ZOFRAN) 8 mg tablet Take 1 tablet (8 mg total) by mouth 4 (four) times a day as needed for nausea or vomiting 30 tablet 2 025 Active linaCLOtide (LINZESS) 145 mcg capsule Take 1 capsule (145 mcg total) by mouth daily 90 capsule 3 025 Active sertraline (ZOLOFT) 100 mg tablet Take 1 tablet (100 mg total) by mouth daily 2024 Discontinued(R jim) hyoscyamine (LEVSIN) 0.125 mg tabletIndications :Urinary Incontinence [...] mouth daily for 5 days 15 tablet 024 2024 Active Problems Problem Noted Date Diagnosed Date Nausea and vomiting 05/09/2024 Gastroesophageal reflux disease without esophagi tis 05/09/2024 Mild persistent asthma without complication 09/2023 Change in bowel habits 07/29/2023 Acute [...] 21 Assessment & Plan (05/08/2021 2:38 PM ENDOSCOPY TECHNICIAN): - Continue home Montelukast 10mg QHS albuterol 4 puff q4h PRN Assessment & Plan (05/07/2021 4:58 PM ENDOSCOPY TECHNICIAN): - Continue home Montelukast 10mg QHS albuterol 4 puff q4h PRN Concussion without loss of consciousness 020 Vocal cord dysfunction 01/22/2019 Non-allergic rhinitis 01/15/2019 Tremor 12/28/2018 High risk medication use 10/18/2018 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 Pt seen at [facility] on Tuesday and was discharged home [...] 05/24/2018 Assessment & Plan (05/08/2021 2:38 PM ENDOSCOPY TECHNICIAN): - Continue home sertaline 75 mg Assessment & Plan (05/07/2021 4:56 PM ENDOSCOPY TECHNICIAN): - Continue home sertaline 75 mg Assessment [...] 05/05/2018 Assessment & Plan (05/05/2018 5:09 PM ENDOSCOPY TECHNICIAN): Benztropine was given. Dilated pupils which do [...] 08/11/2017 Assessment & Plan (05/08/2021 2:39 PM ENDOSCOPY TECHNICIAN): Christen Encinas is a 15 y.o. female [...] precautions Assessment & Plan (05/07/2021 4:59 PM ENDOSCOPY TECHNICIAN): Christen Encinas is a 15 y.o. female [...] PM CDT): Stable vision; updated Rx for saddle stitcher wear. Patient may continue with current Rx. [...] 18 Assessment & Plan (05/08/2021 2:38 PM ENDOSCOPY TECHNICIAN): - Continue home uloxetine 30mg every day Methocarbamol 500mg q8h PRN Assessment & Plan (05/07/2021 4:57 PM ENDOSCOPY TECHNICIAN): - Continue home uloxetine 30mg every day Methocarbamol 500mg q8h PRN Assessment & Plan (06/22/2018 1:34 AM CDT): - continue home meds/supplements -gabapentin, plaquenil, vitamin D Viral infection 03/15/2017 Dizziness 02/15/2017 Vertigo 02/15/2017 Mononucleosis syndrome 02/15/2017 Fatigue 10/18/2016 Otitis externa 09/30/2016 Migraine headache 06/18/2015 Otitis media 01/01/2015 Constipation 11/28/2014 IgA deficiency, 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 Assessment & Plan (05/08/2021 2:38 PM ENDOSCOPY TECHNICIAN): Continue home Cefdinir 300mg every day Assessment & Plan (05/07/2021 4:56 PM ENDOSCOPY TECHNICIAN): Continue home Cefdinir 300mg every day Assessment & Plan (01/02/2019 2:50 PM CDT): 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 No Breezy-Teresa Ring or sunflower cataract on ocular examination today. Vision is stable, 20/20 right eye (OD), left eye (OS). No change in prescription on dilated exam - continue with current glasses saddle stitcher. OCT revealed some thinning of inferior (right [...] Date Abnormal PFT 10/18/2018 05/22/2019 IgA deficiency ([facility]) 10/18/2018 Disorder of connective tissue ([facility]) 08/11/2017 12/22/2020 Moderate persistent asthma w ithout complication 01/01/2015 05/22/2019 Chronic rhinitis 01/01/2015 05/22/2019 Immunizations Name Administration Dates Next Due DTaP, Unspecified 11/11/2008, 5,03/09/2004,01/05,2003 HPV9 07/26/2016,01/09/2016 Hep A, Unspecified 01/23/2008,01/31/2007 Hep B, Unspecified 09/10/2004,01/06/2004, 004 HiB 09/10/2004,01/06/2004,2003 Influenza, Quadrivalent, Spl it, Preservative Free, Intramuscular 04/12/2018 Influenza, Trivalent, Preser vative Free, Intramuscular 02/15/2024,03/15/2017 Influenza, Unspecified 01/09/2016 MMR 11/11/2008,09/10/2004 Meningococcal MCV4P (Menactra) 01/06/2015 Pneumococcal Polysaccharide PPV23 01/06/2015 Pneumococcal, Unspecified 09/10/2004,,01/06/2004,11/10 Polio, Unspecified 11/11/2008, 4,01/06/2004,11/10 Tdap 01/06/2015 Varicella 01/23/2008,09/10/2004 Social History Tobacco Use Types Packs/Day [...] on file Legal Sex Female 6:05 AM ENDOSCOPY TECHNICIAN Gender Identity Female 04/05/2023 1:07 AM ENDOSCOPY TECHNICIAN Sexual Orientation Straight 04/05/2023 1: 07 AM ENDOSCOPY TECHNICIAN Last Filed Vital Signs Vital Sign Reading Time Taken Comments Blood Pressure 108/78 05/09/2024 10:40 AM ENDOSCOPY TECHNICIAN Pulse 92 05/09/2024 10:40 AM ENDOSCOPY TECHNICIAN Temperature 36.8 ??C (98.2 ??F) 02/15/2024 8:31 AM CS T Respiratory Rate 18 02/15/2024 8:31 AM ENDOSCOPY TECHNICIAN Oxygen Saturation 99% 05/09/2024 10:40 AM ENDOSCOPY TECHNICIAN Inhaled Oxygen Concentration - - Weight 68 kg (149 lb 14.4 oz) 05/09/2024 10:40 A M ENDOSCOPY TECHNICIAN Height 160 cm (5' 3 ) 05/09/2024 10:40 AM ENDOSCOPY TECHNICIAN Body Mass Index 26.55 05/09/2024 10:40 AM ENDOSCOPY TECHNICIAN Plan of Treatment Not on file Goals Goal Patient Goal Type Associated Problems Recent Progress Patient-Stated? Author -Pain Behavioral Health Improving( 5:42 PM ENDOSCOPY TECHNICIAN) No Margoth Porras, PhD Note: Increase functioning in daily activities [facility] No change(06/18 5:42 PM ENDOSCOPY TECHNICIAN) No Margoth Porras, PhD Note: Increase non-pharmacological strategies for coping with pain Procedures Procedure Name Priority Date/Time Associated Diagnosis Comments NM HEPATOBILIARY IMAGING W PHARMACEUTICAL INTERVENTION Schedule Routine, Read Routine (OP Routine) 03/07/2024 3:33 PM ENDOSCOPY TECHNICIAN Nausea and vomiting, unspecified vomiting type PULMONARY FUNCTION TEST (PFT) Routine 02/15/2024 8:12 AM ENDOSCOPY TECHNICIAN Mild persistent asthma without complication from Last 3 Months Results * NM Hepatobiliary Imaging W GBEF (03/07/2024 3:33 PM ENDOSCOPY TECHNICIAN) Anatomical Region Laterality Modality Body N/A Nuclear Medicine 03/07/2024 4:45 PM ENDOSCOPY TECHNICIAN Narrative 03/07/2024 4:46 PM ENDOSCOPY TECHNICIAN EXAM DESCRIPTION: ?? NM HEPATOBILIARY IMAGING W [...] PM T: ??03/07/2024 4:46 PM Report ID: [id number] Reading Location: ??[id number] Procedure Note Krystal Mario MD - 03/07/2024 [...] Krystal Causey M.D. FT: FT Report ID: [id number] Reading Location: [id number] us Mihaiwhitney Gonzálesyaneth DIGITAL INTERN IMG NM PROCEDURES F inal Result * Pulmonary Function Test - (02/15/2024 8:12 AM ENDOSCOPY TECHNICIAN) FVC %PRE PRED 108 % [facility] FEV1 %PRE PRED 97 % [facility] [id number]% %PRE PRED 72 % [facility] Anatomical Region Laterality Modality PFT 02/15/2024 8:06 AM ENDOSCOPY TECHNICIAN Narrative 02/17/2024 2:14 PM ENDOSCOPY TECHNICIAN PFT performed at:->[facility] Tracie Seay MD PFT ORDERABLES Final R esult from Last 3 Mon[address] Insurance [facility] CHOICE PLUS [facility] HMO/PPO Address: [facility] [address] [place], [place] [id number] [place] [address] [facility] CHOICE [facility] HMO/PPO Address: [id number] [place] [address] [facility] CHOICE [facility] HMO/PPO Address: [address] [address] [place] [address] [facility] CHOICE [facility] HMO/PPO Address: [address] [place] [address] [facility] CHOICE [facility] HMO/PPO Address: [address] [place], [place] [id number] [place] [address] Advance Directives For more information, please contact: [phone] * Full Code (Latest Code Status on [...] 8:12 PM 06/24/2018 2:52 PM Care Teams Bottle Blower Relationship Specialty Start Date End Date Cuate Ramon MD [address] [facility] [place] [address] PCP - General 10/22/16 Twan Lopez MD [address] [facility] [place] [address] Anesthesiologist Pediatric Anesthesia 10/20/17 Alisa Lai, PT Physical Therapist Physical Therapy 10/20/17 Maria Teresa Padron Physical Therapist Physical Therapy 11/24/17
--- NOTE | 2024-05-11 15:29 | PC.NURSE ---
covid culture sent to lab
--- NOTE | 2024-05-11 15:33 | ECG_ITS ---
Test Date: 2024-05-11 15:41:19 Measurements Intervals [place] Rate: 103 P: 71 PA: 156 QRS: 94 QRSD: 93 T: -31 QT: 345 QTc: 454 Interpretive Statements SINUS TACHYCARDIA RIGHT AXIS DEVIATION CANNOT R/O SEPTAL INFARCT, AGE INDETERMINATE ST-T WAVE ABNORMALITY IN INFERIOR LEADS- CONSIDER ISCHEMIA ABNORMAL ECG No previous ECG available for comparison Electronically Signed On 05-12-2024 10:44:44 6TH GRADE TEACHER by Shane Kaufman D.O.
[2024-05-11 16:15] LABS: SARS-CoV-2 RNA PCR Negative (Negative)
--- OUTSIDE RECORDS SUMMARY | 2024-05-11 16:16 | XMS_ITS | Clinical Summary ---
Author Organization [facility] Address [address] [place] [address] Phone Care Team Providers Care Admissions Nurse Name Role Phone Cuate Ramon MD Primary Care Provider [phone] Allergies Active Allergy Reactions Criticality Noted Date [...] VACCINE (#1) 2023 04/12/2018 Insurance Care Teams Admissions Nurse Relationship Specialty Start Date End Date Cuate Ramon MD [address] [place] [address] PCP - General Pediatrics 08/03/18
[2024-05-11 16:17] LABS: Influenza A QL RT-PCR Positive (Negative); Influenza B QL RT-PCR Negative (Negative); RSV RNA, RT-PCR Negative (Negative)
--- OUTSIDE RECORDS SUMMARY | 2024-05-11 16:17 | XMS_ITS | Encounter Summary ---
Author Organization [facility] Address [address] [place] [address] Care Team Providers Care Matchbook Maker Name Role Phone Cuate Ramon MD Primary Care Provider [phone] Twan Lopez MD Unavailable [phone] Alisa Lai PT Unavailable Unavailable Maria Teresa Padron Unavailable Unavailable Encounter Details Date Type Department Care Team (Late st Contact Info) Description 05/09/2024 Telephone [facility] Gastroenterology at [address] [place] [address] Mihai Miller NP [address] [place] [address] [address] [place] [address] Social History Tobacco Use Types [...] on file Legal Sex Female 6:05 AM FURNITURE MOVER HELPER Gender Identity Female 04/05/2023 1:07 AM FURNITURE MOVER HELPER Sexual Orientation Straight 04/05/2023 1: 07 AM FURNITURE MOVER HELPER documented as of this encounter Miscellaneous Notes * Telephone Encounter - Treva Kim LPN - 05/10/2024 10:08 AM CST Prior auth not needed pt may greens picker prescription , letter scanned into chart ITURE MOVER HELPER * Telephone Encounter - Treva Kim LPN - 05/09/2024 3:26 PM CST Prior auth sent waiting for response ITURE MOVER HELPER * Telephone Encounter - Mihai Miller NP - 05/09/2024 11:13 AM FURNITURE MOVER HELPER Please see if prior authorization is needed for [employer]. ITURE MOVER HELPER documented in this encounter Plan of Treatment Not on file documented as of this encounter Goals Goal Patient Goal Type Associated Problems Recent Progress Patient-Stated? Author -Pain Behavioral Health Improving( 5:42 PM FURNITURE MOVER HELPER) No Margoth Porras, PhD Note: Increase functioning in daily activities -Pain Behavioral Health No change(06/18 5:42 PM FURNITURE MOVER HELPER) No Margoth Porras, PhD Note: Increase non-pharmacological strategies for coping with pain documented as of this encounter Visit Diagnoses Not on filedocumented in this encounter Care Teams Matchbook Maker Relationship Specialty Start Date End Date Cuate Ramon MD [address] [place] [address] PCP - General 10/22/16 Twan Lopez MD [address] [facility] [place] [address] Anesthesiologist Pediatric Anesthesia 10/20/17 Alisa Lai, PT Physical Therapist Physical Therapy 10/20/17 Maria Teresa Padron Physical Therapist Physical Therapy 11/24/17 documented as of this encounter
--- OUTSIDE RECORDS SUMMARY | 2024-05-11 16:17 | XMS_ITS | Referral Summary ---
Author Organization [facility] Address [address] [place] [address] Care Team Providers Care Manual Plate Filler Name Role Phone Cuate Ramon MD Primary Care Provider [phone] Ion De DO Unavailable [phone] Radha Zavala MD Unavailable [phone] Source Comments [facility],non-owned Affiliates and Associated Physician Practices is amultiple site organization consisting of ambulatory clinics and hospital sitesin [place], [place], [place] and [place]. This disclosure is being madepursuant to the Care Everywhere program and may not contain all information available regarding this patient. Last updated 17.[facility] Encounters Date Type Department Care Team Description 05/03/2024 Travel 05/03/2024 10:00 AM TRACK INSPECTING SUPERVISOR Office Visit [facility] - Rheumatology [facility] [facility], [place] [phone] Micheal Biggs MD Connective 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 (HCC) [...] Active azelastine (Astelin) 0.1 % nasal spray [place] 1 (one) spray into the nose as needed 07/12/2023 Active budesonide-formotero l (Symbicort) 80-4.5 MCG/ACT inhaler Inhale 2 (two) puffs by mouth 2 times daily as needed Active fluticasone propionate (Flonase) 50 MCG/ACT nasal spray [place] 1 (one) spray into the nose 2 [...] 10/18/2018 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 Abnormal PFT 10/18/2018 jail current use of non -steroidal anti-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 (NSAID) [...] Comments Blood Pressure 121/84 05/03/2024 9:53 AM TRACK INSPECTING SUPERVISOR Pulse 77 05/03/2024 9:53 AM TRACK INSPECTING SUPERVISOR Temperature 36.3 ??C (97.3 ??F) 05/03/2024 9:53 AM CS T Respiratory Rate 16 04/02/2023 1:59 AM TRACK INSPECTING SUPERVISOR Oxygen Saturation 100% 04/02/2023 1:59 AM TRACK INSPECTING SUPERVISOR Inhaled Oxygen Concentration - - Weight 67.2 kg (148 lb 3.2 oz) 05/03/2024 9:53 A M TRACK INSPECTING SUPERVISOR Height 160 cm (5' 2.99 ) 05/03/2024 9:53 AM TRACK INSPECTING SUPERVISOR Body Mass Index 26.26 05/03/2024 9:53 AM TRACK INSPECTING SUPERVISOR Plan of Treatment Upcoming Encounters Date Type Department Care Team (Late st Contact Info) Description 06/13/2024 3:00 PM TRACK INSPECTING SUPERVISOR Office Visit [facility] Neurosciences [address] [facility] [address] [place] [address] Danya Marks, AGRISCIENCE INSTRUCTOR-BUNDLE PACKER [address] [facility] [address] [place] [address] 09/04/2024 1:00 PM CDT Office Visit [facility] - Rheumatology [address] [place] [address], [place] [phone] Micheal Biggs MD [address] [place] [address] [place] [address] Care Teams Manual Plate Filler Relationship Specialty Start Date End Date Cuate Ramon MD [address] [place] [address] PCP - General 08/09/17 Ion De DO [address] [place] [address] Rheumatology 08/05/20 Radha Zavala MD [facility] [address] [place] [address] Neurology 12/07/23
--- OUTSIDE RECORDS SUMMARY | 2024-05-11 16:17 | XMS_ITS | Encounter Summary ---
Author Organization [facility] Address [address] [facility] [place] [address] Care Team Providers Care Functional Tester Name Role Phone Cuate Ramon MD Primary Care Provider [phone] Ion De DO Unavailable [phone] Radha Zavala MD Unavailable [phone] Encounter Details Date Type Department Care Team (Late Contact Info) Description 05/28/2023 Telephone [facility] - Allergy [address] [place] [address] Karol Álvarez MD [address] [place] [address] Social History Tobacco Use Types [...] (Late Contact Info) Description 06/13/2024 3:00 PM RECOVERY ROOM RN Office Visit [facility] Health Neurosciences [address] [place] [address] Danya Marks, FLUME MAKER-FLARE BREAKER [address] [place] [address] 09/04/2024 1:00 PM CDT Office Visit [facility] - Rheumatology [address] [facility], [place] [address] Micheal Biggs MD [address] [facility] [address] [place] [phone] documented as of this encounter Visit Diagnoses Not on filedocumented in this encounter Care Teams Functional Tester Relationship Specialty Start Date End Date Cuate Ramon MD [address] [place] [address] PCP - General 08/09/17 Ion De DO [facility] [place] [address] Rheumatology 08/05/20 Radha Zavala MD [address] [place] [address] Neurology 12/07/23 documented as of this encounter
--- OUTSIDE RECORDS SUMMARY | 2024-05-11 16:17 | XMS_ITS | CONTINUITY OF CARE DOCUMENT ---
Author Name stella douglas Address Unknown Organization [facility] Address [address] [place] [address] [address] [place] [address] Phone [phone] Care Team Providers Care Product Support Representative Name Role Phone Romulo HARO, Freida Unavailable [phone] BOOM NELSON MD Unavailable BOOM NELSON MD Unavailable [phone] PROBLEMS Condition Status Date Provider Notes Cardiology examination active Freida saab MD Syncope active Freida Sebastian MD ENCOUNTERS Date Type Provider Location Encounter Diag nosis - In-person encounter Office Visit Freida Sebastian MD [facility] Office Cardiology examinationSyncope VITAL SIGNS Date Observation [...] Rdz topiramate 50 mg tablet active Azalea De Leonand ondansetron 4 mg tablet,disintegrating active Azalea Rdz [...] Payer name Policy type / Coverage type Burt red republican ID [facility] Other [id number] ADVANCE DIRECTIVES Name Date DISCUSSED - NO DECISION MADE TREATMENT PLAN Date Name Performer [id number],C,P t has been having random syncopal episodes [...] currently on a 30 day telemonitor from [facility] and we will obtain results. W e will arrange for a head tilt test and see whether we can get appt with EP at [place] Freida Sebastian MD Cardiology:Pt has be en [...] currently on a 30 day telemonitor from [facility] and we will obtain results. W e will arrange for a head tilt test and see whether we can get appt with EP at [place] Freida Sebastian MD HISTORY OF PROCEDURES Procedure Date Procedure Name Provider Procedure Notes S carmenus EKG Freida Sebastian MD complet ed
--- OUTSIDE RECORDS SUMMARY | 2024-05-11 16:17 | XMS_ITS | Clinical Summary ---
Author Organization [facility] Address [address] [address] Care Team Providers Care Corn Chip Maker Name Role Phone Cuate Ramon MD Primary Care Provider [phone] Ion De DO Unavailable [phone] Radha Zavala MD Unavailable [phone] Source Comments [facility],non-owned Affiliates and Associated Physician Practices is amultiple site organization consisting of ambulatory clinics and hospital sitesin [place], [place], [place] and [place]. This disclosure is being madepursuant to the Care Everywhere program and may not contain all information available regarding this patient. Last updated 17.[facility] Allergies Active Allergy Reactions Criticality Noted [...] Active azelastine (Astelin) 0.1 % nasal spray Conetoe 1 (one) spray into the nose as needed 07/12/2023 Active budesonide-formotero l (Symbicort) 80-4.5 MCG/ACT inhaler Inhale 2 (two) puffs by mouth 2 times daily as needed Active fluticasone propionate (Flonase) 50 MCG/ACT nasal spray Conetoe 1 (one) spray into the nose 2 [...] 10/18/2018 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 Abnormal PFT 10/18/2018 emt intermediate current use of non -steroidal anti-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 (NSAID) [...] website: [email or web address].org for patient information handouts - Nbaor's disease 3. Return appointment in four months. Resolved Problems Problem Noted Date Diagnosed Date Resolved Date Fever 08/05/2020 08/19/2020 Fever 03/06/2019 03/20/2019 Rash 10/18/2018 11/15/2018 Fever 08/11/2017 08/25/2017 Encounters Date Type Department Care Team Description 05/03/2024 10:00 AM PHILOSOPHY FACULTY Office Visit [facility] - Rheumatology [address] [place] [address] [place] [address] Micheal Biggs MD Connective 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 (HCC) [...] Comments Blood Pressure 121/84 05/03/2024 9:53 AM PHILOSOPHY FACULTY Pulse 77 05/03/2024 9:53 AM PHILOSOPHY FACULTY Temperature 36.3 ??C (97.3 ??F) 05/03/2024 9:53 AM CS T Respiratory Rate 16 04/02/2023 1:59 AM PHILOSOPHY FACULTY Oxygen Saturation 100% 04/02/2023 1:59 AM PHILOSOPHY FACULTY Inhaled Oxygen Concentration - - Weight 67.2 kg (148 lb 3.2 oz) 05/03/2024 9:53 A M PHILOSOPHY FACULTY Height 160 cm (5' 2.99 ) 05/03/2024 9:53 AM PHILOSOPHY FACULTY Body Mass Index 26.26 05/03/2024 9:53 AM PHILOSOPHY FACULTY Plan of Treatment Upcoming Encounters Date Type Department Care Team (Late st Contact Info) Description 06/13/2024 3:00 PM PHILOSOPHY FACULTY Office Visit [facility] Neurosciences [address] [address] [place] [address] Danya Marks, [facility] [address] [facility] [address] [place] [address] 09/04/2024 1:00 PM CDT Office Visit [facility] - Rheumatology [address] [place] [address], [place] [address] Micheal Biggs MD [address] [place] [address] [place] [address] Health Maintenance Due Date Last [...] , 01/22/2021, Additional history exists Care Teams Corn Chip Maker Relationship Specialty Start Date End Date Cuate Ramon MD [address] [place] [address] PCP - General 08/09/17 Ion De DO [address] [place] [id number] Rheumatology 08/05/20 Radha Zavala MD [address] [facility] [address] [place] [address] Neurology 12/07/23
--- OUTSIDE RECORDS SUMMARY | 2024-05-11 16:17 | XMS_ITS | Patient Health Summary ---
Author Organization [facility] Address [address] [place] [address] Care Team Providers Care Mine Supervisor Name Role Phone Cuate Ramon MD Primary Care Provider [phone] Ion De DO Unavailable [phone] Radha Zavala MD Unavailable [phone] Note from [facility],non-owned Affiliates and Associated Physician Practices is amultiple site organization consisting of ambulatory clinics and hospital sitesin [place], [place], [place] and [place]. This disclosure is being madepursuant to the Care Everywhere program and may not contain all information available regarding this patient. 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 Abnormal PFT 10/18/2018 assisted current use of non -steroidal anti-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 (NSAID) [...] Comments Blood Pressure 121/84 05/03/2024 9:53 AM PLASTIC EXTRUDING MACHINE OPERATOR Pulse 77 05/03/2024 9:53 AM PLASTIC EXTRUDING MACHINE OPERATOR Temperature 36.3 ??C (97.3 ??F) 05/03/2024 9:53 AM CS T Respiratory Rate 16 04/02/2023 1:59 AM PLASTIC EXTRUDING MACHINE OPERATOR Oxygen Saturation 100% 04/02/2023 1:59 AM PLASTIC EXTRUDING MACHINE OPERATOR Inhaled Oxygen Concentration - - Weight 67.2 kg (148 lb 3.2 oz) 05/03/2024 9:53 A M PLASTIC EXTRUDING MACHINE OPERATOR Height 160 cm (5' 2.99 ) 05/03/2024 9:53 AM PLASTIC EXTRUDING MACHINE OPERATOR Body Mass Index 26.26 05/03/2024 9:53 AM PLASTIC EXTRUDING MACHINE OPERATOR Procedures * ERIKA HEP-2 IGG BY IFA(Performed [...] for Autoimmune thyroiditis, Arthralgia, unspecified joint * COUNSELING PROGRAM LEADER ANTIBODY(Performed 12/26/2023) Performed for Autoimmune thyroiditis, Arthralgia, [...] High risk medication use * FIBRILLARIN (U3 COUNSELING PROGRAM LEADER)(Performed 02/02/2023) Performed for Arthralgia, unspecified joint, Patellar [...] disease (HCC), High risk medication use * COUNSELING PROGRAM LEADER ANTIBODY(Performed 09/03/2022) 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 [...] 08/12/2020) 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), assisted current use of non- steroidal anti-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 (NSAID) * URINALYSIS W/MICROSCOPIC REFLEX TO CULTURE(Performed 08/12/2020) 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), assisted current use of non- steroidal anti-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 (NSAID) * C-REACTIVE PROTEIN(Performed 08/12/2020) 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), 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) * ERYTHROCYTE SEDIMENTATION RATE(Performed 08/12/2020) 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), assisted current use of non- steroidal anti-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 (NSAID) * COMPREHENSIVE METABOLIC PANEL(Performed 08/12/2020) 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), 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) * CBC W AUTO DIFFERENTIAL(Performed 08/12/2020) 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), 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) [...] Autoimmune thyroiditis, High risk medication use * COUNSELING PROGRAM LEADER ANTIBODY(Performed 02/23/2020) Performed for Amplified musculoskeletal pain, [...] URINALYSIS MICROSCOPIC ONLY REFLEXED(Performed 12/16/2018) 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-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 (NSAID), Connective tissuedisease (HCC) * URINALYSIS W/MICROSCOPIC REFLEX TO CULTURE(Performed 12/16/2018) 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-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 (NSAID), Connective tissuedisease (HCC) * COMPREHENSIVE METABOLIC PANEL(Performed 12/16/2018) 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-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 (NSAID), Connective tissuedisease (HCC) * CBC W AUTO DIFFERENTIAL(Performed 12/16/2018) 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 Performed By: [facility] [address] [place] [address] Supervisor Coke Handling: Luisito Feliciano MD, PhD CLIA Number: [id number] Blood BLOOD SPECIMEN / Unknown Lab Venipuncture / Unknown 12/26/2023 4:41 PM CDT 12/26/2023 5:45 PM CDT Ion Mahoney Kenisha DO LAB - SEROLO GY ORDERABLES [facility] ([facility]) [address] [place] [address], [facility] * CHROMATIN ANTIBODY (12/26/2023 4:41 PM CDT) Only the most recent of4 resultswithin the time period is included. Antichromatin Antibodies <0.2 0.0 - 0.9 AI 12/28/2023 5:09 PM CDT [facility] ([facility]) Blood BLOOD SPECIMEN / Unknown Lab Venipuncture / Unknown 12/26/2023 4:41 PM CDT 12/26/2023 5:45 PM CDT Narrative [facility] ([facility]) - 12/28/2023 5:09 PM CDT Performed at: ??01 - [facility] [address] [place], [place] ??[id number] Scrum Product Owner: Gus Elliott PhD, Phone: ??[phone] Ion De DO LAB - SEROLO GY ORDERABLES Performing Organization Address City/[facility]/ZIP Co de Phone Number [facility] ([facility]) [address] [place] [address] * TSH REFLEX FREE T4 (12/26/2023 4:41 PM CDT) Only the most recent of2 resultswithin the time period is included. TSH 4.585 0.350 - 4.940 uIU/mL 12/26/2023 6:[address] [facility] Blood BLOOD SPECIMEN / Unknown Lab Venipuncture / Unknown 12/26/2023 4:41 PM CDT 12/26/2023 5:45 PM CDT Ion De DO LAB - CHEMIS TRY ORDERABLES Performing Organization Address City/[facility]/ZIP Co de Phone Number [address] [address], [facility] [phone] * SM ANTIBODY LIAM (12/26/2023 4:41 PM CDT) Only the most recent of4 resultswithin the time period is included. Worley (LIAM) Antibody 0.9 0.0 - 0.9 AI 12/28/2023 5:09 PM CDT [facility] ([facility]) Blood BLOOD SPECIMEN / Unknown Lab Venipuncture / Unknown 12/26/2023 4:41 PM CDT 12/26/2023 5:45 PM CDT Narrative [facility] ([facility]) - 12/28/2023 5:09 PM CDT Performed at: ??01 - [facility] [address] ??[id number] Scrum Product Owner: Gus Elliott PhD, Phone: ??[phone] Ion De [employer] LAB - CHEMIS TRY ORDERABLES [facility] [address] [place] [address] * COUNSELING PROGRAM LEADER ANTIBODY (12/26/2023 4:41 PM CDT) Only the most recent of4 resultswithin the time period is included. Pathologist [facility] COUNSELING PROGRAM LEADER Antibody <0.2 0.0 - 0.9 AI 12/28/2023 5:09 PM CDT [facility] ([facility]) Blood BLOOD SPECIMEN / Unknown Lab Venipuncture / Unknown 12/26/2023 4:41 PM CDT 12/26/2023 5:45 PM CDT Narrative [facility] ([facility]) - 12/28/2023 5:09 PM CDT Performed at: ??01 - [address] ??[id number] Scrum Product Owner: Gus Elliott PhD, Phone: ??[phone] Ion De DO [employer] - CHEMIS TRY ORDERABLES Performing Organization Address City/[facility]/ZIP Co de Phone Number [facility] ([facility]) [address] [place] [address] * (ABNORMAL) ERIKA BLOOD SCREEN W/REFLEX TITER (12/26/2023 4:41 PM CDT) Only the most recent of5 resultswithin the time period is included. Pathologist [facility] ERIKA IgG Detected (A) None Detected 12/28/2023 11:44 PM CDT [facility] ([facility]) Comment: Antibodies to Anti-Nuclear Antibodies (ERIKA) detected. [...] dsDNA, histones, SS-A (Ro), SS-B (La), Worley, Worley/COUNSELING PROGRAM LEADER, Scl-70, Luna-1, centromeric proteins, other antigens extracted from the HEp-2 cell nucleus. ERIKA PIPER assays have been reported to have lower sensitivities than ERIKA IFA for systemic autoimmune rheumatic diseases (SARD). Negative results do not necessarily rule out SARD. Performed By: [facility] [address] [place] [address] Supervisor Coke Handling: Luisito Feliciano MD, PhD CLIA Number: [id number] Blood BLOOD SPECIMEN / Unknown Lab Venipuncture / Unknown 12/26/2023 4:41 PM CDT 12/26/2023 5:45 PM CDT Ion Mancillarymple DO LAB - CHEMIS TRY ORDERABLES Performing Organization Address City/[facility]/ZIP Co de Phone Number [facility] ([facility]) [address] [place] [address], [facility] * (ABNORMAL) SS-B ANTIBODY (12/26/2023 4:41 PM CDT) Only the most recent of3 resultswithin the time period is included. Sjogren's Antibodies (SSB) 3.2(H) 0.0 - 0.9 AI 12/28/2023 5:09 PM CDT [facility] ([facility]) Blood BLOOD SPECIMEN / Unknown Lab Venipuncture / Unknown 12/26/2023 4:41 PM CDT 12/26/2023 5:45 PM CDT Narrative [facility] ([facility]) - 12/28/2023 5:09 PM CDT Performed at: ??01 - [facility] [place] [id number] [place], [place] ??[id number] Scrum Product Owner: Gus Elliott PhD, Phone: ??[phone] Ion Mahoney Kenisha MONTES LAB - CHEMIS TRY ORDERABLES [facility] [address] [place] [address] * SS-A ANTIBODY (12/26/2023 4:41 PM CDT) Only the most recent of3 resultswithin the time period is included. Sjogren's Antibodies (SSA) <0.2 0.0 - 0.9 AI 12/28/2023 5:09 PM CDT [facility] ([facility]) Blood BLOOD SPECIMEN / Unknown Lab Venipuncture / Unknown 12/26/2023 4:41 PM CDT 12/26/2023 5:45 PM CDT Narrative [facility] ([facility]) - 12/28/2023 5:09 PM CDT Performed at: ??01 - [address] ??[id number] Scrum Product Owner: Gus Elliott PhD, Phone: ??[phone] Ion De DO LAB - CHEMIS TRY ORDERABLES Performing Organization Address [facility] de Phone Number [facility] ([facility]) [address] [place] [address] * SCL70 ANTIBODY (12/26/2023 4:41 PM CDT) Only the most recent of5 resultswithin the time period is included. Pathologist [facility] Antiscleroderma -70 Antibody <0.2 0.0 - 0.9 AI 12/28/2023 5:09 PM CDT [facility] ([facility]) Blood BLOOD SPECIMEN / Unknown Lab Venipuncture / Unknown 12/26/2023 4:41 PM CDT 12/26/2023 5:45 PM CDT N[facility]ative [facility] - 12/28/2023 5:09 PM CDT Performed at: ??01 - [address] ??[id number] Scrum Product Owner: Gus Elliott PhD, Phone: ??[phone] Ion De DO LAB - CHEMIS TRY ORDERABLES Performing Organization Address [facility] de Phone Number [facility] ([facility]) [address] [place] [address] * DNA ANTIBODY DOUBLE STRAND (12/26/2023 4:41 PM CDT) Only the most recent of4 resultswithin the time period is included. Pathologist [facility] Anti-dsDNA Quantitative 1 0 - 9 IU/mL 12/28/2023 5:09 PM CDT [facility] ([facility]) Comment: ? Negative ?<5 ? Equivocal ??5 - 9 ? Positive ?>9 Blood BLOOD SPECIMEN / Unknown Lab Venipuncture / Unknown 12/26/2023 4:41 PM CDT 12/26/2023 5:45 PM CDT Narrative [facility] ([facility]) - 12/28/2023 5:09 PM CDT Performed at: ??01 - [facility] [address] [place], [place] ??[id number] Scrum Product Owner: Gus Elliott PhD, Phone: ??[phone] Ion De DO LAB - HEMATO LOGY ORDERABLES Performing Organization Address City/State/[facility] Co de Phone Number [facility] ([facility]) [address] [place] [address] * CBC W AUTO DIFFERENTIAL (12/26/2023 4:41 PM CDT) Only the most recent of10 resultswithin the time period is included. [facility] WBC 8.2 4.0 - 10.7 x10E9/L 12/26/2023 5:[address] [facility] RBC Count 4.68 3.90 - 5.20 x10E12/L 12/26/2023 5:[address] [facility] Hemoglobin 13.7 11.9 - 15.8 g/dL 12/26/2023 5:58 PM CDT [facility] Hematocrit 41.1 34.8 - 46.1 % 12/26/2023 5:58 PM CDT [facility] MCV 87.8 80.0 - 98.0 fL 12/26/2023 5:58 PM [facility] MCH 29.3 26.7 - 33.6 pg 12/26/2023 5:58 PM [facility] MCHC 33.3 31.7 - 36.3 g/dL 12/26/2023 5:58 PM [facility] RDW-CV 12.7 11.3 - 14.8 % 12/26/2023 5:58 PM [facility] Platelet Count 413 150 - 420 x10E9/L 12/26/2023 5:58 PM [facility] MPV 10.0 7.8 - 11.4 fL 12/26/2023 5:58 PM [facility] Neutrophil % 58.1 41.0 - 74.0 % 12/26/2023 5:58 PM [facility] Lymphocyte % 28.9 17.0 - 47.0 % 12/26/2023 5:58 PM [facility] Monocyte % 8.0 3.0 - 11.0 % 12/26/2023 5:58 PM [facility] Eosinophil % 3.8 0.0 - 7.0 % 12/26/2023 5:58 PM [facility] Basophil % 1.0 0.0 - 1.6 % 12/26/2023 5:58 PM [facility] Immature Granulocytes % 0.2 0.0 - 1.0 % 12/26/2023 5:58 PM [facility] Neutrophil Absolute 4.74 1.60 - 7.50 x10E9/L 12/26/2023 5:58 PM [facility] Lymphocyte Absolute 2.36 1.00 - 4.40 x10E9/L 12/26/2023 5:58 PM [facility] Monocyte Absolute 0.65 0.15 - 1.00 x10E9/L 12/26/2023 5:58 PM [facility] Eosinophil Absolute 0.31 0.00 - 0.60 x10E9/L 12/26/2023 5:58 PM [facility] Basophil Absolute 0.08 0.00 - 0.13 x10E9/L 12/26/2023 5:58 PM [facility] Blood BLOOD SPECIMEN / Unknown Lab Venipuncture / Unknown 12/26/2023 4:41 PM CDT 12/26/2023 5:45 PM CDT Ion Bakermple DO LAB - HEMATO LOGY ORDERABLES [facility] [address] [place] [address], [facility] [phone] * (ABNORMAL) COMPREHENSIVE METABOLIC PANEL (12/26/2023 4:41 PM CDT) Only the most recent of8 resultswithin the time period is included. BUN 15 7 - 26 mg/dL 12/26/2023 10:54 PM [facility] Creatinine 0.67 0.56 - 0.96 mg/dL 12/26/2023 10:54 PM [facility] Sodium 143 136 - 145 mmol/L 12/26/2023 10:54 PM [facility] Potassium 3.8 3.5 - 4.5 mmol/L 12/26/2023 10:54 PM [facility] Chloride 111(H) 98 - 107 mmol/L 12/26/2023 10:54 PM [facility] CO2 20(L) 22 - 29 mmol/L 12/26/2023 10:54 PM [facility] Glucose 73 70 - 115 mg/dL 12/26/2023 10:54 PM [facility] Calcium 9.9 8.4 - 10.2 mg/dL 12/26/2023 10:54 PM [facility] Protein Total 8.2 6.0 - 8.3 g/dL 12/26/2023 10:54 PM [facility] Albumin 4.5 3.4 - 5.0 g/dL 12/26/2023 10:54 PM [facility] Bilirubin Total 0.4 0.2 - 1.2 mg/dL 12/26/2023 10:54 PM [facility] Alkaline Phosphatase 72 40 - 150 U/L 12/26/2023 10:54 PM [facility] ALT 10 5 - 55 U/L 12/26/2023 10:54 PM [facility] AST 21 5 - 34 U/L 12/26/2023 10:54 PM [facility] Anion Gap 12 6 - 16 12/26/2023 10:54 PM [facility] BUN/Creatinine Ratio 22 7 - 23 12/26/2023 10:54 PM [facility] Osmolality Calculated 295 275 - 295 mOsm/kg 12/26/2023 10:54 PM [facility] Albumin/Globulin Ratio 1.2 1.1 - 2.3 12/26/2023 10:54 PM [facility] eGFR by CKD-EPI >90 >=90 mL/min/1.7 3 m2 12/26/2023 10:54 PM [facility] Blood BLOOD SPECIMEN / Unknown Lab Venipuncture / Unknown 12/26/2023 4:41 PM CDT 12/26/2023 5:45 PM [facility] Ion Mancillarymple DO LAB - CHEMIS TRY ORDERABLES [facility] [address] [place] [address], [facility] [phone] * CT ABDOMEN PELVIS W CONTRAST (04/02/2023 4:23 AM PLASTIC EXTRUDING MACHINE OPERATOR) Anatomical Region Laterality Modality Abdomen, Pelvis Computed Tomogra phy 04/02/2023 8:02 AM PLASTIC EXTRUDING MACHINE OPERATOR Impressions 04/02/2023 8:04 AM PLASTIC EXTRUDING MACHINE OPERATOR IMPRESSION: Normal study. > Interpreting Provider: Keturah Zelaya MD on 04/02/2023 8:04 AM Narrative 04/02/2023 8:04 AM PLASTIC EXTRUDING MACHINE OPERATOR PROCEDURE: ??CT ABDOMEN PELVIS W CONTRAST, DATE/TIME OF EXAM: ??04/02/2023 4:24 AM, LOCATION ??[facility] INDICATION: R10.84: Generalized abdominal pain ADDITIONAL [...] DATE/TIME OF EXAM: 04/02/2023 4:24 AM, LOCATION [facility] INDICATION: R10.84: Generalized abdominal pain ADDITIONAL [...] - POCT (IP) INTERFACED (04/02/2023 3:52 AM PLASTIC EXTRUDING MACHINE OPERATOR) Pathologist [facility] HCG Qual Urine Negative Negative 04/02/2023 4:03 AM PLASTIC EXTRUDING MACHINE OPERATOR [facility] Urine URINE / Unknown 04/02/2023 3 :52 AM PLASTIC EXTRUDING MACHINE OPERATOR 04/02/2023 4:03 AM PLASTIC EXTRUDING MACHINE OPERATOR Danya Grissom DO LAB - POINT OF CAR E ORDERABLES [facility] [address] [place] [address] * SARS-COV-2 (COVID-19) FLU A/B RSV PCR RAPID (04/02/2023 3:42 AM PLASTIC EXTRUDING MACHINE OPERATOR) Pathologist [facility] COVID-19 PCR Not detected Not detected 04/02/20 4:32 AM [facility] Influenza A PCR Not detected Not detected 04/02/2023 4:32 AM [facility] Influenza B PCR Not detected Not detected 04/02/2023 4:32 AM [facility] RSV PCR Not detected Not detected 04/02/2023 4:32 AM [facility] Microbiology SPECIMEN FROM NASOPHARYNGEAL STRUCTURE / Unknown Collection / Unknown 04/02/2023 3:42 AM PLASTIC EXTRUDING MACHINE OPERATOR 04/02/2023 3:53 AM [facility] - 04/02/2023 4:32 AM PLASTIC EXTRUDING MACHINE OPERATOR This nucleic acid amplification assay has been [...] Danya Grissom DO LAB - MICROBIOLOGY ORDERABLES [facility] [address] [place] [address], [facility] [phone] * URINALYSIS W/MICROSCOPIC REFLEX TO CULTURE (04/02/2023 3:42 AM PLASTIC EXTRUDING MACHINE OPERATOR) Only the most recent of8 resultswithin the time period is included. Color UA Yellow Straw, Yellow 04/02/2023 4:05 AM [facility] Clarity UA Clear Clear 04/02/2023 4:05 AM [facility] Specific [place] UA 1.021 1.005 - 1.030 04/02/2023 4:05 AM [facility] pH UA 5.0 5.0 - 8.0 pH 04/02/2023 4:05 AM [facility] Protein UA Negative Negative 04/02/2023 4:05 AM [facility] Glucose UA Negative Negative 04/02/2023 4:05 AM [facility] Ketone UA Negative Negative 04/02/2023 4:05 AM [facility] Bilirubin UA Negative Negative 04/02/2023 4:05 AM [facility] Blood UA Negative Negative 04/02/2023 4:05 AM [facility] Nitrite UA Negative Negative 04/02/2023 4:05 AM [facility] Leukocyte Esterase Negative Negative 04/02/2023 4:05 AM [facility] Urobilinogen UA Negative Negative mg/dL 04/02/2023 4:05 AM [facility] RBC UA 0-2 None Seen, 0-2, 3-5 /HPF 04/02/2023 4:05 AM [facility] WBC UA 0-5 None Seen, 0-5 /HPF 04/02/2023 4:05 AM [facility] Squamous Epithelial Cells UA 0-2 None Seen, 0-2, 3-5 /HPF 04/02/2023 4:05 AM [facility] Mucus UA 2+ /LPF 04/02/2023 4:05 AM [facility] Urine URINE SPECIMEN OBTAINED BY CLEAN CATCH PROCEDURE / Unknown Collection / Unknown 04/02/2023 3:42 AM PLASTIC EXTRUDING MACHINE OPERATOR 04/02/2023 3:53 AM [facility] - 04/02/2023 4:[address] [facility] Culture Not Indicated Danya Grissom DO LAB - URINALYSIS O RDERABLES Performing Organization Address City/State/[facility] Co de Phone Number [facility] [address] [place] [address], [facility] [phone] * (ABNORMAL) BASIC METABOLIC PANEL (CALCIUM TOTAL) (04/02/2023 3:[address] [facility]) BUN 12 7 - 26 mg/dL 04/02/2023 3:35 AM [facility] Creatinine 0.69 0.56 - 0.96 mg/dL 04/02/2023 3:35 AM [facility] Sodium 141 136 - 145 mmol/L 04/02/2023 3:35 AM [facility] Potassium 3.8 3.5 - 4.5 mmol/L 04/02/2023 3:35 AM [facility] Chloride 110(H) 98 - 107 mmol/L 04/02/2023 3:35 AM [facility] CO2 20(L) 22 - 29 mmol/L 04/02/2023 3:35 AM [facility] Glucose 89 70 - 115 mg/dL 04/02/2023 3:35 AM [facility] Calcium 9.9 8.4 - 10.2 mg/dL 04/02/2023 3:35 AM [facility] Anion Gap 11 6 - 16 04/02/2023 3:35 AM [facility] BUN/Creatinine Ratio 17 7 - 23 04/02/2023 3:35 AM [facility] Osmolality Calculated 291 275 - 295 mOsm/kg 04/02/2023 3:35 AM [facility] eGFR by CKD-EPI >90 >=90 mL/min/1.7 3 m2 04/02/2023 3:35 AM [facility] Blood BLOOD SPECIMEN / Unknown Venipuncture / Unknown 04/02/2023 3:04 AM PLASTIC EXTRUDING MACHINE OPERATOR 04/02/2023 3:12 AM PLASTIC EXTRUDING MACHINE OPERATOR Danya Grissom DO LAB - CHEMISTRY OR DERABLES [address] [address], [facility] * LIPASE BLOOD (04/02/2023 3:04 AM PLASTIC EXTRUDING MACHINE OPERATOR) Lipase 16 8 - 78 U/L 04/02/2023 3:35 AM [facility] Blood BLOOD SPECIMEN / Unknown Venipuncture / Unknown 04/02/2023 3:04 AM PLASTIC EXTRUDING MACHINE OPERATOR 04/02/2023 3:12 AM PLASTIC EXTRUDING MACHINE OPERATOR Narrative [facility] - 04/02/2023 3:35 AM PLASTIC EXTRUDING MACHINE OPERATOR Lipase results from the [employer] Alinity analyzer may not be comparable with other methodologies. Danya Grissom DO LAB - CHEMISTRY OR DERABLES [address] [address], [place] [phone] * HCG URINE QUAL POCT NOTIFICATION (04/02/2023 2:33 AM PLASTIC EXTRUDING MACHINE OPERATOR) Comment Notification Label Only - See Separate Report 04/02/2023 5:01 AM PLASTIC EXTRUDING MACHINE OPERATOR [facility] Urine URINE / Unknown 04/02/2023 2 :33 AM PLASTIC EXTRUDING MACHINE OPERATOR 04/02/2023 3:50 AM PLASTIC EXTRUDING MACHINE OPERATOR aDnya Grissom DO LAB - URINALYSIS O RDERABLES [facility] [address] [place] [address] * URINALYSIS MICROSCOPIC ONLY REFLEXED (02/02/2023 12:57 [...] Resulting Agency Comment Lab Testing performed at: [address] ??[facility] [phone] Ion De DO LAB - URINAL YSIS ORDERABLES Performing Organization Address City/[facility]/ZIP Co de Phone Number [facility] INSURANCE BILL [address] [place] [address] * CENTROMERE B ANTIBODIES (02/02/2023 12:56 PM CDT) Centromere B Antibody <0.2 0.0 - 0.9 AI [facility] INSURANCE BILL Comment:FASTING Blood BLOOD SPECIMEN / Unknown 02/02/2023 12:56 PM CDT 02/02/2023 Narrative Resulting Agency Comment Lab Testing performed at: [address] ??[facility] [phone] Ion De DO LAB - SEROLO GY ORDERABLES Performing Organization Address [facility] de Phone Number [facility] INSURANCE BILL [address] [place] [address] * RNA POLYMERASE III ANTIBODY IGG (02/02/2023 12:56 PM CDT) RNA Polymerase 3 Antibody IgG <20 <20 Units [facility] INSURANCE BILL Comment: ?Negative: ? <20 ?Weak Positive: ?20 - 39 ?Moderate Positive: ?40 - 80 ?Strong Positive: ?>80 FASTING Blood BLOOD SPECIMEN / Unknown 02/02/2023 12:56 PM CDT 02/02/2023 Narrative [facility] INSURANCE BILL - 02/08/2023 5:08 PM CDT Test(s) [id number] Ab (RDL) was developed and its performance characteristics determined by [facility]. It has not been cleared or approved by the Food and Drug Administration. Resulting Agency Comment Lab Testing performed at: [facility] [address] [place] [address] ??[facility] [phone] Ion De DO LAB - SEROLO GY ORDERABLES Performing Organization Address [facility] Co de Phone Number [facility] INSURANCE BILL [address] [place] [address] * FIBRILLARIN (U3 COUNSELING PROGRAM LEADER) (02/02/2023 12:56 PM CDT) Fibrillarin (U3 COUNSELING PROGRAM LEADER) Negative Negative [facility] INSURANCE BILL Comment:FASTING Blood BLOOD SPECIMEN / Unknown 02/02/2023 12:56 PM CDT 02/02/2023 Narrative [facility] INSURANCE BILL - 02/15/2023 6:10 AM PLASTIC EXTRUDING MACHINE OPERATOR Test(s) 502520-Yakb-P6 COUNSELING PROGRAM LEADER (Fibrillarin)(RDL) was developed and its performance characteristics determined by [facility]. It has not been cleared or approved by the Food and Drug Administration. Resulting Agency Comment Lab Testing performed at: [facility] [address] [place] [address] ??[facility] [phone] Ion De DO LAB - CHEMIS TRY ORDERABLES Performing Organization Address [facility] Co de Phone Number [facility] INSURANCE BILL [address] [place] [address] * C-REACTIVE PROTEIN (02/02/2023 12:56 PM CDT) Only the most recent of6 resultswithin the time period is included. C-Reactive Protein 2 0 - 10 mg/L [facility] INSURANCE BILL Comment:FASTING Blood BLOOD SPECIMEN / Unknown 02/02/2023 12:56 PM CDT 02/02/2023 Narrative Resulting Agency Comment Lab Testing performed [facility]: [facility] [address] ??[place] [phone] Ion De DO LAB - CHEMIS TRY ORDERABLES [facility] [address] [place] [address] * PM/SCL-100 ANTIBODY IGG (02/02/2023 12:56 PM CDT) Anti PM/Scl Antibody EIA <20 <20 Units [facility] Comment: ?Negative: ? <20 ?Weak Positive: ?20 - 39 ?Moderate Positive: ?40 - 80 ?Strong Positive: ?>80 FASTING Blood BLOOD SPECIMEN / Unknown 02/02/2023 12:56 PM CDT 02/02/2023 Narrative [facility] - 02/08/2023 5:08 PM CDT Test(s) 650952-Ekcv-AI/Scl-100 Ab (RDL) was developed and its performance characteristics determined by [facility]. It has not been cleared or approved by the Food and Drug Administration. Resulting Agency Comment Lab Testing performed at: [facility] [address] [place] [address] ??[facility] [phone] Ion De DO LAB - SEROLO GY ORDERABLES Performing Organization Address City/[facility]/ZIP Co de Phone Number [facility] INSURANCE BILL [address] [place] [address] * ESR - SED RATE WESTERGREN AUTO (02/02/2023 12:56 PM CDT) Only the most recent of6 resultswithin the time period is included. Erythrocyte Sedimentation Rate Westergren 6 0 - 32 mm/hr [facility] INSURANCE BILL Comment:FASTING Blood BLOOD SPECIMEN / Unknown 02/02/2023 12:56 PM CDT 02/02/2023 Narrative Resulting Agency Comment Lab Testing performed at: [facility] [place] [id number] [facility] ??[facility] [id number] Ion Mancillarymple DO LAB - HEMATO LOGY ORDERABLES Performing Organization Address [facility] Co de Phone Number [facility] INSURANCE BILL [address] [place] [address] * COMPLEMENT C4 (02/02/2023 12:56 PM CDT) Only the most recent of4 resultswithin the time period is included. Complement C4 43 14 - 44 mg/dL [facility] INSURANCE BILL Comment:FASTING Blood BLOOD SPECIMEN / Unknown 02/02/2023 12:56 PM CDT 02/02/2023 Narrative Resulting Agency Comment Lab Testing performed at: [facility] [address] [place] [address] ??[facility] [phone] Ion Bakermple DO LAB - SEROLO GY ORDERABLES Performing Organization Address City/[facility] Co de Phone Number [facility] INSURANCE BILL [address] [place] [address] * (ABNORMAL) COMPLEMENT C3 (02/02/2023 12:56 PM CDT) Only the most recent of4 resultswithin the time period is included. Complement C3 186(H) 82 - 167 mg/dL [facility] INSURANCE BILL Comment:FASTING Blood BLOOD SPECIMEN / Unknown 02/02/2023 12:56 PM CDT 02/02/2023 Narrative Resulting Agency Comment Lab Testing performed at: [facility] [address] [place] [address] ??[facility] [phone] Ion De DO LAB - CHEMIS TRY ORDERABLES [facility] INSURANCE BILL [address] [place] [address] * EKG 15-LEAD (01/21/2023 2:33 PM CDT) Only the most recent of4 resultswithin the time period is included. Ventricular Rate 74 BPM CG MUSE Atrial Rate 74 BPM CG MUSE P-R Interval 128 ms CG MUSE QRS Duration ms 84 ms CG MUSE Q-T Interval ms 362 ms CG MUSE QTC Calculation (Bezet) 401 ms CG MUSE Calculated P [place] 22 degrees CG MUSE Calculated R [place] 86 degrees CG MUSE Calculated T [place] -6 degrees CG MUSE Interpretation EKG Normal sinus rhythm Nonspecific T wave abnormality Abnormal ECG When compared with ECG of 03-SEP-2020 12:03, Nonspecific T wave abnormality now evident in Lateral leads Confirmed by Trey Petty ([id number]) on 01/24/2023 2:29:57 PM CG MUSE 01/21/2023 2:33 PM CDT 01/24/2023 2:29 PM CDT Trey Petty MD ECG ORD ERABLES CG MUSE * VITAMIN D 25-HYDROXY (09/03/2022 1:31 PM CDT) Only the most recent of2 resultswithin the time period is included. Vitamin D, 25 Hydroxy 42.1 30.0 - 100.0 ng/mL [facility] INSURANCE BILL Comment: Vitamin D deficiency has been defined by the [place] of Medicine and an Endocrine Society practice guideline as a level of serum 25-OH vitamin D less than 20 ng/mL (1,2). The Endocrine Society went on to further define vitamin D insufficiency as a level between 21 and 29 ng/mL (2). 1. IOM ([place] of Medicine). 2010. Dietary reference ?? intakes [...] Resulting Agency Comment Lab Testing performed at: [facility] [address] ??[facility] [phone] Ion De DO LAB - CHEMIS TRY ORDERABLES [facility] INSURANCE BILL [address] [place] [address] * (ABNORMAL) ARIANE STAINING PATTERNS REFLEXED (09/03/2022 [...] Histones ?Drug-induced SLE ? Speckled ? Sm, COUNSELING PROGRAM LEADER, SCL-70, ??SLE,MCTD,PSS (diffuse form), ? SS-A/SS-B ? Sjogrens ? Nucleolar ?SCL-70, PM-1/SCL ??High titers Scleroderma, ? PM/DM ? Centromere ?? Centromere ?PSS (limited form) w/Crest ? syndrome variable ? Nuclear Dot ??[id number] ??Primary Biliary Cirrhosis ? Nuclear ?GP210, ?Primary Biliary Cirrhosis Membrane ? kayden A,B,C ? FASTING 09/03/2022 1:30 PM CDT 09/03/2022 Narrative Resulting Agency Comment Lab Testing performed at: [address] ??[facility] [phone] Ion De DO LAB - PATHOL OGY/CYTOLOGY ORDERABLES [facility] INSURANCE BILL [address] [place] [address] * XR PELVIS W RIGHT HIP 2VW [...] DATE/TIME OF EXAM: ??06/26/2021 9:19 AM, LOCATION ??[facility] INDICATION: M25.551: Pain in right hip [...] CONTRAST, DATE/TIME OF EXAM: 06/26/2021 9:19AM, LOCATION [facility] INDICATION: M25.551: Pain in right hip [...] Note Melida Hernandez MD - 09/03/2020 [address] [place] [id number] Fax Congenital Transthoracic Report Pat.Name: USAMA ENCINAS Pat.ID: [id number] .Date: 09/03/2020 Refer.MD: SCOOBY HEARD Exam Time: 1:06:00 PM Study Type:Congenital TTE Height: 159cm Weight: 57.7kg BSA: 1.59 m2 Age: 5 2005,14Y Sex: FEMALE Sonogrphr: Geremias Bullock ALY Pat. Stat.:Outpatient CPT - 4: 74618, 04417, 47498 Reason for Study: connective 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. SUMMARY: [...] Hernandez MD Melida Hernandez MD ECHO ORDERABLES [facility] CCW [address] [place] [address] * (ABNORMAL) CULTURE URINE COMPREHENSIVE (02/23/2020 11:10 AM PLASTIC EXTRUDING MACHINE OPERATOR) Urine Culture Comprehensive Final report(A) [facility] INSURANCE [...] and trimethoprim-sulfamethoxazole are not effective clinically. (CLSI, K648-C16, 2016) Result 3 (A) [facility] INSURANCE BILL [...] ? S FASTING 02/23/2020 11:1 0 AM PLASTIC EXTRUDING MACHINE OPERATOR 02/23/2020 Narrative Resulting Agency Comment Lab Testing performed at: [employer] [address] ??[facility] [phone] Ion Mahoney Kenisha DO LAB - MICROB IOLOGY ORDERABLES Performing Organization Address [facility] de Phone Number [employer] INSURANCE BILL [address] [place] [address] * TSH (02/23/2020 11:10 AM PLASTIC EXTRUDING MACHINE OPERATOR) Only the most recent of4 resultswithin the time period is included. TSH 3.030 0.450 - 4.500 uIU/mL [employer] INSURANCE BILL Comment:FASTING Blood BLOOD SPECIMEN / Unknown 02/23/2020 11:10 AM PLASTIC EXTRUDING MACHINE OPERATOR 02/23/2020 Narrative Resulting Agency Comment Lab Testing performed at: [employer] [address] ??[facility] [phone] Ion Mancillarymple DO LAB - CHEMIS TRY ORDERABLES Performing Organization Address [facility]/ZIP Co de Phone Number [employer] INSURANCE BILL [address] [place] [address] * (ABNORMAL) SS-A/SS-B (SJOGRENS) ANTIBODY PANEL (07/03/2018 3:48 PM CDT) Sjogren's Antibodies (SSA) <0.2 0.0 - 0.9 AI [facility] INSURANCE BILL Sjogren's Antibodies (SSB) 3.3(H) 0.0 - 0.9 AI [facility] INSURANCE BILL Blood BLOOD SPECIMEN / Unknown 07/03/2018 3:48 PM CDT 07/03/2018 Narrative Resulting Agency Comment [facility] [address] ??[place] [phone] Ion De DO LAB - CHEMIS TRY ORDERABLES [facility] INSURANCE BILL [address] [place] [address] * T4 TOTAL (03/09/2018 3:16 PM PLASTIC EXTRUDING MACHINE OPERATOR) T4 Total 6.6 4.5 - 12.0 ug/dL [facility] INSURANCE BILL Blood BLOOD SPECIMEN / Unknown 03/09/2018 3:16 PM PLASTIC EXTRUDING MACHINE OPERATOR 03/09/2018 Narrative Resulting Agency Comment [facility] [address] ??[facility] [phone] Roney Delcid MD LAB - CHEMISTRY DINESH BHAKTA [facility] INSURANCE BILL [address] [place] [address] * (ABNORMAL) ERIKA COMPREHENSIVE PLUS PROFILE (06/24/2017 9:16 AM CDT) dsDNA Antibody 5 0 - 9 IU/mL [facility] ([facility]) Comment: ? Negative ?<5 ? Equivocal ??5 - 9 ? Positive ?>9 COUNSELING PROGRAM LEADER Antibody <0.2 0.0 - 0.9 AI [facility] ([facility]) Worley Antibody 0.7 0.0 - 0.9 AI [facility] ([facility]) Worley/COUNSELING PROGRAM LEADER Antibodies 6.2(H) 0.0 - 0.9 AI [facility] ([facility]) Antiscleroderma-70 Antibody <0.2 0.0 - 0.9 AI [facility] ([facility]) Sjogren's Antibodies (SSA) <0.2 0.0 - 0.9 AI [facility] ([facility]) Sjogren's Antibodies (SSB) 4.4(H) 0.0 - 0.9 AI [facility] ([facility]) Antichromatin Antibody IgG 0.2 0.0 - 0.9 AI [facility] ([facility]) Anti-Ribosomal P Antibody 0.2 0.0 - 0.9 AI [facility] ([facility]) Anti-Luna-1 <0.2 0.0 - 0.9 AI [facility] ([facility]) Anti-Centromere B Antibody <0.2 0.0 - 0.9 AI [facility] ([facility]) See below [facility] ([facility]) Comment: Autoantibody ? Disease Association ?Condition ?Frequency [...] Sm (anti-Worley) ?SLE ?15 - 30% ? COUNSELING PROGRAM LEADER ?Mixed Connective Tissue ? Disease ? 95% [...] 06/24/2017 9:16 AM CDT 06/24/2017 Narrative [facility] ([facility]) - 06/27/2017 1:09 PM CDT Performed at: ??01 - [facility] [address] [place], [place] ??[id number] [employer] Owner: Gus Elliott PhD, Phone: ??[phone] Ion De DO LAB - CHEMIS TRY ORDERABLES Performing Organization Address [facility] Co de Phone Number [facility] ([facility]) [address] [place] [address] * BETA-2 GLYCOPROTEIN 1 ANTIBODY IGG (06/24/2017 9:16 AM CDT) Pathologist [facility] Beta-2 Glycoprotein 1 Antibody 1 IgG <9 0 - 20 GPI IgG units [facility] ([facility]) Comment: The reference interval reflects a 3SD or 99th percentile interval, which is thought to represent a potentially clinically significant result in accordance with the International Consensus Statement on the classification criteria for definitive antiphospholipid syndrome (APS). J Thromb Haem 2006;4:295-306. Blood specimen (specimen) BLOOD SPECIMEN / Unknown 06/24/2017 9:16 AM CDT 06/24/2017 Narrative [facility] ([facility]) - 06/28/2017 7:11 AM CDT Performed at: ??01 - [facility] [address] ??[id number] [employer] Product Owner: Tray Osorio MD, Phone: ??[phone] Ion Denzel De DO LAB - SEROLO GY ORDERABLES Performing Organization Address [facility] Co de Phone Number [facility] ([facility]) [address] [place] [address], [place] * (ABNORMAL) LUPUS ANTICOAGULANT PANEL (06/24/2017 9:16 AM CDT) Pathologist [facility] Dilute Prothrombin Time (DPT) 45.8 0.0 - 55.0 sec [facility] ([facility]) dPT Confirm Ratio 1.03 0.00 - 1.40 Ratio [facility] ([facility]) Thrombin Time 17.8 0.0 - 23.0 sec [facility] ([facility]) PTT Lupus Anticoagulant 44.1 0.0 - 51.9 sec [facility] ([facility]) dRVVT Baseline 59.0(H) 0.0 - 47.0 sec [facility] ([facility]) Interpretation Comment: [facility] ([facility]) Comment: No lupus anticoagulant was detected. An extended dRVVT that corrects on mixing with normal plasma can be caused by a deficiency of one of the common pathway factors (X, V, II or fibrinogen). Blood specimen (specimen) BLOOD SPECIMEN / Unknown 06/24/2017 9:16 AM CDT 06/24/2017 Narrative [facility] ([facility]) - 06/27/2017 11:09 AM CDT Performed at: ??01 - [facility] ??[id number] [employer] Product Owner: Tray Osorio MD, Phone: ??[phone] Ion Mahoney Kenisha DO LAB - HEMATO LOGY ORDERABLES Performing Organization Address City/State/[facility] Co de Phone Number [facility]) [address] [place] [address] * CARDIOLIPIN ANTIBODY IGA (06/24/2017 9:16 AM CDT) Anticardiolipin Antibody IgA Quantitative <9 0 - 11 APL U/mL [facility] ([facility]) Comment: ?Negative: ?<12 ?Indeterminate: ? 12 - 20 ?Low-Med Positive: >20 - 80 ?High Positive: ? >80 Blood specimen (specimen) BLOOD SPECIMEN / Unknown 06/24/2017 9:16 AM CDT 06/24/2017 Narrative [facility] ([facility]) - 06/26/2017 7:07 AM CDT Performed at: ??01 - [facility] [address] [place], [place] ??[phone] [employer] Owner: Gus Elliott PhD, Phone: ??[phone] Ion Bakermple DO LAB - SEROLO GY ORDERABLES Performing Organization Address [facility] de Phone Number [facility] ([facility]) [address] [place] [address] * CARDIOLIPIN ANTIBODY IGG (06/24/2017 9:16 AM CDT) [facility] Anticardiolipin Antibody IgG Quantitative <9 0 - 14 GPL U/mL [facility] ([facility]) Comment: ?Negative: ?<15 ?Indeterminate: ? 15 - 20 ?Low-Med Positive: >20 - 80 ?High Positive: ? >80 Blood specimen (specimen) BLOOD SPECIMEN / Unknown 06/24/2017 9:16 AM CDT 06/24/2017 Narrative [facility]) - 06/26/2017 7:07 AM CDT Performed at: ??01 - [facility] [address] [place], [place] ??[id number] [employer] Product Owner: Gus Elliott PhD, Phone: ??[phone] Ion De DO LAB - SEROLO GY ORDERABLES Performing Organization Address [facility] de Phone Number [facility] ([facility]) [address] [place] [address] * RHEUMATOID FACTOR BLOOD QUANTITATIVE (06/24/2017 9:16 AM CDT) Pathologist [facility] RA latex Turbidimetry <10.0 0.0 - 13.9 IU/mL [facility]) Blood specimen (specimen) BLOOD SPECIMEN / Unknown 06/24/2017 9:16 AM CDT 06/24/2017 Narrative [facility] ([facility]) - 06/25/2017 7:12 AM CDT Performed at: ??01 - [facility] [address] [place], [place] ??[id number] [employer] Owner: Gus Elliott PhD, Phone: ??[phone] Ion Mancillarymple DO LAB - CHEMIS TRY ORDERABLES [facility] ([facility]) [address] [place] [address] * (ABNORMAL) KATHY-PENG VIRUS PANEL (06/24/2017 9:16 AM CDT) [facility] Kathy-Peng Virus Antibody To Viral Capsid Antigen IgM <36.0 0.0 - 35.9 U/mL [facility] ([facility]) Comment: ? Negative ?<36.0 ? Equivocal 36.0 - 43.9 ? Positive ?>43.9 Kathy-Peng Virus Early Antigen Antibody IgG <9.0 0.0 - 8.9 U/mL [facility] ([facility]) Comment: ? Negative ?< 9.0 ? Equivocal ??9.0 - 10.9 ? Positive ?>10.9 Kathy-Peng Virus Antibody To Viral Capsid Antigen IgG 105.0(H) 0.0 - 17.9 U/mL [facility] ([facility]) Comment: ? Negative ?<18.0 ? Equivocal 18.0 - 21.9 ? Positive ?>21.9 Kathy-Peng Virus Nuclear Antigen Antibody IgG >600.0(H) 0.0 - 17.9 U/mL [facility] ([facility]) Comment: ? Negative ?<18.0 ? Equivocal 18.0 - 21.9 ? Positive ?>21.9 Interpretation [facility] ([facility]) Comment: ? EBV Interpretation Chart Interpretation ?? [...] 06/24/2017 9:16 AM CDT 06/24/2017 Narrative [facility] ([facility]) - 06/26/2017 7:07 AM CDT Performed at: ??01 - [facility] ??[id number] [employer] Product Owner: Gus Elliott PhD, Phone: ??[phone] Ion Mahoney Kenisha DO LAB - CHEMIS TRY ORDERABLES Performing Organization Address [facility] de Phone Number [employer] [facility]) [address] [place] [address] * (ABNORMAL) THYROID PEROXIDASE ANTIBODY (06/24/2017 9:16 AM CDT) Thyroid Peroxidase TPO Antibody 72(H) 0 - 26 IU/mL [facility] ([facility]) Blood specimen (specimen) BLOOD SPECIMEN / Unknown 06/24/2017 9:16 AM CDT 06/24/2017 Narrative [facility] ([facility]) - 06/25/2017 7:12 AM CDT Performed at: ??01 - [facility] ??[id number] [employer] Product Owner: Gus Elliott PhD, Phone: ??[phone] Ion De DO LAB - CHEMIS TRY ORDERABLES Performing Organization Address [facility] de Phone Number [place] [facility] [address] [place] [address] * (ABNORMAL) THYROGLOBULIN ANTIBODY (06/24/2017 9:16 AM CDT) Thyroglobulin Antibody 1.2(H) 0.0 - 0.9 IU/mL [facility] ([facility]) Comment:Thyroglobulin Antibo dy measured by [employer] Blood specimen (specimen) BLOOD SPECIMEN / Unknown 06/24/2017 9:16 AM CDT 06/24/2017 Narrative [facility] ([facility]) - 06/27/2017 3:13 PM CDT Performed at: ??01 - [facility] [address] [place], [place] ??[id number] [employer] Product Owner: Gus Elliott PhD, Phone: ??[phone] Ion De DO LAB - CHEMIS TRY ORDERABLES Performing Organization Address [facility] Co de Phone Number [facility] ([facility]) [address] [place] [address] * BETA-2 GLYCOPROTEIN 1 ANTIBODY IGA (06/24/2017 9:16 AM CDT) Beta-2 Glycoprotein 1 Antibody IgA <9 0 - 25 GPI IgA units [facility] ([facility]) Comment: The reference interval reflects a 3SD or 99th percentile interval, which is thought to represent a potentially clinically significant result in accordance with the International Consensus Statement on the classification criteria for definitive antiphospholipid syndrome (APS). J Thromb Haem 2006;4:295-306. Blood specimen (specimen) BLOOD SPECIMEN / Unknown 06/24/2017 9:16 AM CDT 06/24/2017 Narrative [facility] ([facility]) - 06/28/2017 7:11 AM CDT Performed at: ??01 - [address] ??[id number] [employer] Owner: Tray Osorio MD, Phone: ??[phone] Ion De DO LAB - SEROLO GY ORDERABLES Performing Organization Address [facility] Co de Phone Number [facility] ([facility]) [address] [place] [address] * ESTELA VIPER VENOM DILUTE (06/24/2017 9:16 AM CDT) dRVVT 1:1 Mix 42.8 0.0 - 47.0 sec [facility]) 06/24/2017 9:16 AM CDT 06/24/2017 Narrative [facility] ([facility]) - 06/27/2017 11:09 AM CDT Performed at: ??01 - [address] ??[id number] [employer] Owner: Tray Osorio MD, Phone: ??[phone] Ion De DO LAB - COAGUL ATION ORDERABLES [facility] ([facility]) [address] * HLA TYPING B27 (06/24/2017 9:16 AM CDT) Pathologist [facility] HLA-B27 Negative [facility] ([facility]) Comment: HLA-B*27 Negative B27 allele interpretation for all loci based on IMGT/HLA database version 3.27 This test was developed and its performance characteristics determined by [facility]. ??It has not been cleared or approved by the Food and Drug Administration. [facility] CLIA ID Number [id number] This test was performed using PCR (Polymerase [...] 06/24/2017 9:16 AM CDT 06/24/2017 Narrative [facility] ([facility]) - 06/30/2017 7:12 AM CDT Performed at: ??01 - [address] ??[id number] [employer] Product Owner: Hardik Sheets PhD, Phone: ??[phone] Ion Bakermple DO LAB - CHEMIS TRY ORDERABLES Performing Organization Address City/[facility]/ZIP Co de Phone Number [facility] ([facility]) [address] * (ABNORMAL) COMPLEMENT TOTAL (06/24/2017 9:16 AM CDT) Pathologist [facility] Complement Total CH50 >60(H) 40 - 60 U/mL [facility] ([facility]) Blood specimen (specimen) BLOOD SPECIMEN / Unknown 06/24/2017 9:16 AM CDT 06/24/2017 Narrative [facility] ([facility]) - 06/27/2017 3:13 PM CDT Performed at: ??01 - [address] ??[id number] [employer] Product Owner: Gus Elliott PhD, Phone: ??[phone] Ion Denzel Kenisha DO LAB - CHEMIS TRY ORDERABLES Performing Organization Address [facility] Co de Phone Number [facility]) [address] [place] [address] * ALDOLASE (06/24/2017 9:16 AM CDT) [facility] Aldolase 3.9 3.3 - 10.3 U/L [facility] Blood specimen (specimen) BLOOD SPECIMEN / Unknown 06/24/2017 9:16 AM CDT 06/24/2017 Narrative [facility] ([facility]) - 06/27/2017 3:13 PM CDT Performed at: ??01 - [address] ??[id number] [employer] Product Owner: Gus Elliott PhD, Phone: ??[phone] Ion Denzel Kenisha DO LAB - CHEMIS TRY ORDERABLES Performing Organization Address City/[facility]/ZIP Co de Phone Number [facility]) [address] [place] [address], [facility] * CYCLIC CITRUL PEPTIDE AB IGG ([facility]) (06/24/2017 9:16 AM CDT) Pathologist [facility] Cyclic Citrullinated Peptide Antibody 8 0 - 19 units [facility] ([facility]) Comment: ?Negative ? <20 ?Weak positive ?20 - 39 ?Moderate positive ??40 - 59 ?Strong positive ?>59 Blood specimen (specimen) BLOOD SPECIMEN / Unknown 06/24/2017 9:16 AM CDT 06/24/2017 Narrative [facility] ([facility]) - 06/28/2017 7:11 AM CDT Performed at: ??01 - [address] ??[id number] [employer] Product Owner: Tray Osorio MD, Phone: ??[phone] Ion Mahoney Kenisha DO LAB - CHEMIS TRY ORDERABLES Performing Organization Address City/State/[facility] Co de Phone Number [facility] ([facility]) [address] [place] [address], [facility] * LDH BLOOD (06/24/2017 9:16 AM CDT) Pathologist [facility] LDH Total 187 118 - 215 IU/L [facility] ([facility]) Blood specimen (specimen) BLOOD SPECIMEN / Unknown 06/24/2017 9:16 AM CDT 06/24/2017 Narrative [facility] ([facility]) - 06/25/2017 7:12 AM CDT Performed at: ??01 - [facility] [address] [place], [place] ??[id number] Scrum Product Owner: Gus Elliott PhD, Phone: ??[phone] Ion De DO LAB - CHEMIS TRY ORDERABLES Performing Organization Address City/[facility] de Phone Number [facility]) [address] * CK BLOOD (06/24/2017 9:16 AM CDT) [facility] CK Total 55 24 - 173 U/L [facility] ([facility]) Blood specimen (specimen) BLOOD SPECIMEN / Unknown 06/24/2017 9:16 AM CDT 06/24/2017 Narrative [facility] ([facility]) - 06/25/2017 7:12 AM CDT Performed at: ?? - [facility] ??[id number] Scrum Product Owner: Gus Elliott PhD, Phone: ??[phone] Ion De DO LAB - CHEMIS TRY ORDERABLES Performing Organization Address [facility] de Phone Number [facility] ([facility]) [address] * (ABNORMAL) IMMUNOGLOBULINS IGG/IGM/IGA PANEL (06/24/2017 9:16 AM CDT) [facility] IgG Quantitative 1244 759 - 1549 mg/dL [facility] ([facility]) IgA Quantitative <5(L) 51 - 220 mg/dL [facility] ([facility]) Comment:Result confirmed on concentration. IgM Quantitative 103 57 - 209 mg/dL [facility] ([facility]) Venous blood specimen (specimen) 06/24/2017 9:16 AM CDT 06/24/2017 Narrative [facility] ([facility]) - 06/25/2017 7:12 AM CDT Performed at: ?? - [facility] [address] ??[id number] Scrum Product Owner: Gus Elliott PhD, Phone: ??[phone] Ion De DO LAB - CHEMIS TRY ORDERABLES Performing Organization Address City/[facility] Co de Phone Number [facility]) [address] [place] [address], [facility] * MRI BRAIN NON CONTRAST (12/12/2009 10:09 [...] Melecio Nunez MD MR ORDERABLES Care Teams Mine Supervisor Relationship Specialty Start Date End Date Cuate Ramon MD [address] [place] [address] PCP - General 08/09/17 Ion De DO [address] [place] [address] Rheumatology 08/05/20 Radha Zavala MD [address] [place] [address] [address] [place] [address] Neurology 12/07/23
--- OUTSIDE RECORDS SUMMARY | 2024-05-11 16:17 | XMS_ITS | Encounter Summary ---
Author Organization [facility] Healthcare Address [address] [place] [address] Care Team Providers Care Primary Montessori Teacher Name Role Phone Cuate Ramon MD Primary Care Provider [phone] Twan Lopez MD Unavailable Alisa Lai PT Unavailable Unavailable Maria Teresa Padron Unavailable Unavailable Encounter Details Date Type Department Care Team (Late st Contact Info) Description 01/27/2021 Telephone [facility] Transplant Heart [address] [facility] [address] [phone] [place] [address] Michaela Haas Social History Tobacco Use Types Packs/Day Years Used Date Smoking Tobacco: Passive Smo ke Exposure - Never Smoker Smokeless Tobacco: Never Alcohol Use Standard Drinks/Week Comments Not Currently 0 (1 standard drink = 0.6 oz pur e alcohol) Comments No Sex and Gender Information Value Date Recorded Sex Assigned at Not on file Legal Sex Female 6:05 AM HOME CARE PHYSICAL THERAPIST Gender Identity Female 04/05/2023 1:07 AM HOME CARE PHYSICAL THERAPIST Sexual Orientation Straight 04/05/2023 1: 07 AM HOME CARE PHYSICAL THERAPIST documented as of this encounter Plan of Treatment Not on file documented as of this encounter Goals Goal Patient Goal Type Associated Problems Recent Progress Patient-Stated? Author -Pain Behavioral Health Improving( 5:42 PM HOME CARE PHYSICAL THERAPIST) No Margoth Porras, PhD Note: Increase functioning in daily activities BH-Pain Behavioral Health No change(06/18 5:42 PM HOME CARE PHYSICAL THERAPIST) No Margoth Porras, PhD Note: Increase non-pharmacological strategies for coping with pain documented as of this encounter Visit Diagnoses Not on filedocumented in this encounter Care Teams Primary Montessori Teacher Relationship Specialty Start Date End Date Cuate Ramon MD [address] [facility] [place] [place] [address] PCP - General 10/22/16 Twan Lopez MD [address] [facility] [place] [address] Anesthesiologist Pediatric Anesthesia 10/20/17 Alisa Lai, PT Physical Therapist Physical Therapy 10/20/17 Maria Teresa Padron Physical Therapist Physical Therapy 11/24/17 documented as of this encounter
--- OUTSIDE RECORDS SUMMARY | 2024-05-11 16:18 | XMS_ITS | Clinical Summary ---
Author Organization [facility] Address [address] [place] [address] Care Team Providers Care Automotive Manager Name Role Phone Cuate Ramon MD Primary Care Provider [phone] Twan Lopez MD Unavailable [phone] Alisa Lai PT Unavailable Unavailable Maria Teresa [...] tablet (5 mg total) by mouth Active [place] Saline gel Active topiramate (TOPAMAX) 50 mg [...] 21 Assessment & Plan (05/08/2021 2:38 PM FINANCIAL CONSULTANT): - Continue home Montelukast 10mg QHS albuterol 4 puff q4h PRN Assessment & Plan (05/07/2021 4:58 PM FINANCIAL CONSULTANT): - Continue home Montelukast 10mg QHS albuterol 4 puff q4h PRN Concussion without loss of consciousness 020 Vocal cord dysfunction 01/22/2019 Non-allergic rhinitis 01/15/2019 Tremor 12/28/2018 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 Pt seen at [facility] ED on Tuesday and was discharged home [...] 05/24/2018 Assessment & Plan (05/08/2021 2:38 PM FINANCIAL CONSULTANT): - Continue home sertaline 75 mg Assessment & Plan (05/07/2021 4:56 PM FINANCIAL CONSULTANT): - Continue home sertaline 75 mg Assessment [...] 05/05/2018 Assessment & Plan (05/05/2018 5:09 PM FINANCIAL CONSULTANT): Benztropine was given. Dilated pupils which do [...] 08/11/2017 Assessment & Plan (05/08/2021 2:39 PM FINANCIAL CONSULTANT): Christen Encinas is a 15 y.o. female [...] precautions Assessment & Plan (05/07/2021 4:59 PM FINANCIAL CONSULTANT): Christen Encinas is a 15 y.o. 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 Patient may continue with current Rx. [...] 18 Assessment & Plan (05/08/2021 2:38 PM FINANCIAL CONSULTANT): - Continue home uloxetine 30mg every day Methocarbamol 500mg q8h PRN Assessment & Plan (05/07/2021 4:57 PM FINANCIAL CONSULTANT): - Continue home uloxetine 30mg every day Methocarbamol 500mg q8h PRN Assessment & Plan (06/22/2018 1:34 AM CDT): - continue home meds/supplements -gabapentin, plaquenil, vitamin D Viral infection 03/15/2017 Dizziness 02/15/2017 Vertigo 02/15/2017 Mononucleosis syndrome 02/15/2017 Fatigue 10/18/2016 Otitis externa 09/30/2016 Migraine headache 06/18/2015 Otitis media 01/01/2015 Constipation 11/28/2014 IgA deficiency, 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 No Breezy-Teresa Ring or sunflower cataract on ocular examination today. Vision is stable, 20/20 right eye (OD), left eye (OS). No change in prescription on dilated exam - continue with current glasses realtime captioner. 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[facility]) 08/11/2017 12/22/2020 Moderate persistent asthma w ithout complication 01/01/2015 05/22/2019 Chronic rhinitis 01/01/2015 05/22/2019 Encounters Date Type Department Care Team Description 05/09/2024 9:30 AM FINANCIAL CONSULTANT Office Visit [facility] Gastroenterology at [address] [place] [address] Mihai Miller NP Irritable bowel syndrome with both constipation and diarrhea (Primary Dx); Nausea and vomiting, unspecified vomiting type; Gastroesophageal reflux disease without esophagitis 05/09/2024 Telephone [facility] Gastroenterology at [address] [place] [address] Mihai Miller NP 03/07/2024 1:05 PM FINANCIAL CONSULTANT - 03/07/2024 11:59 PM FINANCIAL CONSULTANT Hospital Encounter [address] [address] Nausea and vomiting, unspecified vomiting type Discharge Disposition: Discharge to home or self care 02/23/2024 Telephone [facility] Pediatric Neurology [address] [facility] [address] [place] [address] Shani Michelle NP 02/16/2024 Telephone [facility] Pediatric Allergy and Pulmonology [address] [place] [address] [place] [address] Gege Minaya RN 02/15/2024 8:30 AM FINANCIAL CONSULTANT Office Visit [facility] Allergy and Pulmonology [address] [place] [address] [place] [address] Tracie Seay MD Mild persistent asthma with acute exacerbation (Primary Dx); Need for vaccination; Non-allergic rhinitis; IgA deficiency, selective (HCC) 02/15/2024 7:58 AM FINANCIAL CONSULTANT - 02/15/2024 11:59 PM FINANCIAL CONSULTANT Hospital Encounter [facility] Pediatric Pulmonology [address] [address] Mild persistent asthma without complication Discharge Disposition: [...] on file Legal Sex Female 6:05 AM FINANCIAL CONSULTANT Gender Identity Female 04/05/2023 1:07 AM FINANCIAL CONSULTANT Sexual Orientation Straight 04/05/2023 1: 07 AM FINANCIAL CONSULTANT Obstetrics History Last Filed Vital Signs Vital Sign Reading Time Taken Comments Blood Pressure 108/78 05/09/2024 10:40 AM FINANCIAL CONSULTANT Pulse 92 05/09/2024 10:40 AM FINANCIAL CONSULTANT Temperature 36.8 ??C (98.2 ??F) 02/15/2024 8:31 AM CS T Respiratory Rate 18 02/15/2024 8:31 AM FINANCIAL CONSULTANT Oxygen Saturation 99% 05/09/2024 10:40 AM FINANCIAL CONSULTANT Inhaled Oxygen Concentration - - Weight 68 kg (149 lb 14.4 oz) 05/09/2024 10:40 A M FINANCIAL CONSULTANT Height 160 cm (5' 3 ) 05/09/2024 10:40 AM FINANCIAL CONSULTANT Body Mass Index 26.55 05/09/2024 10:40 AM FINANCIAL CONSULTANT Plan of Treatment Health Maintenance Due Date [...] Author -Pain Behavioral Health Improving( 5:42 PM FINANCIAL CONSULTANT) No Margoth Porras, PhD Note: Increase functioning in daily activities -Pain Behavioral Health No change(06/18 5:42 PM FINANCIAL CONSULTANT) No Margoth Porras, PhD Note: Increase non-pharmacological strategies for coping with pain Procedures Procedure Name Priority Date/Time Associated Diagnosis Comments NM HEPATOBILIARY IMAGING W PHARMACEUTICAL INTERVENTION Schedule Routine, Read Routine (OP Routine) 03/07/2024 3:33 PM FINANCIAL CONSULTANT Nausea and vomiting, unspecified vomiting type PULMONARY FUNCTION TEST (PFT) Routine 02/15/2024 8:12 AM FINANCIAL CONSULTANT Mild persistent asthma without complication from Last 3 Months Results * NM Hepatobiliary Imaging W GBEF (03/07/2024 3:33 PM FINANCIAL CONSULTANT) Anatomical Region Laterality Modality Body N/A Nuclear Medicine 03/07/2024 4:45 PM FINANCIAL CONSULTANT Narrative 03/07/2024 4:46 PM FINANCIAL CONSULTANT EXAM DESCRIPTION: ?? NM HEPATOBILIARY IMAGING W [...] PM T: ??03/07/2024 4:46 PM Report ID: [id number] Reading Location: ??[id number] Procedure Note Krystal Mario MD - 03/07/2024 [...] Krystal Causey M.D. FT: FT Report ID: [id number] Reading Location: [id number] us Mihai Jennifer Bilderback BARTENDER MANAGER IMG NM PROCEDURES F inal Result * Pulmonary Function Test - (02/15/2024 8:12 AM FINANCIAL CONSULTANT) FVC %PRE PRED 108 % [facility] FEV1 %PRE PRED 97 % [facility] SGO66-65% %PRE PRED 72 % [facility] Anatomical Region Laterality Modality PFT 02/15/2024 8:06 AM FINANCIAL CONSULTANT Narrative 02/17/2024 2:14 PM FINANCIAL CONSULTANT PFT performed at:->[facility] us Tracie Seay MD PFT ORDERABLES Final R esult from Last 3 Months Insurance [facility] CHOICE PLUS [facility] HMO/PPO Address: [address] [address] [place] [address] [facility] [place] [address] [facility] CHOICE PLUS [facility] HMO/PPO Address: [address] [address] [place] [address] [facility] [place] [address] [facility] CHOICE PLUS [facility] HMO/PPO Address: [address] [address] [place] [address] [facility] CHOICE PLUS [facility] HMO/PPO Address[address] [place] [address] [facility] CHOICE PLUS [facility] HMO/PPO Address: [address] [place], [place] [address] [address] Advance Directives For more information, please contact: [phone] * Full Code (Latest Code Status on [...] 8:12 PM 06/24/2018 2:52 PM Care Teams Automotive Manager Relationship Specialty Start Date End Date Cuate Ramon MD [address] [facility] [place] [address] PCP - General 10/22/16 Twan Lopez MD [address] [facility] [place] [address] Anesthesiologist Pediatric Anesthesia 10/20/17 Alisa Lai, PT Physical Therapist Physical Therapy 10/20/17 Maria Teresa Padron Physical Therapist Physical Therapy 11/24/17
--- OUTSIDE RECORDS SUMMARY | 2024-05-11 16:18 | XMS_ITS | Referral Summary ---
Author Organization [facility] Address [address] [place] [address] Care Team Providers Care Certified Pharmacist Assistant Name Role Phone Cuate Ramon MD Primary Care Provider Twan Lopez MD Unavailable [phone] Alisa Lai PT Unavailable Unavailable Maria Teresa Padron Unavailable Unavailable Encounters Date Type Department Care Team Description 05/09/2024 Telephone [facility] Gastroenterology at [address] [place] [address] Mihai Miller NP 05/09/2024 9:30 AM CUT OFF OPERATOR SCORER Office Visit [facility] Gastroenterology at [address] [place] [address] Mihai Miller NP Irritable bowel syndrome with both constipation and diarrhea (Primary Dx); Nausea and vomiting, unspecified vomiting type; Gastroesophageal reflux disease without esophagitis 03/07/2024 1:05 PM CUT OFF OPERATOR SCORER - 03/07/2024 11:59 PM CUT OFF OPERATOR SCORER Hospital Encounter [facility] [address] [place] [address] Nausea and vomiting, unspecified vomiting type Discharge Disposition: Discharge to home or self care 02/23/[address] [facility] Pediatric Neurology [address] [place] [address] [address] [place] [address] Shani Michelle NP 02/16/[address] [facility] Pediatric Allergy and Pulmonology [facility] 2nd [place] [address] [place] [address] Gege Minaya RN 02/15/2024 7:58 AM CUT OFF OPERATOR SCORER - 02/15/2024 11:59 PM CUT OFF OPERATOR SCORER Hospital Encounter [facility] Pediatric Pulmonology [address] [phone] Mild persistent asthma without complication Discharge Disposition: Discharge to home or self care 02/15/2024 8:30 AM CUT OFF OPERATOR SCORER Office Visit [facility] Pediatric Allergy and Pulmonology [address] [place] [address] [place] [phone] Tracie Seay MD Mild persistent asthma with [...] tablet (5 mg total) by mouth Active [place] Saline gel Active topiramate (TOPAMAX) 50 mg [...] 21 Assessment & Plan (05/08/2021 2:38 PM CUT OFF OPERATOR SCORER): - Continue home Montelukast 10mg QHS albuterol 4 puff q4h PRN Assessment & Plan (05/07/2021 4:58 PM CUT OFF OPERATOR SCORER): - Continue home Montelukast 10mg QHS albuterol 4 puff q4h PRN Concussion without loss of consciousness 020 Vocal cord dysfunction 01/22/2019 Non-allergic rhinitis 01/15/2019 Tremor 12/28/2018 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 Pt seen at [facility] ED on Tuesday and was discharged [...] 05/24/2018 Assessment & Plan (05/08/2021 2:38 PM CUT OFF OPERATOR SCORER): - Continue home sertaline 75 mg Assessment & Plan (05/07/2021 4:56 PM CUT OFF OPERATOR SCORER): - Continue home sertaline 75 mg Assessment [...] 05/05/2018 Assessment & Plan (05/05/2018 5:09 PM CUT OFF OPERATOR SCORER): Benztropine was given. Dilated pupils which do [...] 08/11/2017 Assessment & Plan (05/08/2021 2:39 PM CUT OFF OPERATOR SCORER): Christen Encinas is a 15 y.o. female [...] precautions Assessment & Plan (05/07/2021 4:59 PM CUT OFF OPERATOR SCORER): Christen Encinas is a 15 y.o. 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 Patient may continue with current Rx. [...] 18 Assessment & Plan (05/08/2021 2:38 PM CUT OFF OPERATOR SCORER): - Continue home uloxetine 30mg every day Methocarbamol 500mg q8h PRN Assessment & Plan (05/07/2021 4:57 PM CUT OFF OPERATOR SCORER): - Continue home uloxetine 30mg every day Methocarbamol 500mg q8h PRN Assessment & Plan (06/22/2018 1:34 AM CDT): - continue home meds/supplements -gabapentin, plaquenil, vitamin D Viral infection 03/15/2017 Dizziness 02/15/2017 Vertigo 02/15/2017 Mononucleosis syndrome 02/15/2017 Fatigue 10/18/2016 Otitis externa 09/30/2016 Migraine headache 06/18/2015 Otitis media 01/01/2015 Constipation 11/28/2014 IgA deficiency, 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 No Breezy-Teresa Ring or sunflower cataract on ocular examination today. Vision is stable, 20/20 right eye (OD), left eye (OS). 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 OCT revealed some thinning of inferior (right [...] Date Abnormal PFT 10/18/2018 05/22/2019 IgA deficiency ([facility]) 10/18/2018 Disorder of connective tissue ([facility]) 08/11/2017 12/22/2020 Moderate persistent asthma [...] on file Legal Sex Female 6:05 AM CUT OFF OPERATOR SCORER Gender Identity Female 04/05/2023 1:07 AM CUT OFF OPERATOR SCORER Sexual Orientation Straight 04/05/2023 1: 07 AM CUT OFF OPERATOR SCORER Last Filed Vital Signs Vital Sign Reading Time Taken Comments Blood Pressure 108/78 05/09/2024 10:40 AM CUT OFF OPERATOR SCORER Pulse 92 05/09/2024 10:40 AM CUT OFF OPERATOR SCORER Temperature 36.8 ??C (98.2 ??F) 02/15/2024 8:31 AM CS T Respiratory Rate 18 02/15/2024 8:31 AM CUT OFF OPERATOR SCORER Oxygen Saturation 99% 05/09/2024 10:40 AM CUT OFF OPERATOR SCORER Inhaled Oxygen Concentration - - Weight 68 kg (149 lb 14.4 oz) 05/09/2024 10:40 A M CUT OFF OPERATOR SCORER Height 160 cm (5' 3 ) 05/09/2024 10:40 AM CUT OFF OPERATOR SCORER Body Mass Index 26.55 05/09/2024 10:40 AM CUT OFF OPERATOR SCORER Plan of Treatment Not on file Goals Goal Patient Goal Type Associated Problems Recent Progress Patient-Stated? Author -Pain Behavioral Health Improving( 5:42 PM CUT OFF OPERATOR SCORER) No Margoth Porras, PhD Note: Increase functioning in daily activities [facility] No change(06/18 5:42 PM CUT OFF OPERATOR SCORER) No Margoth Porras, PhD Note: Increase non-pharmacological strategies for coping with pain Procedures Procedure Name Priority Date/Time Associated Diagnosis Comments NM HEPATOBILIARY IMAGING W PHARMACEUTICAL INTERVENTION Schedule Routine, Read Routine (OP Routine) 03/07/2024 3:33 PM CUT OFF OPERATOR SCORER Nausea and vomiting, unspecified vomiting type PULMONARY FUNCTION TEST (PFT) Routine 02/15/2024 8:12 AM CUT OFF OPERATOR SCORER Mild persistent asthma without complication from Last 3 Months Results * NM Hepatobiliary Imaging W GBEF (03/07/2024 3:33 PM CUT OFF OPERATOR SCORER) Anatomical Region Laterality Modality Body N/A Nuclear Medicine 03/07/2024 4:45 PM CUT OFF OPERATOR SCORER Narrative 03/07/2024 4:46 PM CUT OFF OPERATOR SCORER EXAM DESCRIPTION: ?? NM HEPATOBILIARY IMAGING W [...] PM T: ??03/07/2024 4:46 PM Report ID: [id number] Reading Location: ??[id number] Procedure Note Krystal Mario MD - 03/07/2024 [...] Krystal Causey M.D. FT: FT Report ID: [id number] Reading Location: [id number] us Mihaiwhitney Gonzálesyaneth OYSTER HARVESTER IMG NM PROCEDURES F inal Result * Pulmonary Function Test - (02/15/2024 8:12 AM CUT OFF OPERATOR SCORER) FVC %PRE PRED 108 % [facility] FEV1 %PRE PRED 97 % [facility] RXF38-26% %PRE PRED 72 % [facility] Anatomical Region Laterality Modality PFT 02/15/2024 8:06 AM CUT OFF OPERATOR SCORER Narrative 02/17/2024 2:14 PM CUT OFF OPERATOR SCORER PFT performed at:->[facility] Tracie Seay MD PFT ORDERABLES Final R esult from Last 3 Months Insurance [facility] [place] [place] [address] [facility] CHOICE PLUS [facility] CHOICE PLUS [facility] CHOICE PLUS [facility] [place] [address] Advance Directives For more information, please contact: [phone] * Full Code (Latest Code Status on [...] 8:12 PM 06/24/2018 2:52 PM Care Teams Certified Pharmacist Assistant Relationship Specialty Start Date End Date Cuate Ramon MD [address] [place] [address] PCP - General 10/22/16 Twan Lopez MD [address] [place] [address] Anesthesiologist Pediatric Anesthesia 10/20/17 Alisa Lai, PT Physical Therapist Physical Therapy 10/20/17 Maria Teresa Padron Physical Therapist Physical Therapy 11/24/17
[2024-05-11 16:34] VITALS: BP 112/74; PULSE 101; RESP 20; TEMP 37.2; O2SAT 98
== END 2024-05-11 16:38 | disposition home or self-care (01) ==
PROVIDERS: Emergency Provider Emergency Medicine; PCP Pediatrics
DX: J10.1 Influenza due to other identified influenza virus with other respiratory manifestations (principal); Z20.822 Contact with and (suspected) exposure to COVID-19; G90.A Postural orthostatic tachycardia syndrome [POTS]
CPT/HCPCS: 87637; 93005; 99283

== ENCOUNTER 2024-05-28 16:22 | Emergency (ER) | payer OTHER, SELFPAY ==
[2024-05-28] VITALS (8 sets, daily range): BP systolic 92–112; BP diastolic 59–99; PULSE 67–90; RESP 15–20; TEMP 36.3; O2SAT 99–100
[2024-05-28 17:01] LABS: Basophils Absolute Auto 0.05 K/mm3 (0.00-0.10); Basophils Percent Auto 0.5 % (0.0-1.0); Eosinophils Absolute Auto 0.06 K/mm3 (0.02-0.50); Eosinophils Percent Auto 0.6 % (1.0-6.0); Hematocrit 39.6 % (35.0-49.0); Hemoglobin 13.2 g/dL (12.0-15.0); Immature Granulocyte Absolute 0.02 K/mm3 (0.00-0.00); Immature Granulocyte Percent A 0.2 % (0.0-0.0); Lymphocytes Percent Auto 13.2 % (18.0-42.0); Mean Corpuscular HGB Conc 33.3 g/dL (32-36); Mean Platelet Volume 9.7 fl (9.2-11.8); Monocytes Absolute Auto 0.71 K/mm3 (0.10-0.90); Monocytes Percent Auto 7.2 % (2.0-11.0); Neutrophils Absolute Auto 7.74 K/mm3 (1.70-7.20); Neutrophils Percent Auto 78.3 % (50.0-70.0); Platelet Count Result 362 K/mm3 (150-420); Red Blood Count 4.55 M/mm3 (4.20-5.40); Red Cell Distribution Width 12.5 % (11.6-14.4); White Blood Count 9.9 K/mm3 (4.8-10.8)
[2024-05-28] MEDS: SODIUM CHLORIDE 0.9% IV 1,000 ML 999 ML IV CONT (17:05)
[2024-05-28] MEDS: ONDANSETRON INJ 4 MG/2 ML VIAL IV PUSH (17:06)
[2024-05-28] MEDS: LOPERAMIDE HCL 2 MG CAPSULE 4 MG PO (17:07)
[2024-05-28] MEDS: KETOROLAC 30 MG/ML VIAL (*BKC) IV PUSH (17:07)
[2024-05-28 17:14] LABS: Alanine Aminotransferase 18 U/L (14-59); Albumin Level 4.5 g/dL (3.4-5.0); Alkaline Phosphatase 75 U/L (46-116); Anion Gap 12 mmol/L (4-12); Aspartate Amino Transferase 12 U/L (15-37); Bilirubin,Total 0.7 mg/dL (0.00-1.00); Blood Urea Nitrogen 12 mg/dL (7-18); Carbon Dioxide 23 mmol/L (21-32); Chloride 107 mmol/L (98-108); Estimated CRCL calculation 70 ml/min; Estimated Glomerular Filt Rate > 60; Glucose 79 mg/dL (70-99); Osmolality Calculated 292 mOsm/kg (285-295); Potassium 4.1 mmol/L (3.5-5.1); Sodium 142 mmol/L (136-145); Total Protein 8.2 g/dL (6.4-8.2)
--- NOTE | 2024-05-28 18:11 | PC.NURSE ---
PT UP TO RR WITHOUT DIFFICULTY, REPORTS NAUSEA AND PAIN HAVE IMPROVED. PT IS AWAITING RESULTS AT THIS TIME. WILL CONTINUE TO MONITOR.
[2024-05-28 18:18] LABS: Add Urine Microscopic? NO; Appearance Urine Clear (Clear); Bilirubin Urine Negative (Negative); Blood Urine Negative (Negative); Color Urine Light Yellow (Yellow); Glucose Urine UA Negative (Negative); Ketones Urine Negative (Negative); Leukocyte Esterase Ur Negative LEU/UL (Negative); Nitrate Urine Negative (Negative); Protein Urine Negative (Negative); Specific Grav Ur <= 1.005 (1.010-1.020); Urobilinogen Urine 0.2 mg/dL (0.2-1.0); pH Urine 6.5 (5.0-8.0)
--- NOTE | 2024-05-28 18:23 | ED_ITS ---
HPI - Nausea/Vomiting/Diarrhea General Chief complaint: Nausea/Vomiting/Diarrhea Stated complaint: substance use; chest pain and vomiting Time Seen by Provider: 05/28/24 16:34 Source: patient Mode of arrival: ambulatory Limitations: no limitations History of Present Illness HPI Narrative: Patient is a 18-year-old female with significant past medical history that presents today with nausea vomiting and Anxiety. Patient is also very dehydrated from all the vomiting. Patient took about 100 mg of a gummy last night this is a THC gummy and it made her very nauseous to start continually throwing up all night. She has been throwing up today as well. Her heart rate went up to the 140s because she was so anxious. Explained her this is very normal and taking gummies she does have a history of seizures and she felt like she was going to have a seizure last night I also explained to her that companies will lower the seizure threshold and make a higher chance for having seizures she should not take gummies anymore. MD elicited complaint: nausea and vomiting Pertinent past history: cyclical vomiting Onset (ago): hour(s) Description of vomiting: watery Associated nausea: Yes Associated abdominal pain: Yes Location of pain: diffuse Pain consistency: intermittent Severity: moderate Quality: cramping Exacerbating factors: eating, vomiting and movement Relieving factors: none Associated symptoms: denies other symptoms Related Data Home Medications ?Medication ?Instructions ?Recorded ?Confirmed ?Last Taken ?Type gabapentin 300 mg capsule 300 mg PO TID PRN Pain 05/15/19 01/20/24 04/24/21 History methocarbamol 500 mg tablet 500 mg PO DAILY 05/15/19 01/20/24 04/24/21 History montelukast 10 mg tablet 5 mg PO DAILY 05/15/19 01/20/24 04/23/21 History pantoprazole 20 mg tablet,delayed 20 mg PO DAILY 05/15/19 01/20/24 04/23/21 History release rizatriptan 10 mg tablet 10 mg PO DIRECTED PRN Migraine 05/15/19 01/20/24 1 Day Ago History Headache ~10/30/19 topiramate 25 mg tablet 50 mg PO BID 05/15/19 01/20/24 04/24/21 History acetaminophen 500 mg tablet 1,000 mg PO TID PRN Pain 12/12/19 01/20/24 Unknown History (Tylenol Extra Strength) albuterol sulfate 90 mcg/actuation 1 - 2 puff inhalation Q4-5H PRN 12/12/19 01/20/24 Unknown History aerosol inhaler (ProAir HFA) Wheezing cholecalciferol (vitamin D3) 25 25 mcg PO DAILY 12/12/19 01/20/24 04/20/21 History mcg (1,000 unit) capsule (Vitamin D3) hydrocodone 5 mg-acetaminophen 325 1 tablet PO Q4H PRN Pain 04/21/21 01/20/24 Unknown History mg tablet midodrine 5 mg tablet 5 mg TID 01/20/24 01/20/24 Unknown History propranolol 10 mg tablet 5 mg BID 01/20/24 01/20/24 Unknown History Allergies Allergy/AdvReac Type Severity Reaction Status Date / Time codeine AdvReac Mild Insomnia Verified 05/28/24 17:32 prochlorperazine AdvReac Mild dystonic Verified 05/28/24 17:32 reaction Review of Systems 2 Review of Systems: All systems reviewed & are unremarkable except as noted in HPI and below Constitutional: Constitutional: Reports as per HPI Eyes: Eyes: Reports no additional eye complaints ENT: Reports system reviewed and no additional complaints, except as documented Cardiovascular: Cardiovascular: Reports no additional cardiovascular complaints Respiratory: Respiratory: Reports no additional respiratory complaints Gastrointestinal: Gastrointestinal: Reports abdominal pain, Reports nausea and Reports vomiting Genitourinary: Genitourinary: Reports no additional female genitourinary complaints Musculoskeletal: Musculoskeletal: Reports no additional musculoskeletal complaints Integumentary/Breasts: Skin/Breast: Reports system reviewed and no additional complaints, except as docu Neurologic: Reports system reviewed and no additional complaints, except as documented Psychiatric: Psychiatric: Reports no additional psychiatric complaints Endocrine: Endocrine: Reports no additional endocrine complaints Hematologic/Lymphatic: Hematologic/Lymphatic: Reports no additional hematologic/lymphatic complaints Allergic/Immunologic: Allergic/Immunologic: Reports no additional allergic/immunologic complaints [facility] Past Medical History Medical History PONV (postoperative nausea and vomiting) Ovarian cyst GERD (gastroesophageal reflux disease) Asthma Connective 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 POTS (postural orthostatic tachycardia syndrome) Surgical History Surgical History No pertinent past surgical history Social History Social History Smoking status: Never smoker Alcohol intake: never Substance use: never Substance use type: does not use Living arrangements: with family Spiritual care concerns: No Exam 2 Const: General: healthy appearing Nutritional Appearance: well nourished Orientation/consciousness: patient oriented x3 HENMT: Head: normal to inspection Ears: external ears normal F jocelyn/Nose/Sinus: Normal external nose present Face and sinus: normal facial exam Mouth: Yes Normal oral and palatal mucosa present Teeth and gingiva: dentition normal Eyes: Conjunctivae: conjunctivae normal Cornea: corneas normal Pupils: E qual, round and reactive pupils present Neck: Neck: normal visual inspection Chest: Chest palpation & inspection: normal inspection of the chest Resp: Effort & Inspection: normal respiratory effort Auscultation: clear to auscultation bilaterally Cardio: Rate: regular rate Rhythm: regular rhythm GI: GI Palp: Yes Tenderness to palpation present (GI) Auscultation: H yperactive bowel sounds present Back/Spine/Pelvis: Back: no CVA tenderness Skin: General skin exam: normal color Rashes: no rashes Wounds: no wounds Neuro: General: patient oriented x3 Cranial nerves: Yes Nystagmus not present Speech: normal speech Extrem: General: normal to inspection Psych: Mental Status: mental status grossly normal Affect: normal affect Attitude: cooperative Course Vital Signs Vital signs: Vital Signs Temperature 97.3 F L 05/28/24 16:22 Pulse Rate 78 05/28/24 16:22 Respiratory Rate 20 05/28/24 16:22 Blood Pressure 103/81 05/28/24 16:22 Pulse Oximetry 99 05/28/24 16:22 Oxygen Delivery Room Air 05/28/24 16:22 Temperature 97.3 F L 05/28/24 16:22 Pulse Rate 78 05/28/24 16:22 Respiratory Rate 20 05/28/24 16:22 Blood Pressure 103/81 05/28/24 16:22 Pulse Oximetry 99 05/28/24 16:22 Oxygen Delivery Room Air 05/28/24 16:22 MDM - Nausea/Vomiting/Diarrhea MDM Narrative Medical decision making narrative: patient is still feeling the effects from the gummy she took last night because she took such high dosage. She still nausea and has some vomiting. Will give her lots of fluids and Zofran and some Toradol for the abdominal pain. She is feeling better after receiving the fluids the Toradol and the Zofran. Will send her home with Zofran and instructed to drink lots of fluids. Also instructed to not take gummies anymore because of her seizure threshold. Differential Diagnosis Differential diagnosis: Likely gastroenteritis and drug-induced nausea and vomiting Medical Records Attestation: I reviewed the patient's medical records. Lab Data Attestation: I reviewed the patient's lab results. 05/28/24 16:53 05/28/24 16:53 Labs: Lab Results 05/28/24 05/28/24 Range/Units 16:53 18:15 WBC 9.9 (4.8-10.8) K/mm3 RBC 4.55 (4.20-5.40) M/mm3 Hgb 13.2 (12.0-15.0) g/dL Hct 39.6 (35.0-49.0) % MCV 87.0 (78.0-102.0) fL MCH 29.0 (27.0-31.0) pg MCHC 33.3 (32-36) g/dL RDW 12.5 (11.6-14.4) % Plt Count 362 (150-420) K/mm3 MPV 9.7 (9.2-11.8) fl Immature Gran % (Auto) 0.2 H (0.0-0.0) % Neut % (Auto) 78.3 H (50.0-70.0) % Lymph % (Auto) 13.2 L (18.0-42.0) % [place] % (Auto) 7.2 (2.0-11.0) % Eos % (Auto) 0.6 L (1.0-6.0) % Baso % (Auto) 0.5 (0.0-1.0) % Lymph # (Auto) 1.30 (1.10-4.50) K/mm3 [place] # (Auto) 0.71 (0.10-0.90) K/mm3 Eos # (Auto) 0.06 (0.02-0.50) K/mm3 Baso # (Auto) 0.05 (0.00-0.10) K/mm3 Abs Immat Gran (auto) 0.02 H (0.00-0.00) K/mm3 Absolute Neuts (auto) 7.74 H (1.70-7.20) K/mm3 Absolute Nucleated RBC 0.00 (0.00-0.00) K/mm3 Nucleated RBC % 0.0 (0-0.0) % Sodium 142 (136-145) mmol/L Potassium 4.1 (3.5-5.1) mmol/L Chloride 107 (98-108) mmol/L Carbon Dioxide 23 (21-32) mmol/L Anion Gap 12 (4-12) mmol/L BUN 12 (7-18) mg/dL Creatinine 0.94 (0.55-1.02) mg/dL Estim Creat Clear Calc 70 ml/min Estimated GFR > 60 (59 - ) Glucose 79 (70-99) mg/dL Calculated Osmolality 292 (285-295) mOsm/kg Calcium 9.0 (8.5-10.1) mg/dL Total Bilirubin 0.7 (0.00-1.00) mg/dL AST 12 L (15-37) U/L ALT 18 (14-59) U/L Alkaline Phosphatase 75 (46-116) U/L Total Protein 8.2 (6.4-8.2) g/dL Albumin 4.5 (3.4-5.0) g/dL Urine Color Light yellow (Yellow) Urine Appearance Clear (Clear) Urine pH 6.5 (5.0-8.0) Ur Specific [place] <= 1.005 L (1.010-1.020) Urine Protein Negative (Negative) Urine Glucose (UA) Negative (Negative) Urine Ketones Negative (Negative) Ur Blood (Man) Negative (Negative) Urine Nitrate Negative (Negative) Urine Bilirubin Negative (Negative) Urine Urobilinogen 0.2 (0.2-1.0) mg/dL Leukocyte Esterase Rfl Negative (Negative) BERENICE/UL Discharge Plan Discharge Clinical Impression: Drug-induced nausea and vomiting, Dehydration Patient Disposition: Home, Self-Care Condition: Stable Instructions: Acute Nausea and Vomiting (ED) Additional Instructions: Take Zofran [address] lb last office many years food. So our office soft diet working way out. Drink plenty of fluids. Patient Language: Arabic Prescriptions: New ondansetron 4 mg tablet,disintegrating 4 mg PO Q6H PRN (Reason: nausea and vomiting) Qty: 20 0RF No Action acetaminophen [Tylenol Extra Strength] 500 mg Tablet 1,000 mg PO TID PRN (Reason: Pain) albuterol sulfate [ProAir HFA] 90 mcg/actuation HFA aerosol inhaler 1 - 2 puff INHALATION Q4-5H PRN (Reason: Wheezing) cholecalciferol (vitamin D3) [Vitamin D3] 25 mcg (1,000 unit) Capsule 25 mcg PO DAILY prednisone 20 mg tablet 20 mg PO DAILY 5 Days Qty: 5 0RF midodrine 5 mg tablet 5 mg TID propranolol 10 mg tablet 5 mg BID oseltamivir [Tamiflu] 75 mg capsule 75 mg PO BID 5 Days Qty: 10 0RF ondansetron 4 mg tablet,disintegrating 4 mg PO Q8H PRN (Reason: nausea and vomiting) Qty: 20 0RF methocarbamol 500 mg tablet 500 mg PO DAILY topiramate 25 mg tablet 50 mg PO BID pantoprazole 20 mg tablet,delayed release (DR/EC) 20 mg PO DAILY gabapentin 300 mg capsule 300 mg PO TID PRN (Reason: Pain) montelukast 10 mg tablet 5 mg PO DAILY rizatriptan 10 mg tablet 10 mg PO DIRECTED PRN (Reason: Migraine Headache) hydrocodone-acetaminophen 5-325 mg tablet 1 tablet PO Q4H PRN (Reason: Pain) hydrocodone-acetaminophen 5-325 mg tablet 1 tablet PO Q4H PRN (Reason: pain) Qty: 30 0RF Follow-up/Referrals: Cuate Ramon MD [Primary Care Provider] - Time of Disposition: 18:32
[2024-05-28] MEDS: LORazepam (*CRX) 1 MG TABLET PO (18:35)
--- OUTSIDE RECORDS SUMMARY | 2024-05-28 18:37 | XMS_ITS | Referral Summary ---
Author Organization [facility] Address [address] [place] [address] Care Team Providers Care Fire Sprinkler Inspector Name Role Phone Cuate Ramon MD Primary Care Provider [phone] Ion De DO Unavailable [phone] Radha Zavala MD Unavailable [phone] Source Comments [facility],non-owned Affiliates and Associated Physician Practices is amultiple site organization consisting of ambulatory clinics and hospital sitesin [place], [place], [place] and [place]. This disclosure is being madepursuant to the Care Everywhere program and may not contain all information available regarding this patient. Last updated 17.[facility] Encounters Date Type Department Care Team Description 05/03/2024 Travel 05/03/2024 10:00 AM INFRASTRUCTURE TECH Office Visit [facility] - Rheumatology [facility] [facility], [place] [phone] Micheal Biggs MD Connective 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 (HCC) [...] Active azelastine (Astelin) 0.1 % nasal spray Minford 1 (one) spray into the nose as needed 07/12/2023 Active budesonide-formotero l (Symbicort) 80-4.5 MCG/ACT inhaler Inhale 2 (two) puffs by mouth 2 times daily as needed Active fluticasone propionate (Flonase) 50 MCG/ACT nasal spray Minford 1 (one) spray into the nose 2 [...] 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 Expectant observation 3. Return visit in 9-12 months Assessment & Plan (08/29/2017 1:41 PM CDT): Autoimmune thyroid disease; at risk of developing hypothyroidism 1. Orders Placed This Encounter TSH 2. See website: [email or web address].org for patient [...] Comments Blood Pressure 121/84 05/03/2024 9:53 AM INFRASTRUCTURE TECH Pulse 77 05/03/2024 9:53 AM INFRASTRUCTURE TECH Temperature 36.3 C (97.3 F) 05/03/2024 9:53 AM INFRASTRUCTURE TECH Respiratory Rate 16 04/02/2023 1:59 AM INFRASTRUCTURE TECH Oxygen Saturation 100% 04/02/2023 1:59 AM INFRASTRUCTURE TECH Inhaled Oxygen Concentration - - Weight 67.2 kg (148 lb 3.2 oz) 05/03/2024 9:53 A M INFRASTRUCTURE TECH Height 160 cm (5' 2.99 ) 05/03/2024 9:53 AM INFRASTRUCTURE TECH Body Mass Index 26.26 05/03/2024 9:53 AM INFRASTRUCTURE TECH Plan of Treatment Upcoming Encounters Date Type Department Care Team (Late st Contact Info) Description 06/13/2024 3:00 PM INFRASTRUCTURE TECH Office Visit [facility] [address] [facility] [address] [place] [address] Danya Marks, [facility]MICAL [facility]AY[facility] [address] [facility] [address] [place] [address] 09/04/2024 1:00 PM CDT Office Visit [facility] - Rheumatology [address] [place] [address], [place] [phone] Micheal Biggs MD [address] [place] [address] [place] [phone] Procedures Procedure Name Priority Date/Time Associated Diagnosis Comments KATHY-PENG VIRUS ANTIBODY TO VCA IGM Routine 05/18/2024 3:49 PM INFRASTRUCTURE TECH EBV infection KATHY-PENG VIRUS ANTIBODY TO VCA IGG Routine 05/18/2024 3:49 PM INFRASTRUCTURE TECH EBV infection BETA-2 GLYCOPROTEIN 1 ANTIBODY IGG/IGM/IGA PANEL Routine 05/18/2024 3:49 PM INFRASTRUCTURE TECH Connective 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 (HCC) CARDIOLIPIN ANTIBODY IGA/IGG/IGM PANEL Routine 05/18/2024 3:49 PM INFRASTRUCTURE TECH Connective 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 (HCC) VITAMIN D 25-HYDROXY Routine 05/18/2024 3:49 PM INFRASTRUCTURE TECH Connective 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 (HCC) URINALYSIS W/MICROSCOPIC REFLEX TO CULTURE Routine 05/18/2024 3:49 PM INFRASTRUCTURE TECH Connective 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 (HCC) ERYTHROCYTE SEDIMENTATION RATE Routine 05/18/2024 3:49 PM INFRASTRUCTURE TECH Connective 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 (HCC) C-REACTIVE PROTEIN Routine 05/18/2024 3: 49 PM INFRASTRUCTURE TECH Connective 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 (HCC) COMPREHENSIVE METABOLIC PANEL Routine 05/18/2024 3:49 PM INFRASTRUCTURE TECH Connective 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 (HCC) CK BLOOD Routine 05/18/2024 3:49 PM INFRASTRUCTURE TECH Connective 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 (HCC) CBC W AUTO DIFFERENTIAL Routine 05/18/19 25 3:49 PM INFRASTRUCTURE TECH Connective 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 (HCC) ALDOLASE Routine 05/18/2024 3:49 PM INFRASTRUCTURE TECH Connective 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 (HCC) IMMUNOGLOBULINS IGG/IGM/IGA PANEL Routine 05/18/2024 3:49 PM INFRASTRUCTURE TECH Connective 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 (HCC) COMPLEMENT TOTAL Routine 05/18/2024 3:49 PM INFRASTRUCTURE TECH Connective 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 (HCC) COMPLEMENT C4 Routine 05/18/2024 3:49 PM INFRASTRUCTURE TECH Connective 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 (HCC) COMPLEMENT C3 Routine 05/18/2024 3:49 PM INFRASTRUCTURE TECH Connective 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 (HCC) SCLEROSIS 12 ANTIBODY PNL Routine 05/18/2024 3:49 PM INFRASTRUCTURE TECH Connective 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 (HCC) ERIKA PANEL COMPREHENSIVE Routine 05/18/19 25 3:49 PM INFRASTRUCTURE TECH Connective 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 (HCC) CULTURE URINE 05/18/2024 3:49 PM INFRASTRUCTURE TECH CULTURE URINE REFLEXED 3:49 PM INFRASTRUCTURE TECH from Last 3 Months Results * SCLEROSIS 12 ANTIBODY PNL (05/18/2024 3:49 PM INFRASTRUCTURE TECH) SCL-70 <11 <11 SI [facility] Centromere protein A Antibody <11 <11 SI [facility] Centromere protein B Antibody <11 <11 SI [facility] RP11 <11 <11 SI [facility] RP11 <11 <11 [facility] U1 small nuclear ribonucleoprotein A Antibody <11 <11 SI [facility] U1 small nuclear ribonucleoprotein C Antibody <11 <11 SI [facility] U1 small nuclear ribonucleoprotein 70kD Antibody <11 <11 SI [facility] Fibrillarin <11 <11 [facility] TH/TO <11 <11 [facility] PM/SCL 100 <11 <11 [facility] PM/SCL 75 <11 <11 SI [facility] Comment: The [place] [employer] (ACR) considers anti-Scl-70 (also known as anti-topoisomerase I), anti-centromere and/or anti-RNA polymerase III antibodies part of the classification criteria for Systemic Sclerosis(SSc) given that the antibodies are present in 30%-60% of patients with SSc. Centromere protein B (CENP B) antibody positivity is found in 64-95% of patients with a limited form of cutaneous systemic sclerosis i.e. CREST syndrome. The addition of centromere protein A (CENP A) antibody to CENP B antibody improves specificity for diagnosis of SSc. Patients presenting with diffuse cutaneous systemic sclerosis (dcSSc) and features of CREST may have both centromere (A & B) antibodies and Scl-70 antibodies. RNA polymerase III antibodies target RNAP III epitopes 11 (RP11) and 155 (RP155). Anti-RP11 antibody occurs in about 10% of scleroderma patients and anti-RP155 antibodies in about 8%. Yxbj-A0-wuLVH antibodies are associated with SSc and inflammatory myopathy overlap syndromes. Three major components of U1-snRNP are tested: U1-snRNP PORTFOLIO ACCOUNTANT A, U1-snRNP PORTFOLIO ACCOUNTANT C, U1-snRNP NXG82lm. The presence of U1-snRNP antibodies occur in 14% and 26% of Caucasians and Americans, respectively, in [place]. Anti-fibrillarin (anti-U3RNP) antibodies are specific for SSc, but are mutually exclusive from Scl-70, CENP, and RNAP III antibodies. Anti-U3RNP antibodies are detected in 4-10% of SSc patients, and when present are associated with dcSSc and frequently visceral renal and cardiac involvement. Fibrillarin antibodies are found more frequently in -[place] patients and when seen in this population, the antibodies are associated with severe pulmonary disease, pulmonary hypertension, severe small bowel involvement, and a poorer prognosis. Anti-Th/To antibodies are present in 1-13% of SSc patients, and are rarely found in other autoimmune diseases. Anti-Th/To antibodies are primarily associated with localized cutaneous systemic sclerosis (lcSSc). Anti-Th/To antibodies are also associated with pericarditis, interstitial lung disease and a high frequency of intrinsic pulmonary hypertension, and hence, a poorer prognosis. Autoantibodies to PM/Scl, the human exosome complex, are found in 4-11% of patients with SSc. PM/Scl antibodies have also been observed in polymyositis/SSc overlap syndromes and other autoimmune diseases. The majority of anti-PM/Scl reactivity is directed to one of two proteins: PM/Xwj096 and/or PM/Scl75. More information can be found at https://[email or web address].Lottay/testcenter/testguide.action ?dc=CF-SystScler This test was developed and its analytical performance characteristics have been determined by [employer]. It has not been cleared or approved by FDA. This assay has been validated pursuant to the CLIA regulations and is used for clinical purposes. Test Performed at: [facility] [address] [place] [address] NICCI ASHLEY MD,PHD,MARIAH Blood BLOOD SPECIMEN / Unknown 05/18/2024 3:49 PM INFRASTRUCTURE TECH 05/19/2024 10:44 AM INFRASTRUCTURE TECH Micheal Biggs MD LAB - SEROLOGY ORDER AUSTYN [facility] [address] [place] [address] * CULTURE URINE REFLEXED (05/18/2024 3:49 PM INFRASTRUCTURE TECH) Reflexive Urine Culture See Below [facility] Comment: CULTURE INDICATED - RESULTS TO FOLLOW Test Performed at: [facility] [address] [place] [address] LATHA ARORA MD 05/18/2024 3:49 PM INFRASTRUCTURE TECH 05/19/2024 10:44 AM INFRASTRUCTURE TECH Micheal Biggs MD LAB - MICROBIOLOGY O RDERABLES [facility] [address] [place] [address] * CARDIOLIPIN ANTIBODY IGA/IGG/IGM PANEL (05/18/2024 3:49 PM INFRASTRUCTURE TECH) Cardiolipin Antibody IgA <2.0 APL-U/mL [facility] Comment: Value Interpretation ----- < 20.0 Antibody not detected > or = 20.0 Antibody detected Cardiolipin Antibody IgG <2.0 GPL-U/mL [facility] Comment: Value Interpretation ----- < 20.0 Antibody not detected > or = 20.0 Antibody detected Cardiolipin Antibody IgM <2.0 MPL-U/mL [facility] Comment: Value Interpretation ----- < 20.0 Antibody not detected > or = 20.0 Antibody detected The antiphospholipid antibody syndrome (APS) is a clinical-pathologic correlation that includes a clinical event (e.g. arterial or venous thrombosis, morbidity) and persistent positive antiphospholipid antibodies (IgM, IgG Cardiolipin or b2GPI antibodies greater than the 99th percentile; or a lupus anticoagulant). International consensus guidelines for APS suggest waiting at least 12 weeks before retesting to confirm antibody persistence. The Systemic Lupus International Collaborating Clinics immunological classification criteria for systemic lupus erythematosus (SLE) include testing for isotype IgA, which has yet to be incorporated into APS criteria. Low level antiphospholipid antibodies may sometimes be detected in the setting of infection, drug therapy or aging. For additional information, please refer to http://education.GreenLight/faq/IRE458 (This link is being provided for informational/ educational purposes only.) Test Performed at: [facility] [address] [place] [address] SYL SILVEIRA Blood BLOOD SPECIMEN / Unknown 05/18/2024 3:49 PM INFRASTRUCTURE TECH 05/19/2024 10:44 AM INFRASTRUCTURE TECH Micheal Biggs MD LAB - SEROLOGY ORDER AUSTYN [facility] [address] [place] [address] * (ABNORMAL) ERIKA PANEL COMPREHENSIVE (05/18/2024 3:49 PM INFRASTRUCTURE TECH) ERIKA Screen NEGATIVE NEGATIVE [facility] Comment: ERIKA IFA is a first line screen for detecting the presence of up to approximately 150 autoantibodies in various autoimmune diseases. A negative ERIKA IFA result suggests an ERIKA-associated autoimmune disease is not present at this time, but is not definitive. If there is high clinical suspicion for Sjogren's syndrome, testing for anti-SS-A/Ro antibody should be considered. Anti-Luna-1 antibody should be considered for clinically suspected inflammatory myopathies. AC-0: Negative International Consensus on ERIKA Patterns (https://doi.org/10.1515/glfa-9184-3077) For additional information, please refer to http://education.Tower[employer].Lottay/faq/FLK431 (This link is being provided for informational/ educational purposes only.) Test Performed at: [facility] [address] [address] [place] [address] LATHA ARORA MD dsDNA Antibody 1 IU/mL [facility] Comment: IU/mL Interpretation < or = 4 Negative 5-9 Indeterminate > or = 10 Positive SCL-70 Antibody <1.0 NEG <1.0 NEG AI [facility] SM Antibody <1.0 NEG <1.0 NEG AI [facility] SM/PORTFOLIO ACCOUNTANT Antibody 1.2 POS(A) <1.0 NEG AI [facility] Sjogren's Antibodies (SSA) <1.0 NEG <1.0 NEG AI [facility] Sjogren's Antibodies (SSB) 2.9 POS(A) <1.0 NEG AI [facility] Comment: Test Performed at: [facility] [address] [place] [address] LATHA ARORA MD Blood BLOOD SPECIMEN / Unknown 05/18/2024 3:49 PM INFRASTRUCTURE TECH 05/19/2024 10:44 AM INFRASTRUCTURE TECH Micheal Biggs MD LAB - SEROLOGY ORDER AUSTYN Performing Organization Address [facility]/ZIP Co de Phone Number VIRAL [address] [place] [phone] * (ABNORMAL) URINALYSIS W/MICROSCOPIC REFLEX TO CULTURE (05/18/2024 3:49 PM INFRASTRUCTURE TECH) Color UA YELLOW YELLOW [facility] Appearance CLOUDY(A) CLEAR [facility] Specific Alden UA 1.024 1.001 - 1.035 [facility] pH UA 7.0 5.0 - 8.0 [facility] Glucose UA NEGATIVE NEGATIVE [facility] Bilirubin UA NEGATIVE NEGATIVE [facility] Ketone UA NEGATIVE NEGATIVE [facility] Blood UA NEGATIVE NEGATIVE [facility] Protein UA 1+(A) NEGATIVE [facility] Nitrite NEGATIVE NEGATIVE [facility] Leukocyte Esterase TRACE(A) NEGATIVE [facility] WBC UA 0-5 < OR = 5 /HPF [facility] RBC UA NONE SEEN < OR = 2 /HPF [facility] Epithelial Cell UA 20-40(A) < OR = 5 /HPF [facility] Transitional Epithelial Cells [facility] Renal Epithelial Cells [facility] Bacteria UA FEW(A) NONE SEEN /HPF [facility] Calcium Oxalate Crystals [facility] Triple Phosphate Crystals [facility] Uric Acid Crystals [facility] Amorphous UA [facility] Crystals UA [facility] Hyaline Casts NONE SEEN NONE SEEN /LPF [facility] Comment: Test Performed at: [place] [address] LATHA ARORA MD Granular Casts [facility] Casts UA [facility] Yeast [facility] Comments [facility] Note [facility] Comment: Test Performed at: [facility] [place] [address] LATHA ARORA MD Urine URINE SPECIMEN OBTAINED BY CLEAN CATCH PROCEDURE / Unknown 05/18/2024 3:49 PM INFRASTRUCTURE TECH 05/19/2024 10:44 AM INFRASTRUCTURE TECH Micheal Biggs MD LAB - URINALYSIS ORD ERABLES Performing Organization Address [facility] Co de Phone Number VIRAL [address] [place] [address] * KATHY-PENG VIRUS ANTIBODY TO VCA IGM (05/18/2024 3:49 PM INFRASTRUCTURE TECH) Kathy-Peng Virus Antibody To Viral Capsid Antigen IgM <36.00 U/mL [facility] Comment: U/mL Interpretation ---- <36.00 Negative 36.00-43.99 Equivocal >43.99 Positive Test Performed at: [facility] [address] [place] [address] LATHA ARORA MD Blood BLOOD SPECIMEN / Unknown 05/18/2024 3:49 PM INFRASTRUCTURE TECH 05/19/2024 10:44 AM INFRASTRUCTURE TECH Micheal Biggs MD LAB - SEROLOGY ORDER AUSTYN [facility] [address] [place] [address] * BETA-2 GLYCOPROTEIN 1 ANTIBODY IGG/IGM/IGA PANEL (05/18/2024 3:49 PM INFRASTRUCTURE TECH) [facility] Beta-2 Glycoprotein I Antibody IgG <2.0 <20.0 U/mL [facility] Comment: Value Interpretation ----- < 20.0 Antibody not detected > or = 20.0 Antibody detected Beta-2 Glycoprotein I Antibody IgM <2.0 <20.0 U/mL [facility] Comment: Value Interpretation ----- < 20.0 Antibody not detected > or = 20.0 Antibody detected Beta-2 Glycoprotein I Antibody IgA <2.0 <20.0 U/mL [facility] Comment: Value Interpretation ----- < 20.0 Antibody not detected > or = 20.0 Antibody detected The antiphospholipid antibody syndrome (APS) is a clinical-pathologic correlation that includes a clinical event (e.g. arterial or venous thrombosis, morbidity) and persistent positive antiphospholipid antibodies (IgM, IgG Cardiolipin or b2GPI antibodies greater than the 99th percentile; or a lupus anticoagulant). International consensus guidelines for APS suggest waiting at least 12 weeks before retesting to confirm antibody persistence. The Systemic Lupus International Collaborating Clinics immunological classification criteria for systemic lupus erythematosus (SLE) include testing for isotype IgA, which has yet to be incorporated into APS criteria. Low level antiphospholipid antibodies may sometimes be detected in the setting of infection, drug therapy or aging. For additional information, please refer to http://education.[facility].Lottay/faq/VNM437 (This link is being provided for informational/ educational purposes only.) Test Performed at: [facility]/[address] BIENVENIDO LIANG MD,PHD Blood BLOOD SPECIMEN / Unknown 05/18/2024 3:49 PM INFRASTRUCTURE TECH 05/19/2024 10:44 AM INFRASTRUCTURE TECH Micheal Biggs MD LAB - SEROLOGY ORDER AUSTYN Performing Organization Address [facility] Co de Phone Number [address] [address] * C-REACTIVE PROTEIN (05/18/2024 3:49 PM INFRASTRUCTURE TECH) Pathologist [facility] C-Reactive Protein <3.0 <8.0 mg/L [facility] Comment: Test Performed at: [facility] [employer] [place] [address] LATHA ARORA MD Blood BLOOD SPECIMEN / Unknown 05/18/2024 3:49 PM INFRASTRUCTURE TECH 05/19/2024 10:44 AM INFRASTRUCTURE TECH Micheal Biggs MD LAB - CHEMISTRY ORDE RABLES Performing Organization Address [facility] Co de Phone Number [address] [address] * (ABNORMAL) KATHY-PENG VIRUS ANTIBODY TO VCA IGG (05/18/2024 3:49 PM INFRASTRUCTURE TECH) Kathy-Peng Virus Antibody To Viral Capsid Antigen IgG 88.70(H) U/mL [facility] Comment: U/mL Interpretation ---- <18.00 Negative 18.00-21.99 Equivocal >21.99 Positive Test Performed at: [facility] [address] [address] [place], [employer] [address] LATHA ARORA MD Blood BLOOD SPECIMEN / Unknown 05/18/2024 3:49 PM INFRASTRUCTURE TECH 05/19/2024 10:44 AM INFRASTRUCTURE TECH Micheal Biggs MD LAB - CHEMISTRY DINESH BHAKTA Performing Organization Address [facility]/ZIP Co de Phone Number [facility] [phone] [place] [phone] * COMPLEMENT TOTAL (05/18/2024 3:49 PM INFRASTRUCTURE TECH) Pathologist [facility] Complement Total CH50 52 31 - 60 U/mL [facility] Comment: Test Performed at: [facility] [address] [address] [employer] [place] [address] LATHA ARORA MD Blood BLOOD SPECIMEN / Unknown 05/18/2024 3:49 PM INFRASTRUCTURE TECH 05/19/2024 5:36 AM INFRASTRUCTURE TECH Micheal Biggs MD LAB - CHEMISTRY DINESH BHAKTA Performing Organization Address [facility] de Phone Number [facility] [address] [place] [address] * VITAMIN D 25-HYDROXY (05/18/2024 3:49 PM INFRASTRUCTURE TECH) Pathologist [facility] Vitamin D, 25 Hydroxy 46 30 - 100 ng/mL [facility] Comment: Vitamin D Status 25-OH Vitamin D: Deficiency: <20 ng/mL Insufficiency: 20 - 29 ng/mL Optimal: > or = 30 ng/mL For 25-OH Vitamin D testing on patients on D2-supplementation and patients for whom quantitation of D2 and D3 fractions is required, the QuestAssureD(TM) 25-OH VIT D, (D2,D3), LC/MS/MS is recommended: order code 35839 (patients >2yrs). See Note 1 Note 1 For additional information, please refer to http://education.Knoda/faq/GCG703 (This link is being provided for informational/ educational purposes only.) Test Performed at: [facility] [address] [place] [employer] [address] LATHA ARORA MD Blood BLOOD SPECIMEN / Unknown 05/18/2024 3:49 PM INFRASTRUCTURE TECH 05/19/2024 10:44 AM INFRASTRUCTURE TECH Micheal Biggs MD LAB - CHEMISTRY DINESH BHAKTA Performing Organization Address [facility] de Phone Number [facility] [address] [place] [address] * ALDOLASE (05/18/2024 3:49 PM INFRASTRUCTURE TECH) Pathologist [facility] Aldolase 3.7 < OR = 8.1 U/L [facility] Comment: REPORT COMMENT: FASTING:NO Test Performed at: [facility] [address] [address] [employer] [facility] [address] LATHA ARORA MD Blood BLOOD SPECIMEN / Unknown 05/18/2024 3:49 PM INFRASTRUCTURE TECH 05/19/2024 5:36 AM INFRASTRUCTURE TECH Micheal Biggs MD LAB - CHEMISTRY DINESH KINZAFABIAN Performing Organization Address [facility] [place] [address] * (ABNORMAL) CULTURE URINE (05/18/2024 3:49 PM INFRASTRUCTURE TECH) Pathologist [facility] Culture (A) [facility] Comment: CULTURE, URINE, ROUTINE Micro Number: [id number] Test Status: Final Specimen Source: Urine Specimen Quality: Adequate Result: 50,000-100,000 CFU/mL of Enterococcus faecalis COMMENT: Additional non-predominating organism(s) isolated. These organisms, commonly found on external and internal genitalia, are considered colonizers. No further testing performed. E.faecalis INT BERONICA AMPICILLIN S <=2 NITROFURANTOIN S <=16 VANCOMYCIN S 1 S = Susceptible I = Intermediate R = Resistant NS = Not susceptible SDD = Susceptible Dose Dependent * = Not Tested NR = Not Reported NN = See Therapy Comments REPORT COMMENT: FASTING:NO Test Performed at: [facility] [address] [address] [place] [address] LATHA ARORA MD 05/18/2024 3:49 PM INFRASTRUCTURE TECH 05/19/2024 10:44 AM INFRASTRUCTURE TECH Micheal Biggs MD LAB - MICROBIOLOGY O RDERABLES Performing Organization Address [facility] de Phone Number [facility] [address] [place] [address] * ERYTHROCYTE SEDIMENTATION RATE (05/18/2024 3:49 PM INFRASTRUCTURE TECH) Erythrocyte Sedimentation Rate Westergren 6 < OR = 20 mm/h [facility] Comment: Test Performed at: [facility] [employer] [address] [place] [address] LATHA ARORA MD Blood BLOOD SPECIMEN / Unknown 05/18/2024 3:49 PM INFRASTRUCTURE TECH 05/19/2024 10:44 AM INFRASTRUCTURE TECH Micheal Biggs MD LAB - HEMATOLOGY ORD ERABLES [facility] [address] [place] [address] * CBC WITH DIFFERENTIAL (05/18/2024 3:49 PM INFRASTRUCTURE TECH) Pathologist [facility] White Blood Cell Count 4.4 3.8 - 10.8 Thousand/u L [facility] RBC 4.95 3.80 - 5.10 Million/uL [facility] Hemoglobin 14.6 11.7 - 15.5 g/dL [facility] Hematocrit 42.7 35.0 - 45.0 % [facility] MCV 86.3 80.0 - 100.0 fL [facility] MCH 29.5 27.0 - 33.0 pg [facility] MCHC 34.2 32.0 - 36.0 g/dL [facility] Comment: For adults, a slight decrease in the calculated MCHC value (in the range of 30 to 32 g/dL) is most likely not clinically significant; however, it should be interpreted with caution in correlation with other red cell parameters and the patient's clinical condition. RDW 12.5 11.0 - 15.0 % [facility] Platelet Count 313 140 - 400 Thousand/u L [facility] MPV 10.7 7.5 - 12.5 fL [facility] Neutrophil Absolute 1993 1500 - 7800 cells/uL [facility] Absolute Bands [facility] Metamyelocytes Absolute [facility] Myelocytes Absolute [facility] Absolute Prolymphocytes [facility] Lymphocytes Absolute 1668 850 - 3900 cells/uL [facility] Absolute Monocytes 585 200 - 950 cells/uL [facility] Eosinophils Absolute 123 15 - 500 cells/uL [facility] Basophils Absolute 31 0 - 200 cells/uL [facility] Absolute Blasts [facility] nRBC Absolute [facility] Granulocytes % 45.3 % [facility] Band Neutrophil [facility] Metamyelocytes [facility] Myelocytes [facility] Promyelocytes [facility] Lymphocytes % 37.9 % [facility] Lymphocyte Reactive [facility] Monocytes % 13.3 % [facility] Eosinophils % 2.8 % [facility] Basophils % 0.7 % [facility] Comment: Test Performed at: [place] [address] LATHA ARORA MD Blasts [facility] nRBC [facility] Comments [facility] Comment: Test Performed at: [facility] [address] [facility] [address] LATHA ARORA MD Blood BLOOD SPECIMEN / Unknown 05/18/2024 3:49 PM INFRASTRUCTURE TECH 05/19/2024 10:44 AM INFRASTRUCTURE TECH Micheal Biggs MD LAB - HEMATOLOGY ORD ERABLES Performing Organization Address City/[facility]/ZIP Co de Phone Number [facility] [address] [place] [address] * COMPLEMENT C4 (05/18/2024 3:49 PM INFRASTRUCTURE TECH) Pathologist [facility] Complement C4 34 15 - 57 mg/dL [facility] Comment: Test Performed at: [facility] [place] [id number] LATHA ARORA MD Blood BLOOD SPECIMEN / Unknown 05/18/2024 3:49 PM INFRASTRUCTURE TECH 05/19/2024 10:44 AM INFRASTRUCTURE TECH Micheal Biggs MD LAB - SEROLOGY ORDER AUSTYN Performing Organization Address [facility] Co de Phone Number [facility] [address] [place] [address] * (ABNORMAL) COMPREHENSIVE METABOLIC PANEL (05/18/2024 3:49 PM INFRASTRUCTURE TECH) Pathologist [facility] Glucose 80 65 - 139 mg/dL [facility] Comment: Non-fasting reference interval BUN 14 7 - 25 mg/dL [facility] Creatinine 0.84 0.50 - 0.96 mg/dL [facility] eGFR by Cystatin C 102 > OR = 60 mL/min/1. 73m2 [facility] BUN/Creatinine Ratio SEE NOTE: 6 - 22 (calc) [facility] Comment: Not Reported: BUN and Creatinine are within reference range. Sodium 140 135 - 146 mmol/L [facility] Potassium 3.5 3.5 - 5.3 mmol/L [facility] Chloride 106 98 - 110 mmol/L [facility] CO2 23 20 - 32 mmol/L [facility] Calcium 9.5 8.6 - 10.2 mg/dL [facility] Protein Total 8.2(H) 6.1 - 8.1 g/dL [facility] Albumin 5.3(H) 3.6 - 5.1 g/dL [facility] Globulin Total 2.9 1.9 - 3.7 g/dL (calc) [facility] Albumin/Globulin Ratio 1.8 1.0 - 2.5 (calc) [facility] Bilirubin Total 0.7 0.2 - 1.2 mg/dL [facility] Alkaline Phosphatase 54 31 - 125 U/L [facility] AST 15 10 - 30 U/L [facility] ALT 11 6 - 29 U/L [facility] Comment: Test Performed at: [facility] [place] [address] LATHA ARORA MD Blood BLOOD SPECIMEN / Unknown 05/18/2024 3:49 PM INFRASTRUCTURE TECH 05/19/2024 10:44 AM INFRASTRUCTURE TECH Micheal Biggs MD LAB - CHEMISTRY DINESH BHAKTA Performing Organization Address [facility] de Phone Number [facility] [address] [place] [address] * CK BLOOD (05/18/2024 3:49 PM INFRASTRUCTURE TECH) Pathologist [facility] CK 46 20 - 239 U/L [facility] Comment: Test Performed at: [facility] [employer] [place] [address] LATHA ARORA MD Blood BLOOD SPECIMEN / Unknown 05/18/2024 3:49 PM INFRASTRUCTURE TECH 05/19/2024 10:44 AM INFRASTRUCTURE TECH Micheal Biggs MD LAB - CHEMISTRY DINESH BHAKTA Performing Organization Address [facility] Co de Phone Number [facility] [address] [place] [address] * (ABNORMAL) IMMUNOGLOBULINS IGG/IGM/IGA PANEL (05/18/2024 3:49 PM INFRASTRUCTURE TECH) Pathologist [facility] IgA <5(L) 47 - 310 mg/dL [facility] Comment: Verified by repeat analysis. IgG 1337 600 - 1640 mg/dL [facility] IgM 259 50 - 300 mg/dL [facility] Comment: Verified by repeat analysis. Test Performed at: [facility] [employer] [id number] LATHA ARORA MD Blood BLOOD SPECIMEN / Unknown 05/18/2024 3:49 PM INFRASTRUCTURE TECH 05/19/2024 10:44 AM INFRASTRUCTURE TECH Micheal Biggs MD LAB - CHEMISTRY DINESH BHAKTA Performing Organization Address [facility] Co de Phone Number [facility] [address] [place] [address] * COMPLEMENT C3 (05/18/2024 3:49 PM INFRASTRUCTURE TECH) Complement C3 127 83 - 193 mg/dL [facility] Comment: Test Performed at: [facility] [id number] [facility] [place] [address] LATHA ARORA MD Blood BLOOD SPECIMEN / Unknown 05/18/2024 3:49 PM INFRASTRUCTURE TECH 05/19/2024 10:44 AM INFRASTRUCTURE TECH Micheal Biggs MD LAB - CHEMISTRY DINESH BHAKTA Performing Organization Address [facility] Co de Phone Number [facility] [address] [place] [address] from Last 3 Months Care Teams Fire Sprinkler Inspector Relationship Specialty Start Date End Date Cuate Ramon MD [address] [place] [address] PCP - General 08/09/17 Ion De DO [address] [place] [address] Rheumatology 08/05/20 Radha Zavala MD [address] [place] [id number] Neurology 12/07/23
--- OUTSIDE RECORDS SUMMARY | 2024-05-28 18:37 | XMS_ITS | Clinical Summary ---
Author Organization [facility] Address [address] [place] [address] Phone Care Team Providers Care Bill Poster Installer Name Role Phone Cuate Ramon MD Primary Care Provider [phone]- [phone] Allergies Active Allergy Reactions Criticality Noted Date [...] VACCINE (#1) 2023 04/12/2018 Insurance Care Teams Bill Poster Installer Relationship Specialty Start Date End Date Cuate Ramon MD [address] [place] [address] PCP - General Pediatrics 08/03/18
--- OUTSIDE RECORDS SUMMARY | 2024-05-28 18:37 | XMS_ITS | Patient Health Summary ---
Author Organization [facility] Address [address] [address] Care Team Providers Care Senior Civil Engineer Name Role Phone Cuate Ramon MD Primary Care Provider [phone] Ion De DO Unavailable [phone] Radha Zavlaa MD Unavailable [phone] [facility],non-owned Affiliates and Associated Physician Practices is amultiple site organization consisting of ambulatory clinics and hospital sitesin [place], [place], [place] and [place]. This disclosure is being madepursuant to the Care Everywhere program and may not contain all information available regarding this patient. 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 Abnormal PFT 10/18/2018 prison current use of non -steroidal anti-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 (NSAID) [...] Comments Blood Pressure 121/84 05/03/2024 9:[address] JUSTICE Pulse 77 05/03/2024 9:[address] JUSTICE Temperature 36.3 C (97.3 F) 05/03/2024 9:[address] JUSTICE Respiratory Rate 16 04/02/2023 1:[address] JUSTICE Oxygen Saturation 100% 04/02/2023 1:[address] JUSTICE Inhaled Oxygen Concentration - - Weight 67.2 kg (148 lb 3.2 oz) 05/03/2024 9:[address] JUSTICE Height 160 cm (5' 2.99 ) 05/03/2024 9:[address] JUSTICE Body Mass Index 26.26 05/03/2024 9:[address] JUSTICE Procedures * KATHY-PENG VIRUS ANTIBODY TO VCA IGM(Performed 05/18/2024) Performed for EBV infection * KATHY-PENG VIRUS ANTIBODY TO VCA IGG(Performed 05/18/2024) Performed for EBV infection * BETA-2 GLYCOPROTEIN 1 ANTIBODY IGG/IGM/IGA PANEL(Performed 05/18/2024) 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) * CARDIOLIPIN ANTIBODY IGA/IGG/IGM PANEL(Performed 05/18/2024) 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) * VITAMIN D 25-HYDROXY(Performed 05/18/2024) 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) * URINALYSIS W/MICROSCOPIC REFLEX TO CULTURE(Performed 05/18/2024) 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) * ERYTHROCYTE SEDIMENTATION RATE(Performed 05/18/2024) 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) * C-REACTIVE PROTEIN(Performed 05/18/2024) 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) * COMPREHENSIVE METABOLIC PANEL(Performed 05/18/2024) 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) * CK BLOOD(Performed 05/18/2024) 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) * CBC W AUTO DIFFERENTIAL(Performed 05/18/2024) 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) * ALDOLASE(Performed 05/18/2024) 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) * IMMUNOGLOBULINS IGG/IGM/IGA PANEL(Performed 05/18/2024) 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) * COMPLEMENT TOTAL(Performed 05/18/2024) 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) * COMPLEMENT C4(Performed 05/18/2024) 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) * COMPLEMENT C3(Performed 05/18/2024) 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) * SCLEROSIS 12 ANTIBODY PNL(Performed 05/18/2024) 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) * ERIKA PANEL COMPREHENSIVE(Performed 05/18/2024) 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) * CULTURE URINE(Performed 05/18/2024) * CULTURE URINE REFLEXED(Performed 05/18/2024) * ERIKA HEP-2 IGG BY IFA(Performed 12/26/2023) [...] for Autoimmune thyroiditis, Arthralgia, unspecified joint * CELL CHANGER ANTIBODY(Performed 12/26/2023) Performed for Autoimmune thyroiditis, Arthralgia, [...] High risk medication use * FIBRILLARIN (U3 CELL CHANGER)(Performed 02/02/2023) Performed for Arthralgia, unspecified joint, Patellar [...] disease (HCC), High risk medication use * CELL CHANGER ANTIBODY(Performed 09/03/2022) 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 [...] 08/12/2020) 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), prison current use of non- steroidal anti-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 (NSAID) * URINALYSIS W/MICROSCOPIC REFLEX TO CULTURE(Performed 08/12/2020) 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), 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) * C-REACTIVE PROTEIN(Performed 08/12/2020) 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), prison current use of non- steroidal anti-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 (NSAID) * ERYTHROCYTE SEDIMENTATION RATE(Performed 08/12/2020) 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), 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) * COMPREHENSIVE METABOLIC PANEL(Performed 08/12/2020) 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), 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) * CBC W AUTO DIFFERENTIAL(Performed 08/12/2020) 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), 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) [...] Autoimmune thyroiditis, High risk medication use * CELL CHANGER ANTIBODY(Performed 02/23/2020) Performed for Amplified musculoskeletal pain, [...] URINALYSIS MICROSCOPIC ONLY REFLEXED(Performed 12/16/2018) 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-steroidal anti-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 (NSAID), Connective tissuedisease (HCC) * URINALYSIS W/MICROSCOPIC REFLEX TO CULTURE(Performed 12/16/2018) Performed for prison current use of non-steroidal anti-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 (NSAID), Connective tissuedisease (HCC) * COMPREHENSIVE METABOLIC PANEL(Performed 12/16/2018) Performed for prison current use of non-steroidal anti-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 (NSAID), Connective tissuedisease (HCC) * CBC W AUTO DIFFERENTIAL(Performed 12/16/2018) Performed for prison current use of non-steroidal anti-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 (NSAID), Connective [...] tracking disorder, unspecified laterality, Autoimmune thyroiditis * CELL CHANGER ANTIBODY(Performed 07/03/2018) Performed for Amplified musculoskeletal pain, [...] Performed for Migraine NOS/not Intrcbl Results * SCLEROSIS 12 ANTIBODY PNL (05/18/2024 3:[address] JUSTICE) SCL-70 <11 <11 SI [facility] Centromere protein [...] 75 <11 <11 SI [facility] Comment: The [place] [employer] (ACR) considers anti-Scl-70 (also [...] patients and anti-RP155 antibodies in about 8%. Rwfn-X1-bwWNG antibodies are associated with SSc and inflammatory myopathy overlap syndromes. Three major components of U1-snRNP are tested: U1-snRNP CELL CHANGER A, U1-snRNP CELL CHANGER C, U1-snRNP [id number]. The presence of U1-snRNP antibodies occur in [...] Fibrillarin antibodies are found more frequently in -[place] patients and when seen in this population, [...] is directed to one of two proteins: PM/Ham118 and/or PM/Scl75. More information can be found at https://www.MetraTech.Verge Solutions/testcenter/testguide.action ?dc=CF-SystScler This test was developed and its analytical performance characteristics have been determined by [employer]. It has not been cleared or approved by FDA. This assay has been validated pursuant to the CLIA regulations and is used for clinical purposes. Test Performed at: [facility] [address] [place] [address] NICCI ASH[place] MD,PHD,MARIAH Blood BLOOD SPECIMEN / Unknown 05/18/2024 3:[address] JUSTICE 05/19/2024 10:[address] JUSTICE Micheal Biggs MD LAB - SEROLOGY ORDER AUSTYN Performing Organization Address [facility] Co de Phone Number [facility] [address] [place] [address] * CULTURE URINE REFLEXED (05/18/2024 3:[address] JUSTICE) Reflexive Urine Culture See Below [facility] Comment: CULTURE INDICATED - RESULTS TO FOLLOW Test Performed at: [facility] [place] [address] [place] [address] LATHA ARORA MD 05/18/2024 3:[address] JUSTICE 05/19/2024 10:[address] JUSTICE Micheal Biggs MD LAB - MICROBIOLOGY O RDERABLES Performing Organization Address [facility] Co de Phone Number [place] [phone] [place] [address] * CARDIOLIPIN ANTIBODY IGA/IGG/IGM PANEL (05/18/2024 3:[address] JUSTICE) Cardiolipin Antibody IgA <2.0 APL-U/mL [facility] Comment: Value Interpretation ----- < 20.0 Antibody not detected > or = 20.0 Antibody detected Cardiolipin Antibody IgG <2.0 GPL-U/mL [facility] Comment: Value Interpretation ----- < 20.0 Antibody not detected > or = 20.0 Antibody detected Cardiolipin Antibody IgM <2.0 MPL-U/mL [employer] Comment: Value Interpretation ----- < 20.0 Antibody [...] aging. For additional information, please refer to http://education.MetraTech.Verge Solutions/faq/RXY936 (This link is being provided for informational/ educational purposes only.) Test Performed at: [facility] [address] [address] SYL Carmen RAOUL Blood BLOOD SPECIMEN / Unknown 05/18/2024 3:[address] JUSTICE 05/19/2024 10:[address] JUSTICE Micheal Biggs MD LAB - SEROLOGY ORDER AUSTYN [employer] [address] [place] [address] * (ABNORMAL) ERIKA PANEL COMPREHENSIVE (05/18/2024 3:[address] JUSTICE) ERIKA Screen NEGATIVE NEGATIVE [facility] Comment: ERIKA [...] AC-0: Negative International Consensus on ERIKA Patterns (https://doi.org/10.1515/sphu-9911-4416) For additional information, please refer to http://education.PEAR SPORTS.Verge Solutions/faq/MAW568 (This link is being provided for informational/ educational purposes only.) Test Performed at: [facility] [address] [place] [address] LATHA ARORA MD dsDNA Antibody 1 IU/mL [facility] Comment: IU/mL Interpretation < or = 4 Negative 5-9 Indeterminate > or = 10 Positive SCL-70 Antibody <1.0 NEG <1.0 NEG AI [facility] SM Antibody <1.0 NEG <1.0 NEG AI [facility] SM/CELL CHANGER Antibody 1.2 POS(A) <1.0 NEG AI [facility] Sjogren's Antibodies (SSA) <1.0 NEG <1.0 NEG AI [facility] Sjogren's Antibodies (SSB) 2.9 POS(A) <1.0 NEG AI [facility] Comment: Test Performed at: [place] [address] LATHA ARORA MD Blood BLOOD SPECIMEN / Unknown 05/18/2024 3:[address] JUSTICE 05/19/2024 10:[address] JUSTICE Micheal Biggs MD LAB - SEROLOGY ORDER AUSTYN [employer] [place] [address] [place] [address] * (ABNORMAL) URINALYSIS W/MICROSCOPIC REFLEX TO CULTURE (05/18/2024 3:[address] JUSTICE) Only the most recent of9 resultswithin the time period is included. Color UA YELLOW YELLOW [facility] Appearance CLOUDY(A) CLEAR [facility] Specific [place] UA 1.024 1.001 - 1.035 [facility] pH [...] SEEN /LPF [facility] Comment: Test Performed at: [employer] [address] LATHA ARORA MD Granular Casts [facility] Casts UA [facility] Yeast [facility] Comments [facility] Note [facility] Comment: Test Performed at: [employer] [address] LATHA ARORA MD Urine URINE SPECIMEN OBTAINED BY CLEAN CATCH PROCEDURE / Unknown 05/18/2024 3:[address] JUSTICE 05/19/2024 10:[address] JUSTICE Micheal Biggs MD LAB - URINALYSIS ORD ERABLES Performing Organization Address [facility] de Phone Number [facility] [address] [place] [address] * KATHY-PENG VIRUS ANTIBODY TO VCA IGM (05/18/2024 3:[address] JUSTICE) Kathy-Peng Virus Antibody To Viral Capsid Antigen IgM <36.00 U/mL [facility] Comment: U/mL Interpretation ---- <36.00 Negative 36.00-43.99 Equivocal >43.99 Positive Test Performed at: [facility] [address] [address] LATHA ARORA MD Blood BLOOD SPECIMEN / Unknown 05/18/2024 3:[address] JUSTICE 05/19/2024 10:[address] JUSTICE Micheal Biggs MD LAB - SEROLOGY ORDER AUSTYN Performing Organization Address [facility] [place] [address] * BETA-2 GLYCOPROTEIN 1 ANTIBODY IGG/IGM/IGA PANEL (05/18/2024 3:[address] JUSTICE) Beta-2 Glycoprotein I Antibody IgG <2.0 <20.0 U/mL [facility] Comment: Value Interpretation ----- < 20.0 Antibody not detected > or = 20.0 Antibody detected Beta-2 Glycoprotein I Antibody IgM <2.0 <20.0 U/mL [employer] Comment: Value Interpretation ----- < 20.0 Antibody [...] aging. For additional information, please refer to http://education.Tailgate Technologies/faq/OMC592 (This link is being provided for informational/ educational purposes only.) Test Performed at: [facility] [facility] [address] [place] [address] BIENVENIDO LIANG MD,PHD Blood BLOOD SPECIMEN / Unknown 05/18/2024 3:[address] JUSTICE 05/19/2024 10:[address] JUSTICE Micheal Biggs MD LAB - SEROLOGY ORDER AUSTYN [employer] [place] [address] [place] [address] * C-REACTIVE PROTEIN (05/18/2024 3:[address] JUSTICE) Only the most recent of7 resultswithin the time period is included. Pathologist [facility] C-Reactive Protein <3.0 <8.0 mg/L [facility] Comment: Test Performed at: [facility] [place] [employer] [address] LATHA ARORA MD Blood BLOOD SPECIMEN / Unknown 05/18/2024 3:[address] JUSTICE 05/19/2024 10:[address] JUSTICE Micheal Biggs MD LAB - CHEMISTRY DINESH BHAKTA Performing Organization Address [facility] de Phone Number [facility] [address] [place] [address] * (ABNORMAL) KATHY-PENG VIRUS ANTIBODY TO VCA IGG (05/18/2024 3:[address] JUSTICE) [facility] Kathy-Peng Virus Antibody To Viral Capsid Antigen IgG 88.70(H) U/mL [facility] Comment: U/mL Interpretation ---- <18.00 Negative 18.00-21.99 Equivocal >21.99 Positive Test Performed at: [facility] [place], [place] [address] LATHA ARORA MD Blood BLOOD SPECIMEN / Unknown 05/18/2024 3:[address] JUSTICE 05/19/2024 10:[address] JUSTICE Micheal Biggs MD LAB - CHEMISTRY DINESH BHAKTA Performing Organization Address [facility] de Phone Number [facility] [address] [place] [address] * COMPLEMENT TOTAL (05/18/2024 3:[address] JUSTICE) Only the most recent of2 resultswithin the time period is included. [facility] Complement Total CH50 52 31 - 60 U/mL [facility] Comment: Test Performed at: [facility] [employer] [place] [address] LATHA ARORA MD Blood BLOOD SPECIMEN / Unknown 05/18/2024 3:[address] JUSTICE 05/19/2024 5:[address] JUSTICE Micheal Biggs MD LAB - CHEMISTRY DINESH BHAKTA Performing Organization Address [facility] de Phone Number [facility] [phone] [place] [address] * VITAMIN D 25-HYDROXY (05/18/2024 3:[address] JUSTICE) Only the most recent of3 resultswithin the time period is included. Vitamin D, 25 Hydroxy 46 30 - 100 ng/mL [facility] Comment: Vitamin D Status 25-OH Vitamin D: Deficiency: <20 ng/mL Insufficiency: 20 - 29 ng/mL Optimal: > or = 30 ng/mL For 25-OH Vitamin D testing on patients on D2-supplementation and patients for whom quantitation of D2 and D3 fractions is required, the QuestAssureD(TM) 25-OH VIT D, (D2,D3), LC/MS/MS is recommended: order code 39181 (patients >2yrs). See Note 1 Note 1 For additional information, please refer to http://education.Next Health/faq/AOD505 (This link is being provided for informational/ educational purposes only.) Test Performed at: [facility] [place] [address] LATHA ARORA MD Blood BLOOD SPECIMEN / Unknown 05/18/2024 3:[address] JUSTICE 05/19/2024 10:[address] JUSTICE Micheal Biggs MD LAB - CHEMISTRY DINESH BHAKTA Performing Organization Address [facility] de Phone Number [facility] [phone] [place] [address] * ALDOLASE (05/18/2024 3:[address] JUSTICE) Only the most recent of2 resultswithin the time period is included. Aldolase 3.7 < OR = 8.1 U/L [facility] Comment: REPORT COMMENT: FASTING:NO Test Performed at: [facility] [place] [address] LATHA ARORA MD Blood BLOOD SPECIMEN / Unknown 05/18/2024 3:[address] JUSTICE 05/19/2024 5:[address] JUSTICE Micheal Biggs MD LAB - CHEMISTRY ORDE RABLES Performing Organization Address [facility] [place] [address] * (ABNORMAL) CULTURE URINE (05/18/2024 3:[address] JUSTICE) Pathologist [facility] Culture (A) [facility] Comment: CULTURE, URINE, ROUTINE Micro Number: [id number] Test Status: Final Specimen Source: Urine Specimen [...] Comments REPORT COMMENT: FASTING:NO Test Performed at: [facility] [place] [employer] [address] LATHA ARORA MD 05/18/2024 3:[address] JUSTICE 05/19/2024 10:[address] JUSTICE Micheal Biggs MD LAB - MICROBIOLOGY O RDERABLES Performing Organization Address [facility] [place] [address] * ERYTHROCYTE SEDIMENTATION RATE (05/18/2024 3:[address] JUSTICE) Only the most recent of7 resultswithin the time period is included. Pathologist [facility] Erythrocyte Sedimentation Rate Westergren 6 < OR = 20 mm/h [facility] Comment: Test Performed at: [facility] [address] [address] [place], [employer] [address] LTAHA ARORA MD Blood BLOOD SPECIMEN / Unknown 05/18/2024 3:[address] JUSTICE 05/19/2024 10:[address] JUSTICE Micheal Biggs MD LAB - HEMATOLOGY ORD ERABLES Performing Organization Address [facility] [place] [address] * CBC WITH DIFFERENTIAL (05/18/2024 3:[address] JUSTICE) Only the most recent of11 resultswithin the time period is included. White Blood Cell Count 4.4 3.8 - [...] 0.7 % [facility] Comment: Test Performed at: [facility] [address] [place] [address] LATHA ARORA MD Blasts [facility] nRBC [facility] Comments [facility] Comment: Test Performed at: [facility] [address] [address] [place] [employer] [address] LATHA ARORA MD Blood BLOOD SPECIMEN / Unknown 05/18/2024 3:[address] JUSTICE 05/19/2024 10:[address] JUSTICE Micheal Biggs MD LAB - HEMATOLOGY ORD ERABLES Performing Organization Address City/[facility]/ZIP Co de Phone Number [facility] [address] [place] [address] * COMPLEMENT C4 (05/18/2024 3:[address] JUSTICE) Only the most recent of5 resultswithin the time period is included. Complement C4 34 15 - 57 mg/dL [facility] Comment: Test Performed at: [facility] [address] [place] [address] LATHA ARORA MD Blood BLOOD SPECIMEN / Unknown 05/18/2024 3:[address] JUSTICE 05/19/2024 10:[address] JUSTICE Micheal Biggs MD LAB - SEROLOGY ORDER AUSTYN Performing Organization Address [facility] Co de Phone Number [facility] [address] [place] [address] * (ABNORMAL) COMPREHENSIVE METABOLIC PANEL (05/18/2024 3:[address] JUSTICE) Only the most recent of9 resultswithin the time period is included. Pathologist [facility] Glucose 80 65 - 139 mg/dL [facility] [...] 29 U/L [facility] Comment: Test Performed at: [place] [address] LATHA ARORA MD Blood BLOOD SPECIMEN / Unknown 05/18/2024 3:[address] JUSTICE 05/19/2024 10:[address] JUSTICE Micheal Biggs MD LAB - CHEMISTRY DINESH BHAKTA Performing Organization Address [facility] de Phone Number [facility] [phone] [place] [address] * CK BLOOD (05/18/2024 3:[address] JUSTICE) Only the most recent of2 resultswithin the time period is included. CK 46 20 - 239 U/L [facility] Comment: Test Performed at: [facility] [place] [address] LATHA ARORA MD Blood BLOOD SPECIMEN / Unknown 05/18/2024 3:[address] JUSTICE 05/19/2024 10:[address] JUSTICE Micheal Biggs MD LAB - CHEMISTRY DINESH BHAKTA Performing Organization Address [facility] Phone Number [facility] [address] [place] [address] * (ABNORMAL) IMMUNOGLOBULINS IGG/IGM/IGA PANEL (05/18/2024 3:[address] JUSTICE) Only the most recent of2 resultswithin the time period is included. IgA <5(L) 47 - 310 mg/dL [facility] Comment: Verified by repeat analysis. IgG 1337 600 - 1640 mg/dL [facility] IgM 259 50 - 300 mg/dL [facility] Comment: Verified by repeat analysis. Test Performed at: [place] [address] LATHA ARORA MD Blood BLOOD SPECIMEN / Unknown 05/18/2024 3:[address] JUSTICE 05/19/2024 10:[address] JUSTICE Micheal Biggs MD LAB - CHEMISTRY DINESH BHAKTA Performing Organization Address [facility]/State/ZIP Co de Phone Number [facility] [address] [place] [address] * COMPLEMENT C3 (05/18/2024 3:[address] JUSTICE) Only the most recent of5 resultswithin the time period is included. Complement C3 127 83 - 193 mg/dL [facility] Comment: Test Performed at: [facility] [address] [place] [address] LATHA ARORA MD Blood BLOOD SPECIMEN / Unknown 05/18/2024 3:[address] JUSTICE 05/19/2024 10:[address] JUSTICE Micheal Biggs MD LAB - CHEMISTRY ORDAguila BHAKTA [place] [address] [place] [address] * ERIKA HEP-2 IGG BY IFA (12/26/2023 4:41 PM CDT) Pathologist [facility] ERIKA HEp-2 IgG <1:80 <1:80 12/29/2023 9:37 AM CDT [facility] ([facility]) ERIKA Interpretive Comment See Note 12/29/2023 9:37 AM CDT [facility] ([facility]) Comment: Antinuclear antibodies by IFA negative [...] diseases (cancers, autoimmune, infectious, and inflammatory conditions) and may also occur in healthy individuals in [...] or diseases. Mitotic staining patterns not reported. Negative results do not necessarily rule out SARD. Performed By: [employer] [address] [place] [address] Ink Blender: Luisito Feliciano MD, PhD CLIA Number: [id number] Blood BLOOD SPECIMEN / Unknown Lab Venipuncture / Unknown 12/26/2023 4:41 PM CDT 12/26/2023 5:45 PM CDT Ion [facility] GY ORDERABLES Performing Organization Address City/[facility] Co de Phone Number [employer] [facility] ([facility]) [address] [place] [address], [facility] * CHROMATIN ANTIBODY (12/26/2023 4:41 PM CDT) Only the most recent of4 resultswithin the time period is included. Pathologist [facility] Antichromatin Antibodies <0.2 0.0 - 0.9 AI 12/28/2023 5:09 PM CDT [facility] ([facility]) Blood BLOOD SPECIMEN / Unknown Lab Venipuncture / Unknown 12/26/2023 4:41 PM CDT 12/26/2023 5:45 PM CDT Narrative [facility] ([facility]) - 12/28/2023 5:09 PM CDT Performed at: [address] [place] [id number] Curb Setter: Gus Elliott PhD, Phone: [phone] Ion [employer] [facility] Print[employer] Plans ORDERABLES [facility] [address] [place] [address] * TSH REFLEX FREE T4 (12/26/2023 4:41 PM CDT) Only the most recent of2 resultswithin the time period is included. Pathologist [facility] TSH 4.585 0.350 - 4.940 uIU/mL 12/26/2023 6:51 PM CDT [facility] Blood BLOOD SPECIMEN / Unknown Lab Venipuncture / Unknown 12/26/2023 4:41 PM CDT 12/26/2023 5:45 PM CDT Ion De LAB - CHEMIS TRY ORDERABLES [facility] [address] [place] [address], [facility] [phone] * SM ANTIBODY LIAM (12/26/2023 4:41 PM CDT) Only the most recent of4 resultswithin the time period is included. [place] (LIAM) Antibody 0.9 0.0 - 0.9 AI 12/28/2023 5:09 PM CDT [facility] ([facility]) Blood BLOOD SPECIMEN / Unknown Lab Venipuncture / Unknown 12/26/2023 4:41 PM CDT 12/26/2023 5:45 PM CDT Narrative [facility] ([facility]) - 12/28/2023 5:09 PM CDT Performed at: [address] [place] [address] [id number] Curb Setter: Gus Elliott PhD, Phone: [phone] Ion Mancillamacho MONTES LAB - CHEMIS TRY ORDERABLES Performing Organization Address City/[facility]/ZIP Co de Phone Number [facility] ([facility]) [address] [place] [address] * CELL CHANGER ANTIBODY (12/26/2023 4:41 PM CDT) Only the most recent of4 resultswithin the time period is included. CELL CHANGER Antibody <0.2 0.0 - 0.9 AI 12/28/2023 5:09 PM CDT [facility] ([facility]) Blood BLOOD SPECIMEN / Unknown Lab Venipuncture / Unknown 12/26/2023 4:41 PM CDT 12/26/2023 5:45 PM CDT Narrative [facility] ([facility]) - 12/28/2023 5:09 PM CDT Performed at: [address] [id number] Curb Setter: Gus Elliott PhD, Phone: [phone] Ion Mahoney Kenisha DO LAB - CHEMIS TRY ORDERABLES [facility] ([facility]) [address] [place] [address] * (ABNORMAL) ERIKA BLOOD SCREEN W/REFLEX TITER (12/26/2023 4:41 PM CDT) Only the most recent of5 resultswithin the time period is included. ERIKA IgG Detected (A) None Detected 12/28/2023 11:44 PM CDT [employer] [facility] ([facility]) Comment: Antibodies to Anti-Nuclear Antibodies (ERIKA) [...] dsDNA, histones, SS-A (Ro), SS-B (La), Worley, Worley/CELL CHANGER, Scl-70, Luna-1, centromeric proteins, other antigens extracted from the HEp-2 cell nucleus. ERIKA PIPER assays have been reported to have lower sensitivities than ERIKA IFA for systemic autoimmune rheumatic diseases (SARD). Negative results do not necessarily rule out SARD. Performed By: [employer] [address] [place] [address] Ink Blender: Luisito Feliciano MD, PhD CLIA Number: [id number] Blood BLOOD SPECIMEN / Unknown Lab Venipuncture / Unknown 12/26/2023 4:41 PM CDT 12/26/2023 5:45 PM CDT Ion Bakermple DO LAB - CHEMIS TRY ORDERABLES [employer] ([facility]) [address] [place] [address] * (ABNORMAL) SS-B ANTIBODY (12/26/2023 4:41 PM CDT) Only the most recent of3 resultswithin the time period is included. Sjogren's Antibodies (SSB) 3.2(H) 0.0 - 0.9 AI 12/28/2023 5:09 PM CDT [facility] ([facility]) Blood BLOOD SPECIMEN / Unknown Lab Venipuncture / Unknown 12/26/2023 4:41 PM CDT 12/26/2023 5:45 PM CDT Narrative [facility] ([facility]) - 12/28/2023 5:09 PM CDT Performed at: [address] [place] [address] [id number] Curb Setter: Gus Elliott PhD, Phone: [phone] Ion De DO Five Below TRY ORDERABLES Performing Organization Address [facility] Co de Phone Number [facility] ([facility]) [address] [place] [address] * SS-A ANTIBODY (12/26/2023 4:41 PM CDT) Only the most recent of3 resultswithin the time period is included. Sjogren's Antibodies (SSA) <0.2 0.0 - 0.9 AI 12/28/2023 5:09 PM CDT [facility] ([facility]) Blood BLOOD SPECIMEN / Unknown Lab Venipuncture / Unknown 12/26/2023 4:41 PM CDT 12/26/2023 5:45 PM CDT Narrative [facility] ([facility]) - 12/28/2023 5:09 PM CDT Performed at: [address] [place] [address] [place] [address] [id number] Curb Setter: Gus Elliott PhD, Phone: [phone] Ion De DO LAB - CHEMIS TRY ORDERABLES Performing Organization Address City/[facility] Co de Phone Number [facility] [address] [place] [address] * SCL70 ANTIBODY (12/26/2023 4:41 PM CDT) Only the most recent of5 resultswithin the time period is included. Pathologist [facility] [place] Antiscleroderma -70 Antibody <0.2 0.0 - 0.9 AI 12/28/2023 5:09 PM CDT [facility] ([facility]) Blood BLOOD SPECIMEN / Unknown Lab Venipuncture / Unknown 12/26/2023 4:41 PM CDT 12/26/2023 5:45 PM CDT Narrative [facility] ([facility]) - 12/28/2023 5:09 PM CDT Performed at: [address] [place] [address] [id number] Curb Setter: Gus Elliott PhD, Phone: [phone] oIn De DO LAB - CHEMIS TRY ORDERABLES Performing Organization Address [facility] Co de Phone Number [facility] ([facility]) [address] [place] [address] * DNA ANTIBODY DOUBLE STRAND (12/26/2023 4:41 PM CDT) Only the most recent of4 resultswithin the time period is included. Pathologist [facility] [place] Anti-dsDNA Quantitative 1 0 - 9 IU/mL 12/28/2023 5:09 PM CDT [facility] ([facility]) Comment: Negative <5 Equivocal 5 - 9 Positive >9 Blood BLOOD SPECIMEN / Unknown Lab Venipuncture / Unknown 12/26/2023 4:41 PM CDT 12/26/2023 5:45 PM CDT Narrative [facility] ([facility]) - 12/28/2023 5:09 PM CDT Performed at: [address] [place] [address] [id number] Curb Setter: Gus Elliott PhD, Phone: [phone] Ion De DO LAB - HEMATO LOGY ORDERABLES Performing Organization Address [facility]/ZIP Co de Phone Number [facility] ([facility]) [address] [place] [address] * CT ABDOMEN PELVIS W CONTRAST (04/02/2023 4:[address] JUSTICE) Anatomical Region Laterality Modality Abdomen, Pelvis Computed Tomogra phy 04/02/2023 8:[address] JUSTICE Impressions 04/02/2023 8:[address] JUSTICE IMPRESSION: Normal study. > Interpreting Provider: Keturah Zelaya MD on 04/02/2023 8:04 AM Narrative 04/02/2023 8:[address] JUSTICE PROCEDURE: CT ABDOMEN PELVIS W CONTRAST, DATE/TIME OF EXAM: 04/02/2023 4:24 AM, LOCATION [facility] INDICATION: R10.84: Generalized abdominal pain ADDITIONAL [...] ureters are normal in course and caliber. Grossly normal urinary bladder. Reproductive: No pelvic mass. GI: Normal caliber, no wall thickening. No obstruction.Moderate stool burden. Normal appendix. Peritoneum/Retroperitoneum: No pneumoperitoneum, ascites or organized collection. Lymph Nodes: No adenopathy. Vascular: Standard three-vessel aortic arch. Normal course, caliber and enhancement of the great vessels in the chest and abdomen. Normal caliber and enhancement. Bones: Normal mineralization. No lytic or blastic lesion. No fracture. Soft Tissues: Normal. Procedure Note Keturah Zelaya MD - 04/02/2023 PROCEDURE: CT ABDOMEN PELVIS W CONTRAST, DATE/TIME OF EXAM: 04/02/2023 4:24 AM, LOCATION [facility] INDICATION: R10.84: Generalized abdominal pain ADDITIONAL [...] - POCT (IP) INTERFACED (04/02/2023 3:[address] JUSTICE) HCG Qual Urine Negative Negative 04/02/2023 4:[address] JUSTICE [facility] Urine URINE / Unknown 04/02/2023 3 :[address] JUSTICE 04/02/2023 4:[address] JUSTICE Danya Grissom DO LAB - POINT OF CAR E ORDERABLES [facility] [address] [place] [address] * SARS-COV-2 (COVID-19) FLU A/B RSV PCR RAPID (04/02/2023 3:[address] JUSTICE) COVID-19 PCR Not detected Not detected 04/02/20 4:[address] JUSTICE [facility] Influenza A PCR Not detected Not detected 04/02/2023 4:32 AM [facility] Influenza B PCR Not detected Not detected 04/02/2023 4:32 AM [facility] RSV PCR Not detected Not detected 04/02/2023 4:32 AM [facility] Microbiology SPECIMEN FROM NASOPHARYNGEAL STRUCTURE / Unknown Collection / Unknown 04/02/2023 3:[address] JUSTICE 04/02/2023 3:[address] JUSTICE [facility] - 04/02/2023 4:[address] JUSTICE This nucleic acid amplification assay has been authorized by the Food and Drug administration (FDA) under an Emergency Use Authorization (EUA). This test is only authorized for the [...] Danya Grissom DO LAB - MICROBIOLOGY ORDERABLES Performing Organization Address [facility]/ZIP Co de Phone Number [facility] [address] [place] [address], [facility] [phone] * (ABNORMAL) BASIC METABOLIC PANEL (CALCIUM TOTAL) (04/02/2023 3:[address] JUSTICE) BUN 12 7 - 26 mg/dL 04/02/2023 3:35 AM [facility] Creatinine 0.69 0.56 - 0.96 mg/dL 04/02/2023 3:35 AM [facility] Sodium 141 136 - 145 mmol/L 04/02/2023 3:35 AM [facility] Potassium 3.8 3.5 - 4.5 mmol/L 04/02/2023 3:35 AM [facility] Chloride 110(H) 98 - 107 mmol/L 04/02/2023 3:35 AM [facility] CO2 20(L) 22 - 29 mmol/L 04/02/2023 3:35 AM [facility] Glucose 89 70 - 115 mg/dL 04/02/2023 3:35 AM [facility] Calcium 9.9 8.4 - 10.2 mg/dL 04/02/2023 3:35 AM [facility] Anion Gap 11 6 - 16 04/02/2023 3:35 AM [facility] BUN/Creatinine Ratio 17 7 - 23 04/02/2023 3:35 AM [facility] Osmolality Calculated 291 275 - 295 mOsm/kg 04/02/2023 3:35 AM [facility] eGFR by CKD-EPI >90 >=90 mL/min/1.7 3 m2 04/02/2023 3:35 AM [facility] Blood BLOOD SPECIMEN / Unknown Venipuncture / Unknown 04/02/2023 3:[address] JUSTICE 04/02/2023 3:[address] JUSTICE Danya Grissom DO LAB - CHEMISTRY OR DERABLES Performing Organization Address [facility] Co de Phone Number [address] [address] [phone] * LIPASE BLOOD (04/02/2023 3:[address] JUSTICE) Lipase 16 8 - 78 U/L 04/02/2023 3:35 AM [facility] Blood BLOOD SPECIMEN / Unknown Venipuncture / Unknown 04/02/2023 3:[address] JUSTICE 04/02/2023 3:[address] JUSTICE Narrative [facility] - 04/02/2023 3:[address] JUSTICE Lipase results from the [employer]oney Alinity analyzer may not be comparable with other methodologies. Danya Grissom DO LAB - CHEMISTRY OR DERABLES [facility] [address] [place] [address], [facility] [phone] * HCG URINE QUAL POCT NOTIFICATION (04/02/2023 2:[address] JUSTICE) Comment Notification Label Only - See Separate Report 04/02/2023 5:[address] JUSTICE [facility] Urine URINE / Unknown 04/02/2023 2 :[address] JUSTICE 04/02/2023 3:[address] JUSTICE Danya Grissom DO LAB - URINALYSIS O RDERABLES Performing Organization Address City/[facility]/ZIP Co de Phone Number [facility] [address] [place] [address] * URINALYSIS MICROSCOPIC ONLY REFLEXED (02/02/2023 12:57 [...] this observation. Comment Urine NOT AVAILABLE [facility] INSURANCE BILL Comment: FASTING Result cannot be obtained for this observation. 02/02/2023 12:5 7 PM CDT 02/02/2023 Narrative Resulting Agency Comment Lab Testing performed at: [facility] [address] [facility] [phone] Ion Mahoney Kenisha DO LAB - URINAL YSIS ORDERABLES Performing Organization Address [facility] Co de Phone Number [facility] INSURANCE BILL [address] [place] [address] * CENTROMERE B ANTIBODIES (02/02/2023 12:56 PM CDT) Centromere B Antibody <0.2 0.0 - 0.9 AI [facility] INSURANCE BILL Comment:FASTING Blood BLOOD SPECIMEN / Unknown 02/02/2023 12:56 PM CDT 02/02/2023 Narrative Resulting Agency Comment Lab Testing performed at: [facility] [address] [facility] [phone] Ion De DO LAB - SEROLO GY ORDERABLES Performing Organization Address [facility] de Phone Number [facility] INSURANCE BILL [address] [place] [address] * RNA POLYMERASE III ANTIBODY IGG (02/02/2023 12:56 PM CDT) RNA Polymerase 3 Antibody IgG <20 <20 Units [facility] INSURANCE BILL Comment: Negative: <20 Weak Positive: 20 - 39 Moderate Positive: 40 - 80 Strong Positive: >80 FASTING Blood BLOOD SPECIMEN / Unknown 02/02/2023 12:56 PM CDT 02/02/2023 Narrative [facility] INSURANCE BILL - 02/08/2023 5:08 PM CDT Test(s) 799197-Ihah-UL/Scl-100 Ab (RDL) was developed and its performance characteristics determined by [employer]. It has not been cleared or approved by the Food and Drug Administration. Resulting Agency Comment Lab Testing performed at: [employer] [address] [facility] [phone] Ion De DO LAB - SEROLO GY ORDERABLES Performing Organization Address [facility] de Phone Number [facility] INSURANCE BILL [address] [place] [address] * FIBRILLARIN (U3 CELL CHANGER) (02/02/2023 12:56 PM CDT) Fibrillarin (U3 CELL CHANGER) Negative Negative [facility] INSURANCE BILL Comment:FASTING Blood BLOOD SPECIMEN / Unknown 02/02/2023 12:56 PM CDT 02/02/2023 Narrative [facility] INSURANCE BILL - 02/15/2023 6:[address] JUSTICE Test(s) 495452-Scjn-F0 CELL CHANGER (Fibrillarin)(RDL) was developed and its performance characteristics determined by [employer]. It has not been cleared or approved by the Food and Drug Administration. Resulting Agency Comment Lab Testing performed at: [employer] [address] [place] [address] [phone] Ion De DO LAB - CHEMIS TRY ORDERABLES Performing Organization Address [facility] de Phone Number [facility] INSURANCE BILL [address] [place] [address] * PM/SCL-100 ANTIBODY IGG (02/02/2023 12:56 PM CDT) Anti PM/Scl Antibody EIA <20 <20 Units [facility] INSURANCE BILL Comment: Negative: <20 Weak Positive: 20 - 39 Moderate Positive: 40 - 80 Strong Positive: >80 FASTING Blood BLOOD SPECIMEN / Unknown 02/02/2023 12:56 PM CDT 02/02/2023 Narrative [facility] INSURANCE BILL - 02/08/2023 5:08 PM CDT Test(s) 593945-Kxud-JX/Scl-100 Ab (RDL) was developed and its performance characteristics determined by [employer]. It has not been cleared or approved by the Food and Drug Administration. Resulting Agency Comment Lab Testing performed at: [employer] [address] [facility] [phone] Ion Mahoney Kenisha MONTES LAB - SEROLO GY ORDERABLES [facility] INSURANCE BILL [address] [place] [address] * EKG 15-LEAD (01/21/2023 2:33 PM CDT) Only the most recent of4 resultswithin the time period is included. Ventricular Rate 74 BPM CG MUSE Atrial Rate 74 BPM CG MUSE P-R Interval 128 ms CG MUSE QRS Duration ms 84 ms CG MUSE Q-T Interval ms 362 ms CG MUSE QTC Calculation (Bezet) 401 ms CG MUSE Calculated P [place] 22 degrees CG MUSE Calculated R [place] 86 degrees CG MUSE Calculated T [place] -6 degrees CG MUSE Interpretation EKG Normal sinus rhythm Nonspecific T wave abnormality Abnormal ECG When compared with ECG of 03-SEP-2020 12:03, Nonspecific T wave abnormality now evident in Lateral leads Confirmed by Trey Petty ([id number]) on 01/24/2023 2:29:57 PM CG MUSE 01/21/2023 2:33 PM CDT 01/24/2023 2:29 PM CDT Trey Petty MD ECG ORD ERABLES Performing Organization Address City/[facility] Co de Phone Number CG [facility]USE * (ABNORMAL) ARIANE STAINING PATTERNS REFLEXED (09/03/2022 [...] be associated with a variety of diseases. See interpretation chart which is not all inclusive: . Pattern Antigen Detected Suggested Disease Association Homogeneous DNA(ds,ss), SLE - High titers Nucleosomes, Histones Drug-induced SLE Speckled Sm, CELL CHANGER, SCL-70, SLE,MCTD,PSS (diffuse form), SS-A/SS-B Sjogrens Nucleolar SCL-70, PM-1/SCL High titers Scleroderma, PM/DM Centromere Centromere PSS (limited form) w/Crest syndrome variable Nuclear Dot Sp100,c80-ypqtio Primary Biliary Cirrhosis Nuclear GP210, Primary Biliary Cirrhosis Membrane kayden A,B,C FASTING 09/03/2022 1:30 PM CDT 09/03/2022 Narrative Resulting Agency Comment Lab Testing performed at: [facility] [address] [facility] [phone] Ion De DO LAB - PATHOL OGY/CYTOLOGY ORDERABLES [facility] INSURANCE BILL [address] [place] [address] * XR PELVIS W RIGHT HIP 2VW (06/26/2021 10:19 AM CDT) Anatomical Region Laterality Modality Pelvis Radiographic Nazia ging 06/26/2021 10:2 2 AM CDT Narrative 06/26/2021 10:27 AM CDT INDICATION: Pain in right hip XR pelvis with Hips- AP- standing- coccyx center and pubo-coccyx distance 1-2 cm - Right [...] on 06/26/2021 at 10:27 AM Procedure Note Stvean Londono MD - 06/26/2021 INDICATION: Pain in [...] AM Narrative 06/26/2021 10:41 AM CDT PROCEDURE: MRI PELVIS WO CONTRAST, DATE/TIME OF EXAM: 06/26/2021 9:19 AM, LOCATION [facility] INDICATION: M25.551: Pain in right hip [...] CONTRAST, DATE/TIME OF EXAM: 06/26/2021 9:19AM, LOCATION [facility] INDICATION: M25.551: Pain in right hip [...] Procedure Note Melida Hernandez MD - 09/03/2020 [address] [place] [address] Fax Congenital Transthoracic Report Pat.Name: USAMA ENCINAS Pat.ID: [id number] .Date: 09/03/2020 Refer.MD: SCOOBY HEARD Exam Time: 1:06:00 PM Study Type:Congenital TTE Height: 159cm Weight: 57.7kg BSA: 1.59 m2 Age: 5 2005,14Y Sex: FEMALE Sonogrphr: Geremias Bullock RDCS Pat. Stat.:Outpatient CPT - 4: 40470, 79857, 65747 Reason for Study: connective 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. SUMMARY: [...] Hernandez MD Melida Hernandez MD ECHO ORDERABLES [facility] [address] [place] [address] * (ABNORMAL) CULTURE URINE COMPREHENSIVE (02/23/2020 11:[address] JUSTICE) Urine Culture Comprehensive Final report(A) [facility] INSURANCE [...] and trimethoprim-sulfamethoxazole are not effective clinically. (CLSI, F534-A95, 2016) Result 3 (A) [facility] Comment: Coagulase negative Staphylococcus species, not Staphylococcus saprophyticus. 800 Colonies/mL Based on resistance to oxacillin this isolate would be resistant to all currently available beta-lactam antimicrobial agents, with the exception of the newer cephalosporins with anti-MRSA activity, such as Ceftaroline Antimicrobial Susceptibility [facility] Comment: S = Susceptible; I = Intermediate; R = Resistant P = Positive; N = Negative MICS are expressed in micrograms per mL Antibiotic RSLT#1 RSLT#2 RSLT#3 RSLT#4 Amoxicillin/Clavulanic Acid S Ampicillin R Cefazolin R Cefepime R Ceftriaxone R Cefuroxime R Ciprofloxacin S S S Ertapenem S Gentamicin R S Imipenem S Levofloxacin S S S Linezolid S Meropenem S Nitrofurantoin S S S Oxacillin R Penicillin S R Piperacillin/Tazobactam S Quinupristin/Dalfopristin S Rifampin S Tetracycline S R S Tobramycin I Trimethoprim/Sulfa S S Vancomycin S S FASTING 02/23/2020 11:[address] JUSTICE 02/23/2020 Narrative Resulting Agency Comment Lab Testing performed at: [facility] [address] [facility] [phone] Ion De DO LAB - MICROB IOLOGY ORDERABLES [facility] INSURANCE BILL [address] [place] [address] * TSH (02/23/2020 11:[address] JUSTICE) Only the most recent of4 resultswithin the time period is included. TSH 3.030 0.450 - 4.500 uIU/mL [facility] INSURANCE BILL Comment:FASTING Blood BLOOD SPECIMEN / Unknown 02/23/2020 11:[address] JUSTICE 02/23/2020 Narrative Resulting Agency Comment [facility]: [facility] [address] [facility] [phone] Ion Mancillarymple DO LAB - CHEMIS TRY ORDERABLES Performing Organization Address City/[facility]/ZIP Co de Phone Number [facility] INSURANCE BILL [address] [place] [address] * (ABNORMAL) SS-A/SS-B (SJOGRENS) ANTIBODY PANEL (07/03/2018 3:48 PM CDT) Sjogren's Antibodies (SSA) <0.2 0.0 - 0.9 AI [facility] INSURANCE BILL Sjogren's Antibodies (SSB) 3.3(H) 0.0 - 0.9 AI [facility] INSURANCE BILL Blood BLOOD SPECIMEN / Unknown 07/03/2018 3:48 PM CDT 07/03/2018 Narrative Resulting Agency Comment [facility] [address] [facility] [phone] Ion Mahoney Kenisha DO LAB - CHEMIS TRY ORDERABLES Performing Organization Address [facility]/ZIP Co de Phone Number [facility] INSURANCE BILL [address] [place] [address] * T4 TOTAL (03/09/2018 3:[address] JUSTICE) T4 Total 6.6 4.5 - 12.0 ug/dL [facility] INSURANCE BILL Blood BLOOD SPECIMEN / Unknown 03/09/2018 3:[address] JUSTICE 03/09/2018 Narrative Resulting Agency Comment [facility] [address] [facility] [phone] Roney Delcid MD LAB - CHEMISTRY DINESH BHAKTA Performing Organization Address City/[facility]/ZIP Co de Phone Number [facility] INSURANCE BILL [address] [place] [address] * (ABNORMAL) ERIKA COMPREHENSIVE PLUS PROFILE (06/24/2017 9:16 AM CDT) dsDNA Antibody 5 0 - 9 IU/mL [facility] ([facility]) Comment: Negative <5 Equivocal 5 - 9 Positive >9 CELL CHANGER Antibody <0.2 0.0 - 0.9 AI [facility] ([facility]) Worley Antibody 0.7 0.0 - 0.9 AI [facility] ([facility]) Worley/CELL CHANGER Antibodies 6.2(H) 0.0 - 0.9 AI [facility] ([facility]) Antiscleroderma-70 Antibody <0.2 0.0 - 0.9 AI [facility] ([facility]) Sjogren's Antibodies (SSA) <0.2 0.0 - 0.9 AI [facility] ([facility]) Sjogren's Antibodies (SSB) 4.4(H) 0.0 - 0.9 AI [facility] ([facility]) Antichromatin Antibody IgG 0.2 0.0 - 0.9 AI [facility] ([facility]) Anti-Ribosomal P Antibody 0.2 0.0 - 0.9 AI [facility] ([facility]) Anti-Luna-1 <0.2 0.0 - 0.9 AI [facility] ([facility]) Anti-Centromere B Antibody <0.2 0.0 - 0.9 AI [facility] ([facility]) See below [facility] ([facility]) Comment: Autoantibody Disease Association Condition Frequency Antinuclear Antibody, SLE, mixed connective Direct (ERIKA-D) 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s dsDNA SLE 40 - 60% Chromatin Drug induced SLE 90% SLE 48 - 97% SSA (Ro) SLE 25 - 35% Sjogren's Syndrome 40 - 70% Lupus 100% SSB (La) SLE 10% Sjogren's Syndrome 30% Sm (anti-Worley) SLE 15 - 30% CELL CHANGER Mixed Connective Tissue Disease 95% (U1 nRNP, SLE 30 - 50% anti-ribonucleoprotein) Polymyositis and/or Dermatomyositis 20% Scl-70 (antiDNA Scleroderma (diffuse) 20 - 35% topoisomerase) Crest 13% Luna-1 Polymyositis and/or Dermatomyositis 20 - 40% Centromere B Scleroderma - Crest variant 80% Ribosomal P SLE 10 - 20% 06/24/2017 9:16 AM CDT 06/24/2017 Narrative [facility] ([facility]) - 06/27/2017 1:09 PM CDT Performed at: [facility] [address] [place], [place] [id number] Curb Setter: Gus Elliott PhD, Phone: [phone] Ion De DO LAB - TRISHA FROST ORDERABLES Performing Organization Address [facility] Co de Phone Number [facility] ([facility]) [address] [place] [address] * BETA-2 GLYCOPROTEIN 1 ANTIBODY IGG (06/24/2017 9:16 AM CDT) [facility] Beta-2 Glycoprotein 1 Antibody 1 IgG <9 0 - 20 GPI IgG units [facility] ([facility]) Comment: The reference interval reflects a 3SD or 99th percentile interval, which is thought to represent a potentially clinically significant result in accordance with the International Consensus Statement on the classification criteria for definitive antiphospholipid syndrome (APS). J Thromb Haem 2006;4:295-306. Blood specimen (specimen) BLOOD SPECIMEN / Unknown 06/24/2017 9:16 AM CDT 06/24/2017 Narrative [facility] ([facility]) - 06/28/2017 7:11 AM CDT Performed at: [address] [id number] Curb Setter: Tray Osorio MD, Phone: [phone] Ion De DO LAB - SERMICKIE GY ORDERABLES Performing Organization Address [facility]/ZIP Co de Phone Number [facility] ([facility]) [address] [place] [address], [facility] * (ABNORMAL) LUPUS ANTICOAGULANT PANEL (06/24/2017 9:16 AM CDT) [facility] [facility] Dilute Prothrombin Time (DPT) 45.8 0.0 - 55.0 sec [facility] ([facility]) dPT Confirm Ratio 1.03 0.00 - 1.40 Ratio [facility] ([facility]) Thrombin Time 17.8 0.0 - 23.0 sec [facility] ([facility]) PTT Lupus Anticoagulant 44.1 0.0 - 51.9 sec [facility] ([facility]) dRVVT Baseline 59.0(H) 0.0 - 47.0 sec [facility] ([facility]) Interpretation Comment: [facility] ([facility]) Comment: No lupus anticoagulant was detected. An extended dRVVT that corrects on mixing with normal plasma can be caused by a deficiency of one of the common pathway factors (X, V, II or fibrinogen). Blood specimen (specimen) BLOOD SPECIMEN / Unknown 06/24/2017 9:16 AM CDT 06/24/2017 Narrative [facility] ([facility]) - 06/27/2017 11:09 AM CDT Performed at: [address] [place] [address] [id number] Curb Setter: Tray Osorio MD, Phone: [phone] Ion Denzel Kenisha [facility] - HEMATO LOGY ORDERABLES Performing Organization Address City/State/[facility] Co de Phone Number [facility] ([facility]) [address] [place] [address], [facility] * CARDIOLIPIN ANTIBODY IGA (06/24/2017 9:16 AM CDT) [facility] Anticardiolipin Antibody IgA Quantitative <9 0 - 11 APL U/mL [facility] ([facility]) Comment: Negative: <12 Indeterminate: 12 - 20 Low-Med Positive: >20 - 80 High Positive: >80 Blood specimen (specimen) BLOOD SPECIMEN / Unknown 06/24/2017 9:16 AM CDT 06/24/2017 Narrative [facility] ([facility]) - 06/26/2017 7:07 AM CDT Performed at: [address] [place] [address] [place] [address] [id number] Curb Setter: Gus Elliott PhD, Phone: [phone] Ion De DO [facility] GY ORDERABLES Performing Organization Address [facility] Phone Number [facility] ([facility]) [address] [place] [address], [place] * CARDIOLIPIN ANTIBODY IGG (06/24/2017 9:16 AM CDT) [facility] Anticardiolipin Antibody IgG Quantitative <9 0 - 14 GPL U/mL [facility] ([facility]) Comment: Negative: <15 Indeterminate: 15 - 20 Low-Med Positive: >20 - 80 High Positive: >80 Blood specimen (specimen) BLOOD SPECIMEN / Unknown 06/24/2017 9:16 AM CDT 06/24/2017 Narrative [facility] ([facility]) - 06/26/2017 7:07 AM CDT Performed at: [address] [place] [address] [id number] Curb Setter: Gus Elliott PhD, Phone: [phone] Ion Mancillamacho [facility] GY ORDERABLES Performing Organization Address [facility] de Phone Number [facility] ([facility]) [address] [place] [address] * RHEUMATOID FACTOR BLOOD QUANTITATIVE (06/24/2017 9:16 AM CDT) [facility] RA latex Turbidimetry <10.0 0.0 - 13.9 IU/mL [facility] ([facility]) Blood specimen (specimen) BLOOD SPECIMEN / Unknown 06/24/2017 9:16 AM CDT 06/24/2017 Narrative [facility] ([facility]) - 06/25/2017 7:12 AM CDT Performed at: [address] [place] [address] [id number] Curb Setter: Gus Elliott PhD, Phone: [phone] Ion De DO LAB - CHEMIS TRY ORDERABLES Performing Organization Address City/[facility] Co de Phone Number [facility] ([facility]) [address] [place] [address] * (ABNORMAL) KATHY-PENG VIRUS PANEL (06/24/2017 9:16 AM CDT) Kathy-Peng Virus Antibody To Viral Capsid Antigen IgM <36.0 0.0 - 35.9 U/mL [facility] ([facility]) Comment: Negative <36.0 Equivocal 36.0 - 43.9 Positive >43.9 Kathy-Peng Virus Early Antigen Antibody IgG <9.0 0.0 - 8.9 U/mL [facility] ([facility]) Comment: Negative < 9.0 Equivocal 9.0 - 10.9 Positive >10.9 Kathy-Peng Virus Antibody To Viral Capsid Antigen IgG 105.0(H) 0.0 - 17.9 U/mL [facility] ([facility]) Comment: Negative <18.0 Equivocal 18.0 - 21.9 Positive >21.9 Kathy-Peng Virus Nuclear Antigen Antibody IgG >600.0(H) 0.0 - 17.9 U/mL [facility] ([facility]) Comment: Negative <18.0 Equivocal 18.0 - 21.9 Positive >21.9 Interpretation [facility] ([facility]) Comment: EBV Interpretation Chart Interpretation EBV-IgM EA(D)-IgG VCA-IgG EBNA-IgG EBV Seronegative - - - - Early Phase + - - - Acute Primary + +or- + - Infection Convalescence/Past - +or- + + Infection Reactivated +or- + + + Infection + Antibody Present - Antibody Absent Serum 06/24/2017 9:16 AM CDT 06/24/2017 Narrative [facility] ([facility]) - 06/26/2017 7:07 AM CDT Performed at: [address] [place] [address] [address] [place], [place] [id number] Curb Setter: Gus Elliott PhD, Phone: [phone] Ion De DO LAB - CHEMIS TRY ORDERABLES Performing Organization Address City/[facility]/ZIP Co de Phone Number [facility] ([facility]) [address] [place] [address], [place] * (ABNORMAL) THYROID PEROXIDASE ANTIBODY (06/24/2017 9:16 AM CDT) Thyroid Peroxidase TPO Antibody 72(H) 0 - 26 IU/mL [facility] ([facility]) Blood specimen (specimen) BLOOD SPECIMEN / Unknown 06/24/2017 9:16 AM CDT 06/24/2017 Narrative [facility] ([facility]) - 06/25/2017 7:12 AM CDT Performed at: - [address] [id number] Curb Setter: Gus Elliott PhD, Phone: [phone] Ion De DO LAB [employer] TRY ORDERABLES Performing Organization Address City/[facility] Co de Phone Number [facility] ([facility]) [address] [place] [address], [place] * (ABNORMAL) THYROGLOBULIN ANTIBODY (06/24/2017 9:16 AM CDT) [facility] Thyroglobulin Antibody 1.2(H) 0.0 - 0.9 IU/mL [facility] ([facility]) Comment:Thyroglobulin Antibo dy measured by [employer] [employer] Methodology Blood specimen (specimen) BLOOD SPECIMEN / Unknown 06/24/2017 9:16 AM CDT 06/24/2017 Narrative [facility] ([facility]) - 06/27/2017 3:13 PM CDT Performed at: [address] [id number] Curb Setter: Gus Elliott PhD, Phone: [phone] Ion De DO LAB [employer] TRY ORDERABLES Performing Organization Address City/[facility]/ZIP Co de Phone Number [facility] ([facility]) [address] [place] [address] * BETA-2 GLYCOPROTEIN 1 ANTIBODY IGA (06/24/2017 9:16 AM CDT) Pathologist [facility] Beta-2 Glycoprotein 1 Antibody IgA <9 0 - 25 GPI IgA units [facility] ([facility]) Comment: The reference interval reflects a 3SD or 99th percentile interval, which is thought to represent a potentially clinically significant result in accordance with the International Consensus Statement on the classification criteria for definitive antiphospholipid syndrome (APS). J Thromb Haem 2006;4:295-306. Blood specimen (specimen) BLOOD SPECIMEN / Unknown 06/24/2017 9:16 AM CDT 06/24/2017 Narrative [facility] ([facility]) - 06/28/2017 7:11 AM CDT Performed at: [address] [place] [address] [id number] Curb Setter: Tray Osorio MD, Phone: [phone] Ion De DO LAB - SEROLO GY ORDERABLES Performing Organization Address [facility] Co de Phone Number [facility] ([facility]) [address] [place] [address] * ESTELA VIPER VENOM DILUTE (06/24/2017 9:16 AM CDT) dRVVT 1:1 Mix 42.8 0.0 - 47.0 sec [facility] ([facility]) 06/24/2017 9:16 AM CDT 06/24/2017 Narrative [facility] ([facility]) - 06/27/2017 11:09 AM CDT Performed at: [address] [place] [address] [id number] Curb Setter: Tray Osorio MD, Phone: [phone] Ion De DO LAB - COAGUL ATION ORDERABLES Performing Organization Address [facility] Co de Phone Number [facility] ([facility]) [address] [place] [address], [facility] * HLA TYPING B27 (06/24/2017 9:16 AM CDT) HLA-B27 Negative [facility] ([facility]) Comment: HLA-B*27 Negative B27 allele interpretation for all loci based on IMGT/HLA database version 3.27 This test was developed and its performance characteristics determined by [facility]. It has not been cleared or approved by the Food and Drug Administration. [facility] CLIA ID Number [id number] This test was performed using PCR (Polymerase Chain Reaction)/SSOP (Sequence Specific Oligonucleotide Probes) technique. SBT (Sequence Based Typing) and/or SSP (Sequence Specific Primers) may be used as supplemental methods when necessary. Please contact [facility] Customer Service at if you have any questions. Director of [facility] Laboratory Dr Hardik Sheets, PhD Blood specimen (specimen) BLOOD SPECIMEN / Unknown 06/24/2017 9:16 AM CDT 06/24/2017 [facility] ([facility]) - 06/30/2017 7:12 AM CDT Performed at: [address] [place] [address] [id number] Curb Setter: Hardik Sheets PhD, Phone: [phone] Ion De DO LAB - [employer] TRY ORDERABLES Performing Organization Address [facility] de Phone Number [facility] ([facility]) [address] * CYCLIC CITRUL PEPTIDE AB IGG (CCP) (06/24/2017 9:16 AM CDT) [facility] Cyclic Citrullinated Peptide Antibody 8 0 - [address] [facility]) Comment: Negative <20 Weak positive 20 - 39 Moderate positive 40 - 59 Strong positive >59 Blood specimen (specimen) BLOOD SPECIMEN / Unknown 06/24/2017 9:16 AM CDT 06/24/2017 Narrative [facility] ([facility]) - 06/28/2017 7:11 AM CDT Performed at: [address] [place] [address] [id number] Curb Setter: Tray Osorio MD, Phone: [phone] Ion De DO LAB - CHEMIS TRY ORDERABLES Performing Organization Address [facility] Co de Phone Number [facility]) [address] [place] [address], [place] * LDH BLOOD (06/24/2017 9:16 AM CDT) [facility] Total 187 118 - 215 IU/L [facility] ([facility]) Blood specimen (specimen) BLOOD SPECIMEN / Unknown 06/24/2017 9:16 AM CDT 06/24/2017 Narrative [facility] ([facility]) - 06/25/2017 7:12 AM CDT Performed at: [facility] [address] [place], [place] [id number] Curb Setter: Gus Elliott PhD, Phone: [phone] Ion De DO LAB - CHEMIS TRY ORDERABLES [facility] ([facility]) [address] [place] [address], [facility] * MRI BRAIN NON CONTRAST (12/12/2009 10:09 AM CDT) Anatomical Region Laterality Modality Head Magnetic Resonan ce 12/12/2009 10:3 8 AM CDT Narrative 12/12/2009 11:12 AM CDT Technique: T1W: Axial, sagittal. T2W: Axial. FLAIR: [...] Melecio Nunez MD MR ORDERABLES Care Teams Senior Civil Engineer Relationship Specialty Start Date End Date Cuate Ramon MD [address] [place] [address] PCP - General 08/09/17 Ion De DO [address] [place] [address] Rheumatology 08/05/20 Radha Zavala MD [address] [place] [address] [address] [place] [address] Neurology 12/07/23
--- OUTSIDE RECORDS SUMMARY | 2024-05-28 18:37 | XMS_ITS | Clinical Summary ---
Author Organization [facility] [employer] Address [address] [facility] [place] [address] Care Team Providers Care Verification Manager Name Role Phone Cuate Ramon MD Primary Care Provider [phone] Ion De DO Unavailable [phone] Radha Zavala MD Unavailable [phone] Source Comments [facility],non-owned Affiliates and Associated Physician Practices is amultiple site organization consisting of ambulatory clinics and hospital sitesin [place], [place], [place] and [place]. This disclosure is being madepursuant to the Care Everywhere program and may not contain all information available regarding this patient. 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 current use of non -steroidal anti-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 (NSAID) [...] Department Care Team Description 05/03/2024 10:00 AM SCOUT SNIPER Office Visit [facility] - Rheumatology [address] [place] [phone] Micheal Biggs MD Connective 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 (HCC) [...] 1 PNEUMOCOCCAL PPSV23 01/06/2015,01/06/2015 PNEUMOCOCCAL PPV VACCINE 09/10/2004,06/05/2004,03/09/2004,03/09,01/06/2004,01/06/2004,2003 ,2003 POLIO,HISTORIC VACCINE 11/11/2008,2003,01/06/2004,11/10 TDAP (7yrs+) 01/06/2015 [...] Comments Blood Pressure 121/84 05/03/2024 9:53 AM SCOUT SNIPER Pulse 77 05/03/2024 9:53 AM SCOUT SNIPER Temperature 36.3 C (97.3 F) 05/03/2024 9:53 AM SCOUT SNIPER Respiratory Rate 16 04/02/2023 1:59 AM SCOUT SNIPER Oxygen Saturation 100% 04/02/2023 1:59 AM SCOUT SNIPER Inhaled Oxygen Concentration - - Weight 67.2 kg (148 lb 3.2 oz) 05/03/2024 9:53 A M SCOUT SNIPER Height 160 cm (5' 2.99 ) 05/03/2024 9:53 AM SCOUT SNIPER Body Mass Index 26.26 05/03/2024 9:53 AM SCOUT SNIPER Plan of Treatment Upcoming Encounters Date Type Department Care Team (Late st Contact Info) Description 06/13/2024 3:00 PM SCOUT SNIPER Office Visit [facility]sc[facility] [address] [facility] [address] [place] [address] Danya Marks, COMPUTER ANALYST-DISTRICT COURT ADMINISTRATOR [address] [facility] [address] [place] [address] 09/04/2024 1:00 PM CDT Office Visit [facility] - Rheumatology [address] [place] [address], [place] [address] Micheal Biggs MD [address] [place] [address] [place] [address] Health Maintenance Due Date Last [...] Completed 02/15/2024, , 01/22/2021, Additional history exists Procedures Procedure Name Priority Date/Time Associated Diagnosis Comments KATHY-PENG VIRUS ANTIBODY TO VCA IGM Routine 05/18/2024 3:49 PM SCOUT SNIPER EBV infection KATHY-PENG VIRUS ANTIBODY TO VCA IGG Routine 05/18/2024 3:49 PM SCOUT SNIPER EBV infection BETA-2 GLYCOPROTEIN 1 ANTIBODY IGG/IGM/IGA PANEL Routine 05/18/2024 3:49 PM SCOUT SNIPER Connective 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 (HCC) CARDIOLIPIN ANTIBODY IGA/IGG/IGM PANEL Routine 05/18/2024 3:49 PM SCOUT SNIPER Connective 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 (HCC) VITAMIN D 25-HYDROXY Routine 05/18/2024 3:49 PM SCOUT SNIPER Connective 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 (HCC) URINALYSIS W/MICROSCOPIC REFLEX TO CULTURE Routine 05/18/2024 3:49 PM SCOUT SNIPER Connective 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 (HCC) ERYTHROCYTE SEDIMENTATION RATE Routine 05/18/2024 3:49 PM SCOUT SNIPER Connective 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 (HCC) C-REACTIVE PROTEIN Routine 05/18/2024 3: 49 PM SCOUT SNIPER Connective 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 (HCC) COMPREHENSIVE METABOLIC PANEL Routine 05/18/2024 3:49 PM SCOUT SNIPER Connective 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 (HCC) CK BLOOD Routine 05/18/2024 3:49 PM SCOUT SNIPER Connective 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 (HCC) CBC W AUTO DIFFERENTIAL Routine 05/18/19 3:49 PM SCOUT SNIPER Connective 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 (HCC) ALDOLASE Routine 05/18/2024 3:49 PM SCOUT SNIPER Connective 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 (HCC) IMMUNOGLOBULINS IGG/IGM/IGA PANEL Routine 05/18/2024 3:49 PM SCOUT SNIPER Connective 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 (HCC) COMPLEMENT TOTAL Routine 05/18/2024 3:49 PM SCOUT SNIPER Connective 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 (HCC) COMPLEMENT C4 Routine 05/18/2024 3:49 PM SCOUT SNIPER Connective 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 (HCC) COMPLEMENT C3 Routine 05/18/2024 3:49 PM SCOUT SNIPER Connective 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 (HCC) SCLEROSIS 12 ANTIBODY PNL Routine 05/18/2024 3:49 PM SCOUT SNIPER Connective 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 (HCC) ERIKA PANEL COMPREHENSIVE Routine 05/18/19 3:49 PM SCOUT SNIPER Connective 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 (HCC) CULTURE URINE 05/18/2024 3:49 PM SCOUT SNIPER CULTURE URINE REFLEXED 3:49 PM SCOUT SNIPER from Last 3 Months Results * SCLEROSIS 12 ANTIBODY PNL (05/18/2024 3:49 PM SCOUT SNIPER) SCL-70 <11 <11 SI [facility] Centromere protein [...] 75 <11 <11 SI [facility] Comment: The [place] [employer] (ACR) considers anti-Scl-70 (also [...] patients and anti-RP155 antibodies in about 8%. Ppmi-I7-piIII antibodies are associated with SSc and inflammatory myopathy overlap syndromes. Three major components of U1-snRNP are tested: U1-snRNP COUNCILLOR ABORIGINAL LAND [place]NCIL A, U1-snRNP COUNCILLOR ABORIGINAL [place]IL C, U1-snRNP HOU02fa. The presence of U1-snRNP antibodies occur in [...] Fibrillarin antibodies are found more frequently in -[place] patients and when seen in this population, [...] is directed to one of two proteins: PM/Lrn847 and/or PM/Scl75. More information can be found at https://www.Nimbuzz.Enconcert/testcenter/testguide.action ?dc=CF-SystScler This test was developed and its analytical performance characteristics have been determined by [employer]. It has not been cleared or approved by FDA. This assay has been validated pursuant to the CLIA regulations and is used for clinical purposes. Test Performed at: [employer] [address] [place] [address] NICCI ASHLEY MD,PHD,MARIAH Blood BLOOD SPECIMEN / Unknown 05/18/2024 3:49 PM SCOUT SNIPER 05/19/2024 10:44 AM SCOUT SNIPER Micheal Biggs MD LAB - SEROLOGY ORDER AUSTYN Performing Organization Address [facility] Co de Phone Number [facility] [address] [place] [address] * CULTURE URINE REFLEXED (05/18/2024 3:49 PM SCOUT SNIPER) Reflexive Urine Culture See Below [facility] Comment: CULTURE INDICATED - RESULTS TO FOLLOW Test Performed at: [employer] [facility] [place] [address] [place] [address] LATHA ARORA MD 05/18/2024 3:49 PM SCOUT SNIPER 05/19/2024 10:44 AM SCOUT SNIPER Micheal Biggs MD LAB - MICROBIOLOGY O RDERABLES Performing Organization Address [facility] Co de Phone Number [facility] [address] [place] [address] * CARDIOLIPIN ANTIBODY IGA/IGG/IGM PANEL (05/18/2024 3:49 PM SCOUT SNIPER) Pathologist [facility] Cardiolipin Antibody IgA <2.0 APL-U/mL [facility]AL Comment: Value Interpretation ----- < 20.0 Antibody not detected > or = 20.0 Antibody detected Cardiolipin Antibody IgG <2.0 GPL-U/mL [facility] Comment: Value Interpretation ----- < 20.0 Antibody not detected > or = 20.0 Antibody detected Cardiolipin Antibody IgM <2.0 MPL-U/mL VIRAL Comment: Value Interpretation ----- < 20.0 Antibody [...] aging. For additional information, please refer to http://education.ResiModel/faq/TEA589 (This link is being provided for informational/ educational purposes only.) Test Performed at: [employer] [address] [address] SYL SILVEIRA Blood BLOOD SPECIMEN / Unknown 05/18/2024 3:49 PM SCOUT SNIPER 05/19/2024 10:44 AM SCOUT SNIPER Micheal Biggs MD LAB - SEROLOGY ORDER AUSTYN [facility] [address] [place] [address] * (ABNORMAL) ERIKA PANEL COMPREHENSIVE (05/18/2024 3:49 PM SCOUT SNIPER) ERIKA Screen NEGATIVE NEGATIVE [facility] Comment: ERIKA [...] AC-0: Negative International Consensus on ERIKA Patterns (https://doi.org/10.1515/mruo-3620-4292) For additional information, please refer to http://education.Nuggeta/faq/NDV090 (This link is being provided for informational/ educational purposes only.) Test Performed at: [facility] [employer] [place] [address] LATHA ARORA MD dsDNA Antibody 1 IU/mL [facility] Comment: IU/mL Interpretation < or = 4 Negative 5-9 Indeterminate > or = 10 Positive SCL-70 Antibody <1.0 NEG <1.0 NEG AI [facility] SM Antibody <1.0 NEG <1.0 NEG AI [facility] SM/COUNCILLOR ABORIGINAL LAND COUNCIL Antibody 1.2 POS(A) <1.0 NEG AI [facility] Sjogren's Antibodies (SSA) <1.0 NEG <1.0 NEG AI [facility] Sjogren's Antibodies (SSB) 2.9 POS(A) <1.0 NEG AI [facility] Comment: Test Performed at: [facility] CENTERBioBehavior[place] [address] LATHA ARORA MD Blood BLOOD SPECIMEN / Unknown 05/18/2024 3:49 PM SCOUT SNIPER 05/19/2024 10:44 AM SCOUT SNIPER Micheal Biggs MD LAB - SEROLOGY ORDER AUSTYN [facility] [address] [place] [address] * (ABNORMAL) URINALYSIS W/MICROSCOPIC REFLEX TO CULTURE (05/18/2024 3:49 PM SCOUT SNIPER) Color UA YELLOW YELLOW [facility] Appearance CLOUDY(A) CLEAR [facility] Specific Sutton UA 1.024 1.001 - 1.035 [facility] pH [...] SEEN /LPF [facility] Comment: Test Performed at: [place] [address] LATHA ARORA MD Granular Casts [facility] Casts UA [facility] Yeast [facility] Comments [facility] Note [facility]ST Comment: Test Performed at: [place] [address] LATHA ARORA MD Urine URINE SPECIMEN OBTAINED BY CLEAN CATCH PROCEDURE / Unknown 05/18/2024 3:49 PM SCOUT SNIPER 05/19/2024 10:44 AM SCOUT SNIPER Micheal Biggs MD LAB - URINALYSIS ORD ERABLES Performing Organization Address City/State/[facility] Co de Phone Number [facility] [address] [place] [address] * KATHY-PENG VIRUS ANTIBODY TO VCA IGM (05/18/2024 3:49 PM SCOUT SNIPER) Pathologist [facility] Kathy-Peng Virus Antibody To Viral Capsid Antigen IgM <36.00 U/mL [facility] Comment: U/mL Interpretation ---- <36.00 Negative 36.00-43.99 Equivocal >43.99 Positive Test Performed at: [place] [address] LATHA ARORA MD Blood BLOOD SPECIMEN / Unknown 05/18/2024 3:49 PM SCOUT SNIPER 05/19/2024 10:44 AM SCOUT SNIPER Micheal Biggs MD LAB - SEROLOGY ORDER AUSTYN [facility] [address] [place] [address] * BETA-2 GLYCOPROTEIN 1 ANTIBODY IGG/IGM/IGA PANEL (05/18/2024 3:49 PM SCOUT SNIPER) Beta-2 Glycoprotein I Antibody IgG <2.0 <20.0 U/mL [facility]AL Comment: Value Interpretation ----- < 20.0 Antibody not detected > or = 20.0 Antibody detected Beta-2 Glycoprotein I Antibody IgM <2.0 <20.0 U/mL [facility]AL Comment: Value Interpretation ----- < 20.0 Antibody not detected > or = 20.0 Antibody detected Beta-2 Glycoprotein I Antibody IgA <2.0 <20.0 U/mL V[facility]AL Comment: Value Interpretation ----- < 20.0 Antibody [...] aging. For additional information, please refer to http://education.ResiModel/faq/NHE013 (This link is being provided for informational/ educational purposes only.) Test Performed at: [employer]/[facility] [address] [place] [address] BIENVENIDO LIANG MD,PHD Blood BLOOD SPECIMEN / Unknown 05/18/2024 3:49 PM SCOUT SNIPER 05/19/2024 10:44 AM SCOUT SNIPER Micheal Biggs MD LAB - SEROLOGY ORDER AUSTYN Performing Organization Address [facility] de Phone Number [facility] [phone] [place] [address] * C-REACTIVE PROTEIN (05/18/2024 3:49 PM SCOUT SNIPER) [facility] C-Reactive Protein <3.0 <8.0 mg/L [facility] Comment: Test Performed at: [place] [address] LATHA ARORA MD Blood BLOOD SPECIMEN / Unknown 05/18/2024 3:49 PM SCOUT SNIPER 05/19/2024 10:44 AM SCOUT SNIPER Micheal Biggs MD LAB - CHEMISTRY DINESH BHAKTA Performing Organization Address [facility] [place] [address] * (ABNORMAL) KATHY-PENG VIRUS ANTIBODY TO VCA IGG (05/18/2024 3:49 PM SCOUT SNIPER) [facility] Kathy-Peng Virus Antibody To Viral Capsid Antigen IgG 88.70(H) U/mL [facility] Comment: U/mL Interpretation ---- <18.00 Negative 18.00-21.99 Equivocal >21.99 Positive Test Performed at: [place] [address] LATHA ARORA MD Blood BLOOD SPECIMEN / Unknown 05/18/2024 3:49 PM SCOUT SNIPER 05/19/2024 10:44 AM SCOUT SNIPER Micheal Biggs MD LAB - CHEMISTRY DINESH BHAKTA Performing Organization Address [facility] de Phone Number [facility] [phone] [place] [address] * COMPLEMENT TOTAL (05/18/2024 3:49 PM SCOUT SNIPER) [facility] Complement Total CH50 52 31 - 60 U/mL [facility] Comment: Test Performed at: [facility] [place] [address] LATHA ARORA MD Blood BLOOD SPECIMEN / Unknown 05/18/2024 3:49 PM SCOUT SNIPER 05/19/2024 5:36 AM SCOUT SNIPER Micheal Biggs MD LAB - CHEMISTRY DINESH BHAKTA Performing Organization Address [facility] Co de Phone Number [facility] [address] [place] [address] * VITAMIN D 25-HYDROXY (05/18/2024 3:49 PM SCOUT SNIPER) Vitamin D, 25 Hydroxy 46 30 - 100 ng/mL [facility] Comment: Vitamin D Status 25-OH Vitamin D: Deficiency: <20 ng/mL Insufficiency: 20 - 29 ng/mL Optimal: > or = 30 ng/mL For 25-OH Vitamin D testing on patients on D2-supplementation and patients for whom quantitation of D2 and D3 fractions is required, the QuestAssureD(TM) 25-OH VIT D, (D2,D3), LC/MS/MS is recommended: order code 78060 (patients >2yrs). See Note 1 Note 1 For additional information, please refer to http://education.Nuggeta/faq/HVE556 (This link is being provided for informational/ educational purposes only.) Test Performed at: [facility] [place] [address] LATHA ARORA MD Blood BLOOD SPECIMEN / Unknown 05/18/2024 3:49 PM SCOUT SNIPER 05/19/2024 10:44 AM SCOUT SNIPER Micheal Biggs MD LAB - CHEMISTRY DINESH BHAKTA Performing Organization Address City/[facility]/ZIP Co de Phone Number [facility] [address] [place] [address] * ALDOLASE (05/18/2024 3:49 PM SCOUT SNIPER) Aldolase 3.7 < OR = 8.1 U/L [facility] Comment: REPORT COMMENT: FASTING:NO Test Performed at: [facility] [place]AM[place] DELFIN[place]olas [place] [address] LATHA ARORA MD Blood BLOOD SPECIMEN / Unknown 05/18/2024 3:49 PM SCOUT SNIPER 05/19/2024 5:36 AM SCOUT SNIPER Micheal Biggs MD LAB - CHEMISTRY DINESH BHAKTA Performing Organization Address [facility] de Phone Number [facility] [address] [place] [address] * (ABNORMAL) CULTURE URINE (05/18/2024 3:49 PM SCOUT SNIPER) Culture (A) [facility] Comment: CULTURE, URINE, ROUTINE Micro Number: [id number] Test Status: Final Specimen Source: Urine Specimen [...] Comments REPORT COMMENT: FASTING:NO Test Performed at: [facility] [place] [address] LATHA ARORA MD 05/18/2024 3:49 PM SCOUT SNIPER 05/19/2024 10:44 AM SCOUT SNIPER Micheal Biggs MD LAB - MICROBIOLOGY O RDERABLES Performing Organization Address [facility] Co de Phone Number [facility] [address] [place] [address] * ERYTHROCYTE SEDIMENTATION RATE (05/18/2024 3:49 PM SCOUT SNIPER) Erythrocyte Sedimentation Rate Westergren 6 < OR = 20 mm/h [facility] Comment: Test Performed at: [facility] [address] [place] [place] [address] LATHA ARORA MD Blood BLOOD SPECIMEN / Unknown 05/18/2024 3:49 PM SCOUT SNIPER 05/19/2024 10:44 AM SCOUT SNIPER Micheal Biggs MD LAB - HEMATOLOGY ORD ERABLES [facility] [address] [place] [address] * CBC WITH DIFFERENTIAL (05/18/2024 3:49 PM SCOUT SNIPER) White Blood Cell Count 4.4 3.8 - [...] 0.7 % [facility] Comment: Test Performed at: [facility] [place] [address] LATHA ARORA MD Blasts [facility] nRBC [facility] Comments [facility]ST Comment: Test Performed at: [facility] [address] [place] [address] LATHA ARORA MD Blood BLOOD SPECIMEN / Unknown 05/18/2024 3:49 PM SCOUT SNIPER 05/19/2024 10:44 AM SCOUT SNIPER Micheal Biggs MD LAB - HEMATOLOGY ORD ERABLES [facility] [address] [place] [address] * COMPLEMENT C4 (05/18/2024 3:49 PM SCOUT SNIPER) Complement C4 34 15 - 57 mg/dL [facility] Comment: Test Performed at: [facility] [address] [address] LATHA ARORA MD Blood BLOOD SPECIMEN / Unknown 05/18/2024 3:49 PM SCOUT SNIPER 05/19/2024 10:44 AM SCOUT SNIPER Micheal Biggs MD LAB - SEROLOGY ORDER AUSTYN Performing Organization Address [facility] Co de Phone Number [facility] [address] [place] [address] * (ABNORMAL) COMPREHENSIVE METABOLIC PANEL (05/18/2024 3:49 PM SCOUT SNIPER) Glucose 80 65 - 139 mg/dL [facility] [...] 29 U/L [facility] Comment: Test Performed at: [facility] [address] [address] Us[facility]UEL ERINNABDIFATAH, [place] [address] LATHA ARORA MD Blood BLOOD SPECIMEN / Unknown 05/18/2024 3:49 PM SCOUT SNIPER 05/19/2024 10:44 AM SCOUT SNIPER Micheal Biggs MD LAB - CHEMISTRY DINESH BHAKTA Performing Organization Address [facility] Co de Phone Number [facility] [address] [place] [address] * CK BLOOD (05/18/2024 3:49 PM SCOUT SNIPER) Pathologist [facility] CK 46 20 - 239 U/L [facility] Comment: Test Performed at: [facility] [employer] [place], [place] [address] LATHA ARORA MD Blood BLOOD SPECIMEN / Unknown 05/18/2024 3:49 PM SCOUT SNIPER 05/19/2024 10:44 AM SCOUT SNIPER Micheal Biggs MD LAB - CHEMISTRY DINESH BHAKTA Performing Organization Address [facility] de Phone Number [facility] [address] [place] [address] * (ABNORMAL) IMMUNOGLOBULINS IGG/IGM/IGA PANEL (05/18/2024 3:49 PM SCOUT SNIPER) Pathologist [facility] IgA <5(L) 47 - 310 mg/dL [facility] Comment: Verified by repeat analysis. IgG 1337 600 - 1640 mg/dL [facility] IgM 259 50 - 300 mg/dL [facility] Comment: Verified by repeat analysis. Test Performed at: [facility] [employer] [facility], [place] [address] LATHA ARORA MD Blood BLOOD SPECIMEN / Unknown 05/18/2024 3:49 PM SCOUT SNIPER 05/19/2024 10:44 AM SCOUT SNIPER Micheal Biggs MD LAB - CHEMISTRY DINESH BHAKTA Performing Organization Address [facility] Co de Phone Number [facility] [address] [place] [address] * COMPLEMENT C3 (05/18/2024 3:49 PM SCOUT SNIPER) Complement C3 127 83 - 193 mg/dL [facility] Comment: Test Performed at: [facility] [place] [address] [place] [address] LATHA ARORA MD Blood BLOOD SPECIMEN / Unknown 05/18/2024 3:49 PM SCOUT SNIPER 05/19/2024 10:44 AM SCOUT SNIPER Micheal Biggs MD LAB - CHEMISTRY DINESH BHAKTA [facility] [address] [place] [address] from Last 3 Months Care Teams Verification Manager Relationship Specialty Start Date End Date Cuate Ramon MD [address] [place] [address] PCP - General 08/09/17 Ion De DO [address] [place] [id number] Rheumatology 08/05/20 Radha Zavala MD [address] [facility] [address] [place] [address] Neurology 12/07/23
--- OUTSIDE RECORDS SUMMARY | 2024-05-28 18:37 | XMS_ITS | Encounter Summary ---
Author Organization [facility] Address [address] [place] [address] Care Team Providers Care Dictaphone Typist Name Role Phone Cuate Ramon MD Primary Care Provider [phone] Ion De DO Unavailable [phone] Radha Zavala MD Unavailable [phone] Encounter Details Date Type Department Care Team (Late Contact Info) Description 05/28/2023 Telephone [facility] - Allergy [address] [place] [address] Karol Álvarez MD [address] [place] [address] Social History Tobacco Use Types [...] (Late Contact Info) Description 06/13/2024 3:00 PM MATERIAL INSPECTOR Office Visit [facility] [address] [place] [address] Danya Marks, BONE TENDER-ONYX CHIP TERRAZZO WORKER [address] [place] [address] 09/04/2024 1:00 PM CDT Office Visit [facility] - Rheumatology [address] [facility], [place] [address] Micheal Biggs MD [address] [facility] [address] [place] [address] documented as of this encounter Visit Diagnoses Not on filedocumented in this encounter Care Teams Dictaphone Typist Relationship Specialty Start Date End Date Cuate Ramon MD [address] [address] PCP - General 08/09/17 Ion De DO [facility] [place] [address] Rheumatology 08/05/20 Radha Zavala MD [address] [place] [address] Neurology 12/07/23 documented as of this encounter
--- OUTSIDE RECORDS SUMMARY | 2024-05-28 18:37 | XMS_ITS | Clinical Summary ---
Author Organization [facility] Address [address] [place] [address] Care Team Providers Care Enamel Cracker Name Role Phone Cuate Ramon MD Primary Care Provider [phone] Twan Lopez MD Unavailable [phone] Alisa Lai PT Unavailable Unavailable Maria Teresa [...] for wheezing (or as directed.) 180 mL Active nebulizer accessories kit Replacement nebulizer tube [...] tablet (5 mg total) by mouth Active [place] Saline gel Active topiramate (TOPAMAX) 50 mg [...] by mouth daily 90 capsule 3 Active hyoscyamine (LEVSIN) 0.125 mg tabletIndications :Urinary Incontinence Take 1 tablet (0.125 mg total) by mouth every 4 (four) hours as needed 2024 Discontinued ondansetron ODT (ZOFRAN-ODT) [address] 1 TABLET ON THE TONGUE EVERY 6 HOURS NEEDED FOR NAUSEA OR VOMITING 60 tablet 3 024 2024 Discontinued Active Problems Problem Noted Date Diagnosed Date [...] 21 Assessment & Plan (05/08/2021 2:38 PM HAND WEAVER): - Continue home Montelukast 10mg QHS albuterol 4 puff q4h PRN Assessment & Plan (05/07/2021 4:58 PM HAND WEAVER): - Continue home Montelukast 10mg QHS albuterol 4 puff q4h PRN Concussion without loss of consciousness 020 Vocal cord dysfunction 01/22/2019 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 Pt seen at [facility] ED on Tuesday and was discharged [...] 05/24/2018 Assessment & Plan (05/08/2021 2:38 PM HAND WEAVER): - Continue home sertaline 75 mg Assessment & Plan (05/07/2021 4:56 PM HAND WEAVER): - Continue home sertaline 75 mg Assessment [...] 05/05/2018 Assessment & Plan (05/05/2018 5:09 PM HAND WEAVER): Benztropine was given. Dilated pupils which do [...] 08/11/2017 Assessment & Plan (05/08/2021 2:39 PM HAND WEAVER): Christen Encinas is a 15 y.o. female [...] precautions Assessment & Plan (05/07/2021 4:59 PM HAND WEAVER): Christen Encinas is a 15 y.o. 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 Patient may continue with current [...] 18 Assessment & Plan (05/08/2021 2:38 PM HAND WEAVER): - Continue home uloxetine 30mg every day Methocarbamol 500mg q8h PRN Assessment & Plan (05/07/2021 4:57 PM HAND WEAVER): - Continue home uloxetine 30mg every day Methocarbamol 500mg q8h PRN Assessment & Plan (06/22/2018 1:34 AM CDT): - continue home meds/supplements -gabapentin, plaquenil, vitamin D Viral infection 03/15/2017 Dizziness 02/15/2017 Vertigo 02/15/2017 Mononucleosis syndrome 02/15/2017 Fatigue 10/18/2016 Otitis externa 09/30/2016 Migraine headache 06/18/2015 Otitis media 01/01/2015 Constipation 11/28/2014 IgA deficiency, 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 No Breezy-Teresa Ring or sunflower cataract on ocular examination today. Vision is stable, 20/20 right eye (OD), left eye (OS). 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 OCT revealed some thinning of inferior [...] Date Abnormal PFT 10/18/2018 05/22/2019 IgA deficiency ([facility]) 10/18/2018 Disorder of connective tissue ([facility]) 08/11/2017 12/22/2020 Moderate persistent asthma w ithout complication 01/01/2015 05/22/2019 Chronic rhinitis 01/01/2015 05/22/2019 Encounters Date Type Department Care Team Description 05/28/2024 Telephone [facility] Gastroenterology at [address] [place] [address] Treva Kim LPN 05/09/2024 9:30 AM HAND WEAVER Office Visit [facility] Gastroenterology at [address] [place] [address] Mihai iMller NP Irritable bowel syndrome with both constipation and diarrhea (Primary Dx); Nausea and vomiting, unspecified vomiting type; Gastroesophageal reflux disease without esophagitis 05/09/2024 Telephone [facility] Gastro[facility]ology at [place] [address] [place] [address] Mihai Miller NP 03/07/2024 1:05 PM HAND WEAVER - 03/07/2024 11:59 PM HAND WEAVER Hospital Encounter [facility] [address] [place] [address] Nausea and vomiting, unspecified vomiting type Discharge Disposition: Discharge to home or self care from Last 3 Months Immunizations Immunization Administration Dates Next Due DTaP, Unspecified 11/11/2008, [...] pain disorder Asthma History of being hospitalized [facility] a few times for migraines,dehydration Mast cell activation syndrome (HCC) Family History Medical History Relation Name Comments ADD / ADHD Brother Asthma Brother Coronary artery disease Father Depression Father Diabetes type I Father Cholelithiasis Mother Colon polyps Mother Depression Mother Irritable bowel syndrome Mother Migraines Mother Family history of migraine headaches - (Added by RICCO Conv) Ulcerative colitis Mother Migraines Mother's Sister Family histo ry of migraine headaches - (Added by RICCO Conv) Relation Name Status Comments Brother Father [...] on file Legal Sex Female 6:05 AM HAND WEAVER Gender Identity Female 04/05/2023 1:07 AM HAND WEAVER Sexual Orientation Straight 04/05/2023 1: 07 AM HAND WEAVER Obstetrics History Last Filed Vital Signs Vital Sign Reading Time Taken Comments Blood Pressure 108/78 05/09/2024 10:40 AM HAND WEAVER Pulse 92 05/09/2024 10:40 AM HAND WEAVER Temperature 36.8 C (98.2 F) 02/15/2024 8:31 AM HAND WEAVER Respiratory Rate 18 02/15/2024 8:31 AM HAND WEAVER Oxygen Saturation 99% 05/09/2024 10:40 AM HAND WEAVER Inhaled Oxygen Concentration - - Weight 68 kg (149 lb 14.4 oz) 05/09/2024 10:40 A M HAND WEAVER Height 160 cm (5' 3 ) 05/09/2024 10:40 AM HAND WEAVER Body Mass Index 26.55 05/09/2024 10:40 AM HAND WEAVER Plan of Treatment Health Maintenance Due Date Last Done Comments Chlamydia and Gonorrhea (GC/ CT) Screening 2003 Depression Screening 2003 Hepatitis C Screening 2003 Pneumococcal vaccine <65 (2 of 2 - PCV) 01/07/2016 01/06/2015, 09/10/2004, 03/09/2004, Additional history exists Meningococcal B Vaccine (2 o f 2 - Bexsero SCDM 2-dose series) 07/23/2021 01/22/2021 Regular Well Visit/Exam 18-64 09/05/2021 Zoster Vaccine (1 of 2) 09/05/2022 Covid-19 Vaccine (5 - 2023-2 5 season) 2023 02/18/2022, 01/22/2021, 07/02/2020, Additional history exists DTaP/Tdap/Td Vaccine (7 - Td or Tdap) 01/06/2025 01/06/2015, 11/11/2008, 12/22/2004, Additional history exists Hepatitis B Screening Completed 09/10/2004 , 01/06/2004, 2003 Varicella Vaccines Completed 01/23/2008, 09/10/2004 HPV Vaccines Completed 07/26/2016, 01/09/2016 Meningococcal Vaccine Completed 01/22/2021, 015 Influenza Vaccine Completed 02/15/2024, , 01/22/2021, Additional history exists Goals Goal Patient Goal Type Associated Problems Recent Progress Patient-Stated? Author -Pain Behavioral Health Improving( 5:42 PM HAND WEAVER) No Margoth Porras, PhD Note: Increase functioning in daily activities -Pain Behavioral Health No change(06/18 5:42 PM HAND WEAVER) No Margoth Porras, PhD Note: Increase non-pharmacological strategies for coping with pain Procedures Procedure Name Priority Date/Time Associated Diagnosis Comments NM HEPATOBILIARY IMAGING W PHARMACEUTICAL INTERVENTION Schedule Routine, Read Routine (OP Routine) 03/07/2024 3:33 PM HAND WEAVER Nausea and vomiting, unspecified vomiting type from Last 3 Months Results * NM Hepatobiliary Imaging W GBEF (03/07/2024 3:33 PM HAND WEAVER) Anatomical Region Laterality Modality Body N/A Nuclear Medicine 03/07/2024 4:45 PM HAND WEAVER Narrative 03/07/2024 4:46 PM HAND WEAVER EXAM DESCRIPTION: NM HEPATOBILIARY IMAGING W PHARMACEUTICAL INTERVENTION RADIOPHARMACEUTICAL: Dose mCi Tc-99m mebrofenin via a 5.0 IV site and 8 oz Ensure Plus or equivalent P.O. REASON FOR STUDY: Nausea/vomiting, Chronic nausea. Some vomiting. Rule out gallbladder dysfunction. TECHNIQUE: Following the intravenous administration [...] fraction was calculated and was 56 % (normal: greater than 40%, equivocal: 30-40%, and abnormal: less than 30%). IMPRESSION: No scintigraphic evidence of cystic duct obstruction. Normal contractile response of the gallbladder to fatty meal stimulation. THIS IS AN ELECTRONICALLY VERIFIED FINAL REPORT 03/07/2024 4:46 PM - Electronically signed by Krystal Causey M.D. FT: FT Report ID: [id number] Reading Location: [id number] Procedure Note Krystal Mario MD - 03/07/2024 [...] Krystal Causey M.D. FT: FT Report ID: [id number] Reading Location: [place] [address] [place] Mihai Jenniferhermila Miller COMMUNITY LIAISON IMG NM PROCEDURES F inal Result from Last [address] Insurance [facility] CHOICE PLUS [facility] [place] [address] [facility] CHOICE PLUS [facility] [place] [address] [facility] CHOICE PLUS [facility] CHOICE [place] [address] Advance Directives For more information, please contact: [phone] * Full Code (Latest Code Status on [...] 8:12 PM 06/24/2018 2:52 PM Care Teams Enamel Cracker Relationship Specialty Start Date End Date Cuate Ramon MD [address] [facility] [place] [address] PCP - General 10/22/16 Twan Lopez MD [address] [facility] [place] [address] Anesthesiologist Pediatric Anesthesia 10/20/17 Alisa Lai, PT Physical Therapist Physical Therapy 10/20/17 Maria Teresa Padron Physical Therapist Physical Therapy 11/24/17
--- OUTSIDE RECORDS SUMMARY | 2024-05-28 18:37 | XMS_ITS | Encounter Summary ---
Author Organization [facility] Address [address] [place] [address] Care Team Providers Care Time Clock Mechanic Name Role Phone Cuate Ramon MD Primary Care Provider [phone] Twan Lopez MD Unavailable [phone] Alisa Lai PT Unavailable Unavailable Maria Teresa Padron Unavailable Unavailable Encounter Details Date Type Department Care Team (Late st Contact Info) Description 01/27/2021 Telephone [facility] [address] [facility] [phone] [place] [address] Michaela Haas Social History Tobacco Use Types Packs/Day Years Used Date Smoking Tobacco: Passive Smo ke Exposure - Never Smoker Smokeless Tobacco: Never Alcohol Use Standard Drinks/Week Comments Not Currently 0 (1 standard drink = 0.6 oz pur e alcohol) Comments No Sex and Gender Information Value Date Recorded Sex Assigned at Not on file Legal Sex Female 6:05 AM HPLC CHEMIST Gender Identity Female 04/05/2023 1:07 AM HPLC CHEMIST Sexual Orientation Straight 04/05/2023 1: 07 AM HPLC CHEMIST documented as of this encounter Plan of Treatment Not on file documented as of this encounter Goals Goal Patient Goal Type Associated Problems Recent Progress Patient-Stated? Author -Pain Behavioral Health Improving( 5:42 PM HPLC CHEMIST) No Margoth Porras, PhD Note: Increase functioning in daily activities BH-Pain Behavioral Health No change(06/18 5:42 PM HPLC CHEMIST) No Margoth Porras, PhD Note: Increase non-pharmacological strategies for coping with pain documented as of this encounter Visit Diagnoses Not on filedocumented in this encounter Care Teams Time Clock Mechanic Relationship Specialty Start Date End Date Cuate Ramon MD [address] [place] [address] PCP - General 10/22/16 Twan Lopez MD [address] [place] [address] Anesthesiologist Pediatric Anesthesia 10/20/17 Alisa Lai, PT Physical Therapist Physical Therapy 10/20/17 Maria Teresa Padron Physical Therapist Physical Therapy 11/24/17 documented as of this encounter
--- OUTSIDE RECORDS SUMMARY | 2024-05-28 18:37 | XMS_ITS | Referral Summary ---
Author Organization [facility] Address [address] [place] [address] Care Team Providers Care Authorization Rep Name Role Phone Cuate Ramon MD Primary Care Provider Twan Lopez MD Unavailable [phone] Alisa Lai PT Unavailable Unavailable Maria Teresa Padron Unavailable Unavailable Encounters Date Type Department Care Team Description 05/28/2024 Telephone [facility] Gastroenterology at [address] [place] [address] Treva Kim LPN 05/09/2024 Telephone [facility] Gastroenterology at [address] [place] [address] Mihai Miller NP 05/09/2024 9:30 AM DRY MIXER Office Visit [facility] Gastroenterology at [address] [place] [address] Mihai Miller NP Irritable bowel syndrome with both constipation and diarrhea (Primary Dx); Nausea and vomiting, unspecified vomiting type; Gastroesophageal reflux disease without esophagitis 03/07/2024 1:05 PM DRY MIXER - 03/07/2024 11:59 PM DRY MIXER Hospital Encounter [facility] [address] [place] [address] Nausea and vomiting, unspecified vomiting type Discharge Disposition: Discharge to home or self care from Last 3 Months Allergies Active Allergy [...] TAKE 1 TABLET DAILY 90 tablet 3 024 Active propranoloL (INDERAL) 10 mg tablet 0.5 tablets (5 mg total) Active midodrine (PROAMATINE) 5 mg tablet Take 1 tablet (5 mg total) by mouth Active [place] Saline gel Active topiramate (TOPAMAX) 50 mg [...] mouth daily 90 capsule 3 025 Active hyoscyamine (LEVSIN) 0.125 mg tabletIndications :Urinary [...] 21 Assessment & Plan (05/08/2021 2:38 PM DRY MIXER): - Continue home Montelukast 10mg QHS albuterol 4 puff q4h PRN Assessment & Plan (05/07/2021 4:58 PM DRY MIXER): - Continue home Montelukast 10mg QHS albuterol 4 puff q4h PRN Concussion without loss of consciousness 020 Vocal cord dysfunction 01/22/2019 Non-allergic rhinitis 01/15/2019 Tremor 12/28/2018 High risk 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 Pt seen at [facility] ED on Tuesday and was discharged home [...] 05/24/2018 Assessment & Plan (05/08/2021 2:38 PM DRY MIXER): - Continue home sertaline 75 mg Assessment & Plan (05/07/2021 4:56 PM DRY MIXER): - Continue home sertaline 75 mg Assessment [...] 05/05/2018 Assessment & Plan (05/05/2018 5:09 PM DRY MIXER): Benztropine was given. Dilated pupils which do [...] 08/11/2017 Assessment & Plan (05/08/2021 2:39 PM DRY MIXER): Christen Encinas is a 15 y.o. female [...] precautions Assessment & Plan (05/07/2021 4:59 PM DRY MIXER): Christen Encinas is a 15 y.o. 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 Patient may continue with current Rx. 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 No Breezy-Teresa Ring or sunflower cataract on ocular examination today. Vision is stable, 20/20 right eye (OD), left eye (OS). 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 OCT revealed some thinning of inferior (right [...] Date Abnormal PFT 10/18/2018 05/22/2019 IgA deficiency ([facility]) 10/18/2018 Disorder of connective tissue ([facility]) 08/11/2017 12/22/2020 Moderate persistent asthma w ithout complication 01/01/2015 05/22/2019 Chronic rhinitis 01/01/2015 05/22/2019 Immunizations Immunization Administration Dates Next Due DTaP, [...] on file Legal Sex Female 6:05 AM DRY MIXER Gender Identity Female 04/05/2023 1:07 AM DRY MIXER Sexual Orientation Straight 04/05/2023 1: 07 AM DRY MIXER Last Filed Vital Signs Vital Sign Reading Time Taken Comments Blood Pressure 108/78 05/09/2024 10:40 AM DRY MIXER Pulse 92 05/09/2024 10:40 AM DRY MIXER Temperature 36.8 C (98.2 F) 02/15/2024 8:31 AM DRY MIXER Respiratory Rate 18 02/15/2024 8:31 AM DRY MIXER Oxygen Saturation 99% 05/09/2024 10:40 AM DRY MIXER Inhaled Oxygen Concentration - - Weight 68 kg (149 lb 14.4 oz) 05/09/2024 10:40 A M DRY MIXER Height 160 cm (5' 3 ) 05/09/2024 10:40 AM DRY MIXER Body Mass Index 26.55 05/09/2024 10:40 AM DRY MIXER Plan of Treatment Not on file Goals Goal Patient Goal Type Associated Problems Recent Progress Patient-Stated? Author -Pain Behavioral Health Improving( 5:42 PM DRY MIXER) No Margoth Porras, PhD Note: Increase functioning in daily activities [facility] No change(06/18 5:42 PM DRY MIXER) No Margoth Porras, PhD Note: Increase non-pharmacological strategies for coping with pain Procedures Procedure Name Priority Date/Time Associated Diagnosis Comments NM HEPATOBILIARY IMAGING W PHARMACEUTICAL INTERVENTION Schedule Routine, Read Routine (OP Routine) 03/07/2024 3:33 PM DRY MIXER Nausea and vomiting, unspecified vomiting type from Last 3 Months Results * NM Hepatobiliary Imaging W GBEF (03/07/2024 3:33 PM DRY MIXER) Anatomical Region Laterality Modality Body N/A Nuclear Medicine 03/07/2024 4:45 PM DRY MIXER Narrative 03/07/2024 4:46 PM DRY MIXER EXAM DESCRIPTION: NM HEPATOBILIARY IMAGING W PHARMACEUTICAL [...] Krystal Causey M.D. FT: FT Report ID: [id number] Reading Location: [id number] Procedure Note Krystal Mario MD - 03/07/2024 EXAM DESCRIPTION: [place] HEPATOBILIARY IMAGING W PHARMACEUTICAL INTERVENTION RADIOPHARMACEUTICAL: Dose [...] Krystal Causey M.D. FT: FT Report ID: [id number] Reading Location: [place] [address] us Mihai Rodriguez Bilderback NURSING STUDENT IMG NM PROCEDURES F inal Result from Last 3 Months Insurance [facility] CHOICE PLUS [facility] [place] [address] [facility] [place] [address] [place] [address] [place] [address] [facility] CHOICE PLUS [facility] CHOICE PLUS [facility] CHOICE PLUS [address] [place] [phone] Advance Directives For more information, please contact: [phone] * Full Code (Latest Code Status on [...] 8:12 PM 06/24/2018 2:52 PM Care Teams Authorization Rep Relationship Specialty Start Date End Date Cuate Ramon MD [address] [facility] [place] [address] PCP - General 10/22/16 Twan Lopez MD [address] [place] [address] Anesthesiologist Pediatric Anesthesia 10/20/17 Alisa Lai, PT Physical Therapist Physical Therapy 10/20/17 Maria Teresa Padron Physical Therapist Physical Therapy 11/24/17
--- OUTSIDE RECORDS SUMMARY | 2024-05-28 18:37 | XMS_ITS | Encounter Summary ---
Author Organization [facility] Healthcare Address [address] [place] [address] Care Team Providers Care Air Conditioning Manager Name Role Phone Cuate Ramon MD Primary Care Provider [phone] Twan Lopez MD Unavailable [phone] Alisa Lai PT Unavailable Unavailable Maria Teresa Padron Unavailable Unavailable Encounter Details Date Type Department Care Team (Late st Contact Info) Description 05/28/2024 Telephone [facility] Gastroenterology at [address] [place] [address] Treva Kim LPN Social History Tobacco Use Types Packs/Day Years [...] on file Legal Sex Female 6:05 AM RISK MANAGEMENT DIRECTOR Gender Identity Female 04/05/2023 1:07 AM RISK MANAGEMENT DIRECTOR Sexual Orientation Straight 04/05/2023 1: 07 AM RISK MANAGEMENT DIRECTOR documented as of this encounter Miscellaneous Notes * Telephone Encounter - Mihai Miller NP - 05/28/2024 4:19 PM RISK MANAGEMENT DIRECTOR It sounds like the THC products, or what she ate after consuming them, likely contributed to excessive gas production/trapping in her GI tract. She can use Gas-X as needed. Try to avoid these products in the future in order to avoid these symptoms. Has she been able to start the Linzess that I prescribed for her chronic constipation and is she having any better bowel movements? MANAGEMENT DIRECTOR * Telephone Encounter - Treva Kim LPN - 05/28/2024 3:16 PM CST For your knowledge, Pt called in to report stomach cramping ,nausea, loss of appetite all this occurred after doing edibles and smoking weed , pt also reported chest pains in which I referred her to the ER to be evaluated MANAGEMENT DIRECTOR documented in this encounter Plan of Treatment Not on file documented as of this encounter Goals Goal Patient Goal Type Associated Problems Recent Progress Patient-Stated? Author -Pain Behavioral Health Improving( 5:42 PM RISK MANAGEMENT DIRECTOR) No Margoth Porras, PhD Note: Increase functioning in daily activities -Pain Behavioral Health No change(06/18 5:42 PM RISK MANAGEMENT DIRECTOR) No Margoth Porras, PhD Note: Increase non-pharmacological strategies for coping with pain documented as of this encounter Visit Diagnoses Not on filedocumented in this encounter Care Teams Air Conditioning Manager Relationship Specialty Start Date End Date Cuate Ramon MD [address] [place] [address] PCP - General 10/22/16 Twan Lopez MD [address] [facility] [place] [address] Anesthesiologist Pediatric Anesthesia 10/20/17 Alisa Lai, PT Physical Therapist Physical Therapy 10/20/17 Maria Teresa Padron Physical Therapist Physical Therapy 11/24/17 documented as of this encounter
== END 2024-05-28 18:50 | disposition home or self-care (01) ==
PROVIDERS: Emergency Provider Family Medicine; PCP Pediatrics
DX: T40.711A Poisoning by cannabis, accidental (unintentional), initial encounter (principal); R11.2 Nausea with vomiting, unspecified; E86.0 Dehydration
CPT/HCPCS: 36415; 80053; 81003; 85025; 96361; 96374; 96375; 99284; A9270; J1885; J2405; J7030

== ENCOUNTER 2024-07-19 00:41 | Emergency (ER) | payer OTHER, SELFPAY ==
[2024-07-19 00:41] VITALS: BP 117/79; PULSE 89; RESP 16; TEMP 36.2; O2SAT 100
--- OUTSIDE RECORDS SUMMARY | 2024-07-19 00:44 | XMS_ITS | Encounter Summary ---
Author Organization [facility] Finomial Address [address] [place] [address] Care Team Providers Care Computer Art Instructor Name Role Phone Cuate Ramon MD Primary Care Provider [phone] Ion De DO Unavailable [phone] Radha Zavala MD Unavailable [phone] Encounter Details Date Type Department Care Team (Late Contact Info) Description 05/28/[address] [facility] - Allergy [address] [place] [address] Karol Álvarez MD [address] [place] [address] Social History Tobacco Use Types [...] Department Care Team (Late Contact Info) Description 09/04/2024 1:00 PM CDT Office Visit [facility] - Rheumatology [address] [place] [address], [place] [phone] Micheal Biggs MD [facility] [place] [address] 01/24/2025 11:40 AM CDT Office Visit [facility] [address] [place] [address] Radha Zavala MD [address] [place] [address] documented as of this encounter Visit Diagnoses Not on filedocumented in this encounter Care Teams Computer Art Instructor Relationship Specialty Start Date End Date Cuate Ramon MD [address] [place] [address] PCP - General 08/09/17 Ion De DO [address] [place] [address] Rheumatology 08/05/20 Radha Zavala MD [address] [place] [address] Neurology 12/07/23 documented as of this encounter
--- OUTSIDE RECORDS SUMMARY | 2024-07-19 00:44 | XMS_ITS | Clinical Summary ---
Author Organization [facility] [employer] Address [address] [place] [address] Care Team Providers Care Price Accuracy Supervisor Name Role Phone Cuate Ramon MD Primary Care Provider [phone] Ion De DO Unavailable [phone] Radha Zavala MD Unavailable [phone] Source Comments [facility],non-owned Affiliates and Associated Physician Practices is amultiple site organization consisting of ambulatory clinics and hospital sitesin [place], [place], [place] and [place]. This disclosure is being madepursuant to the Care Everywhere program and may not contain all information available regarding this patient. Last updated 17.[facility] [employer] Allergies Active Allergy Reactions Criticality Noted Date [...] by mouth 4 times daily 05/24/2018 Active meclizine (ANTIVERT) 12.5 MG tablet Take [...] Active sertraline (ZOLOFT) 25 MG tablet Take 2 (two) tablets by mouth once daily 12/02/2020 Active albuterol HFA (Proventil; Ventolin; Proair) 108 (90 Base) MCG/ACT inhaler Inhale 1 (one) puff by mouth every 6 hours as needed Active azelastine (Astelin) 0.1 % nasal spray [place] 1 (one) spray into the nose as needed 07/12/2023 Active budesonide-formoterol (Symbicort) 80-4.5 MCG/ACT inhaler Inhale 2 (two) puffs by mouth 2 times daily as needed Active fluticasone propionate (Flonase) 50 MCG/ACT nasal spray [place] 1 (one) spray into the nose 2 times daily as needed 08/12/2023 Active midodrine (Proamatine) 5 MG tablet Take 1 (one) tablet by mouth 3 times daily before meals 90 tablet 5 12/13/2023 Active propranolol (Inderal) 10 MG tablet Take 1 (one) tablet by mouth 2 times daily 120 tablet 5 12/13/2023 Active Additional Information Patient taking differently: 5 mgOral 2 TIMES DAILY, Reported on 06/13/2024 Other Low dose naltrexone 1mg tablet twice daily, may titrate to max of 2mg twice daily 90 tablet 5 12/13/2023 Active hydroxychloroquine (Plaquenil) 200 MG tabletIndications:Art hralgia, unspecified joint,Patellar tracking disorder, unspecified laterality,Connective 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 (HCC),Amplified musculoskeletal pain,Other fatigue,Hypermobile joints,Myalgia,Fever, unspecified fever cause,EBV infection Take 1.5 (one and one-half) tablets by mouth once daily 135 tablet 1 12/26/2023 Active linaCLOtide (Linzess) 145 MCG capsule Take 1 (one) capsule by mouth once daily 05/09/2024 Active diclofenac sodium EC (Voltaren) 75 MG tabletIndications:Art hralgia, unspecified joint TAKE 1 TABLET TWICE A DAY 180 tablet 3 06/18/2024 Active dicyclomine (Bentyl) 10 MG capsule Take 1 (one) capsule by mouth 4 times daily for 14 days 56 capsule 06/18/2024 Active Problems Problem Noted Date Diagnosed Date [...] 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 Abnormal PFT 10/18/2018 [employer] current use of non -steroidal anti-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 [...] Encounters Date Type Department Care Team Description 07/04/2024 2:30 PM CDT - 07/04/2024 11:59 PM CDT Hospital Encounter [facility] Imaging Services - CT Scan [address], [address] [place] [address] Cuate Ramon MD Discharge Disposition: Home or Self Care 06/15/2024 Telephone [facility] Neurosciences [address] [place] [address] Danya Marks, SHAGGER-GROUND MIXER Pre Authorization (No auth needed per [facility]) 06/13/2024 3:00 PM LINE PREP COOK Office Visit [facility] Neurosciences [address] [place] [address] Danya Marks, SHAGGER-GROUND MIXER Dysautonomia (Primary Dx); Generalized hypermobility of joints; Pain of upper abdomen 06/13/[address] [facility] - Rheumatology [address] [facility] [place] [address] Ion De DO Refill Request 05/03/2024 10:00 AM LINE PREP COOK Office Visit [facility] - Rheumatology [address] [place] [address] Micheal Biggs MD Connective 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 (Primary Dx); EBV infection 05/03/2024 Travel from [...] QUADRIVALENT; 6MO+), 0.5 ML (IIV4) 04/12/2018 MENINGOCOCCAL ACWY (MCV4P) VAC IM 01/22/2021, MMR 11/11/2008,09/10/2004 Meningococcal B Recombinant 2 Dose, IM PNEUMOCOCCAL PPSV23 01/06/2015,01/06/2015 PNEUMOCOCCAL PPV VACCINE 09/10/2004,05/2004,03/09/2004,03/09,01/06/2004,01/06/2004,2003 [...] Sign Reading Time Taken Comments Blood Pressure 92/63 06/13/2024 3:11 PM LINE PREP COOK Pulse 84 06/13/2024 3:11 PM LINE PREP COOK Temperature 36.3 C (97.3 F) 05/03/2024 9:53 AM LINE PREP COOK Respiratory Rate 16 04/02/2023 1:59 AM LINE PREP COOK Oxygen Saturation 100% 04/02/2023 1:59 AM LINE PREP COOK Inhaled Oxygen Concentration - - Weight 63.5 kg (140 lb) 06/13/2024 3:08 PM LINE PREP COOK Height 160 cm (5' 3 ) 06/13/2024 3:08 PM LINE PREP COOK Body Mass Index 24.8 06/13/2024 3:08 PM LINE PREP COOK Plan of Treatment Upcoming Encounters Date Type Department Care Team (Late st Contact Info) Description 09/04/2024 1:00 PM CDT Office Visit [facility] - Rheumatology [address] [place] [address] Micheal Biggs MD [facility] [place] [address] 01/24/2025 11:40 AM CDT Office Visit [facility] Health Neurosciences [address] [place] [phone] Radha Zavala MD [address] [place] [address] Health Maintenance Due Date Last Done Comments PNEUMOCOCCAL VACCINE (3 of 3 - PCV) 01/07/2016 01/06/2015, 01/06/2015, 09/10/2004, Additional history exists HPV VACCINE (3 - Risk 3-dose series) 11/25/2016 07/26/2016, 01/09/2016 HIV SCREENING 09/05/2018 CHLAMYDIA/GONORRHEA SCREENING 2019 MENINGOCOCCAL (Group B) VACC INE SHARED DECISION-MAKING (2 of 2 - Bexsero SCDM 2-dose [...] 09/10/2004, 05/2004, 01/06/2004, Additional history exists MENINGOCOCCAL GROUPS A/C/Y/W VACCINE Completed 01/22/2021, 01/06/2015 INFLUENZA VACCINE Completed 02/15/2024, , 01/22/2021, Additional history exists Procedures Procedure Name Priority Date/Time Associated Diagnosis Comments CT ANGIO ABDOMEN Routine 07/04/2024 3:32 PM CDT Pain of upper abdomen CREATININE - POCT INTERFACED Routine 07/04/2024 2:28 PM CDT KATHY-PENG VIRUS ANTIBODY TO VCA IGM Routine 05/18/2024 3:49 PM LINE PREP COOK EBV infection KATHY-PENG VIRUS ANTIBODY TO VCA IGG Routine 05/18/2024 3:49 PM LINE PREP COOK EBV infection BETA-2 GLYCOPROTEIN 1 ANTIBODY IGG/IGM/IGA PANEL Routine 05/18/2024 3:49 PM LINE PREP COOK Connective 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 CARDIOLIPIN ANTIBODY IGA/IGG/IGM PANEL Routine 05/18/2024 3:49 PM LINE PREP COOK Connective 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 VITAMIN D 25-HYDROXY Routine 05/18/2024 3:49 PM LINE PREP COOK Connective 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 URINALYSIS W/MICROSCOPIC REFLEX TO CULTURE Routine 05/18/2024 3:49 PM LINE PREP COOK Connective 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 ERYTHROCYTE SEDIMENTATION RATE Routine 05/18/2024 3:49 PM LINE PREP COOK Connective 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 C-REACTIVE PROTEIN Routine 05/18/2024 3: 49 PM LINE PREP COOK Connective 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 COMPREHENSIVE METABOLIC PANEL Routine 05/18/2024 3:49 PM LINE PREP COOK Connective 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 CK BLOOD Routine 05/18/2024 3:49 PM LINE PREP COOK Connective 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 CBC W AUTO DIFFERENTIAL Routine 05/18/19 3:49 PM LINE PREP COOK Connective 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 ALDOLASE Routine 05/18/2024 3:49 PM LINE PREP COOK Connective 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 IMMUNOGLOBULINS IGG/IGM/IGA PANEL Routine 05/18/2024 3:49 PM LINE PREP COOK Connective 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 COMPLEMENT TOTAL Routine 05/18/2024 3:49 PM LINE PREP COOK Connective 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 COMPLEMENT C4 Routine 05/18/2024 3:49 PM LINE PREP COOK Connective 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 COMPLEMENT C3 Routine 05/18/2024 3:49 PM LINE PREP COOK Connective 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 SCLEROSIS 12 ANTIBODY PNL Routine 05/18/2024 3:49 PM LINE PREP COOK Connective 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 ERIKA PANEL COMPREHENSIVE Routine 05/18/19 3:49 PM LINE PREP COOK Connective 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 CULTURE URINE 05/18/2024 3:49 PM LINE PREP COOK CULTURE URINE REFLEXED 3:49 PM LINE PREP COOK from Last 3 Months Results * CT Angio Abdomen (07/04/2024 3:32 PM CDT) Anatomical Region Laterality Modality Abdomen Computed Tomogra phy 07/04/2024 4:03 PM CDT Impressions 07/04/2024 4:17 PM CDT IMPRESSION: 1. Focal narrowing of the celiac trunk at the diaphragm, which is nonspecific. No secondary findings of celiac artery compression syndrome. 2. Question thickening of the right colon. > Interpreting Provider: Jennifer Casillas MD on 07/04/2024 4:17 PM Narrative 07/04/2024 4:17 PM CDT PROCEDURE: CT ANGIO ABDOMEN DATE/TIME OF EXAM: 07/04/2024 3:36 PM CLINICAL INFORMATION: None relevant/not provided if blank. Indication: R10.10: Upper abdominal pain, unspecified Additional History: COMPARISON: None. TECHNIQUE: CT angiography of the abdomen was performed without IV contrast followed by IV contrast, including 3D post processing CTA image reconstruction. CT dose reduction technique was used, including Automated Exposure Control. CONTRAST: IOPAMIDOL 76 % IV SOLN:100 mL FINDINGS: LUNG BASES: Within normal limits LIVER: Within normal limits. GALLBLADDER: Within normal limits. BILE DUCTS: Nondilated. PANCREAS: Within normal limits. SPLEEN: Within normal limits. ADRENALS: Within normal limits. KIDNEYS/URETERS: Within normal limits. BOWEL: The wall of the right colon is prominent, but the colon is empty, limiting evaluation. No small bowel obstruction. PERITONEUM/RETROPERITONEUM: No ascites, free air or enlarged mesenteric/retroperitoneal lymph nodes. VESSELS: There is focal, short segment narrowing at the origin of the celiac artery with a hooked configuration. There is no poststenotic dilatation. There is no collateral formation. The median arcuate ligament is not thickened. The abdominal aorta, superior mesenteric artery, both renal arteries, and visualized portions of the inferior mesenteric artery are normal. ABDOMINAL WALL: Within normal limits. BONES: No suspicious lytic or blastic lesions. Procedure Note Jennifer Casillas MD - 07/04/2024 PROCEDURE: CT ANGIO ABDOMEN DATE/TIME OF EXAM: 07/04/2024 3:36 PM CLINICAL INFORMATION: None relevant/not provided if blank. Indication: R10.10: Upper abdominal pain, unspecified Additional History: COMPARISON: None. TECHNIQUE: CT angiography of the abdomen was performed without IV contrast followedby IV contrast, including 3D post processing CTA image reconstruction. CT dose reduction technique was used, including Automated ExposureControl. CONTRAST: IOPAMIDOL 76 % IV SOLN:100 mL FINDINGS: LUNG BASES: Within normal limits LIVER: Within normal limits. GALLBLADDER: Within normal limits. BILE DUCTS: Nondilated. PANCREAS: Within normal limits. SPLEEN: Within normal limits. ADRENALS: Within normal limits. KIDNEYS/URETERS: Within normal limits. BOWEL: The wall of the right colon is prominent, but the colon is empty, limiting evaluation. No small bowel obstruction. PERITONEUM/RETROPERITONEUM: No ascites, free air or enlarged mesenteric/retroperitoneal lymph nodes. VESSELS: There is focal, short segment narrowing at the origin of the celiac artery with a hooked configuration. There is no poststenotic dilatation. There is no collateral formation. The median arcuateligament is not thickened. The abdominal aorta, superior mesenteric artery, both renal arteries, and visualized portions of the inferior mesentericartery are normal. ABDOMINAL WALL: Within normal limits. BONES: No suspicious lytic or blastic lesions. IMPRESSION: 1. Focal narrowing of the celiac trunk at the diaphragm, which is nonspecific. No secondary findings of celiac artery compressionsyndrome. 2. Question thickening of the right colon. > Interpreting Provider: Jennifer Casillas MD on 07/04/2024 4:17 PM Danya Marks SHAGGER-GROUND MIXER CT ORDERABLES * CREATININE - POCT INTERFACED (07/04/2024 2:28 PM CDT) Creatinine POCT 0.76 0.70 - 1.20 mg/dL 07/04/2024 2:39 PM CDT [facility] eGFR >90 >=90 mL/min/1.7 3 m2 07/04/2024 2:39 PM CDT [facility] Blood BLOOD SPECIMEN / Unknown 07/04/2024 2:28 PM CDT 07/04/2024 2:39 PM CDT Cuate Ramon MD LAB - POINT OF CARE ORDERABLES Performing Organization Address City/State/[facility] Co de Phone Number [facility] [address] [phone] * SCLEROSIS 12 ANTIBODY PNL (05/18/2024 3:49 PM LINE PREP COOK) SCL-70 <11 <11 SI [facility] Centromere protein [...] 75 <11 <11 SI [facility] Comment: The [place] [employer] (ACR) considers anti-Scl-70 (also [...] patients and anti-RP155 antibodies in about 8%. Royg-H3-xwBJC antibodies are associated with SSc and inflammatory myopathy overlap syndromes. Three major components of U1-snRNP are tested: U1-snRNP HEALTH CARE MARKETING MANAGER A, U1-snRNP HEALTH CARE MARKETING MANAGER C, U1-snRNP SPQ69yo. The presence of U1-snRNP antibodies occur in [...] Fibrillarin antibodies are found more frequently in -Ecu[place]orean patients and when seen in this population, [...] is directed to one of two proteins: PM/Gid493 and/or PM/Scl75. More information can be found at https://www.[employer].Ex[employer] Fans/testcenter/testguide.action ?dc=CF-SystScler This test was developed and its analytical performance characteristics have been determined by [employer]. It has not been cleared or approved by FDA. This assay has been validated pursuant to the CLIA regulations and is used for clinical purposes. Test Performed at: [employer]/[facility] [address] [place] [address] NICCI ASHLEY MD,PHD,MARIAH Blood BLOOD SPECIMEN / Unknown 05/18/2024 3:49 PM LINE PREP COOK 05/19/2024 10:44 AM LINE PREP COOK Micheal Biggs MD LAB - SEROLOGY ORDER AUSTYN Performing Organization Address [facility] [place] [address] * CULTURE URINE REFLEXED (05/18/2024 3:49 PM LINE PREP COOK) Reflexive Urine Culture See Below [facility] Comment: CULTURE INDICATED - RESULTS TO FOLLOW Test Performed at: [employer] [facility] [address] [place] [address] LATHA ARORA MD 05/18/2024 3:49 PM LINE PREP COOK 05/19/2024 10:44 AM LINE PREP COOK Micheal Biggs MD LAB - MICROBIOLOGY O RDERABLES Performing Organization Address [facility] [place] [address] * CARDIOLIPIN ANTIBODY IGA/IGG/IGM PANEL (05/18/2024 3:49 PM LINE PREP COOK) Cardiolipin Antibody IgA <2.0 APL-U/mL [facility] Comment: [...] aging. For additional information, please refer to http://[employer].Avvo/faq/FLF514 (This link is being provided for informational/ educational purposes only.) Test Performed at: [employer] [facility] [address] [place] [address] SYL SILVEIRA Blood BLOOD SPECIMEN / Unknown 05/18/2024 3:49 PM LINE PREP COOK 05/19/2024 10:44 AM LINE PREP COOK Micheal Biggs MD LAB - SEROLOGY ORDER AUSTYN [employer] [address] [place] [address] * (ABNORMAL) ERIKA PANEL COMPREHENSIVE (05/18/2024 3:49 PM LINE PREP COOK) ERIKA Screen NEGATIVE NEGATIVE [facility] Comment: ERIKA [...] AC-0: Negative International Consensus on ERIKA Patterns (https://doi.org/10.1515/oeqp-2230-6032) For additional information, please refer to http://education.[facility]/faq/XTF942 (This link is being provided for informational/ educational purposes only.) Test Performed at: [employer] [address] [address] LATHA ARORA MD dsDNA Antibody 1 IU/mL [facility] Comment: IU/mL Interpretation < or = 4 Negative 5-9 Indeterminate > or = 10 Positive SCL-70 Antibody <1.0 NEG <1.0 NEG AI [facility] SM Antibody <1.0 NEG <1.0 NEG AI [facility] SM/HEALTH CARE MARKETING MANAGER Antibody 1.2 POS(A) <1.0 NEG AI [facility] Sjogren's Antibodies (SSA) <1.0 NEG <1.0 NEG AI [facility] Sjogren's Antibodies (SSB) 2.9 POS(A) <1.0 NEG AI [facility] Comment: Test Performed at: [employer] [facility] [address] [facility] [place] [address] LATHA ARORA MD Blood BLOOD SPECIMEN / Unknown 05/18/2024 3:49 PM LINE PREP COOK 05/19/2024 10:44 AM LINE PREP COOK Micheal Biggs MD LAB - SEROLOGY ORDER AUSTYN Performing Organization Address City/State/[facility] Co de Phone Number [facility] [address] [place] [address] * (ABNORMAL) URINALYSIS W/MICROSCOPIC REFLEX TO CULTURE (05/18/2024 3:49 PM LINE PREP COOK) Color UA YELLOW YELLOW [facility] Appearance CLOUDY(A) CLEAR [facility] Specific Beason UA 1.024 1.001 - 1.035 [facility] pH [...] SEEN /LPF [facility] Comment: Test Performed at: [facility] [address] [place] [address] LATHA ARORA MD Granular Casts [facility] Casts UA [facility] Yeast [facility] Comments [facility] Note [facility] Comment: Test Performed at: [employer] [facility] [address] [facility] [place] [address] LATHA ARORA MD Urine URINE SPECIMEN OBTAINED BY CLEAN CATCH PROCEDURE / Unknown 05/18/2024 3:49 PM LINE PREP COOK 05/19/2024 10:44 AM LINE PREP COOK Micheal Biggs MD LAB - URINALYSIS ORD ERABLES Performing Organization Address [facility] [place] [address] * KATHY-PENG VIRUS ANTIBODY TO VCA IGM (05/18/2024 3:49 PM LINE PREP COOK) Pathologist [facility] Kathy-Peng Virus Antibody To Viral Capsid Antigen IgM <36.00 U/mL [facility] Comment: U/mL Interpretation ---- <36.00 Negative 36.00-43.99 Equivocal >43.99 Positive Test Performed at: [employer] [address] [facility] [place] [address] LATHA ARORA MD Blood BLOOD SPECIMEN / Unknown 05/18/2024 3:49 PM LINE PREP COOK 05/19/2024 10:44 AM LINE PREP COOK Micheal Biggs MD LAB - SEROLOGY ORDER AUSTYN Performing Organization Address [facility] [place] [address] * BETA-2 GLYCOPROTEIN 1 ANTIBODY IGG/IGM/IGA PANEL (05/18/2024 3:49 PM LINE PREP COOK) Beta-2 Glycoprotein I Antibody IgG <2.0 <20.0 [...] aging. For additional information, please refer to http://education.[employer]/faq/NMH942 (This link is being provided for informational/ educational purposes only.) Test Performed at: [employer]/[address] BIENVENIDO LIANG MD,PHD Blood BLOOD SPECIMEN / Unknown 05/18/2024 3:49 PM LINE PREP COOK 05/19/2024 10:44 AM LINE PREP COOK Micheal Biggs MD LAB - SEROLOGY ORDER AUSTYN Performing Organization Address [facility] Phone Number [facility] [address] [place] [address] * C-REACTIVE PROTEIN (05/18/2024 3:49 PM LINE PREP COOK) Pathologist [facility] C-Reactive Protein <3.0 <8.0 mg/L [facility] Comment: Test Performed at: [employer] [facility] [address] [address] LATHA ARORA MD Blood BLOOD SPECIMEN / Unknown 05/18/2024 3:49 PM LINE PREP COOK 05/19/2024 10:44 AM LINE PREP COOK Micheal Biggs MD LAB - CHEMISTRY DINESH BHAKTA Performing Organization Address City/[facility] Co de Phone Number [employer] [phone] [place] [address] * (ABNORMAL) KATHY-PENG VIRUS ANTIBODY TO VCA IGG (05/18/2024 3:49 PM LINE PREP COOK) [facility] Kathy-Peng Virus Antibody To Viral Capsid Antigen IgG 88.70(H) U/mL [facility] Comment: U/mL Interpretation ---- <18.00 Negative 18.00-21.99 Equivocal >21.99 Positive Test Performed at: [facility] [address] LATHA ARORA MD Blood BLOOD SPECIMEN / Unknown 05/18/2024 3:49 PM LINE PREP COOK 05/19/2024 10:44 AM LINE PREP COOK Micheal Biggs MD LAB - CHEMISTRY DINESH BHAKTA Performing Organization Address [facility] de Phone Number [employer] [address] [place] [address] * COMPLEMENT TOTAL (05/18/2024 3:49 PM LINE PREP COOK) [facility] Complement Total CH50 52 31 - 60 U/mL [facility] Comment: Test Performed at: [place] [address] LATHA ARORA MD Blood BLOOD SPECIMEN / Unknown 05/18/2024 3:49 PM LINE PREP COOK 05/19/2024 5:36 AM LINE PREP COOK Micheal Biggs MD LAB - CHEMISTRY DINESH BHAKTA Performing Organization Address [facility] Co de Phone Number [employer] [phone] [place] [address] * VITAMIN D 25-HYDROXY (05/18/2024 3:49 PM LINE PREP COOK) [facility] Vitamin D, 25 Hydroxy 46 30 - 100 ng/mL [facility] Comment: Vitamin D Status 25-OH Vitamin D: Deficiency: <20 ng/mL Insufficiency: 20 - 29 ng/mL Optimal: > or = 30 ng/mL For 25-OH Vitamin D testing on patients on D2-supplementation and patients for whom quantitation of D2 and D3 fractions is required, the QuestAssureD(TM) 25-OH VIT D, (D2,D3), LC/MS/MS is recommended: order code 27334 (patients >2yrs). See Note 1 Note 1 For additional information, please refer to http://education.[facility]/faq/MZR105 (This link is being provided for informational/ educational purposes only.) Test Performed at: [employer] [address] [facility] [place] [address] LATHA ARORA MD Blood BLOOD SPECIMEN / Unknown 05/18/2024 3:49 PM LINE PREP COOK 05/19/2024 10:44 AM LINE PREP COOK Micheal Biggs MD LAB - CHEMISTRY DINESH BHAKTA Performing Organization Address [facility] de Phone Number [facility] [address] [place] [address] * ALDOLASE (05/18/2024 3:49 PM LINE PREP COOK) Aldolase 3.7 < OR = 8.1 U/L [facility] Comment: REPORT COMMENT: FASTING:NO Test Performed at: [employer] [address], [place] [address] LATHA ARORA MD Blood BLOOD SPECIMEN / Unknown 05/18/2024 3:49 PM LINE PREP COOK 05/19/2024 5:36 AM LINE PREP COOK Micheal Biggs MD LAB - CHEMISTRY DINESH BHAKTA Performing Organization Address [facility] [place] [address] * (ABNORMAL) CULTURE URINE (05/18/2024 3:49 PM LINE PREP COOK) Culture (A) [facility] Comment: CULTURE, URINE, ROUTINE Micro Number: [id number] Test Status: Final Specimen Source: Urine Specimen [...] Comments REPORT COMMENT: FASTING:NO Test Performed at: [employer] [address] [place] [address] LATHA ARORA MD 05/18/2024 3:49 PM LINE PREP COOK 05/19/2024 10:44 AM LINE PREP COOK Micheal Biggs MD LAB - MICROBIOLOGY O RDERABLES Performing Organization Address [facility] Co de Phone Number [facility] [phone] [place] [address] * ERYTHROCYTE SEDIMENTATION RATE (05/18/2024 3:49 PM LINE PREP COOK) Pathologist [facility] Erythrocyte Sedimentation Rate Westergren 6 < OR = 20 mm/h [facility] Comment: Test Performed at: [employer] [facility] [place] [address] LATHA ARORA MD Blood BLOOD SPECIMEN / Unknown 05/18/2024 3:49 PM LINE PREP COOK 05/19/2024 10:44 AM LINE PREP COOK Micheal Biggs MD LAB - HEMATOLOGY ORD ERABLES Performing Organization Address [facility] de Phone Number [facility] [phone] [place] [address] * CBC WITH DIFFERENTIAL (05/18/2024 3:49 PM LINE PREP COOK) Pathologist [facility] White Blood Cell Count 4.4 3.8 - [...] 0.7 % [facility] Comment: Test Performed at: [facility] [place] [address] LATHA ARORA MD Blasts [facility] nRBC [facility] Comments [facility] Comment: Test Performed at: [place] [address] LATHA ARORA MD Blood BLOOD SPECIMEN / Unknown 05/18/2024 3:49 PM LINE PREP COOK 05/19/2024 10:44 AM LINE PREP COOK Micheal Biggs MD LAB - HEMATOLOGY ORD ERABLES Performing Organization Address [facility] Co de Phone Number [facility] [address] [place] [address] * COMPLEMENT C4 (05/18/2024 3:49 PM LINE PREP COOK) Complement C4 34 15 - 57 mg/dL [facility] Comment: Test Performed at: [place] [address] LATHA ARORA MD Blood BLOOD SPECIMEN / Unknown 05/18/2024 3:49 PM LINE PREP COOK 05/19/2024 10:44 AM LINE PREP COOK Micheal Biggs MD LAB - SEROLOGY ORDER AUSTYN [facility] [address] [place] [address] * (ABNORMAL) COMPREHENSIVE METABOLIC PANEL (05/18/2024 3:49 PM LINE PREP COOK) Glucose 80 65 - 139 mg/dL [facility] [...] 29 U/L [facility] Comment: Test Performed at: [facility] [place] [id number] LATHA ARORA MD Blood BLOOD SPECIMEN / Unknown 05/18/2024 3:49 PM LINE PREP COOK 05/19/2024 10:44 AM LINE PREP COOK Micheal Biggs MD LAB - CHEMISTRY DINESH BHAKTA [facility] [address] [place] [address] * CK BLOOD (05/18/2024 3:49 PM LINE PREP COOK) Pathologist [facility] [place] CK 46 20 - 239 U/L [facility] Comment: Test Performed at: [employer] [id number] [facility] [employer] [place] [id number] LATHA ARORA MD Blood BLOOD SPECIMEN / Unknown 05/18/2024 3:49 PM LINE PREP COOK 05/19/2024 10:44 AM LINE PREP COOK Micheal Biggs MD LAB - CHEMISTRY DINESH BHAKTA Performing Organization Address [facility] Co de Phone Number [facility] [address] [place] [address] * (ABNORMAL) IMMUNOGLOBULINS IGG/IGM/IGA PANEL (05/18/2024 3:49 PM LINE PREP COOK) IgA <5(L) 47 - 310 mg/dL [facility] Comment: Verified by repeat analysis. IgG 1337 600 - 1640 mg/dL [facility] IgM 259 50 - 300 mg/dL [facility] Comment: Verified by repeat analysis. Test Performed at: [employer] [place] [id number] LATHA ARORA MD Blood BLOOD SPECIMEN / Unknown 05/18/2024 3:49 PM LINE PREP COOK 05/19/2024 10:44 AM LINE PREP COOK Micheal Biggs MD LAB - CHEMISTRY DINESH BHAKTA Performing Organization Address [facility] Co de Phone Number [facility] [phone] [place] [id number] * COMPLEMENT C3 (05/18/2024 3:49 PM LINE PREP COOK) Complement C3 127 83 - 193 mg/dL [facility] Comment: Test Performed at: [employer] [id number] [place] [id number] LATHA ARORA MD Blood BLOOD SPECIMEN / Unknown 05/18/2024 3:49 PM LINE PREP COOK 05/19/2024 10:44 AM LINE PREP COOK Micheal Biggs MD LAB - CHEMISTRY DINESH BHAKTA Performing Organization Address [facility] Co de Phone Number [facility] [address] [place] [address] from Last 3 Months Care Teams Price Accuracy Supervisor Relationship Specialty Start Date End Date Cuate Ramon MD [address] [place] [address] PCP - General 08/09/17 Ion De DO [address] [place] [address] Rheumatology 08/05/20 Radha Zavala MD [address] [address] Neurology 12/07/23
--- OUTSIDE RECORDS SUMMARY | 2024-07-19 00:44 | XMS_ITS | Encounter Summary ---
Author Organization [facility] Address [address] [place] [address] Care Team Providers Care Toll Testboard Worker Name Role Phone Cuate Ramon MD Primary Care Provider [phone] Twan Lopez MD Unavailable [phone] Alisa Lai PT Unavailable Unavailable Maria Teresa Padron Unavailable Unavailable Reason for Referral * MRI/CAT/PET Scan (Routine) - Closed Specialty Diagnoses / Procedures Referred By Contac t Referred To Contact Radiology Diagnoses Nausea and vomiting, unspecified vomiting type Abdominal pain Procedures CT Abdomen Pelvis W Contrast Mihai Miller NP [address] [place] [address] [address] [place] [address] Phone: tel: fax: [address] [address] Referral ID Status Reason Start Date Expiration Date Visits Re quested Visits Authorized [id number] Closed 06/12/2024 07/12/2025 1 1 Reason for Visit * MRI/CAT/PET Scan (Routine) - Canceled Specialty Diagnoses / Procedures Referred By Contac t Referred To Contact Radiology Diagnoses Upper abdominal pain Procedures CTA Abdomen Danya Marks NP [address] [facility] [address] [place] [address] Phone: tel: fax: [address] [address] Referral ID Status Reason Start Date Expiration Date V isits Requested Visits Authorized [id number] Canceled 06/15/2024 07/15/2025 1 1 Encounter Details Date Type Department Care Team (Latest Contact Info) Description 07/18/2024 1:40 PM CDT Hospital Encounter [facility] [address] [place] [id number] Upper abdominal pain; Nausea and vomiting, unspecified vomiting type; Abdominal pain Social History Tobacco Use Types Packs/Day Years Used Date Smoking Tobacco: Never Passive Smoke Exposure: Yes Smokeless Tobacco: Never Alcohol Use Standard Drinks/Week Comments Not Currently 0 (1 standard drink = 0.6 oz pur e alcohol) AUDIT-C Answer Date Recorded Q1: How often do you have a drink containing alcohol? Never 06/14/2024 Q2: How many drinks containi ng alcohol do you have on a typical day when you are drinking? Patient does not drink Q3: How often do you have si x or more drinks on one occasion? Never 06/14/2024 Personal Safety Answer Date Recorded Have you ever been in or are you currently in a harmful physical or emotional relationship or is someone making you feel afraid or unsafe? Denies 06/18/2024 Comments No Sex and Gender Information Value Date Recorded Sex Assigned at Not on file Legal Sex Female 6:05 AM OPERATING ROOM AIDE Gender Identity Female 04/05/2023 1:07 AM OPERATING ROOM AIDE Sexual Orientation Straight 04/05/2023 1: 07 AM OPERATING ROOM AIDE documented as of this encounter Plan of Treatment Not on file documented as of this encounter Goals Goal Patient Goal Type Associated Problems Recent Progress Patient-Stated? Author -Pain Behavioral Health Improving( 5:42 PM OPERATING ROOM AIDE) No Margoth Porras, PhD Note: Increase functioning in daily activities -Pain Behavioral Health No change(06/18 5:42 PM OPERATING ROOM AIDE) No Margoth Porras, PhD Note: Increase non-pharmacological strategies for coping with pain documented as of this encounter Procedures Procedure Name Priority Date/Time Associated Diagnosis Comments CT ABDOMEN PELVIS W CONTRAST Schedule PEACE, Read Routine (Patient lives out of area) 07/18/2024 3:17 PM CDT Nausea and vomiting, unspecified vomiting type Abdominal pain documented in this encounter Results * CT Abdomen Pelvis W Contrast (07/18/2024 3:17 PM CDT) Anatomical Region Laterality Modality Body N/A Computed Tomogra phy 07/18/2024 10:4 5 PM CDT Narrative 07/18/2024 10:52 PM CDT EXAM DESCRIPTION: CT ABDOMEN PELVIS W CONTRAST REASON FOR STUDY: Abdominal pain, acute, nonlocalized, Nausea, vomiting, and abdominal pain. No concerning findings on colonoscopy or HIDA scan. Nausea, vomiting, History of IBS, history of ovarian cyst removed xs 2 TECHNIQUE: CT scan of the abdomen and pelvis performed with intravenous and with oral contrast using helical scanning technique with dynamic intravenous contrast injection. Reconstructed coronal and sagittal MPR images reviewed. All images stored on PACS. Automated exposure control was used as a dose optimization technique for this examination. CONTRAST TYPE/DOSE: 75mL of IOVERSOL 350 MG IODINE/ML INTRAVENOUS SYRINGE injected COMPARISON: 03/07/2024, 11/15/2023 FINDINGS: LOWER CHEST: Mild scattered subsegmental atelectasis. No pleural effusion. Imaged portions of the heart and esophagus are within normal limits. LIVER: Normal size. No identified cystic or solid masses. The hepatic and portal veins are patent. Focal fatty infiltration adjacent the hepatic falciform ligament. GALLBLADDER: Normal. BILE DUCTS: No intrahepatic or extrahepatic ductal dilatation. SPLEEN: Normal size. Hypoattenuating lesion within the spleen measuring 10 mm is favored to reflect benign etiology such as a pseudocyst or lymphangioma. A splenule is present. PANCREAS: No identified cystic or solid masses. No significant calcifications. No adjacent inflammation or peripancreatic fluid collections. Pancreatic duct not dilated. ADRENALS: Normal. KIDNEYS/URINARY TRACT: No identified significant cystic or solid masses. No visualized stones. No hydronephrosis or hydroureter. Symmetric enhancement. Urinary bladder is unremarkable. GI: The stomach is normal. The small bowel and colon are normal in course and caliber with no evidence of obstruction or inflammation. The appendix is normal. PERITONEUM: Trace volume free pelvic fluid. No lymphadenopathy. No free air. RETROPERITONEUM: No mass or adenopathy. REPRODUCTIVE: The uterus is unremarkable. The left ovarian dominant follicle/cyst or corpus luteum cyst measures 26 mm. VASCULATURE: No abdominal aortic aneurysm. The abdominal aorta and its branches are patent. MUSCULOSKELETAL: No acute fractures or aggressive osseous lesions. IMPRESSION: 1. Left ovarian dominant follicle/cyst or corpus luteum cyst measures 26 mm. THIS IS AN ELECTRONICALLY VERIFIED FINAL REPORT 07/18/2024 10:52 PM - Electronically signed by Sienna Hare M.D. AT: AT Report ID: [id number] Reading Location: [id number] Procedure Note Sienna Hare MD - 07/18/2024 EXAM DESCRIPTION: CT ABDOMEN PELVIS W CONTRAST REASON FOR STUDY: Abdominal pain, acute, nonlocalized, Nausea, vomiting,and abdominal pain. No concerning findings on colonoscopy or HIDA scan. Nausea, vomiting, History of IBS, history of ovarian cyst removed xs 2 TECHNIQUE: CT scan of the abdomen and pelvis performed with intravenousand with oral contrast using helical scanning technique with dynamicintravenous contrast injection. Reconstructed coronal and sagittal MPR imagesreviewed. All images stored on PACS. Automated exposure control was used as a dose optimization technique for this examination. CONTRAST TYPE/DOSE: 75mL of IOVERSOL 350 MG IODINE/ML INTRAVENOUSSYRINGE injected COMPARISON: 03/07/2024, 11/15/2023 FINDINGS: LOWER CHEST: Mild scattered subsegmental atelectasis. No pleuraleffusion. Imaged portions of the heart and esophagus are within normal limits. LIVER: Normal size. No identified cystic or solid masses. The hepaticand portal veins are patent. Focal fatty infiltration adjacent the hepatic falciform ligament. GALLBLADDER: Normal. BILE DUCTS: No intrahepatic or extrahepatic ductal dilatation. SPLEEN: Normal size. Hypoattenuating lesion within the spleen [id number] mm is favored to reflect benign etiology such as a pseudocyst orlymphangioma. A splenule is present. PANCREAS: No identified cystic or solid masses. No significant calcifications. No adjacent inflammation or peripancreatic fluidcollections. Pancreatic duct not dilated. ADRENALS: Normal. KIDNEYS/URINARY TRACT: No identified significant cystic or solid masses.No visualized stones. No hydronephrosis or hydroureter. Symmetricenhancement. Urinary bladder is unremarkable. GI: The stomach is normal. The small bowel and colon are normal incourse and caliber with no evidence of obstruction or inflammation. The appendixis normal. PERITONEUM: Trace volume free pelvic fluid. No lymphadenopathy. Nofree air. RETROPERITONEUM: No mass or adenopathy. REPRODUCTIVE: The uterus is unremarkable. The left ovarian dominant follicle/cyst or corpus luteum cyst measures 26 mm. VASCULATURE: No abdominal aortic aneurysm. The abdominal aorta and its branches are patent. MUSCULOSKELETAL: No acute fractures or aggressive osseous lesions. IMPRESSION: 1. Left ovarian dominant follicle/cyst or corpus luteum cyst measures 26mm. THIS IS AN ELECTRONICALLY VERIFIED FINAL REPORT 07/18/2024 10:52 PM - Electronically signed by Sienna Hare M.D. AT: AT Report ID: [id number] Reading Location: [place] [address] Mihai Miller ELECTRONICS DESIGN ENGINEER IMG CT PROCEDURES F inal Result documented in this encounter Visit Diagnoses Diagnosis Upper abdominal pain Nausea and vomiting, unspecified vomiting type Abdominal pain Abdominal pain, unspecified site documented in this encounter Administered Medications Inactive Administered Medications - up to 3 most recent administrations Medication Order MAR Action Action Date Dose Rate Site diatrizoate meglumine-diatrizoate sodium (GASTROGRAFIN/-GASTROVIEW) 66-10 % solution 15 mL 15 mL, oral, Once in imaging, contrast, Starting on 07/18/24 at 1421, For 1 dose Contrast Given 07/18/2024 3:06 PM CDT 15 mL ioversoL (OPTIRAY 350) syringe 75 mL 75 mL, intravenous, Once in imaging, contrast, Starting on 07/18/24 at 1421, For 1 dose Contrast Given 07/18/2024 3:05 PM CDT 75 mL documented in this encounter Orders Medications Ordered That Ariel ht Not Have Been Administered Count Last Ordered Date First Ordered Date ioversoL (OPTIRAY 350) syringe 75 mL 1 040 12/2024 documented in this encounter Care Teams Toll Testboard Worker Relationship Specialty Start Date End Date Cuate Ramon MD [address] [place] [address] PCP - General 10/22/16 Twan Lopez MD [address] [place] [address] Anesthesiologist Pediatric Anesthesia 10/20/17 Alisa Lai, PT Physical Therapist Physical Therapy 10/20/17 Maria Teresa Padron Physical Therapist Physical Therapy 11/24/17 documented as of this encounter
--- OUTSIDE RECORDS SUMMARY | 2024-07-19 00:44 | XMS_ITS | Encounter Summary ---
Author Organization [facility] Address [address] [facility] [address] [place] [address] Phone Care Team Providers Care Vitreo Retinal Surgeon Name Role Phone Cuate Ramon MD Primary Care Provider Twan Lopez MD Unavailable [phone] Alisa Lai PT Unavailable Unavailable Maria Teresa Padron Unavailable Unavailable Encounter Details Date Type Department Care Team (Late st Contact Info) Description 07/18/2024 Orders Only [facility] Pediatric Neurology [address] [facility] [address] [place] [address] Shani Michelle, YANA [address] [facility] [phone] [place] [address] Social History Tobacco Use Types Packs/Day Years [...] on file Legal Sex Female 6:05 AM PROGRAM SCHEDULE CLERK Gender Identity Female 04/05/2023 1:07 AM PROGRAM SCHEDULE CLERK Sexual Orientation Straight 04/05/2023 1: 07 AM PROGRAM SCHEDULE CLERK documented as of this encounter Ordered Prescriptions Prescription Sig Dispense Quantity Refills Last Filled Start Date End Date cefdinir (OMNICEF) 300 mg capsule Take 1 capsule (300 mg total) by mouth 2 (two) times a day for 10 days 20 capsule 07/18/2024 documented in this encounter Plan of Treatment Not on file documented as of this encounter Goals Goal Patient Goal Type Associated Problems Recent Progress Patient-Stated? Author -Pain Behavioral Health Improving( 5:42 PM PROGRAM SCHEDULE CLERK) No Margoth Porras, PhD Note: Increase functioning in daily activities -Pain Behavioral Health No change(06/18 5:42 PM PROGRAM SCHEDULE CLERK) No Margoth Porras, PhD Note: Increase non-pharmacological strategies for coping with pain documented as of this encounter Visit Diagnoses Not on filedocumented in this encounter Discontinued Medications Medication Sig Discontinue Reason Start Date End Da te famotidine (PEPCID) 20 mg tablet Take 1 tablet (20 mg total) by mouth 2 (two) times a day as needed for indigestion or heartburn Patient Reported 05/27/2023 07/18/2024 linaCLOtide (LINZESS) 145 mcg capsule Take 1 capsule (145 mcg total) by mouth daily Patient Reported 05/09/2024 07/18/2024 ondansetron (ZOFRAN) 8 mg tablet Take 1 tablet (8 mg total) by mouth 4 (four) times a day as needed for nausea or vomiting Patient Reported 05/09/2024 07/18/2024 famotidine (PEPCID) 20 mg tablet Take 1 tablet (20 mg total) by mouth 2 (two) times a day as needed for indigestion or heartburn Patient Reported 05/27/2023 07/18/2024 promethazine (PHENERGAN) 25 mg tablet Take 1 tablet (25 mg total) by mouth every 6 (six) hours as needed for nausea or vomiting Patient Reported 04/24/2024 07/18/2024 rimegepant (Nurtec ODT) tablet,disintegrating Take 1 tablet (75 mg total) by mouth daily as needed (migraine) Patient Reported 01/10/2024 07/18/2024 azelastine (ASTELIN) 137 mcg (0.1 %) nasal sprayIndications:Brenda fam Allergic Rhinitis Administer 1 spray into each nostril 2 (two) times a day Use in each nostril as directed Patient Reported 07/12/2023 07/18/2024 cefdinir (OMNICEF) 300 mg capsule Take 1 capsule (300 mg total) by mouth daily Patient Reported 02/15/2024 07/18/2024 fluticasone propionate (FLONASE) 50 mcg/actuation nasal spray Administer 1 spray into each nostril 2 (two) times a day as needed for rhinitis (nasal congestion) Patient Reported 08/12/2023 07/18/2024 [place] Saline gel Patient Reported 10/25/2023 07/18/2024 documented as of this encounter Care Teams Vitreo Retinal Surgeon Relationship Specialty Start Date End Date Cuate Ramon MD [address] [facility] [place] [employer] [address] PCP - General 10/22/16 Twan Lopez MD [address] [place] [address] Anesthesiologist Pediatric Anesthesia 10/20/17 Alisa Lai, PT Physical Therapist Physical Therapy 10/20/17 Maria Teresa Padron Physical Therapist Physical Therapy 11/24/17 documented as of this encounter
--- OUTSIDE RECORDS SUMMARY | 2024-07-19 00:44 | XMS_ITS | Clinical Summary ---
Author Organization [facility] Address [address] [place] [address] Phone Care Team Providers Care Dye Boarding Machine Operator Name Role Phone Cuate Ramon MD Primary Care Provider [phone] Allergies Active Allergy Reactions Criticality Noted Date [...] VACCINE (#1) 2023 04/12/2018 Insurance Care Teams Dye Boarding Machine Operator Relationship Specialty Start Date End Date Cuate Ramon MD [address] [place] [address] PCP - General Pediatrics 08/03/18
--- OUTSIDE RECORDS SUMMARY | 2024-07-19 00:44 | XMS_ITS | CONTINUITY OF CARE DOCUMENT ---
Author Name stella douglas Address Unknown Organization [facility] Address [address] [place] [address] [address] [place] [address] Phone [phone] Care Team Providers Care Civil Engineer In Training Name Role Phone Romulo HARO, Freida Unavailable BOOM NELSON MD Unavailable BOOM NELSON MD Unavailable PROBLEMS Condition Status Date Provider Notes Cardiology examination active Freida saab MD Syncope active Freida Sebastian MD Delta danlos syndrome active Freida saab MD Chest discomfort active Freida Sebastian MD Mast cell activation syndrome active Danay Sebastian MD Shortness of breath active Freida Cabral Palpitations active Freida Sebastian MD ENCOUNTERS Date Type Provider Location Encounter Diag nosis - In-person encounter Office Visit Freida Sebastian MD [facility] Delta danlos syndromeChest discomfortMast cell activation syndromeShortness of breathPalpitations - In-person encounter Office Visit Freida Sebastian MD [facility] Office Cardiology examinationSyncope VITAL SIGNS Date Observation Value Provider Body Mass Index (Ratio) 25.15 kg/m2 Emily Sebastian MD blood pressure, diastolic 85 mm[Hg] Liz Biggs blood pressure, systolic 110 mm[Hg] Nell ventura Biggs oxygen saturation, oximetry 99 % Laila Biggs respiratory rate E&M 12 /min Laila Colfax pulse rate 84 /min Laila [place] weight E&M 142 [lb_av] Laila Biggs height E&M 63 [in_i] Laila Biggs blood pressure, cuff size regular eileen Colfax Body Mass Index (Ratio) 25.68 kg/m2 Emily Sebastian MD blood pressure, diastolic 79 mm[Hg] Li nkLog blood pressure, systolic 107 mm[Hg] Shireen kLog blood pressure, diastolic 79 mm[Hg] Deja Rdz blood pressure, systolic 107 mm[Hg] Andrei Rdz pulse rate 72 /min Azalea cabral oxygen saturation, oximetry 99 % Azalea Rdz height E&M 63 [in_i] Azalea cabral weight E&M 145 [lb_av] Azalea cabral respiratory rate E&M 14 /min Mel Rdz blood pressure, cuff size large Deja Rdz ALLERGIES No Known Drug Allergies HISTORY OF MEDICATION USE Medication Status Instructions Dates Provider Indications Com ments Symbicort 80-4.5 mcg/actuation HFA aerosol inhaler active Freida Sebastian MD NALTREXONE 1MG TABLET #[id number] active TAKE ONE TABLET BY MOUTH DAILY AND MAY INCREASE TO 2 TABLETS TWICE A DAY TOLERATED Freida Sebastian MD hydroxychloroquine 200 mg tablet active Freida Sebastian MD Mag-G 27 mg magnesium (500 mg) tablet active Freida Sebastian MD propranolol 10 mg tablet active TAKE 1 TABLET BY MOUTH Three times daily Freida Sebastian MD sertraline 25 mg tablet active Freida Sebastian MD midodrine 5 mg tablet active Ginette Sebastian MD Qvar RediHaler 80 mcg/actuation HFA aerosol breath activated completed - Freida Sebastian MD pantoprazole 20 mg tablet,delayed release (DR/EC) completed - Freida Sebastian MD albuterol sulfate 90 mcg/actuation HFA aerosol inhaler active Azalea Rdz topiramate 50 mg tablet active Azalea Rdz ondansetron 4 mg tablet,disintegrating active Azalea Rdz montelukast 10 mg tablet completed - Freida Sebastian MD ketorolac 10 mg tablet active Azalea Rdz sertraline 100 mg tablet completed - Freida Sebastian MD rizatriptan 10 mg tablet active Azalea Rdz methocarbamol 500 mg tablet completed - Freida Sebastian MD SOCIAL HISTORY Date Observation Value Provider social history reviewed E&M revi ewed - no changes required Freida Sebastian MD INSURANCE PROVIDERS Payer name Policy type / Coverage type [place] red green party ID [facility] Other [id number] ADVANCE DIRECTIVES Name Date DISCUSSED - NO DECISION MADE TREATMENT PLAN Date Name Performer [id number],C,P t has been having random syncopal episodes [...] to nausea. EKG in sinus rhythm. P zinats tried to find POTS specialist but earliest appt they could get is 12/2023. Continued hydration reccommended. S he is currently on a 30 day telemonitor from [facility] and we will obtain results. W e will arrange for a head tilt test and see whether we can get appt with EP at Yolanda Sebastian MD Cardiology:Suspect t his is a product of the anxiety she feels from palpitations, will trial increasing her propranolol to 20mg qPM and 10mg qAM Freida Sebastian MD Cardiology:increase propranolol to 20mg in the PM and add 10mg qAM w ill treat the underlying palpitations and see if this improves her anxiety, will also have her wear a monuitor to hand picker any palpitations she may have Freida Sebastian MD Cardiology:Needs ech ocardiogram to assess LV function, LVOT, aortic root dimensions Freida Sebastian MD Cardiology:Pt has be en [...] a 30 day telemonitor from [facility] and we will obtain results. W e will arrange for a head tilt test and see whether we can get appt with EP at Yolanda Sebastian MD Date Name Monitor - Telemetry (Mobile Cardiac) Complete Echo HISTORY OF PROCEDURES Procedure Date Procedure Name Provider Procedure Notes S tatus Complex e/m visit add on Freida Sebastian MD completed EKG Freida Sebastian MD complet ed
--- OUTSIDE RECORDS SUMMARY | 2024-07-19 00:44 | XMS_ITS | Encounter Summary ---
Author Organization [facility] Address [address] [place] [address] Phone Care Team Providers Care Interpreter For The Deaf Name Role Phone Cuate Ramon MD Primary Care Provider Twan Lopez MD Unavailable [phone] Alisa Lai PT Unavailable Unavailable Maria Teresa Padron Unavailable Unavailable Encounter Details Date Type Department Care Team (Late st Contact Info) Description 07/19/2024 Telephone [facility] Pediatric Neurology [address] [place] [id number] Kristina Arroyo MD [address] [place] [address] Social History Tobacco Use Types Packs/Day Years [...] on file Legal Sex Female 6:05 AM UNDERWEAR FINISHER Gender Identity Female 04/05/2023 1:07 AM UNDERWEAR FINISHER Sexual Orientation Straight 04/05/2023 1: 07 AM UNDERWEAR FINISHER documented as of this encounter Miscellaneous Notes * Telephone Encounter - Kristina Arroyo MD - 07/19/2024 12:21 AM CDT Page received to call back patient. Attempted call x2 with no answer. documented in this encounter Plan of Treatment Not on file documented as of this encounter Goals Goal Patient Goal Type Associated Problems Recent Progress Patient-Stated? Author -Pain Behavioral Health Improving( 5:42 PM UNDERWEAR FINISHER) No Margoth Porras, PhD Note: Increase functioning in daily activities -Pain Behavioral Health No change(06/18 5:42 PM UNDERWEAR FINISHER) No Margoth Porras, PhD Note: Increase non-pharmacological strategies for coping with pain documented as of this encounter Visit Diagnoses Not on filedocumented in this encounter Care Teams Interpreter For The Deaf Relationship Specialty Start Date End Date Cuate Ramon MD [address] [place] [address] PCP - General 10/22/16 Twan Lopez MD [address] [place] [address] Anesthesiologist Pediatric Anesthesia 10/20/17 Alisa Lai, PT Physical Therapist Physical Therapy 10/20/17 Maria Teresa Padron Physical Therapist Physical Therapy 11/24/17 documented as of this encounter
--- NOTE | 2024-07-19 00:45 | ED_ITS ---
HPI - Headache General Chief Complaint: Headache Stated Complaint: migraine Time Seen by Provider: 07/19/24 00:45 Source: patient Mode of arrival: ambulatory Limitations: no limitations History of Present Illness HPI Narrative: 18-year-old female with a history of anxiety, pots, mitral valve prolapse, ovarian cyst, endometriosis with pelvic pain status post hysteroscopy /D&C and destruction of endometriosis, asthma, iron deficiency anemia, cyclic vomiting with marijuana use presents to the ED with -- headache for the past few days. her headache is located in the occipital region and moved forward to the frontal region. She has aching headache. No fever or chills. No neuro deficit. the patient ran out of rizatriptan. headache has gotten progressively worse which prompted her to come to the ED. -- nausea with 1 episode of vomiting -- photophobia MD elicited complaint: headache Pertinent past history: migraines Onset (ago): day(s) Onset description: gradually Location: occipital Severity: moderate Quality & Timing: aching and different than previous headaches Exacerbating factors: none Relieving factors: nothing Context: occurred at rest Associated symptoms: nausea, vomiting and photophobia Treatments prior to arrival: none Related Data Home Medications ?Medication ?Instructions ?Recorded ?Confirmed ?Last Taken ?Type gabapentin 300 mg capsule 300 mg PO TID PRN Pain 05/15/19 01/20/24 04/24/21 History methocarbamol 500 mg tablet 500 mg PO DAILY 05/15/19 01/20/24 04/24/21 History montelukast 10 mg tablet 5 mg PO DAILY 05/15/19 01/20/24 04/23/21 History pantoprazole 20 mg tablet,delayed 20 mg PO DAILY 05/15/19 01/20/24 04/23/21 History release rizatriptan 10 mg tablet 10 mg PO DIRECTED PRN Migraine 05/15/19 01/20/24 1 Day Ago History Headache ~10/30/19 topiramate 25 mg tablet 50 mg PO BID 05/15/19 01/20/24 04/24/21 History acetaminophen 500 mg tablet 1,000 mg PO TID PRN Pain 12/12/19 01/20/24 Unknown History (Tylenol Extra Strength) albuterol sulfate 90 mcg/actuation 1 - 2 puff inhalation Q4-5H PRN 12/12/19 01/20/24 Unknown History aerosol inhaler (ProAir HFA) Wheezing cholecalciferol (vitamin D3) 25 25 mcg PO DAILY 12/12/19 01/20/24 04/20/21 History mcg (1,000 unit) capsule (Vitamin D3) hydrocodone 5 mg-acetaminophen 325 1 tablet PO Q4H PRN Pain 04/21/21 01/20/24 Unknown History mg tablet midodrine 5 mg tablet 5 mg TID 01/20/24 01/20/24 Unknown History propranolol 10 mg tablet 5 mg BID 01/20/24 01/20/24 Unknown History Allergies Allergy/AdvReac Type Severity Reaction Status Date / Time codeine AdvReac Mild Insomnia Verified 07/19/24 00:50 prochlorperazine AdvReac Mild dystonic Verified 07/19/24 00:50 reaction Review of Systems Review of Systems: All systems reviewed & are unremarkable except as noted in HPI and below PMFSH Past Medical History Medical History PONV (postoperative nausea and vomiting) Ovarian cyst GERD (gastroesophageal reflux disease) Asthma Connective 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 POTS (postural orthostatic tachycardia syndrome) Surgical History Surgical History No pertinent past surgical history Social History Social History Smoking status: Never smoker Alcohol intake: never Substance use: never Substance use type: does not use Living arrangements: with family Spiritual care concerns: No Exam Narrative: blood pressure is 117/79. Temperature of 36?. Pulse of 89. Const: General: no acute distress Orientation/consciousness: patient oriented x3 Limitations: no limitations HENMT: Head: normal to inspection Ears: external ears normal Face/Nose/Sinus: Normal external nose present Face and sinus: normal facial exam Mouth: Yes Normal oral and palatal mucosa present Throat: posterior oropharynx normal Eyes: Conjunctivae: conjunctivae normal Pupils: Equal, round and reactive pupils present EOM: EOMs intact bilaterally Direct Ophthalmoscopy: photophobia Neck: Neck: normal visual inspection, no lymphadenopathy and no meningeal sign s Chest: Chest palpation & inspection: normal inspection of the chest Resp: Effort & Inspection: normal respiratory effort Auscultation: clear to auscultation bilaterally Cardio: Rate: regular rate Rhythm: regular rhythm GI: GI Palp: Yes Soft to palpation Auscultation: normal bowel sounds Other: No tenderness/rigidity / rebound. : General: Yes no CVA tenderness Back/Spine/Pelvis: Back: no CVA tenderness Skin: General skin exam: normal color Rashes: no rashes Wounds: no wounds Neuro: General: patient oriented x3, moves all extremities, no meningeal signs, no focal motor deficits and CN's II-XI intact bilaterally Cranial nerves: Yes Nystagmus not present Speech: normal speech Gait exam (Neuro): Normal gait present Extrem: General: normal to inspection and no clubbing, cyanosis or edema Psych: Mental Status: mental status grossly normal Affect: normal affect Attitude: cooperative Course Course Emergency Course: Headache-- migraine Headache has improved with Toradol 30, Zofran 4 and Benadryl 25. Will discharge patient home. Vital Signs Vital signs: Vital Signs Temperature 36.2 C L 07/19/24 00:41 Pulse Rate 89 07/19/24 00:41 Respiratory Rate 16 07/19/24 00:41 Blood Pressure 117/79 07/19/24 00:41 Pulse Oximetry 100 07/19/24 00:41 Oxygen Delivery Room Air 07/19/24 00:41 Temperature 36.2 C L 07/19/24 00:41 Pulse Rate 89 07/19/24 00:41 Respiratory Rate 16 07/19/24 00:41 Blood Pressure 117/79 07/19/24 00:41 Pulse Oximetry 100 07/19/24 00:41 Oxygen Delivery Room Air 07/19/24 00:41 MDM - Headache MDM Narrative Medical decision making narrative: Migraine headache Differential Diagnosis Differential diagnosis: Likely subarachnoid hemorrhage and sinusitis Medical Records Attestation: I reviewed the patient's medical records. Discharge Plan Discharge Clinical Impression: Headache, migraine Qualifiers: Migraine type: unspecified Status migrainosus presence: without status migrain osus Intractability: not intractable Qualified Code(s): G43.909 - Migraine, unspecified, not intractable, without status migrainosus Patient Disposition: Home Condition: Stable Instructions: Antibiotic Form, Migraine Headache (ED) Patient Language: [place] Prescriptions: No Action acetaminophen [Tylenol Extra Strength] 500 mg Tablet 1,000 mg PO TID PRN (Reason: Pain) albuterol sulfate [ProAir HFA] 90 mcg/actuation HFA aerosol inhaler 1 - 2 puff INHALATION Q4-5H PRN (Reason: Wheezing) cholecalciferol (vitamin D3) [Vitamin D3] 25 mcg (1,000 unit) Capsule 25 mcg PO DAILY prednisone 20 mg tablet 20 mg PO DAILY 5 Days Qty: 5 0RF midodrine 5 mg tablet 5 mg TID propranolol 10 mg tablet 5 mg BID ondansetron 4 mg tablet,disintegrating 4 mg PO Q6H PRN (Reason: nausea and vomiting) Qty: 20 0RF oseltamivir [Tamiflu] 75 mg capsule 75 mg PO BID 5 Days Qty: 10 0RF ondansetron 4 mg tablet,disintegrating 4 mg PO Q8H PRN (Reason: nausea and vomiting) Qty: 20 0RF methocarbamol 500 mg tablet 500 mg PO DAILY topiramate 25 mg tablet 50 mg PO BID pantoprazole 20 mg tablet,delayed release (DR/EC) 20 mg PO DAILY gabapentin 300 mg capsule 300 mg PO TID PRN (Reason: Pain) montelukast 10 mg tablet 5 mg PO DAILY rizatriptan 10 mg tablet 10 mg PO DIRECTED PRN (Reason: Migraine Headache) hydrocodone-acetaminophen 5-325 mg tablet 1 tablet PO Q4H PRN (Reason: Pain) hydrocodone-acetaminophen 5-325 mg tablet 1 tablet PO Q4H PRN (Reason: pain) Qty: 30 0RF Follow-up/Referrals: Cuate Ramon MD [Primary Care Provider] - Time of Disposition: 01:56
--- OUTSIDE RECORDS SUMMARY | 2024-07-19 00:45 | XMS_ITS | Clinical Summary ---
Author Organization [facility] Address [address] [place] [address] Care Team Providers Care Fast Food Shift Supervisor Name Role Phone Cuate Ramon MD Primary Care Provider [phone] Twan Lopez MD Unavailable [phone] Alisa Lai PT Unavailable Unavailable Maria Teresa Padron Unavailable Unavailable Allergies Active Allergy Reactions Criticality Noted Date Comments Codeine Dystonia High 05/05/2013 Prochlorperazine Dystonia High 05/16/2018 Medications hydroxychloroq uine (PLAQUENIL) 200 mg tablet Take 1.5 tablets (300 mg total) by mouth daily 02/02/20 23 Active montelukast (SINGULAIR) 10 mg tablet Take 1 tablet (10 mg total) by mouth nightly Active senna-docusate (PERICOLACE) 8.6-50 mg Take two tabs 2-3 nights weekly to help with larger and more complete morning bowel movements. 60 tablet 2 05/27/19 24 Active Additional Information Patient not taking.Informant: Self, Reported on 06/18/2024 albuterol 2.5 mg /3 mL (0.083 %) nebulizer solution Take 3 mL (2.5 mg total) by nebulization every 4 (four) hours as needed for wheezing (or as directed.) 180 mL 05/28/19 24 Active nebulizer accessories kit Replacement nebulizer tube and mask 1 kit 05/28/19 24 Active propranoloL (INDERAL) 10 mg tablet 0.5 tablets (5 mg total) 12/13/19 24 Active midodrine (PROAMATINE) 5 mg tablet Take 1 tablet (5 mg total) by mouth 3 (three) times a day 12/13/19 24 Active topiramate (TOPAMAX) 50 mg tablet Take 1 tablet (50 mg total) by mouth 2 (two) times a day 60 tablet 1 01/10/20 24 Active ketorolac (TORADOL) 10 mg tablet Take 1 tablet (10 mg total) by mouth every 6 (six) hours as needed for pain (Take 10 mg with Zofran for headache relief. Do not take more than 3 times a week.) 10 tablet 01/10/20 24 Active magnesium gluconate (MAGONATE) 500 mg (27 mg elemental) tablet Take 1 tablet (500 mg total) by mouth daily 30 tablet 11 01/10/20 24 Active albuterol HFA (PROVENTIL HFA,VENTOLIN HFA,PROAIR HFA) 90 mcg/actuation inhaler Inhale 2-4 puffs every 4 (four) hours as needed for wheezing 3 each 1 02/15/20 24 Active budesonide-for moteroL (SYMBICORT) 80-4.5 mcg/actuation inhaler Use 2 puffs once daily and 1-2 puffs every 4 hours as needed, max 12 puffs per day. Rinse mouth with water after use. Do not swallow. 30.6 g 2 02/15/20 24 Active rizatriptan (MAXALT) 10 mg tablet Take 1 tablet (10 mg total) by mouth once as needed for migraine for up to 9 doses 9 tablet 02/23/20 24 Active sertraline (ZOLOFT) 100 mg tablet Take 1 tablet (100 mg total) by mouth daily 90 tablet 1 04/23/19 25 Active sertraline (ZOLOFT) 25 mg tablet TAKE 1 TABLET DAILY 90 tablet 1 06/15/19 25 Active Additional Information Patient taking differently: 100 mgoral Daily, Reported on 06/18/2024 diphenhydrAMIN E 25 mg capsule Take 1 tablet/capsule (25 mg total) by mouth every 6 (six) hours as needed for other (Migraines) Active naltrexone (LOW DOSE) 1 mg capsule Take 1 capsule (1 mg total) by mouth daily 05/30/[address] (PROTONIX) 40 mg EC tablet TAKE 1 TABLET DAILY 90 tablet 3 07/03/19 25 Active cefdinir (OMNICEF) 300 mg capsule Take 1 capsule (300 mg total) by mouth 2 (two) times a day for 10 days 20 capsule 07/19/19 25 2024 Active famotidine (PEPCID) 20 mg tablet Take 1 tablet (20 mg total) by mouth 2 (two) times a day as needed for indigestion or heartburn 60 tablet 1 05/27/19 24 2024 Discontinued(P atient Reported) azelastine (ASTELIN) 137 mcg (0.1 %) nasal sprayIndicatio ns:Perennial Allergic Rhinitis Administer 1 spray into each nostril 2 (two) times a day Use in each nostril as directed 30 mL 11 07/12/19 24 2024 Discontinued(P atient Reported) fluticasone propionate (FLONASE) 50 mcg/actuation nasal spray Administer 1 spray into each nostril 2 (two) times a day as needed for rhinitis (nasal congestion) 1 each 08/12/19 24 2024 Discontinued(P atient Reported) pantoprazole DR (PROTONIX) 40 mg EC tablet TAKE 1 TABLET DAILY 90 tablet 3 09/07/19 24 2024 Discontinued [place] Saline gel 10/25/19 24 2024 Discontinued(P atient Reported) rimegepant (Nurtec ODT) tablet,disinte grating Take 1 tablet (75 mg total) by mouth daily as needed (migraine) 36 tablet 6 01/10/20 24 2024 Discontinued(P atient Reported) cefdinir (OMNICEF) 300 mg capsule Take 1 capsule (300 mg total) by mouth daily 90 capsule 3 02/15/20 24 2024 Discontinued(P atient Reported) promethazine (PHENERGAN) 25 mg tablet Take 1 tablet (25 mg total) by mouth every 6 (six) hours as needed for nausea or vomiting 30 tablet 1 04/24/19 25 2024 Discontinued(P atient Reported) ondansetron (ZOFRAN) 8 mg tablet Take 1 tablet (8 mg total) by mouth 4 (four) times a day as needed for nausea or vomiting 30 tablet 2 05/09/19 25 2024 Discontinued(P atient Reported) linaCLOtide (LINZESS) 145 mcg capsule Take 1 capsule (145 mcg total) by mouth daily 90 capsule 3 05/09/19 25 2024 Discontinued(P atient Reported) Active Problems Problem Noted Date Diagnosed Date Chronic nausea 06/12/2024 Nausea and vomiting 05/09/2024 Gastroesophageal reflux disease without esophagi tis 05/09/2024 Mild persistent asthma without complication 0 09/2023 Change in bowel habits 07/29/2023 Acute [...] 21 Assessment & Plan (05/08/2021 2:38 PM STONE CARRIAGE OPERATOR): - Continue home Montelukast 10mg QHS albuterol 4 puff q4h PRN Assessment & Plan (05/07/2021 4:58 PM STONE CARRIAGE OPERATOR): - Continue home Montelukast 10mg QHS albuterol 4 puff q4h PRN Concussion without loss of consciousness 01/27/2 020 Vocal cord dysfunction 01/22/2019 Non-allergic rhinitis 01/15/2019 Tremor 12/28/2018 High 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 She was started on a scheduled migraine cocktail which did not provide much relief. However, after a couple doses of depakote, she had significant improvement in her headache and was able to ambulate. Given the shortage of depakote, she will receive one additional dose of depakote prior to it being discharged. Although her headache has improved, Usama did not feel comfortable with the currently intensity of her headache, rated 2/10. S/p 4 doses of depakote. After discussing risks and benefits, the decision was made to proceed with DHE, which will be given per protocol. -Topiramate 50mg BID -DHE per protocol Assessment & Plan (06/22/2018 1:29 AM CDT): 12 y/o female presents with status migrainosus since last . Pt seen at [facility] ED on Tuesday and was discharged [...] 05/24/2018 Assessment & Plan (05/08/2021 2:38 PM STONE CARRIAGE OPERATOR): - Continue home sertaline 75 mg Assessment & Plan (05/07/2021 4:56 PM STONE CARRIAGE OPERATOR): - Continue home sertaline 75 mg Assessment & Plan (06/23/2018 3:16 PM CDT): Stable. Resumed home fluoxetine. She was seen by her psychologist, Margoth Porras, who offered psychoeducation to Usama and mom in regards to anxiety and [...] 05/05/2018 Assessment & Plan (05/05/2018 5:09 PM STONE CARRIAGE OPERATOR): Benztropine was given. Dilated pupils which do [...] Other chronic pain 12/29/2017 Overview (06/13/2020): Medications Usama has tried includeGabapentin 300 mg at night- [...] 08/11/2017 Assessment & Plan (05/08/2021 2:39 PM STONE CARRIAGE OPERATOR): Usama Encinas is a 15 y.o. female female [...] precautions Assessment & Plan (05/07/2021 4:59 PM STONE CARRIAGE OPERATOR): Usama Encinas is a 15 y.o. 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 Patient may continue with current Rx. [...] 18 Assessment & Plan (05/08/2021 2:38 PM STONE CARRIAGE OPERATOR): - Continue home uloxetine 30mg every day Methocarbamol 500mg q8h PRN Assessment & Plan (05/07/2021 4:57 PM STONE CARRIAGE OPERATOR): - Continue home uloxetine 30mg every day Methocarbamol 500mg q8h PRN Assessment & Plan (06/22/2018 1:34 AM CDT): - continue home meds/supplements -gabapentin, plaquenil, vitamin D Viral infection 03/15/2017 Dizziness 02/15/2017 Vertigo 02/15/2017 Mononucleosis syndrome 02/15/2017 Fatigue 10/18/2016 Otitis externa 09/30/2016 Migraine headache 06/18/2015 Otitis media 01/01/2015 Constipation 11/28/2014 IgA deficiency, 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 No Breezy-Teresa Ring or sunflower cataract on ocular examination today. Vision is stable, 20/20 right eye (OD), left eye (OS). No change in prescription on dilated exam - continue with current glasses real time analyst. OCT revealed some thinning of inferior (right [...] Date Abnormal PFT 10/18/2018 05/22/2019 IgA deficiency ([facility]) 10/18/2018 Disorder of connective tissue ([facility]) 08/11/2017 12/22/2020 Moderate persistent asthma w ithout complication 01/01/2015 05/22/2019 Chronic rhinitis 01/01/2015 05/22/2019 Encounters Date Type Department Care Team Description 07/20/19 Telephone [facility] Pediatric Neurology [address] [place] [address] Kristina Arroyo MD 07/19/19 1:40 PM CDT Hospital Encounter [facility] [address] [place] [address] Upper abdominal pain; Nausea and vomiting, unspecified vomiting type; Abdominal pain 07/19/19 Orders Only [facility] Pediatric Neurology [address] [address] [place] [address] Shani Michelle NP 07/18/[address] [address] Kulwinder Carlin 07/01/19 Results Follow-Up [facility] Gastroenterology at [address] [place] [address] Melony Radford MD 06/19/19 1:30 PM CDT - 06/19/19 2:00 PM CDT Surgery [address] [address] Roney Cheng, ESOPHAGOGASTRODUODENOSCOPY BIOPSY 06/19/19 1:00 PM CDT Anesthesia Event [address] [address] Liban Khalil MD Kory, Christopher James, MD 06/19/19 12:01 PM CDT - 06/19/19 2:10 PM CDT Hospital Encounter [facility] Digestive [address] [address] Roney Cheng DO Chronic nausea; Abdominal pain Discharge Disposition: Discharge to home or self care 03/04/20 25 Telephone [facility] Gastroenterology at [address] [place] [address] Maria Teresa Barth Schedule EGD 05/28/19 25 Telephone [facility] Gastroenterology at [address] [place] [phone] Treva Kim LPN 05/09/19 25 9:30 AM STONE CARRIAGE OPERATOR Office Visit [facility] Medical [facility] Gastroenterology at [address], [place] [phone] Mihai Miller NP Irritable bowel syndrome with both constipation and diarrhea (Primary Dx); Nausea and vomiting, unspecified vomiting type; Gastroesophageal reflux disease without esophagitis 05/09/19 25 Telephone [facility] Gastroenterology at [address] [place] [phone] Mihai Miller NP from Last 3 Months Immunizations Immunization Administration [...] TYMPANOSTOMY TUBE PLACEMENT Bilateral OVARIAN CYST REMOVAL ESOPHAGOGASTRODUODENOSCOPY COLONOSCOPY UPPER GASTROINTESTINAL ENDOSCOPY 06/18/2024 Medical History Medical History Date Comments Migraine Chronic pain disorder Asthma Mast cell activation syndrome Seizures (HCC) Delta-Danlos syndrome IBS (irritable bowel syndrome) GERD (gastroesophageal reflux disease) Cannabis use, uncomplicated IgA deficiency (HCC) Family History Medical History Relation Name [...] on file Legal Sex Female 6:05 AM STONE CARRIAGE OPERATOR Gender Identity Female 04/05/2023 1:07 AM STONE CARRIAGE OPERATOR Sexual Orientation Straight 04/05/2023 1: 07 AM STONE CARRIAGE OPERATOR Obstetrics History Last Filed Vital Signs Vital Sign Reading Time Taken Comments Blood Pressure 114/68 06/18/2024 1:50 PM CDT Pulse 72 06/18/2024 1:50 PM CDT Temperature 36.6 C (97.8 F) 06/18/2024 1:50 PM CDT Respiratory Rate 18 06/18/2024 1:50 PM CDT Oxygen Saturation 98% 06/18/2024 1:50 PM CDT Inhaled Oxygen Concentration - - Weight 65.8 kg (145 lb) 06/18/2024 12:30 PM CDT Height 160 cm (5' 3 ) 06/18/2024 12:30 PM CDT Body Mass Index 25.69 06/18/2024 12:30 PM CDT Plan of Treatment Health Maintenance Due [...] Author -Pain Behavioral Health Improving( 5:42 PM STONE CARRIAGE OPERATOR) No Margoth Porras, PhD Note: Increase functioning in daily activities -Pain Behavioral Health No change(06/18 5:42 PM STONE CARRIAGE OPERATOR) No Margoth Porras, PhD Note: Increase non-pharmacological strategies for coping with pain Procedures Procedure Name Priority Date/Time Associated Diagnosis Comments CT ABDOMEN PELVIS W CONTRAST Schedule [place], Read Routine (Patient lives out of area) 07/18/2024 3:17 PM CDT Nausea and vomiting, unspecified vomiting type Abdominal pain POCT HCG, URINE Routine 06/18/2024 1:02 PM CDT ESOPHAGOGASTRODUODENOSCOPY BIOPSY 06/18/2024 12:55 PM CDT Chronic nausea Abdominal pain EGD 06/18/2024 12:26 PM CDT SURGICAL PATHOLOGY STAT 06/18/2024 10:08 AM CDT Chronic nausea Abdominal pain from Last 3 Months Results * CT Abdomen Pelvis W Contrast [...] Sienna Hare M.D. AT: AT Report ID: [id number] Reading Location: [id number] Procedure Note Sienna Hare MD - 07/18/2024 [...] Normal size. Hypoattenuating lesion within the spleen [id number] mm is favored to reflect benign etiology [...] Sienna Hare M.D. AT: AT Report ID: [id number] Reading Location: [id number] Mihai Miller BEAUTY COUNSELOR IMG CT PROCEDURES F inal Result * POCT hCG, urine (06/18/2024 1:02 PM CDT) HCG, ur, POC Negative Negative Lot Number [id number] QC Backgroud Clear Acceptable QC Control Line Acceptable Urine 06/18/2024 1:02 PM CDT Roney Cheng DO POINT OF CARE TEST ORDERABLES Final Result * EGD (06/18/2024 12:26 PM CDT) Anatomical Region Laterality Modality Other Narrative Procedure Note Roney Cheng DO - 06/18/2024 12:26 PM CDT [facility] Patient Name: Usama Encinas Procedure Date: 06/18/2024 12:26 PM Date of : 2005 Admit Type: Outpatient Age: 18 Gender: Female Attending MD: Roney Cheng D.O. Room: [facility] ENDOSCOPY ROOM 2 Note Status: Finalized Patient Profile: Refer to note in patient chart for documentation of history and physical. Procedure: Upper GI endoscopy Indications: Epigastric abdominal pain, Nausea, Weight loss Referring MD: Cuate Ramon M.D. Providers: Roney Cheng D.O. Impression: - Normal esophagus. - Multiple gastric polyps. Biopsied. - Normal antrum. Biopsied. - Normal examined duodenum. Biopsied. Recommendation: - Await pathology results. - Return to GI office as previously scheduled. Consider protein supplements i.e. boost, ensure,etc.. Avoid raw vegetables and fresh fruits for the time being. Call 2 weeks for biopsy report. Discontinue Linzess until needed. Medicines: Monitored Anesthesia Care Complications: No immediate complications. Estimated Blood Loss: Estimated blood loss was minimal. Procedure: Pre-Anesthesia Assessment: - As per anesthesia. The benefits, risks, and alternatives to theprocedure and sedation were discussed and informed consentwas obtained. The scope was passed under direct vision. The Endoscope [id number] was introduced through the mouth, and advanced to the second partof duodenum. The upper GI endoscopy was accomplished without difficulty. The patient tolerated the procedure well. Findings: The examined esophagus was normal. Multiple pedunculated polyps 2-7 mm in size were found in the gastric body. Biopsies were taken with a cold forceps for histology. The gastric antrum was normal. Biopsies were taken with a coldforceps for Helicobacter pylori testing. The examined duodenum was normal. Biopsies for histology were takenwith a cold forceps for evaluation of celiac disease. Electronically signed by Roney Cheng M.D. Roney Cheng D.O. 06/18/2024 1:23:05 PM Number of Addenda: 0 Note Initiated On: 06/18/2024 12:26 PM Procedure Code(s): --- Professional --- 71145, Esophagogastroduodenoscopy, flexible, transoral; with biopsy, single or multiple --- Technical --- 67606, Esophagogastroduodenoscopy, flexible, transoral; with biopsy, single or multiple Diagnosis Code(s): --- Professional --- K31.7, Polyp of stomach and duodenum R10.13, Epigastric pain R11.0, Nausea R63.4, Abnormal weight loss --- Technical --- K31.7, Polyp of stomach and duodenum R10.13, Epigastric pain R11.0, Nausea R63.4, Abnormal weight loss CPT copyright 2020 [employer]. All rights reserved. The codes documented in this report are preliminary and upon culinary arts teacher reviewmay be revised to meet current compliance requirements. Recognized by the [employer] for promoting quality in endoscopy Roney Cheng DO ENDOSCOPY PROCEDURES Final Res ult * Surgical pathology (06/18/2024 10:08 AM CDT) Tissue specimen (specimen) (Gastric/Stomach biopsy) 06/18/2024 1:15 PM CDT Tissue specimen (specimen) (Polyp(s), colon/colorectal, esophageal, gastric) 06/18/2024 1:15 PM CDT Tissue specimen (specimen) (Small bowel, biopsy) 06/18/2024 1:16 PM CDT Comment:R/O celiac disease Narrative PATHOLOGY [facility] - 06/20/2024 5:07 PM CDT EPIC results best viewed via link to PDF [facility] Department of Pathology [address] [place] [address] Note to Patients: This report may contain a detailed description of human tissue sent by a health care provider to the laboratory for pathologic evaluation. The content of this report is essential for diagnosis and may provide important critical findings. This information may be unfamiliar to patients to review without a medical professional present. It is advised that the patient review this report in the presence of a health care provider who can answer questions and explain the details. Final Report Patient Name: USAMA ENCINAS Address: [address] [place] [address] Gender: F : 2005 (Age: 18) Service: Gastro Location: [facility] Hospital #: [id number] Patient Type: [facility] Taken: 06/18/2024 Received: 06/19/2024 Accessioned: 06/19/2024 Reported: 06/20/2024 Physician(s):Dr. Roney Cheng, D.O. Diagnosis: A. Gastric, biopsy: - Minimal chronic inactive inflammation. - No evidence of intestinal metaplasia, dysplasia, or malignancy. - Negative Helicobacter immunostain. B. Specimen designated gastric polyp, biopsies: - Fundic gland polyps. - No evidence of dysplasia or malignancy. C. Small bowel, biopsy: - Duodenal mucosa with no significant histopathologic abnormalities. Jigar Garcaí MD Report Electronically Reviewed and Signed Out By Jigar García MD 06/20/2024 17:07:46 Specimen(s) Received: A: Gastric biopsy B: Gastric polyp biopsy C: Small bowel biopsy, rule out celiac disease Microscopic Description: A. Microscopic examination shows minimal chronic inactive inflammation. There is no evidence of intestinal metaplasia, dysplasia, or malignancy. No definitive Helicobacter organisms are identified on routine H&E staining. A Helicobacter immunostain is performed with appropriately reactive controls on block A1 and is negative. B. Microscopic examination shows five polypoid fragments of fundic-type mucosa with dilation of gastric pits. There is no evidence of dysplasia or malignancy. No definitive Helicobacter organisms are identified on routine H&E staining. The upper endoscopy report is reviewed and the endoscopic impression of multiple gastric polyps as noted. The findings are consistent with fundic gland polyps. There is no evidence of dysplasia or malignancy. C. Microscopic examination shows fragments of duodenal mucosa with no significant histopathologic abnormalities. There is no significant increase in inflammatory cells within the lamina propria. There is no significant intraepithelial lymphocytosis nor is there evidence of villous blunting. There is no evidence of dysplasia or malignancy. Clinical History: Chronic nausea. Abdominal pain. EGD. Gross Description: The specimen is submitted in three formalin containers labeled USAMA ENCINAS . A. The first container is labeled gastric biopsy . It is 3 fragments of guy tissue measuring <1 and 1 mm. All in A. B. The second container is labeled gastric polyp . It is 4 fragments of guy tissue measuring 1 mm. All in B. C. The third container is labeled small bowel . It is 2 fragments of guy tissue between 1 and 2 mm. All in C. T.A. Ambrosio Major., P.A./Navdeep Ovalle M.D. REPORT IMAGES AND SCANNED DOCUMENTS, IF INCLUDED, ONLY VIEWABLE IN PDF VERSION OF REPORT The performance characteristics of some immunohistochemical stains, fluorescence in-situ hybridization tests and immunophenotyping by flow cytometry cited in this report (if any) were determined by the Surgical Pathology Department at [facility] as part of an ongoing quality control lead program and in compliance with federally mandated regulations drawn from the Clinical Laboratory Improvement Act of 1988 (CLIA '88). Some of these tests rely on the use of analyte specific reagents and are subject to specific labeling requirements by the US Food and Drug Administration. Such diagnostic tests may only be performed in a facility that is certified by the Department of Health and Human Services as a high complexity laboratory under CLIA '88. The FDA has determined that such clearance or approval is not necessary. This test is used for clinical purposes. It should not be regarded as investigational or for research. Nevertheless, federal rules concerning the medical use of analyte specific reagents require that the following disclaimer be attached to the report: This test was developed and its performance characteristics determined by the Surgical Pathology Department [facility]. It has not been cleared or approved by the U. S. Food and Drug Administration. Note for decalcified specimens: This assay has not been validated on decalcified tissues. Results should be interpreted with caution given the possibility of false negativity on decalcified specimens Roney Cheng DO LAB PATHOLOGY ORDERABLES Final Result Performing Organization Address City/State/[facility] Co de Phone Number PATHOLOGY [facility] ([place] [address] [place] [address] from Last 3 Months Insurance [employer] [facility] [employer] [address] Advance Directives For more information, please contact: [phone] * Full Code (Latest Code Status on File) Date Activated Date Inactivated Comments 06/18/2024 12:42 PM 06/18/2024 6:15 PM * Full Code Date Activated Date Inactivated Comments 06/18/2024 12:42 PM 06/18/2024 12:42 PM * Full Code Date Activated Date Inactivated Comments 08/26/2023 10:29 AM 08/26/2023 4:37 PM * Full Code Date Activated Date Inactivated Comments 08/26/2023 10:29 AM 08/26/2023 10:29 AM * Full Code Date Activated Date Inactivated Comments 02/03/2023 8:22 PM 02/04/2023 7:39 PM Care Teams Fast Food Shift Supervisor Relationship Specialty Start Date End Date Cuate Ramon MD [address] [place] [address] PCP - General 10/22/16 Twan Lopez MD [address] [place] [address] Anesthesiologist Pediatric Anesthesia 10/20/17 Alisa Lai, PT Physical Therapist Physical Therapy 10/20/17 Maria Teresa Padron Physical Therapist Physical Therapy 11/24/17
--- OUTSIDE RECORDS SUMMARY | 2024-07-19 00:45 | XMS_ITS | Referral Summary ---
Author Organization [facility] ospital Address [address] [place] [address] Care Team Providers Care Graphic Specialist Name Role Phone Cuate Ramon MD Primary Care Provider Twan Lopez MD Unavailable Alisa Lai PT Unavailable Unavailable Maria Teresa Padron Unavailable Unavailable Encounters Date Type Department Care Team Description 07/20/19 25 Telephone [facility] Pediatric Neurology One [facility] [[email or web address] [address] [place] [address] Kristina Arroyo MD 07/19/19 25 Orders Only [facility] Pediatric Neurology [address] [facility] [address] [place] [address] Shani Michelle NP 07/19/19 25 1:40 PM CDT Hospital Encounter [facility] [address] [place] [address] Upper abdominal pain; Nausea and vomiting, unspecified vomiting type; Abdominal pain 07/18/19 25 Telephone [facility] [address] [place] [address] Kulwinder Carlin 07/01/19 25 Results Follow-Up [facility] Gastroenterology at [address] [place] [id number] Melony Radford MD 06/19/19 25 1:00 PM CDT Anesthesia Event [facility] 1 [place] [address] Liban Khalil MD Kory, Christopher James, MD 06/19/19 1:30 PM CDT - 06/19/19 25 2:00 PM CDT Surgery [facility] 1 [place] [address] Roney Cheng, ESOPHAGOGASTRODUODENOSCOPY BIOPSY 06/19/19 12:01 PM CDT - 06/19/19 2:10 PM CDT Hospital Encounter [facility] [address] [place] [address] Roney Cheng, Chronic nausea; Abdominal pain Discharge Disposition: Discharge to home or self care 06/13/19 25 Telephone [facility] Gastroenterology at [address] [place] [address] Maria Teresa Barth Schedule EGD 05/28/19 25 Telephone [facility] Gastroenterology at [address] [place] [address] Treva Kim LPN 05/09/19 25 Telephone [facility] Gastroenterology at [address] [place] [address] Mihai Miller NP 05/09/19 9:30 AM FACILITIES MANAGER Office Visit [facility] Gastroenterology at [address] [place] [address] Mihai Miller NP Irritable bowel syndrome with both constipation and diarrhea (Primary Dx); Nausea and vomiting, unspecified vomiting type; Gastroesophageal reflux disease without esophagitis from Last 3 Months Allergies Active Allergy [...] in each nostril as directed 30 mL 07/12/19 24 2024 Discontinued(P atient Reported) fluticasone propionate (FLONASE) 50 mcg/actuation nasal spray Administer 1 spray into each nostril 2 (two) times a day as needed for rhinitis (nasal congestion) 1 each 08/12/19 24 2024 Discontinued(P atient Reported) pantoprazole DR (PROTONIX) 40 mg EC tablet TAKE 1 TABLET DAILY 90 tablet 3 09/07/19 24 2024 Discontinued [place] Saline gel 10/25/19 24 2024 Discontinued(P atient [...] 21 Assessment & Plan (05/08/2021 2:38 PM FACILITIES MANAGER): - Continue home Montelukast 10mg QHS albuterol 4 puff q4h PRN Assessment & Plan (05/07/2021 4:58 PM FACILITIES MANAGER): - Continue home Montelukast 10mg QHS albuterol 4 puff q4h PRN Concussion without loss of consciousness 020 Vocal cord dysfunction 01/22/2019 Non-allergic rhinitis 01/15/2019 Tremor 12/28/2018 High risk medication use 10/18/2018 residential current use of non -steroidal anti-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 (NSAID) [...] migrainosus since last . Pt seen at [facility] ED on Tuesday and was discharged [...] 05/24/2018 Assessment & Plan (05/08/2021 2:38 PM FACILITIES MANAGER): - Continue home sertaline 75 mg Assessment & Plan (05/07/2021 4:56 PM FACILITIES MANAGER): - Continue home sertaline 75 mg Assessment [...] 05/05/2018 Assessment & Plan (05/05/2018 5:09 PM FACILITIES MANAGER): Benztropine was given. Dilated pupils which do [...] 08/11/2017 Assessment & Plan (05/08/2021 2:39 PM FACILITIES MANAGER): Usama Encinas is a 15 y.o. female [...] precautions Assessment & Plan (05/07/2021 4:59 PM FACILITIES MANAGER): Usama Encinas is a 15 y.o. female [...] PM CDT): Stable vision; updated Rx for signal timer wear. Patient may continue with current Rx. [...] 18 Assessment & Plan (05/08/2021 2:38 PM FACILITIES MANAGER): - Continue home uloxetine 30mg every day Methocarbamol 500mg q8h PRN Assessment & Plan (05/07/2021 4:57 PM FACILITIES MANAGER): - Continue home uloxetine 30mg every day Methocarbamol 500mg q8h PRN Assessment & Plan (06/22/2018 1:34 AM CDT): - continue home meds/supplements -gabapentin, plaquenil, vitamin D Viral infection 03/15/2017 Dizziness 02/15/2017 Vertigo 02/15/2017 Mononucleosis syndrome 02/15/2017 Fatigue 10/18/2016 Otitis externa 09/30/2016 Migraine headache 06/18/2015 Otitis media 01/01/2015 Constipation 11/28/2014 IgA deficiency, 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 No Breezy-Teresa Ring or sunflower cataract on ocular examination today. Vision is stable, 20/20 right eye (OD), left eye (OS). No change in prescription on dilated exam - continue with current glasses signal timer. OCT revealed some thinning of inferior (right [...] Date Abnormal PFT 10/18/2018 05/22/2019 IgA deficiency ([facility]) 10/18/2018 Disorder of connective tissue ([facility]) 08/11/2017 12/22/2020 Moderate persistent asthma w ithout [...] on file Legal Sex Female 6:05 AM FACILITIES MANAGER Gender Identity Female 04/05/2023 1:07 AM FACILITIES MANAGER Sexual Orientation Straight 04/05/2023 1: 07 AM FACILITIES MANAGER Last Filed Vital Signs Vital Sign Reading [...] 06/18/2024 12:30 PM CDT Plan of Treatment Not on file Goals Goal Patient Goal Type Associated Problems Recent Progress Patient-Stated? Author -Pain Behavioral Health Improving( 5:42 PM FACILITIES MANAGER) No Margoth Porras, PhD Note: Increase functioning in daily activities -Pain Behavioral Health No change(06/18 5:42 PM FACILITIES MANAGER) No Margoth Porras, PhD Note: Increase non-pharmacological [...] Sienna Hare M.D. AT: AT Report ID: [id number] Reading Location: [id number] Procedure Note Sienna Hare MD - 07/18/2024 [...] Normal size. Hypoattenuating lesion within the spleen zeuiillor15 mm is favored to reflect benign etiology [...] Sienna Hare M.D. AT: AT Report ID: [id number] Reading Location: [id number] us Mihai Jennifer Bilderback AIRPLANE DISPATCH CLERK IMG CT PROCEDURES F inal Result * [...] Cheng DO - 06/18/2024 12:26 PM CDT [facility] Patient Name: Usama Encinas Procedure Date: 06/18/2024 12:26 PM Date of : 2005 Admit Type: Outpatient Age: 18 Gender: Female Attending MD: Roney Cheng D.O. Room: [facility] ENDOSCOPY ROOM 2 Note Status: Finalized Patient [...] passed under direct vision. The Endoscope [id number] was introduced through the mouth, and advanced [...] 12:26 PM Procedure Code(s): --- Professional --- 68615, Esophagogastroduodenoscopy, flexible, transoral; with biopsy, single or multiple --- Technical --- 48647, Esophagogastroduodenoscopy, flexible, transoral; with biopsy, single or multiple Diagnosis Code(s): --- Professional --- K31.7, Polyp of stomach and duodenum R10.13, Epigastric pain R11.0, Nausea R63.4, Abnormal weight loss --- Technical --- K31.7, Polyp of stomach and duodenum R10.13, Epigastric pain R11.0, Nausea R63.4, Abnormal weight loss CPT copyright 2020 [employer]. All rights reserved. The codes documented in this report are preliminary and upon associate brand manager reviewmay be revised to meet current compliance requirements. Recognized by the [employer] for promoting quality in endoscopy Roney Cheng DO ENDOSCOPY PROCEDURES Final Res ult * Surgical pathology (06/18/2024 10:08 AM CDT) Tissue specimen (specimen) (Gastric/Stomach biopsy) 06/18/2024 1:15 PM CDT Tissue specimen (specimen) (Polyp(s), colon/colorectal, esophageal, gastric) 06/18/2024 1:15 PM CDT Tissue specimen (specimen) (Small bowel, biopsy) 06/18/2024 1:16 PM CDT Comment:R/O celiac disease Narrative PATHOLOGY [facility] - 06/20/2024 5:07 PM CDT EPIC results best viewed via link to PDF [facility] Department of Pathology [address] [place] [address] Note to Patients: This report may contain [...] Final Report Patient Name: USAMA ENCINAS Address: [address] [place] [address] Gender: F : 2005 (Age: 18) Service: Gastro Location: [facility] Hospital #: [id number] Patient Type: [facility] Taken: 06/18/2024 Received: 06/19/2024 Accessioned: 06/19/2024 Reported: [...] mucosa with no significant histopathologic abnormalities. Jigar García MD Report Electronically Reviewed and Signed Out [...] determined by the Surgical Pathology Department at [facility] as part of an ongoing quality control head program and in compliance with federally mandated [...] characteristics determined by the Surgical Pathology Department [facility]. It has not been cleared or approved by the U. S. Food and Drug Administration. Note for decalcified specimens: This assay has not been validated on decalcified tissues. Results should be interpreted with caution given the possibility of false negativity on decalcified specimens Roney Cheng DO LAB PATHOLOGY ORDERABLES Final Result Performing Organization Address City/State/[facility] Co de Phone Number PATHOLOGY [facility] [address] [place] [address] from Last 3 Months Insurance [facility] CHOICE PLUS [facility] [place] [address] [place] [address] [facility] Address[facility] [address] [address] [place] [address] [facility] CHOICE PLUS [facility] CHOICE PLUS [facility] CHOICE PLUS [facility] [place] [address] Advance Directives For more information, please contact: [phone] * Full Code (Latest Code Status on [...] 8:22 PM 02/04/2023 7:39 PM Care Teams Graphic Specialist Relationship Specialty Start Date End Date Cuate Ramon MD [address] [facility] [place] [address] PCP - General 10/22/16 Twan Lopez MD [address] [facility] [place] [address] Anesthesiologist Pediatric Anesthesia 10/20/17 Alisa Lai, PT Physical Therapist Physical Therapy 10/20/17 Maria Teresa Padron Physical Therapist Physical Therapy 11/24/17
--- OUTSIDE RECORDS SUMMARY | 2024-07-19 00:45 | XMS_ITS | Encounter Summary ---
Author Organization [facility] Healthcare Address [address] [place] [address] Care Team Providers Care Salesperson Women'S Dresses Name Role Phone Cuate Ramon MD Primary Care Provider [phone] Twan Lopez MD Unavailable [phone] Alisa Lai PT Unavailable Unavailable Maria Teresa Padron Unavailable Unavailable Encounter Details Date Type Department Care Team (Late st Contact Info) Description 01/27/2021 Telephone [facility] Transplant Heart [address] [facility] [phone] [place] [address] Michaela Haas Social History Tobacco Use Types Packs/Day Years Used Date Smoking Tobacco: Passive Smo ke Exposure - Never Smoker Smokeless Tobacco: Never Alcohol Use Standard Drinks/Week Comments Not Currently 0 (1 standard drink = 0.6 oz pur e alcohol) Comments No Sex and Gender Information Value Date Recorded Sex Assigned at Not on file Legal Sex Female 6:05 AM CUSTOMS BROKERAGE AGENT Gender Identity Female 04/05/2023 1:07 AM CUSTOMS BROKERAGE AGENT Sexual Orientation Straight 04/05/2023 1: 07 AM CUSTOMS BROKERAGE AGENT documented as of this encounter Plan of Treatment Not on file documented as of this encounter Goals Goal Patient Goal Type Associated Problems Recent Progress Patient-Stated? Author -Pain Behavioral Health Improving( 5:42 PM CUSTOMS BROKERAGE AGENT) No Margoth Porras, PhD Note: Increase functioning in daily activities BH-Pain Behavioral Health No change(06/18 5:42 PM CUSTOMS BROKERAGE AGENT) No Margoth Porras, PhD Note: Increase non-pharmacological strategies for coping with pain documented as of this encounter Visit Diagnoses Not on filedocumented in this encounter Care Teams Salesperson Women'S Dresses Relationship Specialty Start Date End Date Cuate Ramon MD [address] [facility] [place] [address] PCP - General 10/22/16 Twan Lopez MD [address] [facility] [place] [address] Anesthesiologist Pediatric Anesthesia 10/20/17 Alisa Lai, PT Physical Therapist Physical Therapy 10/20/17 Maria Teresa Padron Physical Therapist Physical Therapy 11/24/17 documented as of this encounter
--- NOTE | 2024-07-19 00:52 | PC.NURSE ---
DR WICK AT THE BEDSIDE
[2024-07-19] MEDS: ONDANSETRON HCL ODT 4 MG TABLET PO (01:02)
--- OUTSIDE RECORDS SUMMARY | 2024-07-19 01:02 | XMS_ITS | CONTINUITY OF CARE DOCUMENT ---
Author Name stella douglas Address Unknown Organization [facility] Address [address] [place] [address] [address] [place] [address] Phone [phone] Care Team Providers Care Delicatessen Slicer Name Role Phone Romulo HARO, Freida Unavailable [phone] BOOM NELSON MD Unavailable BOOM NELSON [...] In-person encounter Office Visit Freida Sebastian MD [facility] Delta danlos syndromeChest discomfortMast cell activation syndromeShortness of breathPalpitations - In-person encounter Office Visit Freida Sebastian MD [facility] Office Cardiology examinationSyncope VITAL SIGNS Date Observation Value Provider Body Mass Index (Ratio) 25.15 kg/m2 Emily Sebastian MD blood pressure, diastolic 85 mm[Hg] Liz Biggs blood pressure, systolic 110 mm[Hg] Nell ventura Biggs oxygen saturation, oximetry 99 % Laila Biggs respiratory rate E&M 12 /min Laila [place] pulse rate 84 /min Laila [place] weight E&M 142 [lb_av] Laila Biggs height E&M 63 [in_i] Laila Biggs blood pressure, cuff size regular eileen [place] Body Mass Index (Ratio) 25.68 kg/m2 Emily [...] active Freida Sebastian MD NALTREXONE 1MG TABLET #[id number] active TAKE ONE TABLET BY MOUTH DAILY [...] Payer name Policy type / Coverage type [place] red green party ID [facility] Other [id number] ADVANCE DIRECTIVES Name Date DISCUSSED - NO DECISION MADE TREATMENT PLAN Date Name Performer [id number],C,P t has been having random syncopal episodes [...] currently on a 30 day telemonitor from [facility] and we will obtain results. W [...] also have her wear a monuitor to flower picker any palpitations she may have Freida [...] currently on a 30 day telemonitor from [facility] and we will obtain results. W [...]
[2024-07-19] MEDS: diphenhydrAMINE HCl INJ 50 MG/ML VIAL 25 MG IM (01:03)
[2024-07-19] MEDS: KETOROLAC 30 MG/ML VIAL (*BKC) IM (01:03)
--- NOTE | 2024-07-19 01:13 | PC.NURSE ---
MEDICATED PER JUN FOR PAIN. RESTING QUIETLY ON BED WITH MOTHER AT HER SIDE. CALL LIGHT IN REACH
[2024-07-19 02:20] VITALS: BP 106/72; PULSE 74; RESP 16; O2SAT 100
== END 2024-07-19 02:20 | disposition home or self-care (01) ==
PROVIDERS: Emergency Provider Internal Medicine Critical Care Medicine; PCP Pediatrics
DX: G43.909 Migraine, unspecified, not intractable, without status migrainosus (principal)
CPT/HCPCS: 96372; 99284; A9270; J1200; J1885

== ENCOUNTER 2025-01-02 07:49 | Emergency (ER) | payer OTHER, SELFPAY ==
--- NOTE | ~2025-01-02 | CT_ITS ---
EXAMINATION: CT brain wo con DATE: 01/02/2025 08:57 INDICATION: Headache. TECHNIQUE: Computed tomography (CT) of the head was performed without intravenous contrast. The mA was adjusted according to patient size. Iterative reconstruction technique was employed. The dose-length product was 529.67 mGy-cm. COMPARISON: Head CT 04/27/2018 FINDINGS: There is no intracranial hemorrhage, acute infarction, or abnormal intracranial mass lesion. The ventricles are normal in size. The orbits are normal. There is mild mucosal thickening in the paranasal sinuses. The mastoid air cells are normal. IMPRESSION: 1. Normal brain. Reviewed, dictated and finalized at location E. IMPRESSION: 1. Normal brain.
--- NOTE | ~2025-01-02 | CT_ITS ---
EXAMINATION: CT cervical spine wo con DATE: 01/02/2025 08:57 INDICATION: Neck pain TECHNIQUE: Computed tomography (CT) of the cervical spine was performed without intravenous contrast. Automated exposure control and iterative reconstruction technique were employed. The dose-length product was 529.67 mGy-cm. COMPARISON: None FINDINGS: Again seen is mild reversal of the normal cervical lordosis, likely positional but which could be seen with muscle spasm. No spondylolisthesis or facet subluxation. Normal atlantoaxial articulation. Vertebral body and disc heights are normal. Cervical facet and uncovertebral joints are normal. Cervical soft tissues are unremarkable. Visualized apices of lungs are clear. IMPRESSION: 1. Unchanged mild reversal of the normal cervical lordosis which could be positional or due to muscle spasm. Otherwise unremarkable cervical spine CT. Reviewed, dictated and finalized at location A. IMPRESSION: 1. Unchanged mild reversal of the normal cervical lordosis which could be posit ional or due to muscle spasm. Otherwise unremarkable cervical spine CT.
[2025-01-02 07:54] VITALS: BP 141/89; PULSE 87; RESP 16; TEMP 36.6; O2SAT 99
--- OUTSIDE RECORDS SUMMARY | 2025-01-02 08:00 | XMS_ITS | Clinical Summary ---
Author Organization [facility] Address [address] [place] [address] Phone Care Team Providers Care Volunteer Manager Name Role Phone Cuate Ramon MD Primary Care Provider [phone] Allergies Active Allergy Reactions Criticality Noted Date [...] 10:38 AM CDT Height 157.5 cm (5' 2) 08/03/2018 10:38 AM CDT Body Mass Index 22.5 08/03/2018 10:38 AM CDT Plan of Treatment Health Maintenance Due Date Last Done Comments CHLAMYDIA SCREENING (ANNUAL) 11-24 YEARS 09/05/2014 HPV VACCINES (1 - 3-dose series) 09/05/2018 DTAP/TDAP/TD VACCINES (1 - Tdap) 09/05/2022 HEPATITIS B VACCINES (1 of 3 - 19+ 3-dose series) 08/10 CERVICAL CANCER SCREENING 09/05/2024 HPV/Cotest (21-29) 09/05/2024 PAP SMEAR 09/05/2024 INFLUENZA VACCINE (#1) 2024 04/12/2018 Insurance OPTIONS PPO [id number] OPTIONS PPO [id number] Care Teams Volunteer Manager Relationship Specialty Start Date End Date Cuate Ramon MD [address] [place] [address] PCP - General Pediatrics 08/03/18
--- OUTSIDE RECORDS SUMMARY | 2025-01-02 08:00 | XMS_ITS | Clinical Summary ---
Author Organization [facility] ospital Address [address] [place] [address] Care Team Providers Care Piece Dyeing Machine Tender Name Role Phone Cuate Ramon MD Primary Care Provider Twan Lopez MD Unavailable [phone] Alisa Lai PT Unavailable Unavailable Maria Teresa Padron Unavailable Unavailable Allergies Active Allergy Reactions Criticality Noted Date Comments Codeine Dystonia High 05/05/2013 Prochlorperazine Dystonia High 05/16/2018 Medications hydroxychloroqu ine (PLAQUENIL) 200 mg tablet Take 1.5 tablets (300 mg total) by mouth daily 02/02/20 23 Active montelukast (SINGULAIR) 10 mg tablet Take 1 tablet (10 mg total) by mouth nightly Active albuterol 2.5 mg /3 mL (0.083 %) nebulizer solution Take 3 mL (2.5 mg total) by nebulization every 4 (four) hours as needed for wheezing (or as directed.) 180 mL 05/28/19 24 Active nebulizer accessories kit Replacement nebulizer tube and mask 1 kit 05/28/19 24 Active midodrine (PROAMATINE) 5 mg tablet Take 1 tablet (5 mg total) by mouth 3 (three) times a day 12/13/19 24 Active magnesium gluconate (MAGONATE) 500 mg (27 mg elemental) tablet Take 1 tablet (500 mg total) by mouth daily 30 tablet 11 01/10/20 24 Active albuterol HFA (PROVENTIL HFA,VENTOLIN HFA,PROAIR HFA) 90 mcg/actuation inhaler Inhale 2-4 puffs every 4 (four) hours as needed for wheezing 3 each 1 02/15/20 24 Active budesonide-form oteroL (SYMBICORT) 80-4.5 mcg/actuation inhaler Use 2 puffs once daily and 1-2 puffs every 4 hours as needed, max 12 puffs per day. Rinse mouth with water after use. Do not swallow. 30.6 g 2 02/15/20 24 Active diphenhydrAMINE 25 mg capsule Take 1 tablet/capsule (25 mg total) by mouth every 6 (six) hours as needed for other (Migraines) Active naltrexone (LOW DOSE) 1 mg capsule Take 1 capsule (1 mg total) by mouth daily 05/30/[address] (PROTONIX) 40 mg EC tablet TAKE 1 TABLET DAILY 90 tablet 3 07/03/19 25 Active ketorolac (TORADOL) 10 mg tablet Take 1 tablet (10 mg total) by mouth every 6 (six) hours as needed for pain (Take 10 mg with Zofran for headache relief. Do not take more than 3 times a week.) 10 tablet 12/26/19 25 Active ondansetron (ZOFRAN) 4 mg tablet Take 1 tablet (4 mg total) by mouth every 8 (eight) hours as needed for nausea or vomiting 20 tablet 6 12/26/19 25 Active rimegepant (Nurtec ODT) tablet,disinteg rating Take 1 tablet (75 mg total) by mouth as needed (migraine) 10 tablet 6 12/26/19 25 Active rizatriptan (MAXALT) 10 mg tablet Take 1 tablet (10 mg total) by mouth once as needed for migraine for up to 9 doses 9 tablet 12/26/19 25 Active sertraline (ZOLOFT) 100 mg tablet Take 1 tablet (100 mg total) by mouth daily 30 tablet 5 12/26/19 25 Active propranoloL (INDERAL) 10 mg tablet 0.5 tablets (5 mg total) 12/13/19 24 025 Discontin ued(Patie nt Reported) rimegepant (Nurtec ODT) tablet,disinteg rating Take 1 tablet (75 mg total) by mouth as needed (migraine) 10 tablet 6 08/08/19 025 Discontin ued(Reord er) ketorolac (TORADOL) 10 mg tablet Take 1 tablet (10 mg total) by mouth every 6 (six) hours as needed for pain (Take 10 mg with Zofran for headache relief. Do not take more than 3 times a week.) 10 tablet 08/08/19 025 Discontin ued(Reord er) rizatriptan (MAXALT) 10 mg tablet Take 1 tablet (10 mg total) by mouth once as needed for migraine for up to 9 doses 9 tablet 08/08/19 025 Discontin ued(Reord er) ondansetron (ZOFRAN) 4 mg tablet Take 1 tablet (4 mg total) by mouth every 8 (eight) hours as needed for nausea or vomiting 20 tablet 6 08/08/19 025 Discontin ued(Reord er) sertraline (ZOLOFT) 100 mg tablet Take 1 tablet (100 mg total) by mouth daily 30 tablet 5 10/19/19 025 Discontin ued(Reord er) Active Problems Problem Noted Date Diagnosed Date [...] 21 Assessment & Plan (05/08/2021 2:38 PM INGREDIENT SPECIALIST): - Continue home Montelukast 10mg QHS albuterol 4 puff q4h PRN Assessment & Plan (05/07/2021 4:58 PM INGREDIENT SPECIALIST): - Continue home Montelukast 10mg QHS albuterol 4 puff q4h PRN Concussion without loss of consciousness 020 Vocal cord dysfunction 01/22/2019 Non-allergic rhinitis 01/15/2019 Tremor 12/28/2018 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 Pt seen at [facility] ED on Tuesday and was discharged [...] 05/24/2018 Assessment & Plan (05/08/2021 2:38 PM INGREDIENT SPECIALIST): - Continue home sertaline 75 mg Assessment & Plan (05/07/2021 4:56 PM INGREDIENT SPECIALIST): - Continue home sertaline 75 mg Assessment [...] 05/05/2018 Assessment & Plan (05/05/2018 5:09 PM INGREDIENT SPECIALIST): Benztropine was given. Dilated pupils which do [...] 08/11/2017 Assessment & Plan (05/08/2021 2:39 PM INGREDIENT SPECIALIST): Usama Encinas is a 15 y.o. female [...] precautions Assessment & Plan (05/07/2021 4:59 PM INGREDIENT SPECIALIST): Usama Encinas is a 15 y.o. female [...] 18 Assessment & Plan (05/08/2021 2:38 PM INGREDIENT SPECIALIST): - Continue home uloxetine 30mg every day Methocarbamol 500mg q8h PRN Assessment & Plan (05/07/2021 4:57 PM INGREDIENT SPECIALIST): - Continue home uloxetine 30mg every day Methocarbamol 500mg q8h PRN Assessment & Plan (06/22/2018 1:34 AM CDT): - continue home meds/supplements -gabapentin, plaquenil, vitamin D Viral infection 03/15/2017 Dizziness 02/15/2017 Vertigo 02/15/2017 Mononucleosis syndrome 02/15/2017 Fatigue 10/18/2016 Otitis externa 09/30/2016 Migraine headache 06/18/2015 Otitis media 01/01/2015 Constipation 11/28/2014 IgA deficiency, 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 Assessment & Plan (05/08/2021 2:38 PM INGREDIENT SPECIALIST): Continue home Cefdinir 300mg every day Assessment & Plan (05/07/2021 4:56 PM INGREDIENT SPECIALIST): Continue home Cefdinir 300mg every day Assessment [...] Date Abnormal PFT 10/18/2018 05/22/2019 IgA deficiency ([facility]) 10/18/2018 Disorder of connective tissue ([facility]) 08/11/2017 12/22/2020 Moderate persistent asthma w ithout complication 01/01/2015 05/22/2019 Chronic rhinitis 01/01/2015 05/22/2019 Encounters Date Type Department Care Team Description 12/25/2024 10:40 AM CDT Telemedicine [facility] Medicine Pediatric Neurology [address] [facility] [address] [place] [phone] Shani Michelle, YANA Migraine without aura and without status migrainosus, not intractable (Primary Dx); Anxiety disorder, unspecified type; Counseling for transition from pediatric to adult care provider; Amplified musculoskeletal pain; Autoimmune thyroiditis 10/09/2024 Telephone [facility] Medicine Pediatric Neurology [address] [facility] 2nd [place] [address] [place] [address] Shani Michelle NP Prior Auth (NURTEC ODT 75 MG ODT ) from Last 3 Months Immunizations Immunization Administration Dates Next Due DTaP 11/11/2008, 5,03/09/2004,01/05,2003 DTaP, Unspecified 11/11/2008, 5,03/09/2004,01/05,2003 HPV9 07/26/2016,01/09/2016 Hep A, Pediatric 01/23/2008,01/31/2007 Hep A, Unspecified 01/23/2008,01/31/2007 Hep B, Unspecified 09/10/2004,01/06/2004, 004 HiB 09/10/2004,01/06/2004,2003 Influenza, Quadrivalent, Spl it, Preservative Free, Intramuscular 02/18/2022,04/12/2018 Influenza, Trivalent, Preser vative Free, Intramuscular 02/15/2024,03/15/2017 Influenza, Unspecified 01/22/2021,01/09/2016 MMR 11/11/2008,09/10/2004 Meningococcal B, OMV (Bexsero) 01/22/2021 Meningococcal MCV4P (Menactra) 01/22/2021,2014 Pneumococcal Polysaccharide PPV23 2014,09/10/2004,03/09/2004,01/05,2003 Pneumococcal, Unspecified 09/10/2004,,01/06/2004,11/10 Polio, Unspecified 11/11/2008, 4,01/06/2004,11/10 [...] you have a drink containing alcohol? Never 09/07/2024 Q2: How many drinks containi ng alcohol do you have on a typical day when you are drinking? Patient does not drink Q3: How often do you have si x or more drinks on one occasion? Never 09/07/2024 Personal Safety Answer Date Recorded Have you ever been in or are you currently in a harmful physical or emotional relationship or is someone making you feel afraid or unsafe? Denies 06/18/2024 Comments No Sex and Gender Information Value Date Recorded Sex Assigned at Not on file Legal Sex Female 6:05 AM INGREDIENT SPECIALIST Gender Identity Female 04/05/2023 1:07 AM INGREDIENT SPECIALIST Sexual Orientation Straight 04/05/2023 1: 07 AM INGREDIENT SPECIALIST Obstetrics History Last Filed Vital Signs Vital Sign Reading Time Taken Comments Blood Pressure 108/74 09/07/2024 2:52 PM CDT Pulse 78 09/07/2024 2:52 PM CDT Temperature 36.6 C (97.8 F) 06/18/2024 1:50 PM CDT Respiratory Rate 18 06/18/2024 1:50 PM CDT Oxygen Saturation 98% 09/07/2024 2:52 PM CDT Inhaled Oxygen Concentration - - Weight 68 kg (150 lb) 12/25/2024 11:04 AM CDT Height 160 cm (5' 3) 09/07/2024 2:52 PM CDT Body Mass Index 26.57 09/07/2024 2:52 PM CDT Plan of Treatment Health Maintenance Due Date Last Done Comments Cervical Cancer Screening 2003 Chlamydia and Gonorrhea (GC/ CT) Screening 2003 Depression Screening 2003 Hepatitis C Screening 2003 Pneumococcal vaccine <65 (2 of 2 - PCV) 01/07/2016 01/06/2015, 09/10/2004, 09/10/2004, Additional history exists Meningococcal B Vaccine (2 o f 2 - Bexsero SCDM 2-dose series) 07/23/2021 01/22/2021 Regular Well Visit/Exam 18-64 09/05/2021 Zoster Vaccine (1 of 2) 09/05/2022 Covid-19 Vaccine (5 - 2024-2 6 season) 2024 02/18/2022, 01/22/2021, 07/02/2020, Additional history exists Influenza Vaccine (#1) 2024 , 02/18/2022, 01/22/2021, Additional history exists DTaP/Tdap/Td Vaccine (7 - Td or Tdap) 01/06/2025 01/06/2015, 11/11/2008, 11/11/2008, Additional history exists Hepatitis B Screening Completed 09/10/2004 , 01/06/2004, 2003 Varicella Vaccines Completed 01/23/2008, 09/10/2004 HPV Vaccines Completed 07/26/2016, 01/09/2016 Meningococcal Vaccine Completed 01/22/2021, 015 Goals Goal Patient Goal Type Associated Problems Recent Progress Patient-Stated? Author -Pain Behavioral Health Improving( 5:42 PM INGREDIENT SPECIALIST) No Margoth Porras, PhD Note: Increase functioning in daily [facility] No change(06/18 5:42 PM INGREDIENT SPECIALIST) No Margoth Porras, PhD Note: Increase non-pharmacological strategies for coping with pain Insurance [facility] CHOICE PLUS [facility] CHO[facility] PL[facility] Member Subscriber Plan / Payer (Ef fective 2022-Present) Name:Usama Encinas Relation to Subscriber:Child Name:YUAN ENCINAS Date of :1973 Address: [address] [place] [address] Payer ID:[id number] (NA) Type:[facility] HMO/PPO Address: [address] [place] [address] [facility] CHOICE PLUS [facility] CHOICE PLUS [id number] [place] [address] [place] [address] Advance Directives For more information, please contact: [phone] * Full Code (Latest Code Status on [...] 8:22 PM 02/04/2023 7:39 PM Care Teams Piece Dyeing Machine Tender Relationship Specialty Start Date End Date Cuate Ramon MD [address] [place] [address] PCP - General 10/22/16 Twan Lopez MD [address] [place] [address] Anesthesiologist Pediatric Anesthesia 10/20/17 Alisa Lai, PT Physical Therapist Physical Therapy 10/20/17 Maria Teresa Padron Physical Therapist Physical Therapy 11/24/17
--- OUTSIDE RECORDS SUMMARY | 2025-01-02 08:00 | XMS_ITS | Clinical Summary ---
Author Organization [facility] [email or web address] Address [address] [facility] [place] [address] Care Team Providers Care Coffee Sommelier Name Role Phone Cuate Ramon MD Primary Care Provider [phone] Ion De DO Unavailable [phone] Radha Zavala MD Unavailable [phone] Source Comments [facility],non-owned Affiliates and Associated Physician Practices is amultiple site organization consisting of ambulatory clinics and hospital sitesin [place], [place], [place] and [place]. This disclosure is being madepursuant to the Care Everywhere program and may not contain all information available regarding this patient. Last updated 17.[facility] Allergies Active Allergy Reactions Criticality Noted Date Comments Codeine Psychiatric Medium 05/05/2013 Stayed awake for 27 hours. Prochlorperazine Other High 05/16/2018 Medications * Be aware that medications may not be up to date on this document. Alwaysverify current medications with the patient. cefdinir (OMNICEF) 300 MG capsule Take 1 (one) capsule by mouth once daily 02/27/20 17 Active ondansetron, disintegrating, (ZOFRAN ODT) 4 MG tablet Take 1 (one) tablet by mouth 04/08/20 17 Active pantoprazole EC (PROTONIX) 20 MG tablet Take 1 (one) tablet by mouth once daily 04/01/20 17 Active rizatriptan (MAXALT) 10 MG tablet Take 1 (one) tablet by mouth once as needed 04/07/20 17 Active ketorolac (TORADOL) 10 MG tablet Take 1 (one) tablet by mouth 06/16/19 18 Active diphenhydrAMINE (BENADRYL) 25 MG capsule Take 1 (one) capsule by mouth as needed Active montelukast (SINGULAIR) 5 MG chew tablet Take 1 (one) tablet by mouth once daily as needed Active Magnesium 500 MG Take 500 mg by mouth at bedtime Active Cholecalciferol (VITAMIN D3) 75 MCG (3000 UT) Take 3,000 Units by mouth once daily 06/26/19 19 Active sertraline (ZOLOFT) 25 MG tablet Take 2 (two) tablets by mouth once daily 12/03/19 21 Active albuterol HFA (Proventil; Ventolin; Proair) 108 (90 Base) MCG/ACT inhaler Inhale 1 (one) puff by mouth every 6 hours as needed Active budesonide-formoter ol (Symbicort) 80-4.5 MCG/ACT inhaler Inhale 2 (two) puffs by mouth 2 times daily as needed Active fluticasone propionate (Flonase) 50 MCG/ACT nasal spray Holderness 1 (one) spray into the nose 2 times daily as needed 08/12/19 24 Active propranolol (Inderal) 10 MG tablet Take 1 (one) tablet by mouth 2 times daily 120 tablet 5 12/13/19 24 Active Additional Information Patient taking differently: 5 mgOral 2 TIMES DAILY, Reported on 06/13/2024 Other Low dose naltrexone 1mg tablet twice daily, may titrate to max of 2mg twice daily 90 tablet 5 12/13/19 24 Active hydroxychloroquine (Plaquenil) 200 MG tabletIndications:A rthralgia, unspecified joint,Patellar tracking disorder, unspecified laterality,Connecti ve 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 (HCC),Amplified musculoskeletal pain,Other fatigue,Hypermobile joints,Myalgia,Feve r, unspecified fever cause,EBV infection Take 1.5 (one and one-half) tablets by mouth once daily 135 tablet 1 12/26/19 24 Active linaCLOtide (Linzess) 145 MCG capsule Take 1 (one) capsule by mouth once daily 05/09/19 25 Active ondansetron (Zofran) 4 MG tablet 08/08/19 25 Active naltrexone 3.5 MG capsule Take 1 mg by mouth once daily 05/30/19 25 Active Active Problems Problem Noted Date Diagnosed [...] 10/18/2018 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 Abnormal PFT 10/18/2018 [facility] current use of non -steroidal anti-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 (NSAID) [...] Rash 10/18/2018 11/15/2018 Fever 08/11/2017 08/25/2017 Immunizations Immunization Administration Dates Next Due DTAP, HISTORIC VACCINE 11/11/2008,2004,03/09/2004,01/05,2003 DTaP VACCINE IM (6wk-6yrs) 11/11/2008,,03/09/2004,01/05,2003 FLU VACCINE TRI IIV3 SPLIT P F IM (FLUVIRIN) 03/15/2017 HEP A PED/ADULT VACCINE 01/23/2008,01/31/2007 HEP A PEDS 2 DOSE 01/23/2008,01/31/2007 HEP B VACCINE 09/10/2004,200 5,01/06/2004,01/05,2003,2003 HIB VACCINE 09/10/2004,200 5,01/06/2004,01/05,2003,2003 Human Papilloma Virus [place] lent Vaccine [...] at Not on file Legal Sex Female 9:16 AM ORGANIZATIONAL PSYCHOLOGIST Gender Identity Not on file Sexual Orientation Not on file 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 Industry Job 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 Job 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 Not on file Not on file Not on file Last Filed Vital Signs Vital Sign Reading Time Taken Comments Blood Pressure 118/72 09/04/2024 1:22 PM CDT Pulse 68 09/04/2024 1:22 PM CDT Temperature 36.3 C (97.3 F) 09/04/2024 1:22 PM CDT Respiratory Rate 16 04/02/2023 1:59 AM ORGANIZATIONAL PSYCHOLOGIST Oxygen Saturation 100% 04/02/2023 1:59 AM ORGANIZATIONAL PSYCHOLOGIST Inhaled Oxygen Concentration - - Weight 67.6 kg (149 lb) 09/04/2024 1:22 PM CDT Height 160 cm (5' 3) 09/04/2024 1:22 PM CDT Body Mass Index 26.39 09/04/2024 1:22 PM CDT Plan of Treatment Upcoming Encounters Date Type Department Care Team (Late st Contact Info) Description 01/24/2025 11:40 AM CDT Office Visit [facility] [address] [place] [address] Radha Zavala MD [address] [place] [phone] 03/26/2025 1:00 PM ORGANIZATIONAL PSYCHOLOGIST Office Visit [facility] - Rheumatology [address] [facility], [place] [address] Micheal Biggs MD [facility] [address] Health Maintenance Due Date Last [...] 09/01/2021 ZOSTER VACCINE (1 of 2) 09/05/2022 DEPRESSION SCREENING 04/11/2024 PAP SMEAR 09/05/2024 COVID-19 VACCINE (5 - 2024-2 6 season) 2024 02/18/2022, 01/22/2021, 07/02/2020, Additional history exists INFLUENZA VACCINE (#1) 2024 , 02/18/2022, 01/22/2021, Additional history exists DTAP/TDAP/TD VACCINES (7 - T d or Tdap) 01/06/2025 01/06/2015, 11/11/2008, 11/11/2008, Additional history exists HEPATITIS B VACCINE Completed 09/10/2004, 09/10/2004, 01/06/2004, Additional history exists HIB VACCINE Completed 09/10/2004, 05/2004, 01/06/2004, Additional history exists MENINGOCOCCAL GROUPS A/C/Y/W VACCINE Completed 01/22/2021, 01/06/2015 Insurance [facility] Care Teams Coffee Sommelier Relationship Specialty Start Date End Date Cuate Ramon MD [address] [place] [address] PCP - General 08/09/17 Ion De DO [address] [place] [address] Rheumatology 08/05/20 Radha Zavala MD [address] [facility] [address] [place] [address] Neurology 12/07/23
--- OUTSIDE RECORDS SUMMARY | 2025-01-02 08:00 | XMS_ITS | Encounter Summary ---
Author Organization [facility] Address [address] [facility] [place] [address] Care Team Providers Care Boring Machine Feeder Name Role Phone Cuate Ramon MD Primary Care Provider [phone] Ion De DO Unavailable [phone] Radha Zavala MD Unavailable [phone] Encounter Details Date Type Department Care Team (Late Contact Info) Description 05/28/2023 Telephone [facility] - Allergy [address] [place] [address] Karol Álvarez MD [address] [place] [address] Social History Tobacco Use Types Packs/Day Years Used Date Smoking Tobacco: Never Passive Smoke Exposure: Current Smokeless Tobacco: Never Alcohol Use Standard Drinks/Week Comments No 0 (1 standard drink = 0.6 oz pur e alcohol) Comments Unknown Sex and Gender Information Value Date Recorded Sex Assigned at Not on file Legal Sex Female 9:16 AM AIRCRAFT DESIGN ENGINEER Gender Identity Not on file Sexual Orientation Not on file documented as of this encounter Plan of Treatment Upcoming Encounters Date Type Department Care Team (Late st Contact Info) Description 01/24/2025 11:40 AM CDT Office Visit [facility] [address] [place], [place] [id number] Radha Zavala MD [facility] [place] [phone] 03/26/2025 1:00 PM AIRCRAFT DESIGN ENGINEER Office Visit [facility] - Rheumatology [address] [place] [address], [place] [phone] Micheal Biggs MD [address] [place] [address] [address] [place] [phone] documented as of this encounter Visit Diagnoses Not on filedocumented in this encounter Care Teams Boring Machine Feeder Relationship Specialty Start Date End Date Caute Ramon MD [address] [place] [address] PCP - General 08/09/17 Ion De DO [address] [place] [phone] Rheumatology 08/05/20 Radha Zavala MD [address] [place] [address] Neurology 12/07/23 documented as of this encounter
--- OUTSIDE RECORDS SUMMARY | 2025-01-02 08:00 | XMS_ITS | Encounter Summary ---
Author Organization [facility] Healthcare Address [address] [place] [address] Care Team Providers Care Running Rigger Name Role Phone Cuate Ramon MD Primary Care Provider [phone] Twan Lopez MD Unavailable [phone] Alisa Lai PT Unavailable Unavailable Maria Teresa Padron Unavailable Unavailable Encounter Details Date Type Department Care Team (Late st Contact Info) Description 01/27/2021 Telephone [facility] Transplant Heart [address] [facility] [phone] [place] [address] Michaela Haas Social History Tobacco Use Types Packs/Day Years Used Date Smoking Tobacco: Passive [place] Exposure - Never Smoker Smokeless Tobacco: Never Alcohol Use Standard Drinks/Week Comments Not Currently 0 (1 standard drink = 0.6 oz pur e alcohol) Comments No Sex and Gender Information Value Date Recorded Sex Assigned at Not on file Legal Sex Female 6:05 AM SUPERVISING FILM OR VIDEOTAPE EDITOR Gender Identity Female 04/05/2023 1:07 AM SUPERVISING FILM OR VIDEOTAPE EDITOR Sexual Orientation Straight 04/05/2023 1: 07 AM SUPERVISING FILM OR VIDEOTAPE EDITOR documented as of this encounter Plan of Treatment Not on file documented as of this encounter Goals Goal Patient Goal Type Associated Problems Recent Progress Patient-Stated? Author -Pain Behavioral Health Improving( 5:42 PM SUPERVISING FILM OR VIDEOTAPE EDITOR) No Margoth Porras, PhD Note: Increase functioning in daily activities BH-Pain Behavioral Health No change(06/18 5:42 PM SUPERVISING FILM OR VIDEOTAPE EDITOR) No Margoth Porras, PhD Note: Increase non-pharmacological strategies for coping with pain documented as of this encounter Visit Diagnoses Not on filedocumented in this encounter Care Teams Running Rigger Relationship Specialty Start Date End Date Cuate Ramon MD [address] [place] [address] PCP - General 10/22/16 Twan Lopez MD [address] [place] [address] Anesthesiologist Pediatric Anesthesia 10/20/17 Alisa Lai, PT Physical Therapist Physical Therapy 10/20/17 Maria Teresa Padron Physical Therapist Physical Therapy 11/24/17 documented as of this encounter
--- NOTE | 2025-01-02 08:04 | ED.ANXIETY ---
HPI - Anxiety General Chief Complaint: Anxiety Stated Complaint: anxiety Time Seen by Provider: 01/02/25 08:01 Source: patient Mode of arrival: ambulatory Limitations: no limitations History of Present Illness HPI narrative: Patient is a 19-year-old female with known anxiety and pseudoseizures from time to time here with that event prior to arrival. She has a stress in her mind about having a brain bleed and cervical spine neck issues. Her neck popped when she woke up this morning and then she had a flare of anxiety with warmth throughout the body. She has been having panic and anxiety since she arrived to the ER. Polypharmacy for age. MD complaint: anxiety, heart racing and shortness of breath Onset (ago): hour(s) (Two) Symptoms: dyspnea, chest pain, palpitations, extremity numbness/tingling, perioral numbness/tingling, dry mouth, sense of impending doom and muscle cramps Severity: moderate Quality: constant Place: home History of similar episodes: Yes Provoking factors: other (Anxiety about having a cervical spine and brain issue regularly on her mind to cause provoking stressor) Relieving factors: nothing Exacerbating factors: thinking about event Associated symptoms: chest pain, shortness of breath, palpitations, nausea/vomiting and weakness Related Data Home Medications ?Medication ?Instructions ?Recorded ?Confirmed ?Last Taken ?Type gabapentin 300 mg capsule 300 mg PO TID PRN Pain 05/15/19 01/20/24 04/24/21 History methocarbamol 500 mg tablet 500 mg PO DAILY 05/15/19 01/20/24 04/24/21 History montelukast 10 mg tablet 5 mg PO DAILY 05/15/19 01/20/24 04/23/21 History pantoprazole 20 mg tablet,delayed 20 mg PO DAILY 05/15/19 01/20/24 04/23/21 History release rizatriptan 10 mg tablet 10 mg PO DIRECTED PRN Migraine 05/15/19 01/20/24 1 Day Ago History Headache ~10/30/19 topiramate 25 mg tablet 50 mg PO BID 05/15/19 01/20/24 04/24/21 History acetaminophen 500 mg tablet 1,000 mg PO TID PRN Pain 12/12/19 01/20/24 Unknown History (Tylenol Extra Strength) albuterol sulfate 90 mcg/actuation 1 - 2 puff inhalation Q4-5H PRN 12/12/19 01/20/24 Unknown History aerosol inhaler (ProAir HFA) Wheezing cholecalciferol (vitamin D3) 25 25 mcg PO DAILY 12/12/19 01/20/24 04/20/21 History mcg (1,000 unit) capsule (Vitamin D3) hydrocodone 5 mg-acetaminophen 325 1 tablet PO Q4H PRN Pain 04/21/21 01/20/24 Unknown History mg tablet midodrine 5 mg tablet 5 mg TID 01/20/24 01/20/24 Unknown History propranolol 10 mg tablet 5 mg BID 01/20/24 01/20/24 Unknown History Allergies Allergy/AdvReac Type Severity Reaction Status Date / Time codeine AdvReac Mild Insomnia Verified 01/02/25 07:55 prochlorperazine AdvReac Mild dystonic Verified 01/02/25 07:55 reaction Review of Systems Review of Systems: All systems reviewed & are unremarkable except as noted in HPI and below Constitutional: Constitutional: Reports no additional constitutional complaints Eyes: Eyes: Reports no additional eye complaints ENT: Reports system reviewed and no additional complaints, except as documented Cardiovascular: Cardiovascular: Reports no additional cardiovascular complaints Respiratory: Respiratory: Reports no additional respiratory complaints Gastrointestinal: Gastrointestinal: Reports no additional gastrointestinal complaints Genitourinary: Genitourinary: Reports no additional female genitourinary complaints Musculoskeletal: Musculoskeletal: Reports no additional musculoskeletal complaints Integumentary/Breasts: Skin/Breast: Reports system reviewed and no additional complaints, except as docu Neurologic: Reports system reviewed and no additional complaints, except as documented Psychiatric: Psychiatric: Reports no additional psychiatric complaints Endocrine: Endocrine: Reports no additional endocrine complaints Hematologic/Lymphatic: Hematologic/Lymphatic: Reports no additional hematologic/lymphatic complaints Allergic/Immunologic: Allergic/Immunologic: Reports no additional allergic/immunologic complaints PMFSH Past Medical History Medical History PONV (postoperative nausea and vomiting) Ovarian cyst GERD (gastroesophageal reflux disease) Asthma Connective 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 POTS (postural orthostatic tachycardia syndrome) Surgical History Surgical History No pertinent past surgical history Social History Social History Smoking status: Never smoker Alcohol intake: never Substance use: never Substance use type: does not use Living arrangements: with family Spiritual care concerns: No Exam Const: General: healthy appearing Nutritional Appearance: well nourished Orientation/consciousness: patient oriented x3 Limitations: other limitations (Anxious) HENMT: Head: normal to inspection Ears: external ears normal Face/Nose/Sinus: Normal external nose present Eyes: Conjunctivae: conjunctivae normal Pupils: Equal, round and reactive pupils present EOM: EOMs intact bilaterally Neck: Neck: normal visual inspection Chest: Chest palpation & inspection: normal inspection of the chest Resp: Effort & Inspection: normal respiratory effort and not labored Auscultation: clear to auscultation bilaterally and no crackles Cardio: Rate: regular rate Rhythm: regular rhythm Heart sounds: no murmurs Neuro: General: patient oriented x3, moves all extremities, no meningeal signs, no focal motor deficits and CN's II-XI intact bilaterally Other: NIH is 0 and GCS is 15 Extrem: General: normal to inspection, no clubbing, cyanosis or edema and no pedal edema Psych: Mental Status: mental status grossly normal Affect: Anxious affect present Attitude: cooperative Course Vital Signs Vital signs: Vital Signs Temperature 36.6 C 01/02/25 07:54 Pulse Rate 87 01/02/25 07:54 Respiratory Rate 16 01/02/25 07:54 Blood Pressure 141/89 H 01/02/25 07:54 Pulse Oximetry 99 01/02/25 07:54 Oxygen Delivery Room Air 01/02/25 07:54 Temperature 36.6 C 01/02/25 07:54 Pulse Rate 87 01/02/25 07:54 Respiratory Rate 16 01/02/25 07:54 Blood Pressure 141/89 H 01/02/25 07:54 Pulse Oximetry 99 01/02/25 07:54 Oxygen Delivery Room Air 01/02/25 07:54 MDM - Anxiety MDM Narrative Medical decision making narrative: Patient is a 19-year-old female with anxiety and panic today. We will get a CT scan of the head and neck for reassurance and help her ease the anxiety. Urine preg for CT scan. We will send some Xanax to the pharmacy. Pseudo-seizure are resolved at this time. Vital signs are stable and no tachycardia appreciated. Patient doing better and much more jovial attitude by end of visit. We will give Xanax as needed at pharmacy. Reassurance about CT head and neck were both negative for acute process and there is a cervical strain which is chronic for her and likely the cause of her recurrent pain. Lab Data Attestation: I reviewed the patient's lab results. Labs: Lab Results 01/02/25 Range/Units 08:27 Urine Test Negative Imaging Data Attestation: I personally reviewed and interpreted this imaging study as follows: Radiologist's impression: CT scan of the cervical spine shows IMPRESSION: 1. Unchanged mild reversal of the normal cervical lordosis which could be positional or due to muscle spasm. Otherwise unremarkable cervical spine CT. CT scan of the head is negative for acute process Discharge Plan Discharge Clinical Impression: Acute cervical myofascial strain, Panic disorder Patient Disposition: Home Condition: Improved Instructions: Cervical Strain (DC), Panic Disorder (ED) Patient Language: Burmese Prescriptions: New alprazolam 0.25 mg tablet 0.25 mg PO BID PRN (Reason: anxiety) Qty: 10 0RF Rx Instructions: 1-2 tabs per dose No Action acetaminophen [Tylenol Extra Strength] 500 mg Tablet 1,000 mg PO TID PRN (Reason: Pain) albuterol sulfate [ProAir HFA] 90 mcg/actuation HFA aerosol inhaler 1 - 2 puff INHALATION Q4-5H PRN (Reason: Wheezing) cholecalciferol (vitamin D3) [Vitamin D3] 25 mcg (1,000 unit) Capsule 25 mcg PO DAILY prednisone 20 mg tablet 20 mg PO DAILY 5 Days Qty: 5 0RF midodrine 5 mg tablet 5 mg TID propranolol 10 mg tablet 5 mg BID ondansetron 4 mg tablet,disintegrating 4 mg PO Q6H PRN (Reason: nausea and vomiting) Qty: 20 0RF oseltamivir [Tamiflu] 75 mg capsule 75 mg PO BID 5 Days Qty: 10 0RF ondansetron 4 mg tablet,disintegrating 4 mg PO Q8H PRN (Reason: nausea and vomiting) Qty: 20 0RF methocarbamol 500 mg tablet 500 mg PO DAILY topiramate 25 mg tablet 50 mg PO BID pantoprazole 20 mg tablet,delayed release (DR/EC) 20 mg PO DAILY gabapentin 300 mg capsule 300 mg PO TID PRN (Reason: Pain) montelukast 10 mg tablet 5 mg PO DAILY rizatriptan 10 mg tablet 10 mg PO DIRECTED PRN (Reason: Migraine Headache) hydrocodone-acetaminophen 5-325 mg tablet 1 tablet PO Q4H PRN (Reason: Pain) hydrocodone-acetaminophen 5-325 mg tablet 1 tablet PO Q4H PRN (Reason: pain) Qty: 30 0RF Follow-up/Referrals: UNKNOWN,DOCTOR [Non-Staff] Time of Disposition: 09:33
--- OUTSIDE RECORDS SUMMARY | 2025-01-02 08:31 | XMS_ITS | Clinical Summary ---
Author Organization [facility] Address [address] [place] [address] Phone Care Team Providers Care Plant Mechanic Name Role Phone Cuate Ramon MD Primary Care Provider [phone] Allergies Active Allergy Reactions Criticality Noted Date [...] VACCINE (#1) 2024 04/12/2018 Insurance OPTIONS PPO [id number] OPTIONS PPO [id number] Care Teams Plant Mechanic Relationship Specialty Start Date End Date Cuate Ramon MD [address] [facility] [address] [place] [address] PCP - General Pediatrics 08/03/18
--- OUTSIDE RECORDS SUMMARY | 2025-01-02 08:31 | XMS_ITS | Encounter Summary ---
Author Organization [facility] Address [address] [place] [address] Care Team Providers Care Thermit Welding Machine Operator Name Role Phone Cuate Ramon MD Primary Care Provider [phone] Ion De DO Unavailable [phone] Radha Zavala MD Unavailable [phone] Encounter Details Date Type Department Care Team (Late Contact Info) Description 05/28/2023 Telephone [facility] - Allergy [address] [place] [address] Karol Álvarez MD [address] [place] [address] Social History Tobacco Use Types Packs/Day Years Used Date Smoking Tobacco: Never Passive Smoke Exposure: Current Smokeless Tobacco: Never Alcohol Use Standard Drinks/Week Comments No 0 (1 standard drink = 0.6 oz pur e alcohol) Comments Unknown Sex and Gender Information Value Date Recorded Sex Assigned at Not on file Legal Sex Female 9:16 AM 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 PROCESSING AUDITOR Gender Identity Not on file Sexual Orientation Not on file documented as of this encounter Plan of Treatment Upcoming Encounters Date Type Department Care Team (Late st Contact Info) Description 01/24/2025 11:40 AM CDT Office Visit [facility] Neurosciences [address] [place], [place] [id number] Radha Zavala MD [facility] [place] [phone] 03/26/2025 1:00 PM DATA PROCESSING AUDITOR Office Visit [facility] - Rheumatology [address] [place] [address], [place] [phone] Micheal Biggs MD [address] [place] [address] [address] [place] [phone] documented as of this encounter Visit Diagnoses Not on filedocumented in this encounter Care Teams Thermit Welding Machine Operator Relationship Specialty Start Date End Date Cuate Ramon MD [address] [place] [address] PCP - General 08/09/17 Ion De DO [address] [place] [phone] Rheumatology 08/05/20 Radha Zavala MD [address] [place] [address] Neurology 12/07/23 documented as of this encounter
--- OUTSIDE RECORDS SUMMARY | 2025-01-02 08:31 | XMS_ITS | Clinical Summary ---
Author Organization [facility] Address [address] [facility] [place] [address] Care Team Providers Care Emergency Services Professional Name Role Phone Cuate Ramon MD Primary Care Provider [phone] Ion De DO Unavailable [phone] Radha Zavala MD Unavailable [phone] Source Comments [facility],non-owned Affiliates and Associated Physician Practices is amultiple site organization consisting of ambulatory clinics and hospital sitesin [place], [place], [place] and [place]. This disclosure is being madepursuant to the Care Everywhere program and may not contain all information available regarding this patient. Last updated 17.[facility] Allergies Active Allergy Reactions Criticality Noted [...] fluticasone propionate (Flonase) 50 MCG/ACT nasal spray [place] 1 (one) spray into the nose 2 [...] 10/18/2018 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 Abnormal PFT 10/18/2018 longterm current use of non -steroidal anti-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 (NSAID) [...] on file Legal Sex Female 9:16 AM BESSEMER CONVERTER BLOWER Gender Identity Not on file Sexual Orientation [...] CDT Respiratory Rate 16 04/02/2023 1:59 AM BESSEMER CONVERTER BLOWER Oxygen Saturation 100% 04/02/2023 1:59 AM BESSEMER CONVERTER BLOWER Inhaled Oxygen Concentration - - Weight 67.6 kg (149 lb) 09/04/2024 1:22 PM CDT Height 160 cm (5' 3) 09/04/2024 1:22 PM CDT Body Mass Index 26.39 09/04/2024 1:22 PM CDT Plan of Treatment Upcoming Encounters Date Type Department Care Team (Late st Contact Info) Description 01/24/2025 11:40 AM CDT Office Visit [facility] Neurosciences [address] [place] [address] Radha Zavala MD [address] [place] [phone] 03/26/2025 1:00 PM BESSEMER CONVERTER BLOWER Office Visit [facility] - Rheumatology [address] [facility], [place] [address] Micheal Biggs MD [facility] [place] [address] Health Maintenance Due Date Last [...] GROUPS A/C/Y/W VACCINE Completed 01/22/2021, 01/06/2015 Insurance [facility] Care Teams Emergency Services Professional Relationship Specialty Start Date End Date Cuate Ramon MD [address] [place] [address] PCP - General 08/09/17 Ion De DO [address] [place] [address] Rheumatology 08/05/20 Radha Zavala MD [address] [facility] [address] [place] [address] Neurology 12/07/23
--- OUTSIDE RECORDS SUMMARY | 2025-01-02 08:32 | XMS_ITS | Encounter Summary ---
Author Organization [facility] Address [address] [place] [address] Care Team Providers Care Instructor Modeling Name Role Phone Cuate Ramon MD Primary Care Provider [phone] Twan Lopez MD Unavailable [phone] Alisa Lai PT Unavailable Unavailable Maria Teresa Padron Unavailable Unavailable Encounter Details Date Type Department Care Team (Late st Contact Info) Description 01/27/2021 Telephone [facility] Transplant Heart [address] [facility] [phone] [place] [address] Michaela Haas Social History Tobacco Use Types Packs/Day Years Used Date Smoking Tobacco: Passive Smo ke Exposure - Never Smoker Smokeless Tobacco: Never Alcohol Use Standard Drinks/Week Comments Not Currently 0 (1 standard drink = 0.6 oz pur e alcohol) Comments No Sex and Gender Information Value Date Recorded Sex Assigned at Not on file Legal Sex Female 6:05 AM RUBBER DOWN Gender Identity Female 04/05/2023 1:07 AM RUBBER DOWN Sexual Orientation Straight 04/05/2023 1: 07 AM RUBBER DOWN documented as of this encounter Plan of Treatment Not on file documented as of this encounter Goals Goal Patient Goal Type Associated Problems Recent Progress Patient-Stated? Author -Pain Behavioral Health Improving( 5:42 PM RUBBER DOWN) No Margoth Porras, PhD Note: Increase functioning in daily activities BH-Pain Behavioral Health No change(06/18 5:42 PM RUBBER DOWN) No Margoth Porras, PhD Note: Increase non-pharmacological strategies for coping with pain documented as of this encounter Visit Diagnoses Not on filedocumented in this encounter Care Teams Instructor Modeling Relationship Specialty Start Date End Date Cuate Ramon MD [address] [facility] [place] [address] PCP - General 10/22/16 Twan Lopez MD [address] [facility] [place] [address] Anesthesiologist Pediatric Anesthesia 10/20/17 Alisa Lai, PT Physical Therapist Physical Therapy 10/20/17 Maria Teresa Padron Physical Therapist Physical Therapy 11/24/17 documented as of this encounter
--- OUTSIDE RECORDS SUMMARY | 2025-01-02 08:32 | XMS_ITS | Clinical Summary ---
Author Organization [facility] Address [address] [place] [address] Care Team Providers Care Special Procedures Nurse Name Role Phone Cuate Ramon MD Primary Care Provider [phone] Twan Lopez MD Unavailable [phone] Alisa Lai PT Unavailable Unavailable Maria Teresa [...] 19 Assessment & Plan (05/08/2021 2:38 PM TRAVELING NURSE): - Continue home Montelukast 10mg QHS albuterol 4 puff q4h PRN Assessment & Plan (05/07/2021 4:58 PM TRAVELING NURSE): - Continue home Montelukast 10mg QHS albuterol 4 puff q4h PRN Concussion without loss of consciousness 020 Vocal cord dysfunction 01/22/2019 Non-allergic rhinitis 01/15/2019 Tremor 12/28/2018 High risk medication use 10/18/2018 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 Pt seen at [facility] ED on Tuesday and was [...] 05/24/2018 Assessment & Plan (05/08/2021 2:38 PM TRAVELING NURSE): - Continue home sertaline 75 mg Assessment & Plan (05/07/2021 4:56 PM TRAVELING NURSE): - Continue home sertaline 75 mg Assessment [...] 05/05/2018 Assessment & Plan (05/05/2018 5:09 PM TRAVELING NURSE): Benztropine was given. Dilated pupils which do [...] 08/11/2017 Assessment & Plan (05/08/2021 2:39 PM TRAVELING NURSE): Usama Encinas is a 15 y.o. female [...] precautions Assessment & Plan (05/07/2021 4:59 PM TRAVELING NURSE): Usama Encinas is a 15 y.o. female [...] PM CDT): Stable vision; updated Rx for timekeeper supervisor wear. Patient may continue with current Rx. [...] 16 Assessment & Plan (05/08/2021 2:38 PM TRAVELING NURSE): - Continue home uloxetine 30mg every day Methocarbamol 500mg q8h PRN Assessment & Plan (05/07/2021 4:57 PM TRAVELING NURSE): - Continue home uloxetine 30mg every day Methocarbamol 500mg q8h PRN Assessment & Plan (06/22/2018 1:34 AM CDT): - continue home meds/supplements -gabapentin, plaquenil, vitamin D Viral infection 03/15/2017 Dizziness 02/15/2017 Vertigo 02/15/2017 Mononucleosis syndrome 02/15/2017 Fatigue 10/18/2016 Otitis externa 09/30/2016 Migraine headache 06/18/2015 Otitis media 01/01/2015 Constipation 11/28/2014 IgA deficiency, 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 Assessment & Plan (05/08/2021 2:38 PM TRAVELING NURSE): Continue home Cefdinir 300mg every day Assessment & Plan (05/07/2021 4:56 PM TRAVELING NURSE): Continue home Cefdinir 300mg every day Assessment & Plan (01/02/2019 2:50 PM CDT): 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 No Breezy-Teresa Ring or sunflower cataract on ocular examination today. Vision is stable, 20/20 right eye (OD), left eye (OS). No change in prescription on dilated exam - continue with current glasses timekeeper supervisor. OCT revealed some thinning of inferior (right [...] Date Abnormal PFT 10/18/2018 05/22/2019 IgA deficiency ([facility]) 10/18/2018 Disorder of connective tissue ([facility]) 08/11/2017 12/22/2020 Moderate persistent asthma w ithout complication 01/01/2015 05/22/2019 Chronic rhinitis 01/01/2015 05/22/2019 Encounters Date Type Department Care Team Description 12/25/2024 10:40 AM CDT [facility] Medicine Pediatric Neurology [address] [facility] [address] [place] [phone] Shani Michelle, YANA Migraine without aura and without status migrainosus, not intractable (Primary Dx); Anxiety disorder, unspecified type; Counseling for transition from pediatric to adult care provider; Amplified musculoskeletal pain; Autoimmune thyroiditis 10/09/2024 Telephone [facility] Pediatric Neurology [facility] 2nd [place] [address] [place] [address] Shani Michelle NP Prior Auth [...] on file Legal Sex Female 6:05 AM TRAVELING NURSE Gender Identity Female 04/05/2023 1:07 AM TRAVELING NURSE Sexual Orientation Straight 04/05/2023 1: 07 AM TRAVELING NURSE Obstetrics History Last Filed Vital Signs Vital [...] Author -Pain Behavioral Health Improving( 5:42 PM TRAVELING NURSE) No Margoth Porras, PhD Note: Increase functioning in daily activities [facility] No change(06/18 5:42 PM TRAVELING NURSE) No Margoth Porras, PhD Note: Increase non-pharmacological strategies for coping with pain Insurance [facility]PPO Address: [place] [address] [facility] [employer] Address: [address] [place] [address] [facility] [employer] [facility] [employer]PPO Address: [address] [place], [place] [id number] [facility] [employer] [facility]: [place] [address] [id number] [place] [address] CHOICE [employer]US [facility] H[facility]/PPO Address: [address] [place], [place] [id number] [place] [address] Advance Directives For more information, please contact: [phone] * Full Code (Latest Code Status on [...] 8:22 PM 02/04/2023 7:39 PM Care Teams Special Procedures Nurse Relationship Specialty Start Date End Date Cuate Ramon MD [address] [place] [address] PCP - General 10/22/16 Twan Lopez MD [address] [place] [address] Anesthesiologist Pediatric Anesthesia 10/20/17 Alisa Lai, PT Physical Therapist Physical Therapy 10/20/17 Maria Teresa Padron Physical Therapist Physical Therapy 11/24/17
[2025-01-02 08:36] LABS: Pregnancy On Board Control Positive
[2025-01-02 09:40] VITALS: BP 145/74; PULSE 76; RESP 16; TEMP 36.5; O2SAT 97
== END 2025-01-02 09:43 | disposition home or self-care (01) ==
PROVIDERS: Emergency Provider Emergency Medicine; PCP Pediatrics
DX: S16.1XXA Strain of muscle, fascia and tendon at neck level, initial encounter (principal); F41.0 Panic disorder [episodic paroxysmal anxiety]; X58.XXXA Exposure to other specified factors, initial encounter
CPT/HCPCS: 70450; 72125; 81025; 99284